=== PATIENT | male | born 1960 | race Caucasian/White ===

== ENCOUNTER 2023-12-23 11:23 | Emergency (ER) | payer BC, SELFPAY ==
[2023-12-23 11:26] VITALS: BP 172/98; PULSE 107; TEMP 37.1; O2SAT 96; BMI 21.7
[2023-12-23 11:32] VITALS: BP 184/91
--- NOTE | 2023-12-23 11:38 | RAD_ITS ---
INDICATION: Trauma EXAMINATION/TECHNIQUE: X-RAY - LEFT XR Knee Complete 4 Views or More 4 VIEWS COMPARISON: No relevant prior comparison study available FINDINGS: SOFT TISSUES: No soft tissue swelling or gas. No radiopaque foreign body. BONES/JOINTS: Hairline nondisplaced fracture of the proximal tibia extending to the tibial spine. Normal alignment. Mild narrowing of the medial joint compartment. Moderate effusion in the suprapatellar joint space. No sclerotic or destructive changes observed. RAD/Knee 4 or More Views IMPRESSION: 1. Nondisplaced intra-articular fracture of the proximal tibia. 2. Moderate effusion in the suprapatellar joint space. Electronically Signed: Chema Stanford MD at 12:52 EST ,
--- NOTE | 2023-12-23 11:38 | RAD_ITS ---
INDICATION: trauma EXAMINATION/TECHNIQUE: X-RAY - RIGHT XR Foot Min 3 Views 3 VIEWS COMPARISON: No relevant prior comparison study available FINDINGS: SOFT TISSUES: No soft tissue swelling or gas. No radiopaque foreign body. BONES/JOINTS: No acute fracture or subluxation.. Normal alignment. Preservation of the joint space.. No sclerotic or destructive changes observed. Small posterior and plantar calcaneal spurs. RAD/Foot min 3 Views IMPRESSION: No evidence of acute fracture. Electronically Signed: Chema Stanford MD at 12:50 EST ,
--- NOTE | 2023-12-23 11:41 | ED.VIS.LOWEX ---
HPI History of Present Illness Chief Complaint: Lower Extremity Injury Narrative Narrative: 63-year-old male who denies significant past medical history presents via EMS with injury to his left knee, and his right second toe. He states that yesterday, at around 2:00 in the afternoon, he was getting ready to go to his laundry when he was walking up 2 stairs. His right second toe caught on the stair and he fell forward onto his left knee. He complains of bruising of his second toe. He was able to hobble around but now has pain with weightbearing on his left knee to the point where he is unable to ambulate. He denies hitting his head or loss of consciousness, no neck pain or other injury. He has been taking ibuprofen without relief. Today when he woke up, he was unable to bear weight at all so he called EMS. PFSH PFSH Home Medications hydrocodone-acetaminophen 5-325mg 5mg-325mg 1 tab PO Q6H PRN PRN Pain 3 days #12 TABLETS 12/23/23 [Rx Last Taken Unknown] Allergy/AdvReac Type Severity Reaction Status Date / Time No Known Allergies Allergy Verified 12/23/23 11:33 Social History Smoking Status: Current every day smoker tobacco type: cigarettes ROS ROS ED ROS Narrative Constitutional: No fever, no chills. HEENT: No sore throat. No neck pain. No loss of vision. No rhinorrhea. Cardiovascular: No chest pain. No palpitations. No pedal edema. Respiratory: No cough, no shortness of breath. Abdominal: No abdominal pain. No nausea. No vomiting. Genitourinary: No dysuria. No hematuria. Musculoskeletal: Right second toe pain, bruising and swelling, left knee pain with mild swelling, below kneecap. Worse with weightbearing. Neurologic: No headaches. No dizziness. No lightheadedness. Skin: No rash. No change in color. Psychiatric: No depression. No anxiety. EXAM Physical Exam Narrative Exam Narrative: Afebrile. Vital signs noted. HEENT: Normocephalic. Atraumatic. PERRL, EOMI. Neck soft and supple. No point tenderness or step off. Cardiovascular: Regular rate and rhythm. No murmurs, rubs, or gallops appreciated. Respiratory: No tachypnea. Lungs clear to auscultation bilaterally. Gastrointestinal: Abdomen soft, nontender, with normoactive bowel sounds. No rebound or guarding. Neurological: Awake. Alert. Nonfocal, nonlateralizing. Skin: No rash. Normal color. No pallor. Musculoskeletal: No pedal edema. Extension and flexion of left knee intact. Able to raise leg off bed. Palpable dorsalis pedis pulses bilaterally. Positive ecchymosis and tenderness of right second toe. Pelvis stable. Const Vital Signs: 12/23/23 11:26 12/23/23 11:32 12/23/23 13:45 Temperature 98.8 F Temperature Source Oral Pulse Rate 107 H 86 Respiratory Rate 20 H Blood Pressure 172/98 H 184/91 H 157/99 H Blood Pressure Mean 122 122 118 Pulse Ox 96 95 Oxygen Delivery Method Room Air Room Air MDM MDM MDM Narrative Medical decision making narrative: In the differential diagnosis for the left knee is tibial plateau fracture versus knee sprain versus internal derangement including meniscal tear of cartilage. For his right second toe, differential includes contusion versus fracture. He was given 1 [place] tablet here for analgesia and x-rays were obtained of the left knee and 4 views and of the right foot and 3 views. On my interpretation of his right foot x-ray, I see no evidence of an acute fracture. I reviewed the radiology report which confirms my independent interpretation. X-rays of the left knee were obtained and there is a subtle fracture noted more distally and posteriorly that is nondisplaced on my interpretation. I reviewed the radiology report which comments on an intra-articular tibial fracture. I discussed patient with Dr. Doyle with orthopedics would like a CT performed of the left knee. I reviewed the radiology report of the CT which shows a nondisplaced hairline fracture of the posterior tibia extending cephalad to the tibial spine. I read discussed patient with orthopedics, and although radiology comments on needing radiographs of the tibia and fibula, the patient is not having pain in that area, and orthopedics stated that old tibia x-ray is not indicated. He would like him placed in a knee immobilizer and made nonweightbearing. He was also given a pair of crutches. I stressed the importance of nonweightbearing on his left lower extremity. He was given a prescription for 12 [place]wood tablets, told to continue ice and elevation of his left leg and to follow-up with orthopedics within the next week. He is to call the office tomorrow for an appointment. At this point in time, I feel he can be discharged to follow-up. Return instructions to the emergency department were reviewed. Disposition is discharged home in stable condition. Radiography Diagnostic Testing: Clinical Impression(s) from Imaging Studies Foot X-Ray 12/23/23 11:38 IMPRESSION: No evidence of acute fracture. Electronically Signed: Chema Stanford MD at 12:50 EST , Knee X-Ray 12/23/23 11:38 IMPRESSION: 1. Nondisplaced intra-articular fracture of the proximal tibia. 2. Moderate effusion in the suprapatellar joint space. Electronically Signed: Chema Stanford MD at 12:52 EST Reading Location ID and State: [facility] / [place] Tel , Service support , Lower Extremity CT 12/23/23 13:11 IMPRESSION: 1. Hairline nondisplaced fracture of the posterior proximal tibial shaft extending cephalad to the region of the tibial spine. 2. Moderate effusion in the suprapatellar joint space. 3. Radiographs of the left tibia and fibula are recommended for further evaluation of the tibial shaft. Electronically Signed: Chema Stanford MD at 14:06 EST , Management Discussion w/another healthcare provider: [employer] (Dr. Doyle, Orthopaedics) Discharge Plan Triage Chief Complaint: Lower Extremity Injury ED Provider: Mikey Beckwith Dx/Rx/DC Orders Clinical Impression: Closed tibia fracture, Sprain of toe, second, right Instructions: ED Leg Fracture, ED Toe Sprain Prescriptions: New hydrocodone-acetaminophen 5-325 mg tablet 1 tab PO Q6H PRN PRN (Reason: Pain) 3 Days Qty: 12 0RF Primary Care Provider: Care Physician,No Primary Referrals: Eric Doyle MD [Med Staff - Active Staff] - 3-5 Days Care Physician,No Primary [Primary Care Provider] - Activity Restrictions/Additional Instructions: Do not bear weight on your left leg. Follow-up with Dr. Doyle within the next week. Call tomorrow for an appointment. Continue ice and elevation of your left lower leg/knee. Wear your knee immobilizer. Disposition Disposition: Home, Self Care
[2023-12-23] MEDS: HYDROcodone Bitartrate/Apap 5/325 Tablet PO (12:07)
--- NOTE | 2023-12-23 13:11 | CT_ITS ---
EXAM: CT LEFT LOWER EXTREMITY WITHOUT INTRAVENOUS CONTRAST, KNEE CLINICAL INDICATION: Fracture TECHNIQUE: Helically acquired images were obtained of the left knee without intravenous contrast. This CT exam was performed using one or more of the following dose reduction techniques: automated exposure control, adjustment of the mA and/or kV according to patient size, and/or use of iterative reconstruction technique. RADIATION DOSE: CTDIvol = 15.35 mGy, DLP = 488.08 mGy-cm COMPARISON: Radiographs of the heel of the same day. FINDINGS: BONES/JOINTS: Hairline nondisplaced fracture of the posterior proximal tibial shaft extending cephalad to the region of the tibial spine. Questionable irregularity of the proximal tibial shaft slightly more inferiorly. The remainder of the osseous structures are intact. Mild narrowing of the medial joint compartment. Moderate effusion in the suprapatellar joint space. No sclerotic or destructive changes. SOFT TISSUES: Vascular calcifications. CT/Extremity Lower without Contra IMPRESSION: 1. Hairline nondisplaced fracture of the posterior proximal tibial shaft extending cephalad to the region of the tibial spine. 2. Moderate effusion in the suprapatellar joint space. 3. Radiographs of the left tibia and fibula are recommended for further evaluation of the tibial shaft. Electronically Signed: Chema Stanford MD at 14:06 EST ,
[2023-12-23 13:45] VITALS: BP 157/99; PULSE 86; RESP 20; O2SAT 95
[2023-12-23 14:59] VITALS: BP 162/81; PULSE 93; RESP 22; TEMP 36.8; O2SAT 95
== END 2023-12-23 15:00 | disposition home or self-care (01) ==
PROVIDERS: Emergency Provider Emergency Medicine; Visit Provider Emergency Medicine
DX: S82.115A Nondisplaced fracture of left tibial spine, initial encounter for closed fracture (principal); F17.210 Nicotine dependence, cigarettes, uncomplicated; W10.9XXA Fall (on) (from) unspecified stairs and steps, initial encounter; S93.504A Unspecified sprain of right lesser toe(s), initial encounter
CPT/HCPCS: 73564; 73630; 73700; 99284

== ENCOUNTER → 2024-12-09 | Outpatient (CLI) | payer BC, SELFPAY ==
--- NOTE | 2024-12-09 16:35 | RAD_ITS ---
PROCEDURE: CHEST PA AND LATERAL REASON FOR EXAM: Rule out pneumonia. TECHNIQUE: Frontal and lateral views of the chest. COMPARISON: None. RAD/Chest PA and Lateral IMPRESSION: A large right upper lobe infiltrate is seen, with smaller right lower lobe infi ltrate also noted this is highly concerning for the presence of PNEUMONITIS. No evidence of pulmonary edema. No pleural effusion or pneumothorax is noted. Cardiomediastinal silhouette is within the normal range. Reading Location: [id number]
== END | disposition home or self-care (01) ==
LOC: RAD 16:32
PROVIDERS: Referring Provider Nurse Practitioner Family; Visit Provider Nurse Practitioner Family
DX: J18.9 Pneumonia, unspecified organism (principal)
CPT/HCPCS: 71046

== ENCOUNTER 2024-12-13 17:37 | Inpatient (IN) | payer BC, SELFPAY ==
[2024-12-13] VITALS (9 sets, daily range): BP systolic 106–144; BP diastolic 52–101; PULSE 54–153; RESP 15–38; TEMP 36.1–36.8; O2SAT 93–98; BMI 21.1
--- NOTE | 2024-12-13 17:55 | RAD_ITS ---
PROCEDURE: CHEST PA AND LATERAL REASON FOR EXAM: Shortness of breath TECHNIQUE: Frontal and lateral views of the chest. COMPARISON: 12/09/2024 FINDINGS: Persistent large right lung airspace disease, greatest in the right upper and right middle lobes, without significant improvement since the previous exam. No pleural effusion or pneumothorax. The cardiomediastinal silhouette is unremarkable. Atherosclerotic calcifications are noted in the thoracic aorta. No acute osseous or soft tissue abnormality. RAD/Chest PA and Lateral IMPRESSION: Persistent large airspace opacity in the right lung, likely due to pneumonia. [facility]
--- NOTE | 2024-12-13 18:47 | EDS_ITS ---
HPI History of Present Illness Chief Complaint: Shortness of Breath Informant: patient Onset/Context/Timing Onset: Days Context: gradual Timing: Continuous Quality: Positive for Dyspnea on exertion Worsened by: Exertion Relieved by: Albuterol Associated Symptoms cough; Negative for ear pain, fever, sore throat, chills, clear sputum, white sputum, yellow sputum or green sputum Chest Pain: Positive for None Narrative Narrative: Patient presents with shortness of breath that has been getting worse over the past week. Patient states he went to an urgent care and was diagnosed with pneumonia. Patient states he has not had any improvement with his breathing since that time. Patient admits to a cough but denies any sputum production. Patient denies any fevers or chills. Patient denies any chest pain. Patient denies any upper respiratory symptoms. Patient denies any ear pain but states he has trouble hearing. PFSH PFSH Medical History no medical history no medical history Home Medications ?Medication ?Instructions ?Recorded ?Last Taken ?Type NK 02/06/24 Unknown History Allergy/AdvReac Type Severity Reaction Status Date / Time No Known Allergies Allergy Verified 01/09/24 14:51 Surgical History no surgical history no surgical history Social History Smoking Status: Current every day smoker tobacco type: cigarettes ROS ROS ED Constitutional Constitutional ED: Denies chills or fever(s) Eyes Eyes: Reports blurry vision; Denies diplopia ENT ENT ED: Denies rhinorrhea or sore throat Cardiovascular Cardiovascular: Denies chest pain or palpitations Respiratory/Chest Respiratory/Chest: Reports cough and dyspnea Gastrointestinal Gastrointestinal: Denies nausea or vomiting Genitourinary Genitourinary ED: Denies dysuria or hematuria Musculoskeletal Musculoskeletal: Denies back pain or neck pain Integumentary Denies abscess or rash Neurologic Neurologic: Denies headache(s) or weakness Allergic/Immunologic Allergic/Immunologic ED: Denies mouth swelling or urticaria EXAM Physical Exam Const Vital Signs: 12/13/24 17:39 12/13/24 17:41 12/13/24 19:17 Temperature 98.1 F 98.1 F 97.3 F L Temperature Source Temporal Temporal Temporal Pulse Rate 77 71 130 H Respiratory Rate 15 16 21 H Respiratory Effort Respiratory Depth Respiratory Pattern Blood Pressure 106/83 H 106/83 H 131/101 H Blood Pressure Mean 90 90 111 Pulse Ox 95 94 98 Oxygen Delivery Method Room Air Room Air Room Air 12/13/24 19:17 12/13/24 19:27 12/13/24 20:11 Temperature 97.2 F L Temperature Source Temporal Pulse Rate 110 H 153 H Respiratory Rate 17 38 H Respiratory Effort Labored Respiratory Depth Shallow Respiratory Pattern Tachypnea Normal Blood Pressure 114/52 L Blood Pressure Mean 72 Pulse Ox 94 Oxygen Delivery Method Room Air Room Air 12/13/24 21:03 Temperature 97.2 F L Temperature Source Temporal Pulse Rate 90 Respiratory Rate 31 H Respiratory Effort Respiratory Depth Respiratory Pattern Blood Pressure 125/77 H Blood Pressure Mean 93 Pulse Ox 94 Oxygen Delivery Method Room Air Positive well nourished and well developed General Appearance ED: well developed and NAD HEENT Reports moist mucous membranes Neck supple and no JVD Resp normal respiratory effort Auscultation: rhonchi throughout Cardio regular rate and regular rhythm GI non-tender and non-distended Palpation: soft Extremity General Extremety ED: Negative for edema General Extremity: Negative for edema Neuro oriented x3, CN's II-XII intact bilaterally and no sensory deficits noted [place] Coma Scale: document GCS findings Spontaneous Obeys Commands Oriented 15 Sensorium / Orientation: alert Motor Exam: strength 5/5 throughout Psych mental status grossly normal MDM MDM MDM Narrative Medical decision making narrative: Differential diagnosis includes pneumonia, bronchitis, viral illness, e lectrolyte abnormality, and sepsis. CBC will be obtained to assess for leukocytosis and anemia. Basic metabolic profile will be obtained to assess for electrolyte abnormality and renal function. Serum lactate will be obtained to assess for sepsis. Blood cultures will be obtained to assess for sepsis. Chest x-ray will be obtained to assess for pneumonia and bronchitis. COVID-19, influenza, and RSV PCR will be obtained to assess for viral illness. Lab Data Attestation: I reviewed the patient's lab results. Lab results narrative: CBC was reviewed. There is a leukocytosis of 16-44. The remainder was within normal limits. Basic metabolic profile was reviewed. Potassium is slightly low at 3.2. BUN was elevated at 60. Glucose was mildly elevated at 184. Serum lactate was reviewed and was normal at 1.9. Labs: Laboratory Results - last 24 hr 12/13/24 19:12 WBC 16.4 H RBC 4.27 L Hgb 13.5 Hct 39.9 L MCV 93.4 MCH 31.6 MCHC 33.8 RDW Std Deviation 49.1 H RDW Coeff of Sarah 14.5 Plt Count 333 MPV 11.4 Neut % (Auto) Not Reportable Absolute Neuts (auto) 14.4 H Absolute Lymphs (auto) 1.96 Total Counted 100 Neutrophils % (Manual) 84 H Band Neutrophils % 4 Lymphocytes % (Manual) 12 L Diff Path Review February foll Sodium 144 Potassium 3.2 L Chloride 113 H Carbon Dioxide 24.0 Anion Gap 7 BUN 60 H Creatinine 1.16 Est GFR (MDRD) Af Amer 81 Est GFR (MDRD) Non-Af 67 BUN/Creatinine Ratio 51.7 H Glucose 184 H Lactic Acid 1.9 Calcium 11.3 H Radiography Chest X-Ray - ED: 2 View, Read by ED Physician, Read by Radiologist and Right Infiltrate Diagnostic Testing: Clinical Impression(s) from Imaging Studies Chest X-Ray 12/13/24 17:55 IMPRESSION: Persistent large airspace opacity in the right lung, likely due to pneumonia. Reading Location: [facility] [place] and lateral chest x-ray was obtained. There are 2 views. On my independent interpretation, there is a right upper lobe consolidated infiltrate. There is no cardiomegaly. Bony thorax is normal. Radiologist also interpreted the x- rays and agrees. EKG Initial EKG: Attestation: I personally reviewed and interpreted this EKG as follows: Interpretation: Atrial Fibrillation (136) and Non-Specific ST Changes Comments: EKG was obtained. On my independent interpretation, shows atrial flutter with variable block. There is a rate of 136. QRS interval was 102 ms. QTc interval was 544 ms. Perryman was normal at 24. There are nonspecific ST-T wave changes. Prior EKG tracings: not available for review Prior: No Prior Additional Tests and Interventions Additional Tests or Interventions: EKG and troponin were added when patient was noted to be tachycardic and irregular. Treatment and Re-Evaluation :: Patient was given a DuoNeb aerosol here. Patient was given Rocephin and Zithromax here. States that patient was given IV fluids. Patient became tachycardic here in the emergency department. EKG was obtained. This showed atrial fibrillation with a rate of 136. Patient was given a dose of Cardizem. Patient's heart rate improved. Patient remained in atrial flutter. Troponin was also added on. Patient was advised of his findings. Case was discussed with the hospitalist. He will admit the patient to PCU. Patient and family understood and were agreeable with the plan. All questions were answered. Discharge Plan Triage Chief Complaint: Shortness of Breath ED Provider: Adam Rucker Dx/Rx/DC Orders Clinical Impression: Pneumonia, Atrial flutter, Hypokalemia Prescriptions: No Action NK Primary Care Provider: Care Physician,No Primary Referrals: Care Physician,No Primary [Primary Care Provider] - Print Language: Danish Disposition Disposition: Acute Care Hospital [facility]
[2024-12-13 19:22] LABS: Hematocrit 39.9 % (40-54); Hemoglobin 13.5 g/dL (13.0-16.5); Mean Corp Hgb Conc 33.8 g/dL (32-36); Mean Corpuscular Hgb 31.6 pg (27.0-32.0); Mean Corpuscular Volume 93.4 fL (80-94); Mean Platelet Vol. 11.4 fl (6.2-12.0); POSITIVE COUNT YES; POSITIVE MORPHOLOGY YES; Platelet Count 333 K/mm3 (150-450); RBC Distribution Width CV 14.5 % (11.6-14.6); RBC Distribution Width SD 49.1 fl (35.1-43.9); Red Blood Count 4.27 M/mm3 (4.6-6.2); White Blood Count 16.4 K/mm3 (4.4-11.0)
[2024-12-13] MEDS: Ceftriaxone 2 GM in 0.9% Normal Saline (50mL MB+) 50 ML IV (19:26)
[2024-12-13] MEDS: Ipratropium/Albuterol Sulfate 3 ML AMPUL.NEB INHALATION (19:27)
[2024-12-13 19:32] LABS: Differential Indicated MANUAL DIFF
[2024-12-13 19:35] LABS: Anion Gap 7 (5-15); BUN 60 mg/dL (7-18); BUN/Creat Ratio 51.7 RATIO (10-20); Calcium,Total 11.3 mg/dL (8.5-10.1); Chloride 113 mmol/L (98-107); Creatinine, Serum 1.16 mg/dL (0.70-1.30); EST Glomerular Filtration Rate 67 mL/min (>60); Est Glom Filt Rate - Afr Amer 81 mL/min (>60); Glucose 184 mg/dL (74-106); Potassium 3.2 mmol/L (3.5-5.1); Sodium Level 144 mmol/L (136-145)
[2024-12-13 19:53] LABS: Lymphocyte 12 % (19-41); Neutrophil-Band 4 % (0-5); Neutrophil-Segmented 84 % (47-70); Total Cells Counted 100 (MANUAL DIFF)
[2024-12-13 19:54] LABS: Absolute Neutrophil Count 14.4 X10^3/uL (2.0-7.7)
[2024-12-13 19:55] LABS: Absolute Lymphocyte Count 1.96 X10^3/uL (0.83-4.51)
[2024-12-13 19:58] LABS: Lactic Acid 1.9 mmol/L (0.4-1.9)
--- NOTE | 2024-12-13 20:04 | EKG12_ITS ---
Test Reason : SOB Blood Pressure : */* mmHG Vent. Rate : 136 BPM Atrial Rate : 312 BPM P-R Int : * ms QRS Dur : 102 ms QT Int : 362 ms P-R-T Axes : * 24 259 degrees QTcB Int : 544 ms Atrial flutter with variable A-V block Moderate voltage criteria for LVH, may be normal variant ( Sokolow-Redman , [place] product ) Marked ST abnormality, possible lateral subendocardial injury Abnormal ECG Confirmed by ENRICO NELSON, ABBE ([id number]), assignment editor NINA MOON ([id number]) on 12/15/2024 8:23:30 AM Referred By: Confirmed By: ABBE WESTON MD
[2024-12-13] MEDS: Azithromycin 500 MG in 0.9% Normal Saline (250mL Bag) 250 ML 255 MG IV (20:08)
--- NOTE | 2024-12-13 20:10 | ED.RN ---
no old ekg
[2024-12-13] MEDS: dilTIAZem 25 MG/5 ML Vial IV BOLUS (20:38)
[2024-12-13] MEDS: 0.9% Normal Saline (1000mL) 1,000 ML 1000 ML IV (20:38)
--- NOTE | 2024-12-13 21:06 | PCM.HP.STD ---
HPI - General General Date of Admission: 12/13/24 Date of Service: 12/13/24 Chief Complaint: SOB, Palpitations and Confusion. HPI Narrative CHRISTINA DEWITT, is a 64 M with past medical history of chronic tobacco abuse and closed tibial plateau fracture after fall; treated nonoperatively (11/2023) who presents to [facility] ER complaining of shortness of breath, palpitations and confusion. Mr. Dewitt reports the symptoms began approximately 1 week prior to admission with a gradual onset of dyspnea on exertion that progressed to shortness of breath at rest in addition to nonproductive cough. Patient states he went to urgent care and was diagnosed with pneumonia and treated with a penicillin-based antibiotic but has not improved since finishing treatment so he decided to come in for further evaluation and treatment. He admits to shortness of breath and cough and blurry vision with clinical evidence of significant confusion but he denies fever, chills, nausea, vomiting, diarrhea or headache. Shortly after arrival he was noted to be in Atrial Flutter; with Rapid Ventricular Response at ~130-150 bpm after he received a breathing treatment for which he was immediately started on IV diltiazem with good subsequent rate control. In the ER he underwent chest x-ray which revealed persistent large airspace opacity in the Right lung, likely due to Pneumonia with the corresponding Leukocytosis of 16.4 K present on admission complicated by Hypercalcemia of 11.3 mg/dL present on admission in the setting of Chronic Tobacco Abuse worrisome for possible underlying malignancy compounded by Hypokalemia of 3.2 mmol/L present on admission and Hyperglycemia of 184 mg/dL present on admission suggestive of underlying DM-2 in addition to possible PUD with serum creatinine of 1.16 mg/dL and BUN of 60 mg/dL all culminating to cause Acute Metabolic Encephalopathy. He was then admitted to the PCU for ongoing care for status is expected to extend beyond 2 midnights. [facility] Medical History no medical history Home Medications ?Medication ?Instructions ?Recorded ?Last Taken ?Type NK 02/06/24 Unknown History Allergy/AdvReac Type Severity Reaction Status Date / Time No Known Allergies Allergy Verified 01/09/24 14:51 Surgical History no surgical history Social History Smoking Status: Current every day smoker tobacco type: cigarettes ROS ROS Narrative Review of Systems: Constitutional: Patient is obviously moderately confused but he denies fever or chills. Eyes: Patient admits to blurry vision but he denies discharge from eyes. ENT: Patient denies runny nose, sore throat or ear pain. Resp: Patient admits to shortness of breath and nonproductive cough as per HPI. CV: Patient admits to palpitations and heart racing coinciding with his atrial flutter with rapid ventricular response in ER. He denies chest pain. GI: Patient denies abdominal pain, nausea, vomiting, diarrhea or constipation. : Patient denies dysuria, hematuria urinary frequency. MSK: Patient denies arthralgias or myalgias. Skin: Patient denies rash, abscess, wounds or jaundice. Psych: Patient denies symptoms of uncontrolled depression or anxiety. Neuro: Patient is obviously moderately confused but he denies headache, paresthesias or focal neurologic deficits. Allergy: Patient denies lip swelling, tongue swelling or urticaria. Hematology: Patient denies easy bleeding or easy bruisability. Endocrinology: Patient denies polyuria, polydipsia or polyphagia. 14 point review of systems otherwise negative except for positives noted above in HPI. Vital Signs Vital Signs Vital Signs: 12/13/24 17:39 12/13/24 17:41 12/13/24 19:17 Temperature 98.1 F 98.1 F 97.3 F L Temperature Source Temporal Temporal Temporal Pulse Rate 77 71 130 H Respiratory Rate 15 16 21 H Respiratory Effort Respiratory Depth Respiratory Pattern Blood Pressure 106/83 H 106/83 H 131/101 H Blood Pressure Mean 90 90 111 Pulse Ox 95 94 98 Oxygen Delivery Method Room Air Room Air Room Air 12/13/24 19:17 12/13/24 19:27 12/13/24 20:11 Temperature 97.2 F L Temperature Source Temporal Pulse Rate 110 H 153 H Respiratory Rate 17 38 H Respiratory Effort Labored Respiratory Depth Shallow Respiratory Pattern Tachypnea Normal Blood Pressure 114/52 L Blood Pressure Mean 72 Pulse Ox 94 Oxygen Delivery Method Room Air Room Air 12/13/24 21:03 Temperature 97.2 F L Temperature Source Temporal Pulse Rate 90 Respiratory Rate 31 H Respiratory Effort Respiratory Depth Respiratory Pattern Blood Pressure 125/77 H Blood Pressure Mean 93 Pulse Ox 94 Oxygen Delivery Method Room Air Weight Weight: 155 lb 10.342 oz Body Mass Index (BMI) 21.1 Physical Exam Const alert, no apparent distress and average body habitus Constitutional Narrative: Patient is alert and able to respond but he is obviously confused and constantly has to be redirected. General Appearance: cooperative HEENT normocephalic, head/scalp atraumatic, hearing grossly normal bilaterally and moist oral mucous membranes Eyes PERRL, EOMs intact bilaterally and conjunctivae normal Neck no lymphadenopathy, supple and no JVD Resp normal respiratory effort Resp Narrative: Patient has diminished breath sounds over the Right lung field with scattered rhonchi throughout. Auscultation: rhonchi Cardio Cardio Narrative: Occasionally irregular at ~100 bpm on IV diltiazem. GI normal to inspection, nondistended, normoactive bowel sounds, soft to palpation, non-tender and non-distended Extremity normal to inspection, full ROM and no clubbing, cyanosis or edema Skin Skin Narrative: Patient has evidence of rash, abscess, wounds or jaundice. Neuro oriented x3, CN's II-XII intact bilaterally, moves all extremities and no focal motor deficits Sensorium / Orientation: awake, alert, oriented to person and oriented to place Speech: speech normal Psych affect normal Results Medical Records Data Attestation: I reviewed the patient's medical records Lab / Micro Data Attestation: I reviewed the patient's lab results. 12/14/24 04:05 12/14/24 04:05 Labs: Laboratory Results - last 24 hr 12/13/24 19:12: WBC 16.4 H, RBC 4.27 L, Hgb 13.5, Hct 39.9 L, MCV 93.4, MCH 31.6, MCHC 33.8, RDW Std Deviation 49.1 H, RDW Coeff of Sarah 14.5, Plt Count 333, MPV 11.4, Neut % (Auto) Not Reportable, Absolute Neuts (auto) 14.4 H, Absolute Lymphs (auto) 1.96, Total Counted 100, Neutrophils % (Manual) 84 H, Band Neutrophils % 4, Lymphocytes % (Manual) 12 L, Diff Path Review February, Sodium 144, Potassium 3.2 L, Chloride 113 H, Carbon Dioxide 24.0, Anion Gap 7, BUN 60 H, Creatinine 1.16, Est GFR (MDRD) Af Amer 81, Est GFR (MDRD) Non-Af 67, BUN/Creatinine Ratio 51.7 H, Glucose 184 H, Lactic Acid 1.9, Calcium 11.3 H Micro: Microbiology 12/13/24 19:12 Mucosa - Nose SARS-CoV-2, Influenza & RSV (PCR) - Final Imaging Radiology Impression Chest X-Ray 12/13/24 17:55 IMPRESSION: Persistent large airspace opacity in the right lung, likely due to pneumonia. Reading Location: [facility] Imaging Services [address] [place] [address] [id number] Chest WITH Contrast MR#: [id number] Acct: [id number] Name: RENATECHRISTINA D Rep #: [id number] : 1960 M 64 From: Sabina Yap MD PCP: Care Physician,No Primary Status: ADM IN Study: Chest WITH Contrast Date of Exam: 12/13/24 Exam# [id number] Ordering Dr: Casper Brito DO PROCEDURE: CHEST WITH CONTRAST REASON FOR EXAM: Pneumonia with chest x-ray with hypercalcemia. Eval for mass. TECHNIQUE: Chest CT with intravenous contrast. COMPARISON: 12/13/2024 FINDINGS: Lungs/Pleura:There is a large consolidative opacity in the right upper lobe with air bronchograms present. There is also intra- and interlobular septal thickening with superimposed ground-glass opacity (crazy paving) which extends into the right lower lobe and apical region of the right upper lobe. Trace opacities are present in the right middle lobe. There is no discrete mass lesion, however, the area of consolidation may be obscuring a mass.No pleural effusion or pneumothorax. Cardiovascular:The heart is normal in size.No significant coronary artery calcifications are identified.The aorta and pulmonary arteries are unremarkable. Pericardium:No effusion. Mediastinum:Unremarkable. Lymph nodes:A right hilar lymph node is enlarged measuring 1.3 cm in short axis. Bones:No acute osseous abnormality. Soft tissues:Unremarkable. Upper abdomen:Unremarkable. CT/Chest WITH Contrast IMPRESSION: 1. Large consolidative pulmonary opacity in the right upper lobe with additional surrounding intra-and interlobular septal thickening on a background of ground-glass opacity (crazy paving pattern) multifocally throughout the right lung. No discrete pulmonary mass lesion is identified, however, invasive mucinous adenocarcinoma of the lung can have this type of large, irregular consolidative appearance, or an occult mass can be obscured by consolidation. Otherwise, pneumonia is the primary differential consideration. The differential for crazy paving is broad and includes pneumonia, pulmonary edema/ARDS and pulmonary alveolar proteinosis. 2. Mildly enlarged right hilar lymph node, possibly reactive. Reading Location: [facility] CC: Dr. Casper Brito, DO; No Primary Care Physician ~ Shuttle Fitting Supervisor: Signed [facility] Imaging Services [address] [place] [id number] Abdomen/Pelvis WITH Contrast MR#: [id number] Acct: [id number] Name: CHRISTINA DEWITT Stone Rep #: [id number] : 1960 M 64 From: Sabina Yap MD PCP: Care Physician,No Primary Status: ADM IN Study: Abdomen/Pelvis WITH Contrast Date of Exam: 12/13/24 Exam# [id number] Ordering Dr: Casper Brito DO PROCEDURE: ABDOMEN/PELVIS WITH CONTRAST REASON FOR EXAM: Wide BUN/creatinine ratio of 51.7 suggest of PUD TECHNIQUE: Abdomen and pelvis CT with intravenous contrast. Multiplanar reconstructions performed. COMPARISON: 12/13/2024 FINDINGS: Lower chest: Large airspace opacity present in the partially visualized right upper lobe and right lower lobe and slightly within the right middle lobe. Liver: The liver is enlarged measuring 22.9 cm in craniocaudal dimension. Biliary/gallbladder: Sludge present in the gallbladder lumen. Pancreas: Unremarkable. Spleen: Unremarkable. Adrenal glands: Unremarkable. Kidneys: No renal calculus or hydronephrosis. Gastrointestinal/peritoneum: No acute abnormality.The appendix is unremarkable.No free air or free fluid. Vascular: Moderate scattered atherosclerotic calcifications are present. Lymph nodes: No enlarged lymph nodes by CT size criteria. Pelvic organs: Unremarkable. Bladder: Unremarkable. Bones: Unremarkable. Soft tissues: Unremarkable. CT/Abdomen/Pelvis WITH Contrast IMPRESSION: 1. No acute abnormality of the abdomen and pelvis. 2. Large pulmonary airspace disease partially visualized in the right lung base, especially the right upper lobe. 3. Hepatomegaly. 4. Sludge in the gallbladder lumen. Reading Location: [facility] CC: Dr. Casper Brito DO; No Primary Care Physician ~ Shuttle Fitting Supervisor: Signed [facility] Imaging Services [address] [place] [place], [place] [id number] Brain/Head W/WO Contrast MR#: [id number] Acct: [id number] Name: CHRISTINA DEWITT Rep #: [id number] : 1960 M 64 From: Fred Hunt MD PCP: Care Physician,No Primary Status: ADM IN Study: Brain/Head W/WO Contrast Date of Exam: 12/14/24 Exam# [id number] Ordering Dr: Casper Brito DO EXAM: BRAIN/HEAD W/WO CONTRAST CLINICAL HISTORY: Confusion COMPARISON: None. TECHNIQUE: CT images of the head with multiplanar reconstructions with with intravenous contrast. Dose reduction techniques were used including intermediate exposure control (AEC),iterative reconstruction technique, and/or mA and/or KV dose adjustments based on patient's size. FINDINGS: CT HEAD FINDINGS: No acute intracranial hemorrhage, mass, mass effect, midline shift or pathologic extra-axial fluid collection. No hydrocephalus. Age- appropriate cerebral volume and white matter. No abnormal enhancement. Visualized paranasal sinuses and mastoid air cells are clear. The calvarium is grossly intact. CT/Brain/Head W/WO Contrast IMPRESSION: No CT evidence of acute intracranial pathology. Reading Location: [facility] CC: Dr. Casper Brito DO; No Primary Care Physician ~ Shuttle Fitting Supervisor: Signed Assessment & Plan Assessment/Plan (1) Pneumonia: QUALIFIERS: Laterality: right Lung location: unspecified part of lung Pneumonia type: due to unspecified organism Qualified Code(s): J18.9 - Pneumonia, unspecified organism (2) 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: (3) Atrial flutter: QUALIFIERS: Atrial flutter type: atypical Qualified Code(s): I48.4 - Atypical atrial flutter (4) Hypercalcemia: (5) Tobacco abuse: (6) Elevated BUN: (7) Hyperglycemia: (8) Hypokalemia: (9) Acute metabolic encephalopathy: PLAN: Plan 1. Right-sided Pneumonia; with failed outpatient antibiotic treatment in the setting of Chronic Tobacco Abuse - Admit to PCU. Continue empiric IV Rocephin and IV azithromycin begun in ER and await culture and sensitivity data. Check urinary antigens for Streptococcus pneumonia and Legionella. Check extended viral respiratory panel in the setting of current outbreak of influenza A. Start scheduled Mucinex 1,200 mg p.o. twice daily. Give acetaminophen as needed for prco-ye-sdohqhuk (level 1-5/10) pain or fever. Give morphine IV as needed for severe (level 6-10/10) pain. We checked CTA of chest to further evaluate pneumonia that has failed outpatient antibiotic treatment with results noting large consolidative pulmonary opacity in RUL with additional surrounding intra and interlobular septal thickening on a background of ground-glass opacity (crazy paving pattern) multifocally throughout the Right lung no discrete pulmonary mass lesion is identified, however, invasive mucinous adenocarcinoma of the lung can have this type of large, irregular consolidative appearance or an occult mass can be obscured by consolidation along with a mildly enlarged ~1.3 cm Right hilar lymph node, possibly reactive. Finally, due to abnormal CT findings consultation will be placed for windows application packager evaluation in a.m. for consideration regarding bronchoscopy this admission with help appreciated in advance. 2. Atrial Flutter; with RVR complicating #1 - Continue IV diltiazem again in the ER with a goal to keep heart rate less than 100 bpm. Check TSH to evaluate for possible underlying hypothyroidism. Check echocardiogram to evaluate LVEF. We will avoid blood thinners at this time due to #4. 3. Hypercalcemia of 11.3 mg/dL present on admission with a history of Chronic Tobacco Abuse compounding #1 & #2 - Give NS IVF and recheck level in AM to ensure improvement. Check CTA of chest with IV contrast to evaluate for possible underlying mass. Check PSA to evaluate for possible malignancy along with CT of abdomen pelvis to evaluate for possible mass. Check vitamin D levels to evaluate for possible hypervitaminosis d. Finally, when patient's sensorium clears tobacco cessation will be strongly encouraged with nicotine patch offered to control cravings. 4. Possible PUD with serum creatinine of 1.16 mg/dL and BUN of 60 mg/dL with BUN/creatine ratio of 51.7 present on admission adding to the medical complexity of #1 - #3 - Start pantoprazole 40 mg IV twice daily plus check Hemoccult. Keep n.p.o. for now. Check iron studies and ferritin. We will avoid blood thinners at this time in an effort to prevent potential episode of severe bleeding. Finally, if patient's Hemoccult returns positive or he shows any evidence of bleeding from his GI tract we will consult gastroenterology. 5. Hyperglycemia of 184 mg/dL present on admission suggestive of underlying DM-2 adding to the burden of disease outlined from #1 - #4 - Check HgbA1c to confirm suspicion. 6. Hypokalemia of 3.2 mmol/L present on admission - Give supplemental KCl and then recheck level in AM to confirm repletion. 7. Severe Hypoalbuminemia of 1.6 g/dL present on admission suggestive of severe acute protein calorie malnutrition - Add Ensure to meals once GI bleeding is ruled out. Finally, we will consult clinical dietitian sees patient on rounds in the a.m. for formal malnutrition workup with help appreciated in advance. 8. Acute Metabolic Encephalopathy attributable to #1 - #7 - Check CT scan of the head this admission. Check TSH, B12, folate, UDS and VALENTIN to evaluate for reversible causes of confusion. Otherwise, continue care plan as outlined above and monitor for improvement. 9. History of closed tibial plateau fracture after fall; treated nonoperatively (11/2023) - Noted. 10. DVT prophylaxis - SCD's only at this time until PUD/GI bleed ruled out. Total time: Approximately (but not less than) 75 minutes. Charges/Coding Visit Charges Inpatient E&M: 66427 Init Hosp L3
[2024-12-13 21:24] LABS: Troponin-I HS (w/2H Reflex) 8 pg/mL (3.0-78.0)
[2024-12-13] MEDS: Potassium Chloride Oral Tablet 20 MEQ 40 MEQ PO (21:30)
[2024-12-13 22:26] LABS: Magnesium 2.3 mg/dL (1.6-2.6)
--- NOTE | 2024-12-13 22:27 | CT_ITS ---
PROCEDURE: ABDOMEN/PELVIS WITH CONTRAST REASON FOR EXAM: Wide BUN/creatinine ratio of 51.7 suggest of PUD TECHNIQUE: Abdomen and pelvis CT with intravenous contrast. Multiplanar reconstructions performed. COMPARISON: 12/13/2024 FINDINGS: Lower chest: Large airspace opacity present in the partially visualized right upper lobe and right lower lobe and slightly within the right middle lobe. Liver: The liver is enlarged measuring 22.9 cm in craniocaudal dimension. Biliary/gallbladder: Sludge present in the gallbladder lumen. Pancreas: Unremarkable. Spleen: Unremarkable. Adrenal glands: Unremarkable. Kidneys: No renal calculus or hydronephrosis. Gastrointestinal/peritoneum: No acute abnormality.The appendix is unremarkable.No free air or free fluid. Vascular: Moderate scattered atherosclerotic calcifications are present. Lymph nodes: No enlarged lymph nodes by CT size criteria. Pelvic organs: Unremarkable. Bladder: Unremarkable. Bones: Unremarkable. Soft tissues: Unremarkable. CT/Abdomen/Pelvis WITH Contrast IMPRESSION: 1. No acute abnormality of the abdomen and pelvis. 2. Large pulmonary airspace disease partially visualized in the right lung base , especially the right upper lobe. 3. Hepatomegaly. 4. Sludge in the gallbladder lumen. Reading Location: [facility]
--- NOTE | 2024-12-13 22:30 | CT_ITS ---
PROCEDURE: CHEST WITH CONTRAST REASON FOR EXAM: Pneumonia with chest x-ray with hypercalcemia. Eval for mass. TECHNIQUE: Chest CT with intravenous contrast. COMPARISON: 12/13/2024 FINDINGS: Lungs/Pleura:There is a large consolidative opacity in the right upper lobe with air bronchograms present. There is also intra- and interlobular septal thickening with superimposed ground-glass opacity (crazy paving) which extends into the right lower lobe and apical region of the right upper lobe. Trace opacities are present in the right middle lobe. There is no discrete mass lesion, however, the area of consolidation may be obscuring a mass.No pleural effusion or pneumothorax. Cardiovascular:The heart is normal in size.No significant coronary artery calcifications are identified.The aorta and pulmonary arteries are unremarkable. Pericardium:No effusion. Mediastinum:Unremarkable. Lymph nodes:A right hilar lymph node is enlarged measuring 1.3 cm in short axis. Bones:No acute osseous abnormality. Soft tissues:Unremarkable. Upper abdomen:Unremarkable. CT/Chest WITH Contrast IMPRESSION: 1. Large consolidative pulmonary opacity in the right upper lobe with additiona l surrounding intra-and interlobular septal thickening on a background of ground-glass opacity (crazy paving pattern) multi focally throughout the right lung. No discrete pulmonary mass lesion is identified, however, invasive mucinous adenocarcinoma of the lung can have this type of large, irregular consolidative appearance, or an occult mass can be obscured by consolidation. Otherwise, pneumonia is the primary differential consideration. The differential for crazy paving is broad and includes pneumon ia, pulmonary edema/ARDS and pulmonary alveolar proteinosis. 2. Mildly enlarged right hilar lymph node, possibly reactive. Reading Location: [facility]
[2024-12-13 23:07] LABS: Reflex Troponin-HS? (from REC) Y
[2024-12-13 23:14] LABS: Cholesterol 122 mg/dL (200); High Density Lipoprotein 12 mg/dL; PSA,Total - Annual Screen 0.43 ng/mL (0.00-4.00); Triglycerides 181 mg/dL; Troponin-I HS 9 pg/mL (3.0-78.0); Very Low Density Lipoprotein 36 mg/dL (5-40)
[2024-12-14] MEDS: Pantoprazole Sodium 40 MG in 0.9% Normal Saline (100mL MB+) 100 ML 330 MG IV ×2 (00:01→08:38)
[2024-12-14] MEDS: KCL 20MEQ in 0.9% NS 20 MEQ/1,000 ML IV.SOLN. 100 MEQ IV (00:02)
--- NOTE | 2024-12-14 00:04 | CT_ITS ---
EXAM: BRAIN/HEAD W/WO CONTRAST CLINICAL HISTORY: Confusion COMPARISON: None. TECHNIQUE: CT images of the head with multiplanar reconstructions with with intravenous contrast. Dose reduction techniques were used including intermediate exposure control (AEC),iterative reconstruction technique, and/or mA and/or KV dose adjustments based on patient's size. FINDINGS: CT HEAD FINDINGS: No acute intracranial hemorrhage, mass, mass effect, midline shift or pathologic extra-axial fluid collection. No hydrocephalus. Age- appropriate cerebral volume and white matter. No abnormal enhancement. Visualized paranasal sinuses and mastoid air cells are clear. The calvarium is grossly intact. CT/Brain/Head W/WO Contrast IMPRESSION: No CT evidence of acute intracranial pathology. Reading Location: [facility]
[2024-12-14 00:08] LABS: Hemoglobin A1c 5.5 % (3.8-5.6)
[2024-12-14 01:02] LABS: Alcohol, Blood (Medical)-Serum < 3.0 mg/dL
[2024-12-14] MEDS: KCL 40mEq in 0.9% NS 40 MEQ/1,000 ML IV.SOLN 100 MEQ IV ×2 (01:06→12:45)
[2024-12-14 01:07] LABS: CPK Total, Creatine Kinase 35 U/L (39-308)
[2024-12-14 02:30] LABS: Amphetamine Urine NEGATIVE (<1000 ng/mL); Barbiturate Urine VISTA NEGATIVE (< 200 ng/mL); Benzodiazepine Urine VISTA NEGATIVE (< 200 ng/mL); Cocaine Urine VISTA NEGATIVE (< 300 ng/mL); Ecstacy Urine VISTA NEGATIVE (< 500 ng/mL); Methadone Urine VISTA NEGATIVE (< 300 ng/mL); PCP Urine VISTA NEGATIVE (< 25 ng/mL); THC Urine VISTA NEGATIVE (< 50 ng/mL); Vista UDS pH Range 5
[2024-12-14 05:06] LABS: Basophil# 0.05 X10^3/uL; Eosinophil# 0.04 X10^3/uL; Hematocrit 33.8 % (40-54); Hemoglobin 11.2 g/dL (13.0-16.5); Mean Corp Hgb Conc 33.1 g/dL (32-36); Mean Corpuscular Hgb 31.5 pg (27.0-32.0); Mean Corpuscular Volume 94.9 fL (80-94); Mean Platelet Vol. 11.5 fl (6.2-12.0); Monocyte# 0.21 X10^3/uL; NRBC Flagged by Analyzer 0 % (0-5); POSITIVE COUNT YES; POSITIVE MORPHOLOGY YES; Platelet Count 311 K/mm3 (150-450); RBC Distribution Width CV 14.6 % (11.6-14.6); RBC Distribution Width SD 50.4 fl (35.1-43.9); Red Blood Count 3.56 M/mm3 (4.6-6.2); White Blood Count 13.3 K/mm3 (4.4-11.0)
[2024-12-14 05:11] VITALS: BP 153/76; PULSE 96; RESP 18; TEMP 37.2; O2SAT 97
[2024-12-14 05:17] LABS: Differential Indicated SCAN CRITERIA MET
[2024-12-14 06:44] LABS: ALB/GLOB Ratio 0.4 RATIO (0.9-2.4); AST(SGOT) 180 U/L (15-37); Alanine Aminotransfer ALT/SGPT 145 U/L (16-61); Albumin, Serum 1.6 g/dL (3.2-5.0); Alkaline Phosphatase 159 U/L (45-117); Anion Gap 8 (5-15); BUN 45 mg/dL (7-18); BUN/Creat Ratio 50.7 RATIO (10-20); Calcium,Total 9.9 mg/dL (8.5-10.1); Chloride 117 mmol/L (98-107); Creatinine, Serum 0.89 mg/dL (0.70-1.30); EST Glomerular Filtration Rate 91 mL/min (>60); Est Glom Filt Rate - Afr Amer 111 mL/min (>60); Estimated Creatinine Clearance 80.52 ml/min; Globulin 4.5 g/dL (2.2-4.2); Glucose 111 mg/dL (74-106); Phosphorus 3.2 mg/dL (2.5-4.9); Potassium 3.4 mmol/L (3.5-5.1); Protein, Total 6.1 g/dL (6.4-8.2); Sodium Level 148 mmol/L (136-145)
[2024-12-14 06:51] VITALS: O2SAT 94
[2024-12-14 07:07] LABS: Lymphocyte 14 % (19-41); Metamyelocyte 2 % (0-1); Neutrophil-Segmented 84 % (47-70); Platelet Estimate ADEQUATE (ADEQ); Red Cell Morphology NORM C+C NORMAL (NORM C&C); Total Cells Counted 100 (MANUAL DIFF)
[2024-12-14 07:08] LABS: Scan Smear per Review Criteria MANUAL DIFF
[2024-12-14 07:09] LABS: Absolute Lymphocyte Count 1.86 X10^3/uL (0.83-4.51); Absolute Neutrophil Count 11.1 X10^3/uL (2.0-7.7); Lymphocyte # 1.86 X10^3/ul (0.83-4.51)
[2024-12-14 08:36] VITALS: BP 127/72; PULSE 107; RESP 18; TEMP 37.1; O2SAT 95
[2024-12-14] MEDS: Cholecalciferol (Vit D3) 125 MCG CAPSULE (5,000 UNITS) PO (08:39)
[2024-12-14] MEDS: Zinc Sulfate 50 mg zinc (220 mg) ORAL capsule PO (08:39)
[2024-12-14] MEDS: Ascorbic Acid 500 MG Tablet 1000 MG PO ×2 (08:39→16:29)
[2024-12-14] MEDS: guaiFENesin 1,200 MG Tablet 1200 MG PO ×2 (08:39→21:30)
[2024-12-14] MEDS: Lactobacillis Acidophilus 1 CAP PO ×3 (08:40→21:30)
--- NOTE | 2024-12-14 10:03 | PN.HOSP_ITS ---
Subjective Subjective No issues overnight, doing little bit better. Still confused as to the year but knows where he is and who he is Objective Data Objective Data Vital Signs: Vital Signs Temp Pulse Resp BP Pulse Ox O2 Del Method 98.8 F 107 H 18 127/72 H 95 Room Air 12/14/24 08:36 12/14/24 08:36 12/14/24 08:36 12/14/24 08:36 12/14/24 08:36 12/14/24 09:02 Oxygen Delivery Method Room Air Weight: 151 lb 10.848 oz Body Mass Index (BMI) 20.0 Intake & Output: Intake and Output for Last 24 Hours 12/13/24 12/14/24 12/15/24 03:59 03:59 03:59 Intake Total 1536.67 / 1536.67 230 / 230 Balance 1536.67 / 1536.67 230 / 230 Lab / Micro Data 12/14/24 04:05 12/14/24 04:05 Labs: Laboratory Results - last 24 hr 12/13/24 17:00: Magnesium 2.3 12/13/24 19:12: WBC 16.4 H, RBC 4.27 L, Hgb 13.5, Hct 39.9 L, MCV 93.4, MCH 31.6, MCHC 33.8, RDW Std Deviation 49.1 H, RDW Coeff of Sarah 14.5, Plt Count 333, MPV 11.4, Neut % (Auto) Not Reportable, Absolute Neuts (auto) 14.4 H, Absolute Lymphs (auto) 1.96, Total Counted 100, Neutrophils % (Manual) 84 H, Band Neutrophils % 4, Lymphocytes % (Manual) 12 L, Diff Path Review February, Sodium 144, Potassium 3.2 L, Chloride 113 H, Carbon Dioxide 24.0, Anion Gap 7, BUN 60 H , Creatinine 1.16, Est GFR (MDRD) Af Amer 81, Est GFR (MDRD) Non-Af 67, B UN/Creatinine Ratio 51.7 H, Glucose 184 H, Hemoglobin A1c 5.5, Lactic Acid 1.9, Calcium 11.3 H, Troponin I High Sens 8 12/13/24 21:35: Troponin I High Sens 9, Triglycerides 181, Cholesterol 122, LDL Cholesterol 74, VLDL Cholesterol 36, HDL Cholesterol 12 L, PSA Screen 0.43, TSH 1.870 02/16/25 00:38: Total Creatine Kinase 35 L, Ethyl Alcohol < 3.0, Blood Type A POSITIVE, Antibody Screen NEGATIVE 12/14/24 02:04: Urine Opiates Screen NEGATIVE, Urine Methadone Screen NEGATIVE, Ur Barbiturates Screen NEGATIVE, Ur Phencyclidine Scrn NEGATIVE, Ur Amphetamines Screen NEGATIVE, MDMA (Ecstasy) Screen NEGATIVE, U Benzodiazepines Scrn NEGATIVE, Urine Cocaine Screen NEGATIVE, U Cannabinoids Screen NEGATIVE, Ur Drug Screen Comment 12/14/24 04:05: WBC 13.3 H, RBC 3.56 L, Hgb 11.2 L, Hct 33.8 L, MCV 94.9 H, MCH 31.5, MCHC 33.1, RDW Std Deviation 50.4 H, RDW Coeff of Sarah 14.6, Plt Count 311, MPV 11.5, Immature Gran % (Auto) AIR SUPPORT OPERATIONS OPERATOR, Neut % (Auto) AIR SUPPORT OPERATIONS OPERATOR, Lymph % (Auto) AIR SUPPORT OPERATIONS OPERATOR, Love % (Auto) AIR SUPPORT OPERATIONS OPERATOR, Eos % (Auto) AIR SUPPORT OPERATIONS OPERATOR, Baso % (Auto) AIR SUPPORT OPERATIONS OPERATOR, Absolute Neuts (auto) 11.1 H, Absolute Lymphs (auto) 1.86, Total Counted 100, Neutrophils % (Manual) 84 H, L ymphocytes % (Manual) 14 L, Metamyelocytes % 2 H, Nucleated RBC % 0, Diff Path Review February, Platelet Estimate ADEQUATE, RBC Morphology NORM C+C, Sodium 148 H, Potassium 3.4 L, Chloride 117 H, Carbon Dioxide 23.0, Anion Gap 8, BUN 45 H, Creatinine 0.89, Estim Creat Clear Calc 80.52, Est GFR (MDRD) Af Amer 111, Est GFR (MDRD) Non-Af 91, BUN/Creatinine Ratio 50.7 H, Glucose 111 H, Calcium 9.9, Phosphorus 3.2, Total Bilirubin 0.50, AST 180 H, ALT 145 H, Alkaline Phosphatase 159 H, Total Protein 6.1 L, Albumin 1.6 L, Globulin 4.5 H, Albumin/Globulin Ratio 0.4 L, Folate 25.40 Micro: Microbiology 12/14/24 02:04 Urine, Clean Catch Legionella Antigen - Final 12/14/24 02:04 Urine, Clean Catch Streptococcus pneumoniae Antigen (M - Final Streptococcus pneumonia Ag 12/13/24 23:40 Mucosa - Nasopharyngeal Respiratory Panel (PCR) - Final 12/14/24 00:45 Stool Stool Occult Blood (NATALIO) - Final 12/13/24 19:12 Mucosa - Nose SARS-CoV-2, Influenza & RSV (PCR) - Final Radiography Diagnostic Testing: Radiology Impression Chest X-Ray 12/13/24 17:55 IMPRESSION: Persistent large airspace opacity in the right lung, likely due to pneumonia. Reading Location: [facility] Abdomen/Pelvis CT 12/13/24 22:27 IMPRESSION: 1. No acute abnormality of the abdomen and pelvis. 2. Large pulmonary airspace disease partially visualized in the right lung base, especially the right upper lobe. 3. Hepatomegaly. 4. Sludge in the gallbladder lumen. Reading Location: [facility] Chest CT 12/13/24 22:30 IMPRESSION: 1. Large consolidative pulmonary opacity in the right upper lobe with additional surrounding intra-and interlobular septal thickening on a background of ground-glass opacity (crazy paving pattern) multifocally throughout the right lung. No discrete pulmonary mass lesion is identified, however, invasive mucinous adenocarcinoma of the lung can have this type of large, irregular consolidative appearance, or an occult mass can be obscured by consolidation. Otherwise, pneumonia is the primary differential consideration. The differential for crazy paving is broad and includes pneumonia, pulmonary edema/ARDS and pulmonary alveolar proteinosis. 2. Mildly enlarged right hilar lymph node, possibly reactive. Reading Location: [facility] Brain CT 12/14/24 00:04 IMPRESSION: No CT evidence of acute intracranial pathology. Reading [facility] Physical Exam Narrative General: Alert, Oriented x2, Cooperative, No apparent distress HEENT: Atraumatic, PERRLA, EOMI, Normocephalic Oral: Moist Mucosa Neck: Supple, No JVD Lungs: Diminished, Normal air movement, No rhonchi, No wheeze, No rales Cardiovascular: Regular rate, irregular rhythm, Normal S1, Normal S2, No murmurs Abdomen: Soft, Non Tender, Non-Distended, No Hepato-splenomegaly Extremities: No edema, Capillary Refill Less than 3 Seconds Skin: No rashes, No breakdown Musculoskeletal: No Tenderness to Palpation of Joints or Extremities Neurological: No focal neurological deficits, Motor Exam 5/5 strength throughout, Sensory exam intact to light touch and pain Psych/Mental Status: Normal Affect, Appropriate Assessment & Plan Assessment/Plan (1) Pneumonia: QUALIFIERS: Pneumonia type: due to unspecified organism L aterality: right Lung location: unspecified part of lung Qualified Code(s): J 18.9 - Pneumonia, unspecified organism (2) Atrial flutter: QUALIFIERS: Atrial flutter type: atypical Qualified Code(s): I 48.4 - Atypical atrial flutter (3) Acute metabolic encephalopathy: PLAN: Plan 1. Acute metabolic encephalopathy secondary to right sided pneumonia ? Unclear if there is also possible cancer per the CT chest read therefore pulmonology has been consulted for possible bronc and biopsy, he does have hypercalcemia of 11.3 on admission which quickly resolved with IV fluids ? Vitamin D is pending for evaluation of the transient hypercalcemia ? Continue with antibiotics ? It does appear, according to the son, that his confusion is improving with antibiotics ? Sputum cultures pending, antigen testing demonstrates strep pneumonia 2. New onset a flutter with RVR ? RVR has resolved but he still remains in an irregular rhythm ? Will start him on oral metoprolol to control his heart rate ? Echocardiogram is pending DVT: SCDs Charges/Coding Visit Charges Inpatient E&M: 47525 Subs Hosp L2
[2024-12-14 13:53] VITALS: BP 129/72; PULSE 89; RESP 16; TEMP 37; O2SAT 92
[2024-12-14] MEDS: Ensure Plus High Protein 120 ML LIQUID PO (16:29)
--- NOTE | 2024-12-14 16:58 | PCMCONS.TICU ---
HPI Consult Data Date of Consult: 12/14/24 HPI Narrative HPI Narrative: CHRISTINA DEWITT, is a 64 M who presents [facility] Medical History no medical history Home Medications ?Medication ?Instructions ?Recorded ?Last Taken ?Type NK 02/06/24 Unknown History Allergy/AdvReac Type Severity Reaction Status Date / Time No Known Allergies Allergy Verified 01/09/24 14:51 Surgical History no surgical history Social History Smoking Status: Current every day smoker tobacco type: cigarettes Objective Data Objective Data Vital Signs: Vital Signs Last response Temperature 37.0 C 12/14/24 13:53 Temperature Source Oral 12/14/24 13:53 Pulse Rate 89 12/14/24 13:53 Respiratory Rate 16 12/14/24 13:53 Respiratory Effort Normal 12/14/24 05:14 Respiratory Depth Normal 12/14/24 13:12 Respiratory Pattern Normal 12/14/24 13:12 Blood Pressure 129/72 H 12/14/24 13:53 Blood Pressure Mean 91 12/14/24 13:53 Pulse Ox 92 12/14/24 13:53 Oxygen Delivery Method Room Air 12/14/24 13:53 I&O: I&O Last 24 Hours 12/13/24 12/14/24 12/14/24 23:59 11:59 23:59 Intake Total 1305 / 1425 1461.67 / 1461.67 Balance 1305 / 1425 1461.67 / 1461.67 I&O: Total Stay 12/13/24 17:37 thru 12/14/24 11:27 Intake Total 2766.67 Balance 2766.67 Current Meds Ordered / Administered: Current meds ordered / Administered Generic Name Dose Route Start Last Admin Trade Name Freq PRN Reason Stop Dose Admin Acetaminophen 650 mg 12/13/24 22:30 Acetaminophen 325 Mg Tablet PO Q6H PRN PRN Pain 1-10 Or Fever>100.7 Al Hydroxide/Mg Hydroxide 30 ml 12/13/24 22:30 Mag Hydrox/Al Hydrox/Simeth 30 Ml Udc PO Q6H PRN PRN Gastric Burning Albuterol Sulfate 2.5 mg 12/13/24 22:30 Albuterol 2.5 Mg/3 Ml Vial.Neb. INHALATION Q2H PRN PRN SOB &/OR WHEEZING Ascorbic Acid 1,000 mg 12/14/24 08:00 12/14/24 16:29 Ascorbic Acid 500 Mg Tablet PO 1,000 mg BIDCM VERONIKA Administration Cholecalciferol 125 mcg 12/14/24 10:00 12/14/24 08:39 Cholecalciferol (Vit D3) 125 Mcg Capsule (5,000 Units) PO 125 mcg DAILY VERONIKA Administration Guaifenesin 1,200 mg 12/14/24 10:00 12/14/24 08:39 Guaifenesin 1,200 Mg Tablet PO 1,200 mg BID VERONIKA Administration Ceftriaxone Sodium 1 gm in 50 mls @ 100 mls/hr 12/14/24 22:00 Rocephin IV 2200 VERONIKA Azithromycin 500 mg/ Sodium 255 mls @ 255 mls/hr 12/14/24 22:00 Chloride IV 2200 [facility] Sodium Chloride 100 mls @ 15 mls/hr 12/13/24 23:09 IV .Q6H40M PRN Saline Flush Sodium Chloride 100 mls @ 15 mls/hr 12/13/24 23:09 IV .Q6H40M PRN Additional IVPB Infusion Potassium Chloride/Sodium Chloride 40 meq in 1,000 mls @ 100 mls/hr 12/14/24 00:15 12/14/24 12:45 IV 12/14/24 20:14 100 mls/hr .Q10H VERONIKA Administration Protocol Magnesium Hydroxide 30 ml 12/13/24 22:30 Magnesium Hydroxide 30 Ml Udc PO DAILY PRN PRN Constipation Melatonin 3 mg 12/13/24 22:30 Melatonin 3 Mg Tablet PO QHS PRN PRN INSOMNIA Nicotine 14 mg 12/13/24 22:30 12/14/24 08:39 Nicotine 14 Mg Patch TD 14 mg DAILY VERONIKA Administration Nutritional Formula (Lactose Free) 120 ml 12/14/24 18:00 12/14/24 16:29 Ensure Plus High Protein 120 Ml Liquid PO 120 ml 4X/DAY VERONIKA Administration Pantoprazole Sodium 40 mg 12/15/24 10:00 Pantoprazole Sodium 40 Mg Tablet PO DAILY [facility] Promethazine HCl 25 mg 12/13/24 22:30 Promethazine 25 Mg/Ml Syringe IM Q6H PRN PRN Nausea/Vomiting Sodium Chloride 10 - 40 ml 12/13/24 23:09 0.9% Saline Lock 10 Ml Syringe IV UD PRN SALINE FLUSH Zinc Sulfate 50 mg 12/14/24 10:00 12/14/24 08:39 Zinc Sulfate 50 Mg Zinc (220 Mg) Oral Capsule PO 50 mg DAILY VERONIKA Administration Lab / Micro Data 12/14/24 04:05 12/14/24 04:05 Labs: Laboratory Results - last 24 hr 12/13/24 17:00: Magnesium 2.3 12/13/24 19:12: WBC 16.4 H, RBC 4.27 L, Hgb 13.5, Hct 39.9 L, MCV 93.4, MCH 31.6, MCHC 33.8, RDW Std Deviation 49.1 H, RDW Coeff of Sarah 14.5, Plt Count 333, MPV 11.4, Neut % (Auto) Not Reportable, Absolute Neuts (auto) 14.4 H, Absolute Lymphs (auto) 1.96, Total Counted 100, Neutrophils % (Manual) 84 H, Band Neutrophils % 4, Lymphocytes % (Manual) 12 L, Diff Path Review February, Sodium 144, Potassium 3.2 L, Chloride 113 H, Carbon Dioxide 24.0, Anion Gap 7, BUN 60 H, Creatinine 1.16, Est GFR (MDRD) Af Amer 81, Est GFR (MDRD) Non-Af 67, BUN/Creatinine Ratio 51.7 H, Glucose 184 H, Hemoglobin A1c 5.5, Lactic Acid 1.9, Calcium 11.3 H, Troponin I High Sens 8 12/13/24 21:35: Troponin I High Sens 9, Triglycerides 181, Cholesterol 122, LDL Cholesterol 74, VLDL Cholesterol 36, HDL Cholesterol 12 L, PSA Screen 0.43, TSH 1.870 12/14/24 00:38: Total Creatine Kinase 35 L, Ethyl Alcohol < 3.0, Blood Type A POSITIVE, Antibody Screen NEGATIVE 12/14/24 02:04: Urine Opiates Screen NEGATIVE, Urine Methadone Screen NEGATIVE, Ur Barbiturates Screen NEGATIVE, Ur Phencyclidine Scrn NEGATIVE, Ur Amphetamines Screen NEGATIVE, MDMA (Ecstasy) Screen NEGATIVE, U Benzodiazepines Scrn NEGATIVE, Urine Cocaine Screen NEGATIVE, U Cannabinoids Screen NEGATIVE, Ur Drug Screen Comment 12/14/24 04:05: WBC 13.3 H, RBC 3.56 L, Hgb 11.2 L, Hct 33.8 L, MCV 94.9 H, MCH 31.5, MCHC 33.1, RDW Std Deviation 50.4 H, RDW Coeff of Sarah 14.6, Plt Count 311, MPV 11.5, Immature Gran % (Auto) DELINQUENT TAX COLLECTION ASSISTANT, Neut % (Auto) DELINQUENT TAX COLLECTION ASSISTANT, Lymph % (Auto) DELINQUENT TAX COLLECTION ASSISTANT, [place] % (Auto) DELINQUENT TAX COLLECTION ASSISTANT, Eos % (Auto) DELINQUENT TAX COLLECTION ASSISTANT, Baso % (Auto) DELINQUENT TAX COLLECTION ASSISTANT, Absolute Neuts (auto) 11.1 H, Absolute Lymphs (auto) 1.86, Total Counted 100, Neutrophils % (Manual) 84 H, Lymphocytes % (Manual) 14 L, Metamyelocytes % 2 H, Nucleated RBC % 0, Diff Path Review February, Platelet Estimate ADEQUATE, RBC Morphology NORM C+C, Sodium 148 H, Potassium 3.4 L, Chloride 117 H, Carbon Dioxide 23.0, Anion Gap 8, BUN 45 H, Creatinine 0.89, Estim Creat Clear Calc 80.52, Est GFR (MDRD) Af Amer 111, Est GFR (MDRD) Non-Af 91, BUN/Creatinine Ratio 50.7 H, Glucose 111 H, Calcium 9.9, Phosphorus 3.2, Total Bilirubin 0.50, AST 180 H, ALT 145 H, Alkaline Phosphatase 159 H, Total Protein 6.1 L, Albumin 1.6 L, Globulin 4.5 H, Albumin/Globulin Ratio 0.4 L, Folate 25.40 Micro: Microbiology 12/14/24 02:04 Urine, Clean Catch Legionella Antigen - Final 12/14/24 02:04 Urine, Clean Catch Streptococcus pneumoniae Antigen (M - Final Streptococcus pneumonia Ag 12/13/24 23:40 Mucosa - Nasopharyngeal Respiratory Panel (PCR) - Final 12/14/24 00:45 Stool Stool Occult Blood (NATALIO) - Final 12/13/24 19:12 Mucosa - Nose SARS-CoV-2, Influenza & RSV (PCR) - Final Imaging Radiology Impression Chest X-Ray 12/13/24 17:55 IMPRESSION: Persistent large airspace opacity in the right lung, likely due to pneumonia. Reading Location: [facility] Abdomen/Pelvis CT 12/13/24 22:27 IMPRESSION: 1. No acute abnormality of the abdomen and pelvis. 2. Large pulmonary airspace disease partially visualized in the right lung base, especially the right upper lobe. 3. Hepatomegaly. 4. Sludge in the gallbladder lumen. Reading Location: [facility] Chest CT 12/13/24 22:30 IMPRESSION: 1. Large consolidative pulmonary opacity in the right upper lobe with additional surrounding intra-and interlobular septal thickening on a background of ground-glass opacity (crazy paving pattern) multifocally throughout the right lung. No discrete pulmonary mass lesion is identified, however, invasive mucinous adenocarcinoma of the lung can have this type of large, irregular consolidative appearance, or an occult mass can be obscured by consolidation. Otherwise, pneumonia is the primary differential consideration. The differential for crazy paving is broad and includes pneumonia, pulmonary edema/ARDS and pulmonary alveolar proteinosis. 2. Mildly enlarged right hilar lymph node, possibly reactive. Reading Location: [facility] Brain CT 12/14/24 00:04 IMPRESSION: No CT evidence of acute intracranial pathology. [facility] Assessment and Plan . Assessment and plan: HPI 64 yo male smoker admitted 12/13/24 w/ dyspnea. He has wes poorly for some time, but is not a very good historian. Noted atrial fib/flutter w/ tachycardia in ED. Breathing RA and afebrile. Lab significant for mild leukocytosis, elevated LFT, hypercalcemia, hypoalbuminemia. CT chest reveals significant GGO in the right lung w/ more extensive areas of consolidation in RUL, RML. He has received IVF and IV ABX. Now converted to NSR. CX NGTD, but urine pneumococcal AG is (+) He is awake and alert, but confused. He does not appear acutely ill. EXAM GEN NAD VS as above HEENT o/p clear NECK no JVD COR RRR CHEST bronchial w/ crackles on right ABD soft EXT thin, no edema SKIN w/d ALETHEA NF, awake and responsive IMP 1. Extensive airspace disease on the right - likely resolving pneumococcal PNA 2. Tobacco use 3. Atrial fibrillation / flutter 4. Hypercalcemia 5. Metabolic encephalopathy 6. Elevated LFT 7. Hypoalbuminemia PLAN -receiving IV ABX -IVF for hypercalcemia -will need close f/u w/ repeat CT chest several weeks from now to assess clearing -would avoid inhaled albuterol for now -check BNP - unclear if there is a background of pulmonary edema -would obtain TTE - r/o pericardial disease, etc. -defer anti-coagulation to IM -tobacco cessation The entirety of this encounter was done via Telemedicine
--- NOTE | 2024-12-14 17:59 | PCMCONS.TICU ---
HPI Consult Data Date of Consult: 12/14/24 HPI Narrative HPI Narrative: CHRISTINA DEWITT, is a 64 M who presents [facility] Medical History no medical history Home Medications ?Medication ?Instructions ?Recorded ?Last Taken ?Type NK 02/06/24 Unknown History Allergy/AdvReac Type Severity Reaction Status Date / Time No Known Allergies Allergy Verified 01/09/24 14:51 Surgical History no surgical history Social History Smoking Status: Current every day smoker tobacco type: cigarettes Objective Data Objective Data Vital Signs: Vital Signs Last response Temperature 37.0 C 12/14/24 13:53 Temperature Source Oral 12/14/24 13:53 Pulse Rate 89 12/14/24 13:53 Respiratory Rate 16 12/14/24 13:53 Respiratory Effort Normal 12/14/24 05:14 Respiratory Depth Normal 12/14/24 13:12 Respiratory Pattern Normal 12/14/24 13:12 Blood Pressure 129/72 H 12/14/24 13:53 Blood Pressure Mean 91 12/14/24 13:53 Pulse Ox 92 12/14/24 13:53 Oxygen Delivery Method Room Air 12/14/24 13:53 I&O: I&O Last 24 Hours 12/13/24 12/14/24 12/14/24 23:59 11:59 23:59 Intake Total 1305 / 1425 1461.67 / 1461.67 Balance 1305 / 1425 1461.67 / 1461.67 I&O: Total Stay 12/13/24 17:37 thru 12/14/24 11:27 Intake Total 2766.67 Balance 2766.67 Current Meds Ordered / Administered: Current meds ordered / Administered Generic Name Dose Route Start Last Admin Trade Name Freq PRN Reason Stop Dose Admin Acetaminophen 650 mg 12/13/24 22:30 Acetaminophen 325 Mg Tablet PO Q6H PRN PRN Pain 1-10 Or Fever>100.7 Al Hydroxide/Mg Hydroxide 30 ml 12/13/24 22:30 Mag Hydrox/Al Hydrox/Simeth 30 Ml Udc PO Q6H PRN PRN Gastric Burning Albuterol Sulfate 2.5 mg 12/13/24 22:30 Albuterol 2.5 Mg/3 Ml Vial.Neb. INHALATION Q2H PRN PRN SOB &/OR WHEEZING Ascorbic Acid 1,000 mg 12/14/24 08:00 12/14/24 16:29 Ascorbic Acid 500 Mg Tablet PO 1,000 mg BIDCM VERONIKA Administration Cholecalciferol 125 mcg 12/14/24 10:00 12/14/24 08:39 Cholecalciferol (Vit D3) 125 Mcg Capsule (5,000 Units) PO 125 mcg DAILY VERONIKA Administration Guaifenesin 1,200 mg 12/14/24 10:00 12/14/24 08:39 Guaifenesin 1,200 Mg Tablet PO 1,200 mg BID VERONIKA Administration Ceftriaxone Sodium 1 gm in 50 mls @ 100 mls/hr 12/14/24 22:00 Rocephin IV 2200 VERONIKA Azithromycin 500 mg/ Sodium 255 mls @ 255 mls/hr 12/14/24 22:00 Chloride IV 2200 [facility] Sodium Chloride 100 mls @ 15 mls/hr 12/13/24 23:09 IV .Q6H40M PRN Saline Flush Sodium Chloride 100 mls @ 15 mls/hr 12/13/24 23:09 IV .Q6H40M PRN Additional IVPB Infusion Potassium Chloride/Sodium Chloride 40 meq in 1,000 mls @ 100 mls/hr 12/14/24 00:15 12/14/24 12:45 IV 12/14/24 20:14 100 mls/hr .Q10H VERONIKA Administration Protocol Magnesium Hydroxide 30 ml 12/13/24 22:30 Magnesium Hydroxide 30 Ml Udc PO DAILY PRN PRN Constipation Melatonin 3 mg 12/13/24 22:30 Melatonin 3 Mg Tablet PO QHS PRN PRN INSOMNIA Nicotine 14 mg 12/13/24 22:30 12/14/24 08:39 Nicotine 14 Mg Patch TD 14 mg DAILY VERONIKA Administration Nutritional Formula (Lactose Free) 120 ml 12/14/24 18:00 12/14/24 16:29 Ensure Plus High Protein 120 Ml Liquid PO 120 ml 4X/DAY VERONIKA Administration Pantoprazole Sodium 40 mg 12/15/24 10:00 Pantoprazole Sodium 40 Mg Tablet PO DAILY [facility] Promethazine HCl 25 mg 12/13/24 22:30 Promethazine 25 Mg/Ml Syringe IM Q6H PRN PRN Nausea/Vomiting Sodium Chloride 10 - 40 ml 12/13/24 23:09 0.9% Saline Lock 10 Ml Syringe IV UD PRN SALINE FLUSH Zinc Sulfate 50 mg 12/14/24 10:00 12/14/24 08:39 Zinc Sulfate 50 Mg Zinc (220 Mg) Oral Capsule PO 50 mg DAILY VERONIKA Administration Lab / Micro Data 12/14/24 04:05 12/14/24 04:05 Labs: Laboratory Results - last 24 hr 12/13/24 17:00: Magnesium 2.3 12/13/24 19:12: WBC 16.4 H, RBC 4.27 L, Hgb 13.5, Hct 39.9 L, MCV 93.4, MCH 31.6, MCHC 33.8, RDW Std Deviation 49.1 H, RDW Coeff of Sarah 14.5, Plt Count 333, MPV 11.4, Neut % (Auto) Not Reportable, Absolute Neuts (auto) 14.4 H, Absolute Lymphs (auto) 1.96, Total Counted 100, Neutrophils % (Manual) 84 H, Band Neutrophils % 4, Lymphocytes % (Manual) 12 L, Diff Path Review February, Sodium 144, Potassium 3.2 L, Chloride 113 H, Carbon Dioxide 24.0, Anion Gap 7, BUN 60 H, Creatinine 1.16, Est GFR (MDRD) Af Amer 81, Est GFR (MDRD) Non-Af 67, BUN/Creatinine Ratio 51.7 H, Glucose 184 H, Hemoglobin A1c 5.5, Lactic Acid 1.9, Calcium 11.3 H, Troponin I High Sens 8 12/13/24 21:35: Troponin I High Sens 9, Triglycerides 181, Cholesterol 122, LDL Cholesterol 74, VLDL Cholesterol 36, HDL Cholesterol 12 L, PSA Screen 0.43, TSH 1.870 12/14/24 00:38: Total Creatine Kinase 35 L, Ethyl Alcohol < 3.0, Blood Type A POSITIVE, Antibody Screen NEGATIVE 12/14/24 02:04: Urine Opiates Screen NEGATIVE, Urine Methadone Screen NEGATIVE, Ur Barbiturates Screen NEGATIVE, Ur Phencyclidine Scrn NEGATIVE, Ur Amphetamines Screen NEGATIVE, MDMA (Ecstasy) Screen NEGATIVE, U Benzodiazepines Scrn NEGATIVE, Urine Cocaine Screen NEGATIVE, U Cannabinoids Screen NEGATIVE, Ur Drug Screen Comment 12/14/24 04:05: WBC 13.3 H, RBC 3.56 L, Hgb 11.2 L, Hct 33.8 L, MCV 94.9 H, MCH 31.5, MCHC 33.1, RDW Std Deviation 50.4 H, RDW Coeff of Sarah 14.6, Plt Count 311, MPV 11.5, Immature Gran % (Auto) SOFT [employer] ENGRA[employer] HAND, Neut % (Auto) SOFT [employer] ENGRA[employer] HAND, Lymph % (Auto) SOFT MET[employer]RA[employer] HAND, Moffat % (Auto) SOFT METALS ENGRAVER HAND, Eos % (Auto) SOFT METALS ENGRAVER HAND, Baso % (Auto) SOFT METALS ENGRAVER HAND, Absolute Neuts (auto) 11.1 H, Absolute Lymphs (auto) 1.86, Total Counted 100, Neutrophils % (Manual) 84 H, Lymphocytes % (Manual) 14 L, Metamyelocytes % 2 H, Nucleated RBC % 0, Diff Path Review February, Platelet Estimate ADEQUATE, RBC Morphology NORM C+C, Sodium 148 H, Potassium 3.4 L, Chloride 117 H, Carbon Dioxide 23.0, Anion Gap 8, BUN 45 H, Creatinine 0.89, Estim Creat Clear Calc 80.52, Est GFR (MDRD) Af Amer 111, Est GFR (MDRD) Non-Af 91, BUN/Creatinine Ratio 50.7 H, Glucose 111 H, Calcium 9.9, Phosphorus 3.2, Total Bilirubin 0.50, AST 180 H, ALT 145 H, Alkaline Phosphatase 159 H, Total Protein 6.1 L, Albumin 1.6 L, Globulin 4.5 H, Albumin/Globulin Ratio 0.4 L, Folate 25.40 Micro: Microbiology 12/14/24 02:04 Urine, Clean Catch Legionella Antigen - Final 12/14/24 02:04 Urine, Clean Catch Streptococcus pneumoniae Antigen (M - Final Streptococcus pneumonia Ag 12/13/24 23:40 Mucosa - Nasopharyngeal Respiratory Panel (PCR) - Final 12/14/24 00:45 Stool Stool Occult Blood (NATALIO) - Final 12/13/24 19:12 Mucosa - Nose SARS-CoV-2, Influenza & RSV (PCR) - Final Imaging Radiology Impression Chest X-Ray 12/13/24 17:55 IMPRESSION: Persistent large airspace opacity in the right lung, likely due to pneumonia. Reading Location: [facility] Abdomen/Pelvis CT 12/13/24 22:27 IMPRESSION: 1. No acute abnormality of the abdomen and pelvis. 2. Large pulmonary airspace disease partially visualized in the right lung base, especially the right upper lobe. 3. Hepatomegaly. 4. Sludge in the gallbladder lumen. Reading Location: [facility] Chest CT 12/13/24 22:30 IMPRESSION: 1. Large consolidative pulmonary opacity in the right upper lobe with additional surrounding intra-and interlobular septal thickening on a background of ground-glass opacity (crazy paving pattern) multifocally throughout the right lung. No discrete pulmonary mass lesion is identified, however, invasive mucinous adenocarcinoma of the lung can have this type of large, irregular consolidative appearance, or an occult mass can be obscured by consolidation. Otherwise, pneumonia is the primary differential consideration. The differential for crazy paving is broad and includes pneumonia, pulmonary edema/ARDS and pulmonary alveolar proteinosis. 2. Mildly enlarged right hilar lymph node, possibly reactive. Reading Location: [facility] Brain CT 12/14/24 00:04 IMPRESSION: No CT evidence of acute intracranial pathology. Reading Location: [facility] Assessment and Plan . Assessment and plan: Critical Care Time: The entirety of this encounter was done via Telemedicine
[2024-12-14] MEDS: Ceftriaxone 1 GM/50 ML BAG IV (21:31)
[2024-12-14 21:43] VITALS: BP 150/80; PULSE 86; RESP 16; TEMP 36.8; O2SAT 93
[2024-12-14] MEDS: Azithromycin 500 MG in 0.9% Normal Saline (250mL Bag) 250 ML 255 MG IV (22:24)
[2024-12-15] VITALS (8 sets, daily range): BP systolic 145–164; BP diastolic 61–97; PULSE 77–117; RESP 16–18; TEMP 36.8–37.5; O2SAT 86–96
--- NOTE | 2024-12-15 07:23 | ECHOD_ITS ---
Reason For Study Reason For Study: ATRIAL FIBRILLATION Procedure This was a 2D Doppler, Color Flow transthoracic echocardiogram. Exam performed portable in patient room. Left Ventricle Mildly dilated left ventricular cavity. Mild LV concentric hypertrophy. Moderate to severe LV systolic dysfunction. Estimated LVEF 35%. Stage I diastolic dysfunction. Right Ventricle Normal right ventricle. Atria The left atrium is severely enlarged. The right atrium is mildly enlarged. Mitral Valve Mild-Moderate (1-2+) mitral valve insufficiency. Tricuspid Valve Mild tricuspid valve insufficiency. Right ventricular systolic pressure estimated to be 45 mmHg. Aortic Valve Aortic sclerosis, no stenosis. Pulmonic Valve The pulmonic valve is not well visualized. Great Vessels Normal sized aortic root. Pericardium/Pleural No pericardial effusion. MMode/2D Measurements & Calculations LVIDd: 6.2 cm IVSd: 0.89 cm LVOT diam: 2.3 cm LVIDs: 4.8 cm LVPWd: 1.2 cm LVOT area: 4.0 cm2 RVDd: 4.1 cm FS: 22.5 % LAV(MOD-bp): 99.5 ml LVAd ap4: 41.1 cm2 LVAd ap2: 41.0 cm2 LAV(MOD-bp) Indexed: 52.1 ml/m2 LVLd ap4: 9.0 cm LVLd ap2: 9.2 cm LAV(MOD-sp2): 118.0 ml EDV(MOD-sp4): 155.6 ml EDV(MOD-sp2): 151.2 ml LAV(MOD-sp4): 74.2 ml EDV(sp4-el): 158.9 ml EDV(sp2-el): 154.5 ml LVAs ap4: 31.7 cm2 LVAs ap2: 28.9 cm2 LVLs ap4: 8.2 cm LVLs ap2: 8.3 cm ESV(MOD-sp4): 105.0 ml ESV(MOD-sp2): 86.6 ml ESV(sp4-el): 103.9 ml ESV(sp2-el): 85.7 ml EF(MOD-sp4): 32.5 % EF(MOD-sp2): 42.7 % EF(sp4-el): 34.6 % SV(MOD-sp4): 50.6 ml SV(MOD-sp2): 64.6 ml SV(sp4-el): 54.9 ml SI(MOD-sp4): 26.5 ml/m2 SI(MOD-sp2): 33.8 ml/m2 Ao sinus diam: 3.[address] Junction: 2.7 cm LA A4 area: 22.5 cm2 LA dimension(2D): 3.8 cm TAPSE: 2.2 cm RA A4 area: 17.7 cm2 Time Measurements MV dec time: 0.16 sec Doppler Measurements & Calculations MV E max quintin: 96.0 cm/sec Lat Peak E' Quintin: 19.4 cm/sec Med Peak E' Quintin: 10.2 cm/sec MV A max quintin: 87.5 cm/sec E/E' lat: 4.9 E/E' med: 9.4 MV E/A: 1.1 MV dec slope: 612.4 cm/sec2 Ao V2 max: 181.1 cm/sec LV V1 max: 138.1 cm/sec Ao max P.1 mmHg LV V1 max P.6 mmHg Ao V2 mean: 112.0 cm/sec LV V1 mean P.8 mmHg Ao mean P.0 mmHg LV V1 mean: 93.1 cm/sec Ao V2 VTI: 33.2 cm LV V1 VTI: 22.9 cm AV (velocity ratio): 0.69 RHIANNA(I,D): 2.8 cm2 RHIANNA(V,D): 3.1 cm2 SV(LVOT): 92.3 ml PA V2 max: 81.5 cm/sec TR max quintin: 271.9 cm/sec TR max P.6 mmHg ECHO/Echo Complete Interpretation Summary Mildly dilated left ventricular cavity. Mild LV concentric hypertrophy. Moderat e to severe LV systolic dysfunction. Estimated LVEF 35%. Stage I diastolic dysfunction. The left atrium is severely enlarged. The right atrium is mildly enlarged. Mild-Moderate (1-2+) mitral valve insufficiency. Mild tricuspid valve insufficiency. Right ventricular systolic pressure estimated to be 45 mmHg. Ordering Physician: Sp Andino Performed By: Maria Guadalupe Cochran RDCS
[2024-12-15 07:27] LABS: Hematocrit 33.5 % (40-54); Hemoglobin 10.7 g/dL (13.0-16.5); Mean Corp Hgb Conc 31.9 g/dL (32-36); Mean Corpuscular Hgb 31.6 pg (27.0-32.0); Mean Corpuscular Volume 98.8 fL (80-94); Mean Platelet Vol. 11.3 fl (6.2-12.0); POSITIVE COUNT YES; POSITIVE MORPHOLOGY YES; Platelet Count 338 K/mm3 (150-450); RBC Distribution Width CV 14.8 % (11.6-14.6); RBC Distribution Width SD 53.6 fl (35.1-43.9); Red Blood Count 3.39 M/mm3 (4.6-6.2); White Blood Count 12.8 K/mm3 (4.4-11.0)
[2024-12-15 07:29] LABS: Differential Indicated MANUAL DIFF
[2024-12-15 08:06] LABS: Eosinophil 1 % (0-5); Lymphocyte 12 % (19-41); Monocyte 3 % (0-10); Neutrophil-Band 4 % (0-5); Neutrophil-Segmented 80 % (47-70); Total Cells Counted 100 (MANUAL DIFF)
[2024-12-15 08:09] LABS: Atypical Lymphocyte 1+ %
[2024-12-15 08:11] LABS: Absolute Neutrophil Count 10.7 X10^3/uL (2.0-7.7)
[2024-12-15 08:14] LABS: BNP,B-Type NATRIURETIC PEPTIDE 527.7 pg/mL (0-100)
[2024-12-15 08:17] LABS: PTHIN 14.3 pg/mL (18.4-80.1)
[2024-12-15 08:21] LABS: Vitamin B12 > 2000 pg/mL (211-911)
[2024-12-15 08:33] LABS: Anion Gap 4 (5-15); BUN 27 mg/dL (7-18); BUN/Creat Ratio 38.4 RATIO (10-20); Calcium,Total 9.5 mg/dL (8.5-10.1); Chloride 123 mmol/L (98-107); EST Glomerular Filtration Rate 119 mL/min (>60); Est Glom Filt Rate - Afr Amer 145 mL/min (>60); Estimated Creatinine Clearance 89.71 ml/min; Glucose 95 mg/dL (74-106); Sodium Level 150 mmol/L (136-145)
[2024-12-15] MEDS: guaiFENesin 1,200 MG Tablet 1200 MG PO (09:19)
[2024-12-15] MEDS: Lactobacillis Acidophilus 1 CAP PO ×4 (09:19→20:29)
[2024-12-15] MEDS: Ascorbic Acid 500 MG Tablet 1000 MG PO (09:19)
[2024-12-15] MEDS: Cholecalciferol (Vit D3) 125 MCG CAPSULE (5,000 UNITS) PO (09:20)
[2024-12-15] MEDS: Zinc Sulfate 50 mg zinc (220 mg) ORAL capsule PO (09:20)
[2024-12-15] MEDS: Pantoprazole Sodium 40 MG Tablet PO (09:20)
[2024-12-15] MEDS: Dextrose 5%-Water (500mL Bag) 500 ML 60 ML IV (10:26)
--- NOTE | 2024-12-15 11:25 | PN.CC_ITS ---
Assessment & Plan Assessment/Plan (1) Pneumonia: QUALIFIERS: Pneumonia type: due to unspecified organism L aterality: right Lung location: unspecified part of lung Qualified Code(s): J 18.9 - Pneumonia, unspecified organism PLAN: Plan RECOMMENDATIONS: 1. Continue antimicrobials to complete 7 days of therapy. Okay to discharge home on Levaquin. 2. Recommend follow-up CT chest 6 weeks after completing antibiotic treatment course. 3. Perform walking oximetry study prior to consideration for discharge home. 4. The patient should follow-up in the pulmonary medicine clinic 2 weeks after discharge. 5. Outpatient PFTs can be obtained at follow-up. IMPRESSIONS: 1. Shortness of breath Most likely secondary to extensive airspace consolidation noted on CT imaging in the setting of pneumococcal pneumonia. The patient does have a history of tobacco dependency. At this time, the patient is clinically stable. Therefore, recommend that the patient complete a full 7-day treatment course of antimicrobials. I would advocate that we obtain a follow-up CT chest 6 weeks after completion of his antibiotic treatment course. Perform walking oximetry study prior to consideration for discharge home. Ultimately, I would recommend that the patient follow-up in the pulmonary medicine clinic within 2 weeks of discharge. 2. New onset atrial fibrillation with RVR/heart failure with reduced ejection fraction Continue current medical management. Consider referral to cardiology. This note was generated with [employer] dictation software. It may contain incorrect words, spelling, and punctuation that were not noted in checking the note before signing. Subjective Subjective The patient was seen and examined at the bedside this morning. Events from the last 24 hours have been reviewed. The patient is currently afebrile, hemodynamically stable and maintaining appropriate oxygen saturations on room air. White blood cell count is elevated at 13,000 with a hemoglobin of 10.7 g/dL and platelet count of 338,000. Chemistry profile was notable for a sodium of 150, chloride at 123 and normal creatinine. BNP is elevated at 527. Objective Data Objective Data The patient's most recent lab work, culture data and imaging studies have all been personally reviewed. Streptococcal urinary antigen was positive on December 14. Sputum culture is currently pending. Vital Signs: Vital Signs Temp Pulse Resp BP Pulse Ox O2 Del Method 98.3 F 89 16 154/86 H 92 Room Air 12/15/24 08:45 12/15/24 08:45 12/15/24 08:45 12/15/24 08:45 12/15/24 08:45 12/15/24 09:30 Oxygen Delivery Method Room Air Weight: 151 lb 14.376 oz Body Mass Index (BMI) 20.0 Intake & Output: Intake and Output for Last 24 Hours 12/13/24 12/14/24 12/15/24 23:59 23:59 23:59 Intake Total 1305 / 1425 2766.67 / 3006.67 360 / 360 Output Total 350 / 350 Balance 1305 / 1425 2766.67 / 3006.67 Lab / Micro Data Attestation: I reviewed the patient's lab results. 12/15/24 06:35 12/15/24 06:35 Labs: Laboratory Results - last 24 hr 12/14/24 04:05: Vitamin B12 > 2000 H, PTH Intact 14.3 L 12/15/24 06:35: WBC 12.8 H, RBC 3.39 L, Hgb 10.7 L, Hct 33.5 L, MCV 98.8 H, MCH 31.6, MCHC 31.9 L, RDW Std Deviation 53.6 H, RDW Coeff of Sarah 14.8 H, Plt Count 338, MPV 11.3, Neut % (Auto) Not Reportable, Absolute Neuts (auto) 10.7 H, Absolute Lymphs (auto) 1.50, Total Counted 100, Neutrophils % (Manual) 80 H, Band Neutrophils % 4, Lymphocytes % (Manual) 12 L, Monocytes % (Manual) 3, Eosinophils % (Manual) 1, Diff Path Review February, Atypical Lymphocytes 1+, S odium 150 H, Potassium 4.0, Chloride 123 H, Carbon Dioxide 23.0, Anion Gap 4 L, BUN 27 H, Creatinine 0.70, Estim Creat Clear Calc 89.71, Est GFR (MDRD) Af Amer 145, Est GFR (MDRD) Non-Af 119, BUN/Creatinine Ratio 38.4 H, Glucose 95, Calcium 9.5, Phosphorus 3.0, B-Natriuretic Peptide 527.7 H Micro: Microbiology 12/14/24 02:04 Urine, Clean Catch Legionella Antigen - Final 12/14/24 02:04 Urine, Clean Catch Streptococcus pneumoniae Antigen (M - Final Streptococcus pneumonia Ag 12/13/24 23:40 Mucosa - Nasopharyngeal Respiratory Panel (PCR) - Final 12/14/24 00:45 Stool Stool Occult Blood (NATALIO) - Final 12/13/24 19:12 Mucosa - Nose SARS-CoV-2, Influenza & RSV (PCR) - Final Physical Exam Const alert and no apparent distress Constitutional Narrative: Son is present at the bedside. General Appearance: cooperative HEENT normocephalic and head/scalp atraumatic Teeth and Gingiva: poor dentition Eyes PERRL, EOMs intact bilaterally and conjunctivae normal Neck supple General: trachea midline Chest inspection of chest normal Resp normal respiratory effort Auscultation: diminished lung sounds Cardio regular rate and regular rhythm GI normal to inspection, nondistended, normoactive bowel sounds Extremity no clubbing, cyanosis or edema Skin no rashes or lesions noted Neuro CN's II-XII intact bilaterally, moves all extremities and no focal motor deficits Psych cooperative and affect normal Charges/Coding Visit Charges Inpatient E&M: 37132 Subs Hosp L2
--- NOTE | 2024-12-15 11:30 | CASEMGMT ---
ALBERTO BAXTER Face to Face with patient for initial transition planning/care coordination assessment. ALBERTO BAXTER introduced self and role at [facility]. Patient lying in bed, alert and oriented, sister on speaker phone, patient gave permission for CM to complete assessment with sister on speaker phone. Patient willing to participate in assessment and is able to answer all questions appropriately. Care providers, pharmacy, and demographics verified. Strata: 1 PCP: none, list provided Specialists: none Preferred Pharmacy: [facility] Insurance: [place] Prescription Benefit: yes Living Will/HPOA: none LNOK: sons, sister Living Arrangements: Patient lives alone in a mobile home with 2 steps and railing to enter the home. Patient was independent at home Transportation: self, sons, sister DME/HHC: Patient has crutches at home. No previous HHC or SNF. Patient wishes to discharge home. ALBERTO BAXTER encouraged patient to get established with PCP, patient and sister voiced understanding. Discussed possible outpatient therapy at discharge, patient willing to consider, scirpt requested for at discharge. Patient states he has no further needs or concerns at this time. CM to follow for discharge planning needs that may arise. Disposition Plan: Patient to discharge home with family support and follow-up plan in place. Will obtain outpatient therapy script for at discharge. Jacquie CHI, RN, CM
[2024-12-15] MEDS: Carvedilol 6.25 MG Tablet PO ×2 (12:31→17:19)
[2024-12-15] MEDS: APIXABAN 5 MG TABLET PO ×2 (13:28→20:29)
[2024-12-15] MEDS: Ensure Plus High Protein 120 ML LIQUID PO (13:30)
--- NOTE | 2024-12-15 14:32 | PN.HOSP_ITS ---
Subjective Subjective Feels better today, just tired because he has not been sleeping well Objective Data Objective Data Vital Signs: Vital Signs Temp Pulse Resp BP Pulse Ox O2 Del Method 98.4 F 117 H 18 164/96 H 89 Room Air 12/15/24 13:32 12/15/24 13:40 12/15/24 13:40 12/15/24 13:40 12/15/24 13:40 12/15/24 13:40 Oxygen Delivery Method Room Air Weight: 151 lb 14.376 oz Body Mass Index (BMI) 20.0 Intake & Output: Intake and Output for Last 24 Hours 12/14/24 12/15/24 12/16/24 03:59 03:59 03:59 Intake Total 1536.67 / 1536.67 2775 / 2775 120 / 120 Output Total 350 / 350 Balance 1536.67 / 1536.67 2775 / 2775 -230 / -230 Lab / Micro Data 12/15/24 06:35 12/15/24 06:35 Labs: Laboratory Results - last 24 hr 12/14/24 04:05: Vitamin B12 > 2000 H, PTH Intact 14.3 L 12/15/24 06:35: WBC 12.8 H, RBC 3.39 L, Hgb 10.7 L, Hct 33.5 L, MCV 98.8 H, MCH 31.6, MCHC 31.9 L, RDW Std Deviation 53.6 H, RDW Coeff of Sarah 14.8 H, Plt Count 338, MPV 11.3, Neut % (Auto) Not Reportable, Absolute Neuts (auto) 10.7 H, Absolute Lymphs (auto) 1.50, Total Counted 100, Neutrophils % (Manual) 80 H, Band Neutrophils % 4, Lymphocytes % (Manual) 12 L, Monocytes % (Manual) 3, Eosinophils % (Manual) 1, Diff Path Review May foll, Atypical Lymphocytes 1+, S odium 150 H, Potassium 4.0, Chloride 123 H, Carbon Dioxide 23.0, Anion Gap 4 L, BUN 27 H, Creatinine 0.70, Estim Creat Clear Calc 89.71, Est GFR (MDRD) Af Amer 145, Est GFR (MDRD) Non-Af 119, BUN/Creatinine Ratio 38.4 H, Glucose 95, Calcium 9.5, Phosphorus 3.0, B-Natriuretic Peptide 527.7 H Micro: Microbiology 02/17/25 09:25 Sputum, Expectorated/Coughed Gram Stain - Final 12/14/24 02:04 Urine, Clean Catch Legionella Antigen - Final 12/14/24 02:04 Urine, Clean Catch Streptococcus pneumoniae Antigen (M - Final Streptococcus pneumonia Ag 12/13/24 23:40 Mucosa - Nasopharyngeal Respiratory Panel (PCR) - Final 12/14/24 00:45 Stool Stool Occult Blood (NATALIO) - Final 12/13/24 19:12 Mucosa - Nose SARS-CoV-2, Influenza & RSV (PCR) - Final Radiography Diagnostic Testing: Radiology Impression Echocardiogram 12/15/24 07:23 Interpretation Summary Mildly dilated left ventricular cavity. Mild LV concentric hypertrophy. Moderate to severe LV systolic dysfunction. Estimated LVEF 35%. Stage I diastolic dysfunction. The left atrium is severely enlarged. The right atrium is mildly enlarged. Mild-Moderate (1-2+) mitral valve insufficiency. Mild tricuspid valve insufficiency. Right ventricular systolic pressure estimated to be 45 mmHg. Ordering Physician: Sp Andino Performed By: Maria Guadalupe Cochran PEE Physical Exam Narrative General: Alert, Oriented x3, Cooperative, No apparent distress HEENT: Atraumatic, PERRLA, EOMI, Normocephalic Oral: Moist Mucosa Neck: Supple, No JVD Lungs: Diminished, Normal air movement, No rhonchi, No wheeze, No rales Cardiovascular: Regular rate, irregular rhythm, Normal S1, Normal S2, No murmurs Abdomen: Soft, Non Tender, Non-Distended, No Hepato-splenomegaly Extremities: No edema, Capillary Refill Less than 3 Seconds Skin: No rashes, No breakdown Musculoskeletal: No Tenderness to Palpation of Joints or Extremities Neurological: No focal neurological deficits, Motor Exam 5/5 strength throughout, Sensory exam intact to light touch and pain Psych/Mental Status: Normal Affect, Appropriate Assessment & Plan Assessment/Plan (1) Pneumonia: QUALIFIERS: Pneumonia type: due to unspecified organism L aterality: right Lung location: unspecified part of lung Qualified Code(s): J 18.9 - Pneumonia, unspecified organism (2) Atrial flutter: QUALIFIERS: Atrial flutter type: atypical Qualified Code(s): I 48.4 - Atypical atrial flutter (3) Acute metabolic encephalopathy: PLAN: Plan 1. Acute metabolic encephalopathy secondary to right sided pneumonia ?Will plan for an outpatient biopsy if there is no resolution on CT scan 6 weeks after treatment ? Vitamin D is pending for evaluation of the transient hypercalcemia ? Continue with antibiotics ?Metabolic encephalopathy has resolved ? Sputum cultures pending, antigen testing demonstrates strep pneumonia 2. New systolic CHF/new onset A-fib/pulmonary hypertension ?Echo with an EF of 35% stage I diastolic dysfunction with moderate pulmonary hypertension with RVSP of 45 mmHg and severely enlarged left atrium ? Will start him on Coreg 6.25 mg p.o. twice daily ? Continue with Lipitor, LDL 74 ? Will continue with Eliquis, given that his left atrium is enlarged she is likely paroxysmal A-fib and is the first time receiving ? Discussed with the family that he will need to quit smoking and follow-up with cardiology as an outpatient DVT: Eliqumendoza Charges/Coding Visit Charges Inpatient E&M: 96040 Subs Hosp L2
[2024-12-15 16:08] LABS: Pathologist Review Reviewed
[2024-12-15 16:09] LABS: Pathologist Review Reviewed
[2024-12-15] MEDS: Ceftriaxone 1 GM/50 ML BAG IV (20:00)
[2024-12-15] MEDS: Atorvastatin Calcium 40 MG Tablet PO (20:29)
[2024-12-15] MEDS: Azithromycin 500 MG in 0.9% Normal Saline (250mL Bag) 250 ML 255 MG IV (21:00)
[2024-12-16] VITALS (7 sets, daily range): BP systolic 138–148; BP diastolic 72–80; PULSE 71–80; RESP 16–22; TEMP 36.8–36.9; O2SAT 90–97; BMI 20.4
[2024-12-16 07:20] LABS: Absolute Lymphocyte Count 1.72 X10^3/uL (0.83-4.51); Absolute Neutrophil Count 11.8 X10^3/uL (2.0-7.7); Basophil# 0.06 X10^3/uL; Basophil% 0.4 % (0-1); Eosinophil# 0.08 X10^3/uL; Eosinophils% 0.5 % (0-5); Hemoglobin 10.7 g/dL (13.0-16.5); Lymphocyte # 1.72 X10^3/ul (0.83-4.51); Lymphocyte % 11.8 % (19-41); Mean Corp Hgb Conc 31.5 g/dL (32-36); Mean Corpuscular Hgb 30.9 pg (27.0-32.0); Mean Corpuscular Volume 98.3 fL (80-94); Mean Platelet Vol. 11.4 fl (6.2-12.0); Monocyte# 0.34 X10^3/uL; Monocyte% 2.3 % (0-10); NRBC Flagged by Analyzer 0.1 % (0-5); Neutrophil # 11.82 X10^3/uL (2.7-7.7); POSITIVE MORPHOLOGY YES; Platelet Count 440 K/mm3 (150-450); RBC Distribution Width CV 14.3 % (11.6-14.6); RBC Distribution Width SD 51.8 fl (35.1-43.9); Red Blood Count 3.46 M/mm3 (4.6-6.2); White Blood Count 14.6 K/mm3 (4.4-11.0)
[2024-12-16 07:24] LABS: Differential Indicated SCAN CRITERIA MET
[2024-12-16 07:53] LABS: Atypical Lymphocyte 1+ %; Differential Comment SCANNED
[2024-12-16] MEDS: Carvedilol 6.25 MG Tablet PO (08:10)
[2024-12-16] MEDS: Pantoprazole Sodium 40 MG Tablet PO (08:10)
[2024-12-16] MEDS: Lactobacillis Acidophilus 1 CAP PO ×2 (08:10→14:54)
[2024-12-16] MEDS: Ensure Plus High Protein 120 ML LIQUID PO (08:11)
[2024-12-16] MEDS: APIXABAN 5 MG TABLET PO (08:11)
[2024-12-16 08:14] LABS: Anion Gap 5 (5-15); BUN 23 mg/dL (7-18); BUN/Creat Ratio 33.1 RATIO (10-20); Calcium,Total 9.6 mg/dL (8.5-10.1); Chloride 115 mmol/L (98-107); Creatinine, Serum 0.69 mg/dL (0.70-1.30); EST Glomerular Filtration Rate 121 mL/min (>60); Est Glom Filt Rate - Afr Amer 147 mL/min (>60); Estimated Creatinine Clearance 91.28 ml/min; Glucose 101 mg/dL (74-106); Potassium 3.9 mmol/L (3.5-5.1); Sodium Level 144 mmol/L (136-145)
[2024-12-16] MEDS: Furosemide 20 MG Tablet PO (12:16)
--- NOTE | 2024-12-16 14:36 | PCM.DC ---
Discharge Instructions Diet Discharge Diet: Low fat / Low cholesterol and 6 Cup Fluid Restriction DC O2, CPAP, BIPAP needs RN Home O2 Qualification: Home O2 Qualification: Is the patient on home oxygen No 12/16/24 08:04 Home O2 Qualification: AT REST 1- Pulse Ox at rest 94 12/16/24 08:04 Home O2 Qualification: WITH AMBULATION 1- Pulse Ox with ambulation 90 12/16/24 08:04 1- Oxygen Flow Rate with 0 12/16/24 08:04 ambulation 2- Pulse Ox with ambulation 92 12/15/24 13:41 2- Oxygen Flow Rate with 2 12/15/24 13:41 ambulation Home O2 Discharge instructions: No Dressing / Incision Discharge Activity: Return to Normal Activity Dressing / Incision Call your doctor if you observe: Fever of 101 or Higher, Shortness of breath, Dizziness, Fainting spells, Swelling in the ankles, Chest pain and Increased palpitations (irregular heartbeat) Follow Up Care Test Results: Test results from this visit will be discussed in further detail at your follow-up appointment, if applicable. Discharge Plan Admission Admit Date/Time: 12/13/24 22:01 Attending Provider: Sp Andino Primary Care Provider: Care Physician,No Primary Consulting Providers: Livan Nathan; Chapito Randall; Som Hdez; Nicola Arthur; Casper Delgado; Apollo Yañez; John Prince; Keri Wise; Vikas Hernandez; Darrell García; Brendan Metzger; Claudia Lauren; Rigo Arteaga; Martha,Negrita; Jeffery,Arsenio; Suraj,Gabriel; Cesar,Ferny; Jeremias,Marcelino; Estephania Groves; Jamaica Flores; Vidal Musa; Anthony Verde; Helder Belle; Casper Brito Instructions Patient Instructions: AFib Dc, ED CHF Left Side Additional Instructions / Restrictions: Follow-up with pulmonology in a month for pulmonary function testing and repeat CT scan of your chest. You also need to follow-up with your primary care physician to monitor your kidney function given the new medications that you will be started on. I will also provide you with a referral to cardiology given your new systolic CHF Discharge Orders/Prescriptions Prescriptions: New atorvastatin 40 mg Tablet 40 mg PO QHS 30 Days Qty: 30 0RF carvedilol 6.25 mg Tablet 6.25 mg PO BIDCM 30 Days Qty: 60 0RF furosemide 20 mg Tablet 20 mg PO DAILY 30 Days Qty: 30 0RF Eliquis 5 mg Tablet 5 mg PO BID 30 Days Qty: 60 0RF cefdinir 300 mg capsule 300 mg PO BID 4 Days Qty: 8 0RF Referrals / Follow Up: [facility] [Provider Group] Taj Allen MD [Med Staff - Active Staff] - Within 1 Month Care Physician,Paty Primary [Primary Care Provider] - 12/31/24 3:15 pm (Appointment is with Becky Briceno N.P.) Disposition Disposition (needs filled in before D/C Order can be placed): Home, Self Care
--- NOTE | 2024-12-16 14:44 | DS.PCM_ITS ---
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 EMERGENT Consult: No MD Notified: Yes Date Notified: 12/14/24 Time Notified: 06:13 Method of Notification: consulted via intranet Reason For Visit: ATRIAL FLUTTER WITH RVR & PNA Diagnosis Discharge Diagnosis (1) Pneumonia: Status: Acute Code(s): J18.9 - Pneumonia, unspecified organism Qualifiers: Pneumonia type: due to unspecified organism Laterality: right Lung location: unspecified part of lung Qualified Code(s): J18.9 - Pneumonia, unspecified organism (2) Atrial flutter: Status: Acute Code(s): I48.92 - Unspecified atrial flutter Qualifiers: Atrial flutter type: atypical Qualified Code(s): I48.4 - Atypical atrial flutter (3) Acute metabolic encephalopathy: Status: Acute Code(s): G93.41 - Metabolic encephalopathy Medications at Discharge Home Medications apixaban 5 mg tablet (Eliquis) 5 mg PO BID 30 days #60 tabs 12/16/24 atorvastatin 40 mg tablet 40 mg PO QHS 30 days #30 tabs 12/16/24 carvedilol 6.25 mg tablet 6.25 mg PO BIDCM 30 days #60 tabs 12/16/24 cefdinir 300 mg capsule 300 mg PO BID 4 days #8 caps 12/16/24 furosemide 20 mg tablet 20 mg PO DAILY 30 days #30 tabs 12/16/24 Hospital Course Operations None Procedures 2-D Echocardiogram Summary of Care Provided Minutes Spent on Discharge: 35 Hospital Course: Per HPI: CHRISTINA DEWITT, is a 64 M with past medical history of chronic tobacco abuse and closed tibial plateau fracture after fall; treated nonoperatively (11/2023) who presents to [facility] ER complaining of shortness of breath, palpitations and confusion. Mr. Dewitt reports the symptoms began approximately 1 week prior to admission with a gradual onset of dyspnea on exertion that progressed to shortness of breath at rest in addition to nonproductive cough. Patient states he went to urgent care and was diagnosed with pneumonia and treated with a penicillin-based antibiotic but has not improved since finishing treatment so he decided to come in for further evaluation and treatment. He admits to shortness of breath and cough and blurry vision with clinical evidence of significant confusion but he denies fever, chills, nausea, vomiting, diarrhea or headache. Shortly after arrival he was noted to be in Atrial Flutter; with Rapid Ventricular Response at ~130-150 bpm after he received a breathing treatment for which he was immediately started on IV diltiazem with good subsequent rate control. In the ER he underwent chest x- ray which revealed persistent large airspace opacity in the Right lung, likely due to Pneumonia with the corresponding Leukocytosis of 16.4 K present on admission complicated by Hypercalcemia of 11.3 mg/dL present on admission in the setting of Chronic Tobacco Abuse worrisome for possible underlying malignancy compounded by Hypokalemia of 3.2 mmol/L present on admission and Hyperglycemia of 184 mg/dL present on admission suggestive of underlying DM-2 in addition to possible PUD with serum creatinine of 1.16 mg/dL and BUN of 60 mg/dL all culminating to cause Acute Metabolic Encephalopathy. He was then admitted to the PCU for ongoing care for status is expected to extend beyond 2 midnights. Hospital Course: 1. Acute metabolic encephalopathy secondary to right sided pneumonia ?Will plan for an outpatient biopsy if there is no resolution on CT scan 6 weeks after treatment ? Vitamin D is pending for evaluation of the transient hypercalcemia ? Continue with antibiotics ?Metabolic encephalopathy has resolved ? Sputum cultures pending, antigen testing demonstrates strep pneumonia 12/16/2024: I discussed with him the plan for discharge today he expressed understanding of the risks and benefits of going home and would like to go home today. He will need to follow-up with pulmonology as an outpatient for repeat CT scan of his chest which he is aware of. They would also like him to perform pulmonary function testing as an outpatient as well. He did complete azithromycin while here in the hospital and will plan for cefdinir for another 4 days to complete a total of 7 days of treatment 2. Acute systolic CHF/new onset A-fib/pulmonary hypertension ?Echo with an EF of 35% stage I diastolic dysfunction with moderate pulmonary hypertension with RVSP of 45 mmHg and severely enlarged left atrium ? Will start him on Coreg 6.25 mg p.o. twice daily ? Continue with Lipitor, LDL 74 ? Will continue with Eliquis, given that his left atrium is enlarged she is likely paroxysmal A-fib and is the first time it has been noticed ? Discussed with the family that he will need to quit smoking and follow-up with cardiology as an outpatient 12/16/2024: Will continue with Coreg 6.25 mg p.o. twice daily which she has tolerated as well as a low-dose of Lasix 20 mg daily. I did provide paperwork on heart failure and I recommend that he follow-up with cardiology as an outpatient for further monitoring and further interventions. He was placed on Eliquis 5 mg p.o. twice daily secondary to his new onset atrial fibrillation. He is back in normal sinus however given the enlargement of his left atrium it is likely that he has paroxysmal A-fib. Also plan for Lipitor 40 mg p.o. at night secondary to his reduced EF. Given the fact that he rarely sees physicians and has very poor outpatient medical care I felt that we would start on these medications first and once he has shown compliance and understands the severity of his illness can push other treatments as indicated. Physical Exam Narrative General: Alert, Oriented x3, Cooperative, No apparent distress HEENT: Atraumatic, PERRLA, EOMI, Normocephalic Oral: Moist Mucosa Neck: Supple, No JVD Lungs: Diminished, Normal air movement, No rhonchi, No wheeze, No rales Cardiovascular: Regular rate, irregular rhythm, Normal S1, Normal S2, No murmurs Abdomen: Soft, Non Tender, Non-Distended, No Hepato-splenomegaly Extremities: No edema, Capillary Refill Less than 3 Seconds Skin: No rashes, No breakdown Musculoskeletal: No Tenderness to Palpation of Joints or Extremities Neurological: No focal neurological deficits, Motor Exam 5/5 strength throughout, Sensory exam intact to light touch and pain Psych/Mental Status: Normal Affect, Appropriate Weight / BMI Weight Weight: 154 lb 8.705 oz Body Mass Index (BMI) 20.4 ABG / Lab / Microbiology Data 12/16/24 06:34 12/16/24 06:34 Laboratory: Laboratory Results - last 24 hr 12/13/24 19:12: Diff Path Review Reviewed 12/14/24 04:05: Diff Path Review Reviewed 12/16/24 06:34: WBC 14.6 H, RBC 3.46 L, Hgb 10.7 L, Hct 34.0 L, MCV 98.3 H, MCH 30.9, MCHC 31.5 L, RDW Std Deviation 51.8 H, RDW Coeff of Sarah 14.3, Plt Count 440, MPV 11.4, Immature Gran % (Auto) 4.000 H, Neut % (Auto) 81.0 H, Lymph % (Auto) 11.8 L, Stoddard % (Auto) 2.3, Eos % (Auto) 0.5, Baso % (Auto) 0.4, Absolute Neuts (auto) 11.8 H, Absolute Lymphs (auto) 1.72, Nucleated RBC % 0.1, Differential Comment SCANNED, Atypical Lymphocytes 1+, Sodium 144, Potassium 3.9, Chloride 115 H, Carbon Dioxide 24.0, Anion Gap 5, BUN 23 H, Creatinine 0.69 L, Estim Creat Clear Calc 91.28, Est GFR (MDRD) Af Amer 147, Est GFR (MDRD) Non- Af 121, BUN/Creatinine Ratio 33.1 H, Glucose 101, Calcium 9.6 Microbiology: Microbiology 12/15/24 09:25 Sputum, Expectorated/Coughed Gram Stain - Final 12/15/24 09:25 Sputum, Expectorated/Coughed Respiratory Culture - Preliminary Presumptive C albicans 12/14/24 02:04 Urine, Clean Catch Legionella Antigen - Final 12/14/24 02:04 Urine, Clean Catch Streptococcus pneumoniae Antigen (M - Final Streptococcus pneumonia Ag 12/13/24 23:40 Mucosa - Nasopharyngeal Respiratory Panel (PCR) - Final 12/14/24 00:45 Stool Stool Occult Blood (NATALIO) - Final 12/13/24 19:12 Mucosa - Nose SARS-CoV-2, Influenza & RSV (PCR) - Final D/C Instructions Discharge Diet: Low fat / Low cholesterol and 6 Cup Fluid Restriction Call your doctor if you observe: Fever of 101 or Higher, Shortness of breath, Dizziness, Fainting spells, Swelling in the ankles, Chest pain and Increased palpitations (irregular heartbeat) DC O2, CPAP, BIPAP Needs RN Home O2 Qualification: Home O2 Qualification: Is the patient on home oxygen No 12/16/24 08:04 Home O2 Qualification: AT REST 1- Pulse Ox at rest 94 12/16/24 08:04 Home O2 Qualification: WITH AMBULATION 1- Pulse Ox with ambulation 90 12/16/24 08:04 1- Oxygen Flow Rate with 0 12/16/24 08:04 ambulation 2- Pulse Ox with ambulation 92 12/15/24 13:41 2- Oxygen Flow Rate with 2 12/15/24 13:41 ambulation Home O2 Discharge instructions: No Meaningful Use Info Meaningful Use Meaningful Use Diagnoses (Choose all that apply): None applicable Ischemic Stroke Statin Dosing Therapy Reference: STATIN DOSE THERAPY REFERENCE: * Patients > 75 years receive moderate or high dose statin therapy. * Patients 75 years or YOUNGER should receive HIGH intensity statin dose unless contraindicated. You will be required to document reason for non-treatment if statin daily dose does not meet guidelines. HIGH DOSE STATIN THERAPY DAILY Atorvastatin > than or = to 40 mg Rosuvastatin > than or = to 20 mg Amlodipine + Atorvastatin > than or = to 2.5/40 mg Ezetimibe + Simvastatin 10/80 mg Simvastatin 80mg Discharge Plan Admission Admit Date/Time: 12/13/24 22:01 Attending Provider: Sp Andino Primary Care Provider: Care Physician,No Primary Consulting Providers: Livan Nathan; Chapito Randall; Som Hdez; Nicola Arthur; Casper Delgado; Apollo Yañez; John Prince; Keri Wise; Vikas Hernandez; Darrell García; Brendan Metzger; Claudia Lauren; Rigo Arteaga; Negrita Thomas; Arsenio Gil; Gabriel Ruelas; Ferny Guerrero; Marcelino Mcdowell; Estephania Groves; Jamaica Flores; Vidal Musa; Anthony Verde; Helder Belle; Casper Brito Instructions Patient Instructions: AFib Dc, ED CHF Left Side Additional Instructions / Restrictions: Follow-up with pulmonology in a month for pulmonary function testing and repeat CT scan of your chest. You also need to follow-up with your primary care physician to monitor your kidney function given the new medications that you will be started on. I will also provide you with a referral to cardiology given your new systolic CHF Discharge Orders/Prescriptions Prescriptions: New atorvastatin 40 mg Tablet 40 mg PO QHS 30 Days Qty: 30 0RF carvedilol 6.25 mg Tablet 6.25 mg PO BIDCM 30 Days Qty: 60 0RF furosemide 20 mg Tablet 20 mg PO DAILY 30 Days Qty: 30 0RF Eliquis 5 mg Tablet 5 mg PO BID 30 Days Qty: 60 0RF cefdinir 300 mg capsule 300 mg PO BID 4 Days Qty: 8 0RF Referrals / Follow Up: [facility] [Provider Group] Taj Allen MD [Med Staff - Active Staff] - Within 1 Month Care Physician,No Primary [Primary Care Provider] - 12/31/24 3:15 pm (Appointment is with Becky Briceno N.P.) Disposition Disposition (needs filled in before D/C Order can be placed): Home, Self Care Charges/Coding Visit Charges Inpatient E&M: 01389 Disch Hosp >30min
--- NOTE | 2024-12-16 15:21 | CASEMGMT ---
Patient has order for discharge. Patient is discharging on Eliquis, ALBERTO CM called [facility] and copay is $50. Script received for outpatient therapy. RN CM in to discuss needs at discharge. RN CM updated patient regarding Eliquis copay and provided with $10 copay card. RN CM provide patient with script for outpatient therapy and [facility] information. Patient voiced understanding and had no further questions or concerns.
[2024-12-17 09:06] LABS: Pathologist Review Reviewed
[2024-12-17 12:08] LABS: Vitamin D 1,25-Dihydroxy 94.3 pg/mL (24.8-81.5)
== END 2024-12-16 17:11 | disposition home or self-care (01) | DRG 193 ==
LOC: ED 21:41 → PCU 22:16
PROVIDERS: Internal Medicine; Admitting Provider Internal Medicine; Emergency Provider Emergency Medicine; Visit Provider Family Medicine
DX: J18.9 Pneumonia, unspecified organism (principal); G93.41 Metabolic encephalopathy; I50.21 Acute systolic (congestive) heart failure; E43 Unspecified severe protein-calorie malnutrition; I48.4 Atypical atrial flutter; K83.8 Other specified diseases of biliary tract; I27.20 Pulmonary hypertension, unspecified; I48.0 Paroxysmal atrial fibrillation; E11.65 Type 2 diabetes mellitus with hyperglycemia; I08.1 Rheumatic disorders of both mitral and tricuspid valves; I11.0 Hypertensive heart disease with heart failure; E88.09 Other disorders of plasma-protein metabolism, not elsewhere classified; I48.91 Unspecified atrial fibrillation; E87.6 Hypokalemia; E83.52 Hypercalcemia; F17.210 Nicotine dependence, cigarettes, uncomplicated; R59.0 Localized enlarged lymph nodes; Z68.20 Body mass index [BMI] 20.0-20.9, adult; Z79.01 Long term (current) use of anticoagulants; Z79.02 Long term (current) use of antithrombotics/antiplatelets; Z79.899 Other long term (current) drug therapy; Z87.81 Personal history of (healed) traumatic fracture
CPT/HCPCS: 36415; 70470; 71046; 71260; 74177; 80048; 80053; 80061; 80307; 82077; 82274; 82550; 82607; 82652; 82746; 83036; 83605; 83735; 83880; 83970; 84100; 84153; 84443; 84484; 85025; 86850; 86900; 86901; 87070; 87205; 87449; 87631; 87633; 92610; 93005; 93306; 94640; 97162; 97166; 97530; 97802; 99284; Q9967; A4216; G0103; J0696

== ENCOUNTER 2024-12-25 10:48 | Outpatient (RCR) | payer BC, SELFPAY ==
--- NOTE | 2024-12-25 11:58 | HP.OTEVAL ---
Patient's Visit Information Visit Information Visit Information: CHRISTINA DEWITT is a 64 year old M, referred to Occupational Therapy by Dr. Sp Andino MD, with a diagnosis of weakness and metabolic encephalopathy. Date of Evaluation: 12/25/24 Occupational Therapist: Briana Burnham Subjective Subjective: This 64 year old male arrives with dx of weakness as well as metabolic encephalopathy. pt reports he had bronchitis as well as pna. Pt went into hospital originally Dec 13 discharged on the . Pt states he has lost approx 30 pounds since being in hospital until now. Pt went to sons home due to need for assistance with medication management. Pt son not working at this time and is able to be home with pt. Per pt the plan is to stay at sons home for a little bit then go back to his own home. 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 Pt reports increased difficulty breathing due to congestion causing day to day tasks to be more difficult. pt does report he has spirometers at home from hospital and states he has been using them for approx 20 min total a day. pt states he is able to perform his basic self care tasks at this time son will assist with IADL tasks as needed. pt drives and does not use any AD. Objective Objective/Observation: able to walk back to OT section no AD at baseline pt HR 77 bpm and 02 99% ROM ROM Comments: all within normal limits Strength Shoulder: L shoulder flexion 27.5# R shoulder flexion 24.7# Elbow: L bicep 27.2# R bicep 31.4# L tricep 27.5# R tricep 24.6# Supervisor Putty And Caluking: L 65# R 50# Lateral Pinch: L 15# R 15# Tripod Pinch: L 12# R 8# Strength Comments: pt is R hand dominant L ER 24.9# R ER 27.4# Edema Other: none noted and pt denies Sensation Sensation Comments: reports numbness for years pt states Dr in past has told him he has carpal tunnel however no formal nerve conduction study has been complete. L hand all digits 3.61 diminished light touch R hand D1-2 3.84 diminished light touch and all other digits at 3.61 Nine Hole Peg Right: 30 sec Left: 26 sec Quick DASH-Disab of Arm,Shoulder& Hand Quick DASH Score: 9.0900 Goals Goal:: pt will improve B shoulder strength by 5# or more in order to improve overall strength for I in IADL tasks pt will improve B bicep strength by 5# or more in order to improve overall strength for I in IADL tasks pt will improve B outside plant technician strength by 5# or more in order to improve overall strength and I in IADL tasks pt will increase sustained aerobic capacity to task for 30 min duration in order to maximize performance in IADL tasks Goal:: pt will improve quick dash score by 1-2 points or more in order to maximize use of UEs during day to day functional tasks Goal:: pt will demonstrate 100% accuracy in established home program by discharge Rehabilitation General Assessment: This 64 year old male arrives with dx of weakness as well as metabolic encephalopathy. pt presents with decreased overall aerobic capacity as well as strength impacting performance in home management IADL tasks. Pt with recent weight loss and working to incorporate appropriate amount of calories back into day. pt would benefit from OT services 1x a week for 4 weeks in order to provide tailored training in an appropriate home exercise program to meet pt needs while assuring HR and 02 remain in normal limits due to recent loss in weight. Rehabilitation Potential: Good Anticipated Interventions Anticipated Interventions: Strengthening, Education re assistive Equipment, Education re Diagnosis and Home Program Visit Plan Frequency: 1x/Week Duration: 4 Weeks General Plan: strengthening aerobic capacity training home program implementation TEXT: Thank you for the opportunity to evaluate your patient. For Medicare and Medicare HMO plans, please review the plan of care and approve it. It will need to be FAXED BACK to us at [phone] for Medicare purposes. Please let me know if there are questions or concerns regarding this plan of care. Physician Signature: Date:
--- NOTE | 2024-12-25 13:00 | HP.PTEVAL ---
Patient's Visit Information Visit Information Visit Information: CHRISTINA DEWITT is a 64 year old M referred to Physical Therapy by Dr. Sp Andino MD with a diagnosis of WEAKNESS ,PNEUMONIA ,METABOLIC ENCEPHALOPATHY. Date of Evaluation: 12/25/24 Physical Therapist: Karl Ramirez, PT, Cert MDT, OCS Visit Plan Frequency: 2x /Week Duration: 4 Weeks Plan: PT INTERVENTIONS ENDURANCE PROGRAM ,BLE STRENGTHENING ,AND FUNCTIONAL STRENGTHENING ( MOINTOR Sp02 as needed) Subjective Subjective: This 64 y/o male presents to physical with weakness ,pneumonia and metabolic encephalopathy. Patient reports admitted to [facility] bronchitis and pneumonia on Dec 13 discharged on the .Patient also has left leg fracture last year. Patient states since being hospitalized lost ~ 30#. Patient lives along but lives SON. Patient has 1 story home with 3 steps. Pain denies pain and paresthesia/tingling-. Patient denies SOB but has cough . Initially was so weak unable to walk. Patient denies any falls. Patient is able to self care and some ADLS. Patient plans to find apartment. Patient has been work but plan to return for another year. Patient condition affects QOL and function. Patient goals to get stronger, SOCIAL: VOCATION: plan to retire Objective Objective: POSTURE: mild forward posture GAIT: reciprocal pattern FLEXABILITY: hamstrings mod tight STAIRS: ascending/descending one step at time with rail MMT: quads/hams/hip 4/5 ,ankle 4/5 SPO2: 93% Balance/Special Test Scores Functional Gait Assessment Score: 30 % Disability: 0 CATSIB Score (Max score 120 seconds): 116 Lower Extremity Functional Score: 40 30 Second Chair Rise Test Seconds: 10 Goals Goal 1:: Patient to be I with HEP for strengthening Goal Time Frame: 4-6 Weeks Goal 2:: Patient to improve 30sec sit-stand by 3- 5 reps to improve functional strength Goal Time Frame: 4-6 Weeks Goal 3:: Patient to improve LFES score by 5 points to improve QOL, and function Goal Time Frame: 4-6 Weeks Goal 4:: Patient to demonstrate 50% improvement with function and endurance Goal Time Frame: 4-6 Weeks Rehabilitation Potential Physical Therapy Diagnosis: This patient was hospitalized with pneumonia with weakness and decrease endurance thus benefit from skilled PT Rehabilitation Potential: Good Anticipated Interventions Patient/Client Instruction: Educate patient on: Condition and Plan of Care For the Purpose of:: To improve muscle performance and motor function, To improve ability to perform ADL's, To increase tolerance to activity/condition/position, To improve endurance, To improve balance and To improve tolerance to ADL's Therapeutic Exercise to Include: Strength training, Endurance training and Balance training Comment: BLE For the Purpose of:: To improve muscle performance and motor function, To improve ability to perform ADL's, To increase tolerance to activity/condition/position, To improve ability of physical actions for home/community/work/leisure, To improve health of tissue, To decrease soft tissue restriction, To increase flexibility/ROM, To improve endurance and To improve tolerance to ADL's Text: Thank you for the opportunity to evaluate your patient. For Medicare and Medicare HMO plans, please review the plan of care and approve it. It will need to be FAXED BACK to us at [phone] for Medicare purposes. For Medicare only, by signing this I certify the plan of care. Please let me know if there are questions or concerns regarding this plan of care. Physician Signature: Date:
--- NOTE | 2025-04-28 07:38 | HP.OT.NRP ---
Patient Information Patient Information: CHRISTINA DEWITT was seen in my office for initial evaluation on 12/25/24. The following Plan of Care was established for this patient: POC Established Initial Frequency: 1x/Week Initial Duration: 4 Weeks Anticipated Interventions Anticipated Interventions: Strengthening, Education re assistive Equipment, Education re Diagnosis and Home Program Last Seen Last Seen: This patient was last seen in our office 12/25/24. Pertinent comments regarding their Occupational therapy will appear below: pt was seen for eval only. Due to time lapse in services pt is d.c. At this point I will be discontinuing this patient from occupational therapy. I would be happy to see this patient again in the future if found appropriate by the physician. Thank you! Lina Eckert, OTR/L, CHT
== END 2024-12-25 19:00 | disposition home or self-care (01) ==
LOC: OT 10:48
PROVIDERS: Referring Provider Family Medicine; Visit Provider Family Medicine
DX: R53.1 Weakness (principal); G93.41 Metabolic encephalopathy; J18.9 Pneumonia, unspecified organism
CPT/HCPCS: 97162; 97166; 97530

== ENCOUNTER → 2025-01-21 | Outpatient (CLI) | payer BC, SELFPAY | END | disposition home or self-care (01) | LOC: PSN 12:57 | PROVIDERS: PCP Nurse Practitioner Family; Referring Provider Nurse Practitioner Family; Visit Provider Nurse Practitioner Family | DX: Z72.0 Tobacco use (principal) | CPT/HCPCS: 94060; 94726; 94729 ==

== ENCOUNTER → 2025-02-04 | Outpatient (CLI) | payer BC, SELFPAY ==
--- NOTE | 2025-02-04 15:16 | CT_ITS ---
PROCEDURE: CHEST WITHOUT CONTRAST 02/04/2025 REASON FOR EXAM: 89 PACK YEAR HISTORY TECHNIQUE: Chest CT without contrast. Coronal and Sagittal reconstruction series were provided. One or more dose reduction techniques were used (e.g., Automated exposure control, adjustment of the mA and/or kV according to patient size, use of iterative reconstruction technique RADIATION DOSE SUMMARY: CTDlvol: 10.4 mGy DLP: 412.1 mGycm COMPARISON: CT chest dated December 13, 2024 FINDINGS: Hardware: None Lymph nodes: No lymphadenopathy. Heart and Vasculature: The heart is normal in size. The great vessels are normal in size and caliber. No pericardial effusion identified. Coronary Artery Calcifications: Absent Lungs and Airways: Central airways are patent. Consolidative density within the right middle lobe, and streaky opacity within the right lung base, likely representing multifocal infection. Mild upper lobe predominant centrilobular emphysematous changes within bilateral lungs. Pleura: No pleural effusion or pneumothorax. Upper Abdomen: Partially visualized upper abdomen demonstrates no acute abnormality. Bones: No aggressive osseous lesions. No acute fractures. Mild kyphosis of the midthoracic spine. CT/Chest without Contrast IMPRESSION: *Consolidative density within the anterior right upper lobe, and patchy opaciti es within the right lung base, likely representing multifocal infection. Occult pulmonary mass within the right upper lobe opacit y not excluded. Consider follow-up chest CT in 3 months to further evaluate following resolution of underlying infectious proces s. *Mild upper lobe predominant centrilobular emphysematous changes within bilater al lungs. Reading Location: [id number]
== END | disposition home or self-care (01) ==
LOC: CT 14:58
PROVIDERS: PCP Nurse Practitioner Family; Referring Provider Nurse Practitioner Acute Care; Visit Provider Nurse Practitioner Acute Care
DX: J18.9 Pneumonia, unspecified organism (principal)
CPT/HCPCS: 71250

== ENCOUNTER → 2025-02-10 | Outpatient (CLI) | payer BC, SELFPAY ==
[2025-02-10 14:05] VITALS: PULSE 115; PULSE 117; PULSE 119; PULSE 121; PULSE 122; PULSE 81; PULSE 88; PULSE 95; O2SAT 95; O2SAT 96; O2SAT 97
--- NOTE | 2025-02-12 12:33 | PCM.PSN.6M ---
PSN 6 Minute Walk Test 6 Minute Walk Test 6 Minute Walk Test: 6 Minute Walk Test PSN:6-Minute Walk Test Start: 02/10/25 14:05 Freq: Status: Discharge Protocol: [id number].[id number] Document 02/10/25 14:05 JAMELTIFFANIE (Rec: 02/10/25 14:07 [email or web address] [id number]) 6 Minute Walk Test Date Performed 02/10/25 Time Performed 13:45 Height 6 ft 1 in Weight: 160 lb Weight in Pounds 160.[address]: Becky Hagen Assistive device None used: Pre-test Oxygen Delivery Room Air Method Pulse Ox (%) 97 Pulse Rate (60-100 81 beats/min) Dyspnea Manoj Scale ( 0 0-10) Exertion Manoj Scale 6 (6-20) 1st minute Oxygen Delivery Room Air Method Pulse Ox (%) 97 Pulse Rate (60-100 95 beats/min) 2nd minute Oxygen Delivery Room Air Method Pulse Ox (%) 97 Pulse Rate (60-100 115 H beats/min) 3rd minute Oxygen Delivery Room Air Method Pulse Ox (%) 95 Pulse Rate (60-100 117 H beats/min) 4th minute Oxygen Delivery Room Air Method Pulse Ox (%) 95 Pulse Rate (60-100 122 H beats/min) 5th minute Oxygen Delivery Room Air Method Pulse Ox (%) 96 Pulse Rate (60-100 121 H beats/min) 6th minute Oxygen Delivery Room Air Method Pulse Ox (%) 96 Pulse Rate (60-100 119 H beats/min) Dyspnea Manoj Scale ( 1 0-10) Exertion Manoj Scale 11 (6-20) Post-test Oxygen Delivery Room Air Method Pulse Ox (%) 97 Pulse Rate (60-100 88 beats/min) Full Laps Walked 18 Partial Lap, Number 2 of Tiles Walked Total Distance 1064 Walked (ft) Interpretation Interpretation: The patient ambulated 1064 feet over the course of 6 minutes beginning on room air without assistive devices. Pretesting oxygen saturation was noted to be 97% on room air. With ambulation, the latrell oxygen saturation was 95%. There was no significant exertional oxygen desaturation. Recommendations Recommendations: There is no indication for the use of supplemental oxygen at this time.
== END | disposition home or self-care (01) ==
LOC: PSN 13:46
PROVIDERS: PCP Nurse Practitioner Family; Referring Provider Nurse Practitioner Family; Visit Provider Nurse Practitioner Family
DX: Z72.0 Tobacco use (principal)
CPT/HCPCS: 94618

== ENCOUNTER → 2025-02-25 | Outpatient (CLI) | payer BC, SELFPAY ==
--- NOTE | 2025-02-25 14:54 | ECHOL_ITS ---
Reason For Study : CHF Procedure This was a limited 2D transthoracic echocardiogram. Exam performed in department. Left Ventricle Moderately dilated left ventricle. Mild concentric left ventricular hypertrophy. The left ventricular ejection fraction is 35 %. There is moderate global hypokinesis of the left ventricle. Right Ventricle Normal RV size. Normal systolic function. Atria The left atrium is mildly enlarged. Normal right atrium. Mitral Valve Normal mitral valve. Tricuspid Valve Normal tricuspid valve. Aortic Valve Trisinus/trileaflet aortic valve. Great Vessels Mildly dilated aortic root. Pericardium/Pleural No pericardial effusion. MMode/2D Measurements & Calculations LVIDd: 6.3 cm IVSd: 1.2 cm Ao root diam: 3.8 cm LVIDs: 5.2 cm LVPWd: 1.2 cm RVDd: 3.5 cm FS: 16.9 % LAV(MOD-bp): 82.3 ml LVAd ap4: 45.6 cm2 LVAd ap2: 41.7 cm2 LAV(MOD-bp) Indexed: 43.1 ml/m2 LVLd ap4: 9.8 cm LVLd ap2: 9.8 cm LAV(MOD-sp2): 76.1 ml EDV(MOD-sp4): 180.3 ml EDV(MOD-sp2): 156.9 ml LAV(MOD-sp4): 86.3 ml EDV(sp4-el): 180.1 ml EDV(sp2-el): 150.2 ml LVAs ap4: 33.4 cm2 LVAs ap2: 31.9 cm2 LVLs ap4: 8.7 cm LVLs ap2: 8.9 cm ESV(MOD-sp4): 112.0 ml ESV(MOD-sp2): 99.9 ml ESV(sp4-el): 109.1 ml ESV(sp2-el): 97.1 ml EF(MOD-sp4): 37.9 % EF(MOD-sp2): 36.3 % EF(sp4-el): 39.4 % SV(MOD-sp4): 68.3 ml SV(MOD-sp2): 57.0 ml SV(sp4-el): 71.0 ml SI(MOD-sp4): 35.7 ml/m2 SI(MOD-sp2): 29.8 ml/m2 LA A4 area: 24.2 cm2 LA dimension(2D): 4.3 cm RA A4 area: 16.9 cm2 ECHO/Echo, Limited Study Interpretation Summary The left ventricular ejection fraction is 35 %. Moderately dilated left ventricle. Mild concentric left ventricular hypertrophy. Compared to previous study, the left ventricular systolic function is the same. . Ordering Physician: Taj Allen Referring Physician: Randa Isaac Performed By: Grazyna Lucero RDCS, RVT
== END | disposition home or self-care (01) ==
LOC: CVS 14:54
PROVIDERS: PCP Nurse Practitioner Family; Referring Provider Internal Medicine Cardiovascular Disease; Visit Provider Internal Medicine Cardiovascular Disease
DX: I50.20 Unspecified systolic (congestive) heart failure (principal); I48.4 Atypical atrial flutter
CPT/HCPCS: 93308

== ENCOUNTER → 2025-03-18 | Outpatient (CLI) | payer BC, SELFPAY ==
[2025-03-18 15:47] LABS: Absolute Lymphocyte Count 1.89 X10^3/uL (0.83-4.51); Absolute Neutrophil Count 5.2 X10^3/uL (2.0-7.7); Basophil# 0.07 X10^3/uL; Basophil% 0.9 % (0-1); Eosinophil# 0.22 X10^3/uL; Eosinophils% 2.7 % (0-5); Hemoglobin 13.9 g/dL (13.0-16.5); Lymphocyte # 1.89 X10^3/ul (0.83-4.51); Lymphocyte % 23.2 % (19-41); Mean Corp Hgb Conc 32.3 g/dL (32-36); Mean Corpuscular Hgb 31.2 pg (27.0-32.0); Mean Corpuscular Volume 96.4 fL (80-94); Mean Platelet Vol. 10.4 fl (6.2-12.0); Monocyte# 0.74 X10^3/uL; Monocyte% 9.1 % (0-10); NRBC Flagged by Analyzer 0 % (0-5); Neutrophil # 5.21 X10^3/uL (2.7-7.7); Neutrophil % 63.9 % (47-70); Platelet Count 289 K/mm3 (150-450); RBC Distribution Width CV 14.5 % (11.6-14.6); RBC Distribution Width SD 51.4 fl (35.1-43.9); Red Blood Count 4.46 M/mm3 (4.6-6.2); White Blood Count 8.2 K/mm3 (4.4-11.0)
[2025-03-19 11:00] LABS: Anion Gap 10 (5-15); BUN 15 mg/dL (4-19); BUN/Creat Ratio 15.1 RATIO (10-20); Calcium,Total 9.8 mg/dL (7.6-11.0); Carbon Dioxide 25.4 mmol/L (21.0-32.0); Chloride 103 mmol/L (98-108); Creatinine, Serum 0.98 mg/dL (0.70-1.20); EST Glomerular Filtration Rate 86 (>60); Glucose 107 mg/dL (70-99); Potassium 4.3 mmol/L (3.3-5.1); Sodium Level 138 mmol/L (133-145)
== END | disposition home or self-care (01) ==
LOC: LAB 14:53
PROVIDERS: PCP Nurse Practitioner Family; Referring Provider Student in an Organized Health Care Education/Training Program; Visit Provider Student in an Organized Health Care Education/Training Program
DX: I50.20 Unspecified systolic (congestive) heart failure (principal); I48.4 Atypical atrial flutter
CPT/HCPCS: 36415; 80048; 85025

== ENCOUNTER → 2025-04-14 | Outpatient (CLI) | payer BC, SELFPAY ==
[2025-04-14 13:34] LABS: Anion Gap 11 (5-15); BUN 20 mg/dL (4-19); BUN/Creat Ratio 19.2 RATIO (10-20); Calcium,Total 9.8 mg/dL (7.6-11.0); Carbon Dioxide 23.5 mmol/L (21.0-32.0); Chloride 104 mmol/L (98-108); Creatinine, Serum 1.02 mg/dL (0.70-1.20); EST Glomerular Filtration Rate 81 (>60); Glucose 141 mg/dL (70-99); Potassium 4.5 mmol/L (3.3-5.1); Sodium Level 138 mmol/L (133-145)
== END | disposition home or self-care (01) ==
LOC: LAB 12:25
PROVIDERS: PCP Nurse Practitioner Family; Referring Provider Student in an Organized Health Care Education/Training Program; Visit Provider Student in an Organized Health Care Education/Training Program
DX: I50.20 Unspecified systolic (congestive) heart failure (principal)
CPT/HCPCS: 36415; 80048

== ENCOUNTER → 2025-05-11 | Outpatient (CLI) | payer MEDICARE, SELFPAY ==
[2025-05-11 13:18] LABS: Anion Gap 12 (5-15); BUN 19 mg/dL (4-19); BUN/Creat Ratio 18.6 RATIO (10-20); Calcium,Total 10.0 mg/dL (7.6-11.0); Carbon Dioxide 25.0 mmol/L (21.0-32.0); Chloride 100 mmol/L (98-108); Glucose 108 mg/dL (70-99); Potassium 4.6 mmol/L (3.3-5.1)
== END | disposition home or self-care (01) ==
PROVIDERS: PCP Nurse Practitioner Family; Referring Provider Student in an Organized Health Care Education/Training Program; Visit Provider Student in an Organized Health Care Education/Training Program
DX: I50.20 Unspecified systolic (congestive) heart failure (principal)
CPT/HCPCS: 36415; 80048

== ENCOUNTER → 2025-06-03 | Outpatient (CLI) | payer MEDICARE, SELFPAY ==
[2025-06-03 14:14] LABS: Anion Gap 13 (5-15); BUN 18 mg/dL (4-19); BUN/Creat Ratio 19.1 RATIO (10-20); Calcium,Total 9.9 mg/dL (7.6-11.0); Carbon Dioxide 22.0 mmol/L (21.0-32.0); Chloride 103 mmol/L (98-108); Glucose 120 mg/dL (70-99); Potassium 4.7 mmol/L (3.3-5.1)
--- OUTSIDE RECORDS SUMMARY | 2025-06-03 17:58 | XMS RPT_ITS | CCD ---
Author Organization [facility] Inform ion Partnership [facility] Care Team Providers Care Teacher Public Health Name Role Phone Care Physician, No Primary Primary Care Provider Unavailable Musat DIRECTOR DATA-C, Esha Attending Provider Musat DIRECTOR DATA-C, Esha Referring Provider Dr. Adam Rucker DO Emergency Provider [phone] Brito DO, Dr. Shirley Admit Provider Unavail able Brito DO, Dr. Shirley Other Provider Unavail able Jac NELSON, Dr. Licona Other Provider Tonia NELSON, Dr. Uriarte Other Provider Dr. Som Hdez MD Other Provider [phone] Nicola Arthur DO Other Provider Dr. Casper Delgado MD Other Provider Otilio NELSON, Dr. Bustillos Other Provider Dr. John Prince MD Other Provider Dr. Keri Wise MD Other Provider Dr. Vikas Hernandez MD Other Provider Dr. Darrell García MD Other Provider Dr. Brendan Metzger MD Other Provider Dr. Claudia Lauren MD Other Provider Dr. Rigo Arteaga MD Other Provider Unavailabl pablo Thomas MD, Dr. Rees Other Provider Dr. Arsenio Gil MD Other Provider Suraj NELSON, Dr. Rios Other Provider [phone] Cesar NELSON, Dr. Isaacs Other Provider Jeremias BRADY, Dr. Benson Other Provider Yaneli NELSON, Dr. Best Other Provider Mark NELSON, Dr. Berumen Other Provider [phone] Lencho BRADY, Dr. Drake Other Provider Ammon NELSON, Dr. Cruz Other Provider Yoshi NELSON, Dr. Pendleton Other Provider Sina NELSON, Dr. Sp Chavez Attending Provider Justin NELSON, Dr. Ospina Attending Provider Justin NELSON, Dr. Ospina Referring Provider Sina NELSON, Dr. Sp Chavez Other Provider Dr. Nicola Arthur DO Attending Provider Sina NELSON, Dr. Sp Chavez Referring Provider Care Physician, No Primary Referring Provider Un available Xiao MCNULTY-CBecky Attending Provider Xiao DIRECTOR DATA-CBecky Referring Provider Poncho DIRECTOR DATA-C, Randa Primary Care Provider Dr. Taj Allen MD Attending Provider Autumn MCNULTY-CCeci Attending Provider Autumn MCNULTY-CCeci Referring Provider Xiao MCNULTY-CBecky Other Provider [phone] Dr. Taj Allen MD Referring Provider Marlys NELSON, Dr. Irizarry Attending Provider Kyle MCNULTY-CLaurence Attending Provider Poncho DIRECTOR DATA-C, Randa Referring Provider [phone] Rickey Amaya Attending Provider Care Physician, No Primary Primary Care Provider Unavailable Sina NELSON, Dr. Sp Chavez Attending Provider Sina NELSON, Dr. Sp Chavez Referring Provider Jerson BRADY, Dr. Petersen Attending Provider Rickey Amaya Referring Provider Care Physician, No Primary Primary Care Provider Unavailable Becky House Attending Provider Care Physician, No Primary Referring Provider Un available Poncho, Randa Primary Care Unavailable Becky Hagen Referring Unavailable Nicola Arthur Attending Unavailable Poncho, Randa Primary Care Unavailable Poncho, Randa Referring Unavailable Rickey Rainey Attending Unavailable Poncho, Randa Primary Care Unavailable Becky Hagen Attending Unavailable Care Physician, No Primary Referring Unava ilable Poncho, Randa Primary Care Unavailable Becky Hagen Referring Unavailable Becky Hagen Attending Unavailable Poncho, Randa Primary Care Unavailable Taj Allen Attending Unavailable Taj Allen Referring Unavailable Poncho, Randa Referring Unavailable Poncho, Randa Primary Care Unavailable Rickey Rainey Attending Unavailable Poncho, Randa Primary Care Unavailable Becky Hagen Consulting Unavailable Becky Hagen Referring Unavailable Nicola Arthur Attending Unavailable Poncho, Randa Primary Care Unavailable Juan C Frankel Attending Unavailable Poncho, Randa Primary Care Unavailable Laurence Wright NP Attending Unavailable Poncho, Randa Referring Unavailable Rickey Rainey Attending Unavailable Poncho, Randa Primary Care Unavailable Sp Andino Attending Unavailable Casper Brito Admitting Unavailable Care Physician, No Primary Primary Care Unava ilable Livan Nathan Consulting Unavailable Chapito Randall Consulting Unavailable Som Hdez Consulting Unavailable Nicola Arthur Consulting Unavailable Casper Delgado Consulting Unavailable Apollo Yañez Consulting Unavailable John Prince Consulting Unavailable Keri Wise Consulting Unavailab Vikas Smith Consulting Unavailable Darrell García Consulting Unavailable Brendan Metzger Consulting Unavailable Claudia Lauren Consulting Unavailable Rigo Arteaga Consulting Unavailable Negrita Thomas Consulting Unavailable Jeffery, Arsenio Consulting Unavailable Irukulla, Gabriel Consulting Unavailable Cesar, Ferny Consulting Unavailable Dhesi, Marcelino Consulting Unavailable Estephania Groves Consulting Unavailable Jamaica Flores Consulting Unavailable Vidal Musa Consulting Unavailable Ammon, Anthony Consulting Unavailable Helder Belle Consulting Unavailable Casper Brito Consulting Unavailable Musat, Esha Referring Unavailable Care Physician, No Primary Primary Care Unava ilable Ayaka, Esha [facility]ending [facility] Autumn DIRECTOR DATA, Ceci Referring Unavailable Auutmn DIRECTOR DATA, Ceci Attending Unavailable Sp Andino Referring Unavailable Sp Andino Attending Unavailable Care Physician, No Primary Primary Care Unava ilable Sp Andino Attending Unavailable Casper Brito Admitting Unavailable Livan Nathan Consulting Unavailable Care Physician, No Primary Primary Care Unava ilable Chapito Randall Consulting Unavailable Som Hdez Consulting Unavailable Nicola Arthur Consulting Unavailable Casper Delgado Consulting Unavailable Apollo Yañez Consulting Unavailable John Prince Consulting Unavailable Keri Wise Consulting UnavailVikas Irwin Consulting Unavailable Darrell García Consulting Unavailable Brendan Metzger Consulting Unavailable Claudia Lauren Consulting Unavailable Rigo Arteaga Consulting Unavailable Negrita Thomas Consulting Unavailable Jeffery, Arsenio Consulting Unavailable Irukulla, Gabriel Consulting Unavailable Cesar, Ferny Consulting Unavailable Dhesi, Marcleino Consulting Unavailable Estephania Groves Consulting Unavailable Jamaica Flores Consulting Unavailable Vidal Musa Consulting Unavailable Anthony Verde Consulting Unavailable Helder Belle Consulting Unavailable Casper Brito Consulting Unavailable Sp Andino Consulting Unavailable Sp Andino Referring Unavailable Nicola Arthur Attending Unavailable Casper Brito Attending Unavailable [place], [place] Primary Care Unavailable Taj Allen Attending Unavailable Care Physician, No Primary Referring Unava ilable Poncho, [place] Primary Care Unavailable Rickey Rainey Attending Unavailable DemiterYolandaRickey Referring Unavailable Poncho, [place] Primary Care Unavailable Demiter Rickey Referring Unavailable DemiterSocorror Attending Unavailable Poncho, [place] Primary Care Unavailable Socorro Raineyr Attending Unavailable Demiter, Rickey Referring Unavailable Justin, Bhavesh Referring Unavailable JustinBhavesh patel Attending Unavailable Care Physician, No Primary Primary Care Unava ilable Bhavesh Anderson Attending Unavailable Care Physician, No Primary Primary Care Unava ilable Becky Hagen Attending Unavailable Care Physician, No Primary Referring Unava ilable Care Physician, No Primary Primary Care Unava ilable Randa Isaac Primary Care Unavailable Becky Hagen Attending Unavailable Becky Hagen Referring Unavailable Medications Current Medications Medication Drug Class(es) Dates Sig (Normalized) Sig (Original) apixaban 5 mg oral tablet (13 sources) Factor Xa Inhibitor Start: 12-16-2024 End: 03-11-2025 take 1 tablet by mouth twice daily Apixaban (Eliquis) 5 mg tablet Active 5 mg PO TWICE A DAY 60 30 March 11, 2025 10:15am atorvastatin 40 mg oral tablet (13 sources) HMG-CoA Reductase Inhibitor Start: 12-16-2024 End: 03-11-2025 take 1 tablet by mouth at bedtime Atorvastatin 40 mg tablet Active 40 mg PO AT BEDTIME 30 30 March 11, 2025 10:15am carvedilol 12.5 mg oral tablet (13 sources) alpha-Adrenergic Gaudencio, beta-Adrenergic Gaudencio Start: 02-26-2025 take 1 tablet by mouth twice daily at mealtime Carvedilol 12.5 mg tablet Active 12.5 mg PO TWICE DAILY WITH MEALS 60 30 February 26, 2025 8:01am Start: 12-16-2024 End: 02-26-2025 take 1 tablet by mouth twice daily at mealtime Carvedilol 6.25 mg Tablet Discontinued 6.25 mg PO TWICE DAILY WITH MEALS 60 30 0 December 16, 2024 1:00am February 26, 2025 8:03am dapagliflozin 10 mg oral tablet (4 sources) Sodium-Glucose Cotransporter 2 Inhibitor Start: 03-20-2025 take 1 tablet by mouth once daily in the morning Dapagliflozin Propanediol (Farxiga) 10 mg tablet Active 10 mg PO EVERY MORNING 90 March 20, 2025 12:00am losartan potassium 100 mg oral tablet (8 sources) Angiotensin 2 Receptor Gaudencio Start: 04-24-2025 take 1 tablet by mouth once daily in the morning Losartan 100 mg tablet Active 100 mg PO EVERY MORNING 90 April 24, 2025 11:33am Start: 02-26-2025 End: 04-24-2025 take 1 tablet by mouth once daily in the morning Losartan 50 mg tablet Discontinued 50 mg PO EVERY MORNING 30 February 26, 2025 12:00am April 24, 2025 11:35am spironolactone 50 mg oral tablet (5 sources) Aldosterone Antagonist Start: 05-12-2025 take 1 tablet by mouth once daily in the morning Spironolactone 50 mg tablet Active 50 mg PO EVERY MORNING 90 3 May 12, 2025 4:00pm Start: 03-20-2025 End: 05-12-2025 take 1 tablet by mouth once daily in the morning Spironolactone 25 mg tablet Discontinued 25 mg PO EVERY MORNING 90 3 March 20, 2025 12:00am May 12, 2025 4:01pm Completed/Discontinued Medications Medication Drug Class(es) Dates Sig (Normalized) Sig (Original) acetaminophen 325 mg / HYDROcodone bitartrate 5 mg oral tablet (9 sources) Opioid Agonist Start: 12-23-2023 End: 01-09-2024 Hydrocodone-Acetami nophen 5-325 mg tablet Discontinued 1 {tbl} PO EVERY 6 HOURS NEEDED as needed for Pain 12 3 0 December 23, 2023 January 09, 2024 2:51pm Fracture of tibia Start: 12-23-2023 take 1 tablet by rosemary th every six hours as needed Hydrocodone-Acetaminophen Active 1 TABLE T PO EVERY 6 HOURS NEEDED 12 3 December 23, 2023 cefdinir 300 mg oral capsule (8 sources) Cephalosporin Antibacterial Start: 12-16-2024 End: 12-31-2024 take 1 capsule by mouth twice daily Cefdinir 300 mg capsule Discontinued 300 mg PO TWICE A DAY 8 4 0 December 16, 2024 1:00am December 31, 2024 4:22pm fluticasone propionate 0.05 mg/actuat metered dose nasal spray (5 sources) Corticosteroid Start: 02-13-2025 End: 04-24-2025 Fluticasone Propionate 50 mcg/actuation spray,suspension Discontinued 2 NMA INTRANASAL daily 16 February 13, 2025 12:00am April 24, 2025 10:47am Seasonal allergies Other seasonal allergic rhinitis administer into each nostril furosemide 20 mg oral tablet (20 sources) Loop Diuretic Start: 12-16-2024 End: 03-18-2025 take 1 tablet by mouth once daily Furosemide 20 mg tablet Discontinued 20 mg PO DAILY 30 30 3 January 27, 2025 2:19pm March 18, 2025 2:11pm 12 hr guaiFENesin 1200 mg extended release oral tablet (8 sources) Start: 12-31-2024 End: 04-24-2025 take 1 tablet by mouth twice daily, then take 1 tablet by mouth every twelve hours Guaifenesin (Mucinex) 1,200 mg tablet extended release 12hr Discontinued 1200 mg PO TWICE A DAY 60 December 31, 2024 1:00am April 24, 2025 10:47am loratadine 10 mg oral tablet (8 sources) Start: 12-31-2024 End: 02-13-2025 take 1 tablet by mouth once daily Loratadine (Claritin) 10 mg tablet Discontinued 10 mg PO daily 30 2 December 31, 2024 1:00am February 13, 2025 2:50pm Problems Active Problems Problem Classification Problem Date Documented Da te Episodic/Chronic Cardiac dysrhythmias (20 sources) Atrial flutter; Translations: [Unspecified atrial flutter] Onset: 12-26-2024 01-06-2025 Chronic Congestive heart failure; nonhypertensive (20 sources) Heart failure with reduced ejection fraction; Translations: [Unspecified systolic (congestive) heart failure] Onset: 05-15-2025 01-27-2025 Chronic Essential hypertension (4 sources) Hypertensive disorder; Translations: [Essential (primary) hypertension] 04-24-2025 Chronic Fracture of lower limb (17 sources) Closed fracture of tibia; Translations: [Unspecified fracture of shaft of unspecified tibia, initial encounter for closed fracture] 12-23-2023 Episodic Malaise and fatigue (1 source) Weakness; Translations: [Weakness] Onset: 04-30-2025 Episodic Other lower respiratory disease (8 sources) Dyspnea; Translations: [Shortness of breath] 01-06-2025 Episodic Other lower respiratory disease (20 sources) Cough; Translations: [Cough] 12-31-2024 Episodic Other nervous system disorders (12 sources) Metabolic encephalopathy; Translations: [Metabolic encephalopathy] 12-24-2024 Chronic Other nervous system disorders (2 sources) Metabolic encephalopathy; Translations: [Metabolic encephalopathy] Onset: 12-26-2024 Chronic Other nutritional; endocrine; and metabolic disorders (12 sources) Hypercalcemia; Translations: [Hypercalcemia] 12-13-2024 Chronic Other nutritional; endocrine; and metabolic disorders (1 source) Hypercalcemia; Translations: [Hypercalcemia] Onset: 12-26-2024 Chronic Other upper respiratory disease (1 source) Other seasonal allergic rhinitis; Translations: [Other seasonal allergic rhinitis] Onset: 02-13-2025 Chronic Residual codes; unclassified (19 sources) Tobacco user; Translations: [Tobacco use] 01-06-2025 Episodic Residual codes; unclassified (2 sources) Tobacco use; Translations: [Tobacco use] Onset: 02-16-2025 Episodic Sprains and strains (9 sources) Unspecified sprain of right lesser toe(s), initial encounter; Translations: [Sprain of second toe of right foot] 12-23-2023 Episodic Substance-related disorders (20 sources) Cigarette smoker ; Translations: [Nicotine dependence, cigarettes, uncomplicated] 01-06-2025 Chronic Superficial injury; contusion (8 sources) Contusion of right lesser toe; Translations: [Contusion of right lesser toe(s) without damage to nail, initial encounter] 12-26-2023 Episodic Unclassified (4 sources) Appointment is with DIRECTOR DATA Becky Hagen Past or Other Problems Problem Classification Problem Date Documented Date Episodic/Chronic Bacterial infection; unspecified site (13 sources) 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; Translations: [Resistance to unspecified antibiotic] Onset: 12-26-2024 12-13-2024 Episodic Diabetes mellitus without complication (13 sources) Hyperglycemia; Translations: [Hyperglycemia, unspecified] Onset: 12-26-2024 12-13-2024 Episodic Fluid and electrolyte disorders (13 sources) Hypokalemia; Translations: [Hypokalemia] Onset: 12-26-2024 12-13-2024 Episodic Other lower respiratory disease (20 sources) Other nonspecific abnormal finding of lung field; Translations: [Ground glass opacity present on imaging of lung] Onset: 12-31-2024 12-31-2024 Episodic Comment on above: Ground glass opacity with 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 12/13/24 Other lower respiratory disease (1 source) Shortness of breath; Translations: [Shortness of breath] Onset: 12-30-2024 Episodic Other screening for suspected conditions (not mental disorders or infectious disease) (13 sources) Blood urea abnormal; Translations: [Abnormal finding of blood chemistry, unspecified] Onset: 12-26-2024 12-13-2024 Episodic Pneumonia (except that caused by tuberculosis or sexually transmitted disease) (20 sources) Pneumonia; Translations: [Pneumonia, unspecified organism] Onset: 12-26-2024 01-06-2025 Episodic Results Test Name Value Interpretation Reference Range Facility Anion gap in Serum or Plasma Ordered By: Rickey Rainey on 05-11-2025 Anion gap [Moles/Vol] 12 mmol/L 03-12 [facility] BUN/creatinine ratioOrdered By: Rickey Rainey on 05-11-2025 Urea nitrogen/Creatinine [Mass ratio] 18.6 mg/mg 08-17 [facility] Basic Metabolic Profile (BMP )on 05-11-2025 BUN/CRE 18.6 RATIO Normal 08-17 [facility] Comment on above: Performed By: #### L 100.0100 #### [facility] [address] [place], [address] Calcium [Mass/Vol] 10.0 mg/dL Normal 7.6-11.0 [facility] Comment on above: Performed By: #### L 100.0100 #### [facility] [address] [place], [address] Chloride [Moles/Vol] 100 mmol/L Normal 98-108 [facility] Comment on above: Performed By: #### L 100.0100 #### [facility] [address] [place], [address] CO2 [Moles/Vol] 25.0 mmol/L Normal 21.0-32.0 [facility] Comment on above: Performed By: #### L 100.0100 #### [facility] [address] [place], [address] Creatinine [Mass/Vol] 1.01 mg/dL Normal 0.70-1.20 [facility] Comment on above: Performed By: #### L 100.0100 #### [facility] [address] [place], [address] GAP 12 Normal 5-15 [facility] Comment on above: Performed By: #### L 100.0100 #### [facility] [address] [place], [address] GFR/1.73 sq M.predicted among non-blacks MDRD (S/P/Bld) [Vol rate/Area] 82 mL/min/{1.73_m2} Normal >60 [facility] Comment on above: Result Comment: mL/m in/1.73m2 CKD-EPI Creatinine Equation (2020) Performed By: #### L 100.0100 #### [facility] [address] [place], [address] Glucose [Mass/Vol] 108 mg/dL High 70-99 [facility] Comment on above: Performed By: #### L 100.0100 #### [facility] [address] [place], [address] Potassium [Moles/Vol] 4.6 mmol/L Normal 3.3-5.1 [facility] Comment on above: Performed By: #### L 100.0100 #### [facility] [address] [place], [address] Sodium [Moles/Vol] 137 mmol/L Normal 133-145 [facility] Comment on above: Performed By: #### L 100.0100 #### [facility] [address] [place], [address] Urea nitrogen [Mass/Vol] 19 mg/dL Normal 4-19 [facility] Comment on above: Performed By: #### L 100.0100 #### [facility] [address] [place], [address] Carbon dioxide, total [Moles /volume] in Central venous bloodOrdered By: Rickey Rainey on 05-11-2025 CO2 [Moles/Vol] 25.0 mmol/L 21.0-32.0 [facility] Chloride assayOrdered By: Yolanda Rainey on 05-11-2025 Chloride [Moles/Vol] 100 mmol/L 98-108 [facility] Glomerular filtration rate ( GFR) estimation/1.73 sq m using serum, plasma, or whole bOrdered By: Rickey Rainey on 05-11-2025 GFR/1.73 sq M.predicted among non-blacks MDRD (S/P/Bld) [Vol rate/Area] 82 mL/min/{1.73_m2} >60 [facility] Comment on above: mL/min/1.73m2 CKD-EP I Creatinine Equation (2020) Potassium measurement (mass/ volume)Ordered By: Rickey Rainey on 05-11-2025 Potassium (Unsp spec) [Mass/Vol] 4.6 mmol/L 3.3-5.1 [facility] Serum creatinine measurement (mass/volume)Ordered By: Rickey Rainey on 05-11-2025 Creatinine [Mass/Vol] 1.01 mg/dL 0.70-1.20 [facility] Serum glucose measurement (m ass/volume)Ordered By: Rickey Rainey on 05-11-2025 Glucose [Mass/Vol] 108 mg/dL High 70-99 [facility] Serum or plasma calcium greta urement (mass/volume)Ordered By: Rickey Rainey on 05-11-2025 Calcium [Mass/Vol] 10.0 mg/dL 7.6-11.0 [facility] Serum or plasma urea nitroge n measurement (mass/volume)Ordered By: Rickey Rainey on 05-11-2025 Urea nitrogen [Mass/Vol] 19 mg/dL 4-19 [facility] Sodium levelOrdered By: Dudley Rainey on 05-11-2025 Sodium [Moles/Vol] 137 mmol/L 133-145 [facility] OT D/C of Non Returning Pton 04-28-2025 OT D/C of Non Returning Pt [facility] Occupational Therapy [facility] [address] [place] [address] / REHABILITATION SERVICES DISCHARGE SUMMARY MR#: [id number] Acct: [id number] Name: KRISTIAN DEWITT Rep #: [id number] : 1960 65 From: Lina LONG/Ted, CHT Referring Dr.: Dr. Sp Andino MD Status: REG RCR Eval Date: Discharge Date: Patient Information Patient Information: KRISTIAN DEWITT was seen in my office for initial evaluation on 12/25/24. The following Plan of Care was established for this patient: POC Established Initial Frequency: 1x/Week Initial Duration: 4 Weeks Anticipated Interventions Anticipated Interventions: Strengthening, Education re assistive Equipment, Education re Diagnosis and Home Program Last Seen Last Seen: This patient was last seen in our office 12/25/24. Pertinent comments regarding their Occupational therapy will appear below: pt was seen for eval only. Due to time lapse in services pt is d.c. At this point I will be discontinuing this patient from occupational therapy. I would be happy to see this patient again in the future if found appropriate by the physician. Thank you! MERCEDES Carlos/Ted, CHT 04/28/25 0738 CC: Dr. Sp Andino MD; No Primary Care Physician MK Signed Normal [facility] Cardiology Visit Reporton Cardiology Visit Report [facility] [address] [place] [address] OFFICE VISIT Date of Service: 04/24/25 MR#: [id number] Acct: [id number] Name: KRISTIAN DEWITT Rep #: [id number] : 1960 Provider: ALYSA Hussein Age/Sex: 65/M Location: [facility] Status: Signed Agree with assessment and plan. We will work with the patient to advance his GDMT via phone calls until he can figure out his insurance coverage. He is apparently going into a medicare advantage plan sold to him by an agent who was aware of his medications. HPI HPI History of Present Illness Details: Kristian Dewitt is a 64-year-old male office today for follow-up. Patient established with our office as a new patient approximately 6 weeks ago. He was recently hospitalized at [facility] with paroxysmal atrial fibrillation in the face of the pneumonia and metabolic encephalopathy in mid November 2024. He was noted to be in atrial fibrillation and spontaneously reverted to sinus rhythm. He was noted to have decreased LV function with an ejection fraction of 35% and mild LV concentric hypertrophy and a mildly dilated left ventricular cavity, left atrium severely enlarged and right atrium mildly enlarged, mild to moderate mitral regurgitation, mild tricuspid regurgitation, right ventricular systolic pressure estimated at 45. Patient underwent repeat echocardiogram to assess ejection fraction 02/25/25 and this demonstrated left ventricular ejection fraction of 35%, mild concentric left ventricular hypertrophy, moderate global hypokinesis of the left ventricle. Patient was contacted following this and carvedilol was increased to 12.5 mg twice daily and patient was initiated on losartan 50 mg daily. Upon presentation to office today, patient reports feeling well. He has not found himself having to utilize furosemide since last seen. He occasionally has palpitations at nighttime that he describes as feeling his heartbeat is heavier. No other concerns at this time. Further ROS below. Intake Vital Signs 03/18/25 14:14 04/24/25 10:45 04/24/25 11:59 Height 6 ft 1 in 6 ft 1 in Weight: 176 lb BMI 23.2 BP 151/83 H 160/80 H Blood Pressure Location Lt brachial Lt brachial Position Sitting Sitting Respiration 18 Pulse 65 Pulse Source Monitor Pulse Oximetry (%) 96 Oxygen Delivery Method room air Intake Visit Reasons: SEE NOTES [employer] Specialist Required: No Accompanied by: Self Is patient in pain?: No Allergies No Known Allergies Allergy (Verified 04/24/25 10:45) Medications ???Medication ???Instructions ???Recorded ???Confirmed ???Type carvedilol 12.5 mg tablet 12.5 mg PO BIDCM 30 days #60 tabs 02/26/25 04/24/25 Rx apixaban 5 mg tablet (Eliquis) 5 mg PO BID 30 days #60 tabs 03/1104/24/25 Rx atorvastatin 40 mg tablet 40 mg PO QHS 30 days #30 tabs 02/2604/24/25 Rx dapagliflozin propanediol 10 mg 10 mg PO QAM #90 tabs 03/20/25 Rx tablet (Farxiga) spironolactone 25 mg tablet 25 mg PO QAM #90 tabs 03/20/25 Rx losartan 100 mg tablet 100 mg PO QAM #90 tabs 04/24/25 Rx Have you fallen in the past year?: No PFSH Medical History Smoking greater than 40 pack years Shortness of breath Closed fracture of proximal tibia Pneumonia Atrial flutter Tobacco abuse Family History Brother Heart disease valve replacement Social History Smoking Status: Former smoker quit date: 12/13/24 second hand exposure: Yes alcohol intake: former substance use type: does not use caffeine: Yes ROS Const Const: Negative for fatigue or weakness Eyes Eyes: Negative for blurry vision or change in vision ENT ENT: Negative for dizziness or balance problems Cardio Chest Pain: No Palpitations: Yes (intermittently) Edema: None Muscle aches with walking: None Resp Respiratory: Negative for SOB with activity, SOB at rest or SOB orthopnea SOB lying down GI GI: Negative nausea, vomiting or heartburn : Negative for hematuria Musc Musc: Negative for muscle weakness or balance problems Neuro Neuro: Negative for dizziness, lightheadedness, near syncope, syncope, weakness or blurry vision Endo Endo: Negative for fatigue Cardiology Exam Const Appearance: cooperative, comfortable, no acute distress and well developed; Negative diaphoretic or ill appearing Nutritional Appearance: thin Orientation: alert and oriented x3 Ambulating without assistive device Head Head: normal to inspection, normocephalic and atraumatic Ears: hearing grossly normal bilaterally Nose: external nose normal and Negative epistaxis Face a (more content not included)... Normal [facility] Anion gap in Serum or Plasma Ordered By: Rickey Rainey on 04-14-2025 Anion gap [Moles/Vol] 11 mmol/L 03-12 [facility] BUN/creatinine ratioOrdered By: Rickey Rainey on 04-14-2025 Urea nitrogen/Creatinine [Mass ratio] 19.2 mg/mg 10- [facility] Basic Metabolic Profile (BMP )on 04-14-2025 BUN/CRE 19.2 RATIO Normal -20 [facility] Comment on above: Performed By: #### L 100.0100 #### [facility] [address] [place], [address] Calcium [Mass/Vol] 9.8 mg/dL Normal 7.6-11.0 [facility] Comment on above: Performed By: #### L 100.0100 #### [facility] [address] [place], [address] Chloride [Moles/Vol] 104 mmol/L Normal 98-108 [facility] Comment on above: Performed By: #### L 100.0100 #### [facility] [address] [place], [address] CO2 [Moles/Vol] 23.5 mmol/L Normal 21.0-32.0 [facility] Comment on above: Performed By: #### L 100.0100 #### [facility] [address] [place], [address] Creatinine [Mass/Vol] 1.02 mg/dL Normal 0.70-1.20 [facility] Comment on above: Performed By: #### L 100.0100 #### [facility] [address] [place], [address] GAP 11 Normal 5-15 [facility] Comment on above: Performed By: #### L 100.0100 #### [facility] [address] [place], [address] GFR/1.73 sq M.predicted among non-blacks MDRD (S/P/Bld) [Vol rate/Area] 81 mL/min/{1.73_m2} Normal >60 [facility] Comment on above: Result Comment: mL/m in/1.73m2 CKD-EPI Creatinine Equation (2020) Performed By: #### L 100.0100 #### [facility] [address] [place], [address] Glucose [Mass/Vol] 141 mg/dL High 70-99 [facility] Comment on above: Performed By: #### L 100.0100 #### [facility] [address] [place], [address] Potassium [Moles/Vol] 4.5 mmol/L Normal 3.3-5.1 [facility] Comment on above: Performed By: #### L 100.0100 #### [facility] [address] [place], [address] Sodium [Moles/Vol] 138 mmol/L Normal 133-145 [facility] Comment on above: Performed By: #### L 100.0100 #### [facility] [address] [place], [address] Urea nitrogen [Mass/Vol] 20 mg/dL High 4-19 [facility] Comment on above: Performed By: #### L 100.0100 #### [facility] [address] [place], [address] Carbon dioxide, total [Moles /volume] in Central venous bloodOrdered By: Rickey Rainey on 04-14-2025 CO2 [Moles/Vol] 23.5 mmol/L 21.0-32.0 [facility] Chloride assayOrdered By: Yolanda Rainey on 04-14-2025 Chloride [Moles/Vol] 104 mmol/L 98-108 [facility] Glomerular filtration rate ( GFR) estimation/1.73 sq m using serum, plasma, or whole bOrdered By: Rickey Rainey on 04-14-2025 GFR/1.73 sq M.predicted among non-blacks MDRD (S/P/Bld) [Vol rate/Area] 81 mL/min/{1.73_m2} >60 [facility] Comment on above: mL/min/1.73m2 CKD-EP I Creatinine Equation (2020) Potassium measurement (mass/ volume)Ordered By: Rickey Rainey on 04-14-2025 Potassium (Unsp spec) [Mass/Vol] 4.5 mmol/L 3.3-5.1 [facility] Serum creatinine measurement (mass/volume)Ordered By: Rickey Rainey on 04-14-2025 Creatinine [Mass/Vol] 1.02 mg/dL 0.70-1.20 [facility] Serum glucose measurement (m ass/volume)Ordered By: Rickey Rainey on 04-14-2025 Glucose [Mass/Vol] 141 mg/dL High 70-99 [facility] Serum or plasma calcium greta urement (mass/volume)Ordered By: Rickey Rainey on 04-14-2025 Calcium [Mass/Vol] 9.8 mg/dL 7.6-11.0 [facility] Serum or plasma urea nitroge n measurement (mass/volume)Ordered By: Rickey Rainey on 04-14-2025 Urea nitrogen [Mass/Vol] 20 mg/dL High 4-19 [facility] Sodium levelOrdered By: Dudley Rainey on 04-14-2025 Sodium [Moles/Vol] 138 mmol/L 133-145 [facility] Basic Metabolic Profile (BMP )on 03-19-2025 BUN/CRE 15.1 RATIO Normal 10-20 [facility] Comment on above: Performed By: #### L 500.2500, L100.0100 ####[facility] [address] [place], [address] Calcium [Mass/Vol] 9.8 mg/dL Normal 7.6-11.0 [facility] Comment on above: Performed By: #### L 500.2500, L100.0100 ####[facility] [address] [place], [address] Chloride [Moles/Vol] 103 mmol/L Normal 98-108 [facility] Comment on above: Performed By: #### L 500.2500, L100.0100 ####[facility] [address] [place], [address] CO2 [Moles/Vol] 25.4 mmol/L Normal 21.0-32.0 [facility] Comment on above: Performed By: #### L 500.2500, L100.0100 ####[facility] [address] [place], [address] Creatinine [Mass/Vol] 0.98 mg/dL Normal 0.70-1.20 [facility] Comment on above: Performed By: #### L 500.2500, L100.0100 ####[facility] [address] [place], [address] GAP 10 Normal 5-15 [facility] Comment on above: Performed By: #### L 500.2500, L100.0100 ####[facility] [address] [place], [address] GFR/1.73 sq M.predicted among non-blacks MDRD (S/P/Bld) [Vol rate/Area] 86 mL/min/{1.73_m2} Normal >60 [facility] Comment on above: Result Comment: mL/m in/1.73m2 CKD-EPI Creatinine Equation (2020) Performed By: #### L 500.2500, L100.0100 ####[facility] [address] [place], [address] Glucose [Mass/Vol] 107 mg/dL High 70-99 [facility] Comment on above: Performed By: #### L 500.2500, L100.0100 ####[facility] [address] [place], [address] Potassium [Moles/Vol] 4.3 mmol/L Normal 3.3-5.1 [facility] Comment on above: Performed By: #### L 500.2500, L100.0100 ####[facility] [address] [place], [address] Sodium [Moles/Vol] 138 mmol/L Normal 133-145 [facility] Comment on above: Performed By: #### L 500.2500, L100.0100 ####[facility] [address] [place], [address] Urea nitrogen [Mass/Vol] 15 mg/dL Normal 4-19 [facility] Comment on above: Performed By: #### L 500.2500, L100.0100 ####[facility] [address] [place], [address] Absolute lymphocyte countOrd ered By: Rickey Rainey on 03-18-2025 Lymphocytes Auto (Unsp spec) [#/Vol] 1.89 10*3/uL 0.83-4.51 [facility] Absolute neutrophil countOrd ered By: Rickey Rainey on 03-18-2025 Neutrophils (Bld) [#/Vol] 5.2 10*3/uL 2.0-7.7 [facility] Anion gap in Serum or Plasma Ordered By: Rickey Rainey on 03-18-2025 Anion gap [Moles/Vol] 10 mmol/L 5- [facility] Automated lymphocyte count a s percentage of total leukocytesOrdered By: Rickey Rainey on 03-18-2025 Lymphocytes/100 WBC Auto (Unsp spec) 23.2 % - [facility] BUN/creatinine ratioOrdered By: Rickey Rainey on 03-18-2025 Urea nitrogen/Creatinine [Mass ratio] 15.1 mg/mg 10-20 [facility] Basophil percentageOrdered B y: Rickey Rainey on 03-18-2025 Basophils/100 WBC (Bld) 0.9 % 0-1 [facility] CBC W/Diff, Automatedon 02-27 Absolute Lymph 1.89 X10 3/uL Normal 0.83-4.51 [facility] Comment on above: Performed By: #### L 500.2500, L100.0100 ####[facility] [address] [place], [address] Absolute Neut 5.2 X10 3/uL Normal 2.0-7.7 [facility] Comment on above: Performed By: #### L 500.2500, L100.0100 ####[facility] [address] [place], [address] Basophils/100 WBC (Bld) 0.9 % Normal 0-1 [facility] Comment on above: Performed By: #### L 500.2500, L100.0100 ####[facility] [address] [place], [address] Eosinophils/100 WBC (Bld) 2.7 % Normal 0-5 [facility] Comment on above: Performed By: #### L 500.2500, L100.0100 ####[facility] [address] [place], [address] Erythrocyte distribution width (RBC) [Ratio] 14.5 % Normal 11.6-14.6 [facility] Comment on above: Performed By: #### L 500.2500, L100.0100 ####[facility] [address] [place], [address] Hematocrit (Bld) [Volume fraction] 43.0 % Normal 40-54 [facility] Comment on above: Performed By: #### L 500.2500, L100.0100 ####[facility] [address] [place], [address] Hemoglobin (Bld) [Mass/Vol] 13.9 g/dL Normal 13.0-16. 5 [facility] Comment on above: Performed By: #### L 500.2500, L100.0100 ####[facility] [address] [place], [address] IG% 0.200 Normal 0.0-0.9 [facility] Comment on above: Result Comment: IG% - Immature Granulocytes (promyelocytes, myelocytes and metamyelocytes) > 1% indicates that a LEFT SHIFT is Present. Performed By: #### L 500.2500, L100.0100 ####[facility] [address] [place], [address] Lymphocytes/100 WBC (Bld) 23.2 % Normal 19-41 [facility] Comment on above: Performed By: #### L 500.2500, L100.0100 ####[facility] [address] [place], [address] MCH (RBC) [Entitic mass] 31.2 pg Normal 27.0-32.0 [facility] Comment on above: Performed By: #### L 500.2500, L100.0100 ####[facility] [address] [place], [address] MCHC (RBC) [Mass/Vol] 32.3 g/dL Normal 32-36 [facility] Comment on above: Performed By: #### L 500.2500, L100.0100 ####[facility] [address] [place], [address] MCV (RBC) [Entitic vol] 96.4 fL High 80-94 [facility] Comment on above: Performed By: #### L 500.2500, L100.0100 ####[facility] [address] [place], [address] Monocytes/100 WBC (Bld) 9.1 % Normal 0-10 [facility] Comment on above: Performed By: #### L 500.2500, L100.0100 ####[facility] [address] [place], [address] Neutrophils/100 WBC (Bld) 63.9 % Normal 47-70 [facility] Comment on above: Performed By: #### L 500.2500, L100.0100 ####[facility] [address] [place], [address] Nucleated RBC (Bld) [#/Vol] 0 10*3/uL Normal 0-5 [facility] Comment on above: Performed By: #### L 500.2500, L100.0100 ####[facility] [address] [place], [address] Platelet mean volume (Bld) [Entitic vol] 10.4 fL Normal 6.2-12.0 [facility] Comment on above: Performed By: #### L 500.2500, L100.0100 ####[facility] [address] [place], [address] Platelets (Bld) [#/Vol] 289 10*3/uL Normal 150-450 [facility] Comment on above: Performed By: #### L 500.2500, L100.0100 ####[facility] [address] [place], [address] RBC (Bld) [#/Vol] 4.46 10*6/uL Low 4.6-6.2 [facility] Comment on above: Performed By: #### L 500.2500, L100.0100 ####[facility] [address] [place], [address] RDW SD 51.4 fl High 35.1-43.9 [facility] Comment on above: Performed By: #### L 500.2500, L100.0100 ####[facility] [address] [place], [address] WBC (Bld) [#/Vol] 8.2 10*3/uL Normal 4.4-11.0 [facility] Comment on above: Performed By: #### L 500.2500, L100.0100 ####[facility] [address] [place], [address] Carbon dioxide, total [Moles /volume] in Central venous bloodOrdered By: Rickey Rainey on 03-18-2025 CO2 [Moles/Vol] 25.4 mmol/L 21.0-32.0 [facility] Cardiology Visit Reporton Cardiology Visit Report [facility] [address] [place] [address] OFFICE VISIT Date of Service: 03/18/25 MR#: [id number] Acct: [id number] Name: KRISTIAN DEWITT Rep #: [id number] : 1960 Provider: ALYSA Hussein Age/Sex: 64/M Location: [facility] [place] [facility] Status: Signed Agree with the assessment and plan as outlined. We need to focus on addressing his guideline directed medical therapy to maximize his treatment and then repeat his echocardiogram as outlined 3 months after guideline directed medical therapy has been maximized. HPI HPI History of Present Illness Details: Kristian Dewitt is a 64-year-old male office today for follow-up. Patient established with our office as a new patient approximately 6 weeks ago. He was recently hospitalized at [facility] with paroxysmal atrial fibrillation in the face of the pneumonia and metabolic encephalopathy in mid November 2024. He was noted to be in atrial fibrillation and spontaneously reverted to sinus rhythm. He was noted to have decreased LV function with an ejection fraction of 35% and mild LV concentric hypertrophy and a mildly dilated left ventricular cavity, left atrium severely enlarged and right atrium mildly enlarged, mild to moderate mitral regurgitation, mild tricuspid regurgitation, right ventricular systolic pressure estimated at 45. Patient underwent repeat echocardiogram to assess ejection fraction/30/25 and this demonstrated left ventricular ejection fraction of 35%, mild concentric left ventricular hypertrophy, moderate global hypokinesis of the left ventricle. Patient was contacted following this and carvedilol was increased to 12.5 mg twice daily and patient was initiated on losartan 50 mg daily. Upon presentation to office today, patient reports feeling well. Patient's only reported symptom is occasional fatigue when he overexerts himself. Patient reports shortness of breath and swelling has significantly improved, and he has not needed to utilize Lasix. Further ROS below. Intake Vital Signs 02/13/25 08:45 03/18/25 14:13 03/18/25 14:14 Height 6 ft 1 in 6 ft 1 in 6 ft 1 in Weight: 172 lb BMI 22.6 BP 155/94 H Blood Pressure Location Lt brachial Position Sitting Respiration 18 Pulse 85 Pulse Source Monitor Pulse Oximetry (%) 95 Intake Visit Reasons: 2 WK FU [employer] Specialist Required: No Is patient in pain?: No Allergies No Known Allergies Allergy (Verified 03/18/25 14:12) Medications ???Medication ???Instructions ???Recorded ???Confirmed ???Type guaifenesin 1,200 mg tablet, 1,200 mg PO BID #60 tabs 12/31/24 02/13/25 Rx extended release 12 hr (Mucinex) fluticasone propionate 50 2 spray intranasal QDAY #16 grams 02/13/25 02/13/25 Rx mcg/actuation nasal spray,suspension carvedilol 12.5 mg tablet 12.5 mg PO BIDCM 30 days #60 tabs 02/26/25 03/18/25 Rx losartan 50 mg tablet 50 mg PO QAM #30 tabs 02/26/25 Rx apixaban 5 mg tablet (Eliquis) 5 mg PO BID 30 days #60 tabs 03/1103/18/25 Rx atorvastatin 40 mg tablet 40 mg PO QHS 30 days #30 tabs 02/2603/18/25 Rx Ejection fraction %: 35 Have you fallen in the past year?: Yes Nurse's Note: Patient unsure of what medications he is taking, does not know if he is taking losartan or not, states he is on some type of potassium pill. Believe this is losartan potassium; however, patient will check this when he gets home and if it is different, will contact us. [facility] Medical History Smoking greater than 40 pack years Shortness of breath Closed fracture of proximal tibia Pneumonia Atrial flutter Tobacco abuse Family History Brother Heart disease valve replacement Social History Smoking Status: Former smoker quit date: 12/13/24 second hand exposure: Yes alcohol intake: former substance use type: does not use caffeine: Yes ROS Const Const: Negative for fatigue, weakness, headache(s) or frequent falls Eyes Eyes: Negative for blurry vision ENT ENT: Negative for headache(s), dizziness or Nosebleed/epistaxis Cardio Chest Pain: No Palpitations: No Edema: None Muscle aches with walking: None Resp Respiratory: Negative for SOB with activity, SOB at rest or SOB orthopnea SOB lying down GI GI: Negative nausea, vomiting, heartburn, bright, red blood in stools or black,tarry stools : Negative for hematuria Neuro Neuro: Negative for dizziness, lightheadedness, near syncope, syncope, frequent falls, headache(s), weakness or blurry vision Endo Endo: Negative for fatigue Cardiology Exam Const Appearance: cooperative, comfortable, no acute distress and well developed; (more content not included)... Normal [facility] Chloride assayOrdered By: Yolanda Rainey on 03-18-2025 Chloride [Moles/Vol] 103 mmol/L 98-108 [facility] Eosinophil percentageOrdered By: Rickey Rainey on 03-18-2025 Eosinophils/100 WBC (Bld) 2.7 % 0-5 [facility] Erythrocyte distribution wid th ratioOrdered By: Rickey Rainey on 03-18-2025 Erythrocyte distribution width (RBC) [Ratio] 14.5 % 11.6-14.6 [facility] Erythrocyte distribution wid th standard deviationOrdered By: Rickey Rainey on 03-18-2025 Erythrocyte distribution width (RBC) [Ratio] 51.4 fl High 35.1-43.9 [facility] Glomerular filtration rate ( GFR) estimation/1.73 sq m using serum, plasma, or whole bOrdered By: Rickey Rainey on 03-18-2025 GFR/1.73 sq M.predicted among non-blacks MDRD (S/P/Bld) [Vol rate/Area] 86 mL/min/{1.73_m2} >60 [facility] Comment on above: mL/min/1.73m2 CKD-EP I Creatinine Equation (2020) Hematocrit Auto (Bld) [Volum e fraction]Ordered By: Rickey Rainey on 03-18-2025 Hematocrit (Bld) [Volume fraction] 43.0 % 40-54 [facility] Hemoglobin measurementOrdere d By: Rickey Rainey on 03-18-2025 Hemoglobin (Bld) [Mass/Vol] 13.9 g/dL 13.0-16. 5 [facility] Immature granulocytes/100 WB C Auto (Bld)Ordered By: Rickey Rainey on 03-18-2025 Immature granulocytes/100 WBC (Bld) 0.200 % 0.0-0.9 [facility] Comment on above: IG% - Immature Granu locytes (promyelocytes, myelocytes and metamyelocytes) > 1% indicates that a LEFT SHIFT is Present. MCV (mean corpuscular volume ) determinationOrdered By: Rickey Rainey on 03-18-2025 MCV (RBC) [Entitic vol] 96.4 fL High 80-94 [facility] Mean corpuscular hemoglobin (MCH) determinationOrdered By: Rickey Rainey on 03-18-2025 MCH (RBC) [Entitic mass] 31.2 pg 27.0-32.0 [facility] Mean corpuscular hemoglobin concentration (MCHC) determinationOrdered By: Rickey Rainey on 03-18-2025 MCHC (RBC) [Mass/Vol] 32.3 g/dL 32-36 [facility] Mean platelet volume determi nationOrdered By: Rickey Rainey on 03-18-2025 Platelet mean volume (Bld) [Entitic vol] 10.4 fL 6.2-12.0 [facility] Monocyte percentageOrdered B y: Rickey Rainey on 03-18-2025 Monocytes/100 WBC (Bld) 9.1 % 0-10 [facility] Neutrophil percentageOrdered By: Rickey Rainey on 03-18-2025 Neutrophils/100 WBC (Bld) 63.9 % 47-70 [facility] Nucleated red blood cell per centageOrdered By: Rickey Rainey on 03-18-2025 Nucleated RBC/100 WBC (Bld) [Ratio] 0 % 0-5 [facility] Platelet countOrdered By: Yolanda Rainey on 03-18-2025 Platelets (Bld) [#/Vol] 289 10*3/uL 150-450 [facility] Potassium measurement (mass/ volume)Ordered By: Rickey Rainey on 03-18-2025 Potassium (Unsp spec) [Mass/Vol] 4.3 mmol/L 3.3-5.1 [facility] RBC Auto (Bld) [#/Vol]Ordere d By: Rickey Rainey on 03-18-2025 RBC (Bld) [#/Vol] 4.46 10*6/uL Low 4.6-6.2 [facility] Serum creatinine measurement (mass/volume)Ordered By: Rickey Rainey on 03-18-2025 Creatinine [Mass/Vol] 0.98 mg/dL 0.70-1.20 [facility] Serum glucose measurement (m ass/volume)Ordered By: Rickeymarii Rainye on 03-18-2025 Glucose [Mass/Vol] 107 mg/dL High 70-99 [facility] Serum or plasma calcium greta urement (mass/volume)Ordered By: [facility] Brigid on 03-18-2025 Calcium [Mass/Vol] 9.8 mg/dL 7.6-11.0 [facility] Serum or plasma urea nitroge n measurement (mass/volume)Ordered By: [facility] Brigid on 03-18-2025 Urea nitrogen [Mass/Vol] 15 mg/dL 4-19 [facility] Sodium levelOrdered By: [facility] Brigid on 03-18-2025 Sodium [Moles/Vol] 138 mmol/L 133-145 [facility] White blood cell (WBC) count Ordered By: Rickey Rainey on 03-18-2025 WBC (Bld) [#/Vol] 8.2 10*3/uL 4.4-11.0 [facility] Echo, Limited Studyon 2024 Echo, Limited Study [facility] [address] [place] [address] Echo, Limited Study 02/25/25 1459 MR#: [id number] Acct: [id number] Name: KRISTIAN DEWITT Rep #: [id number] : 1960 64 From: Juan C Frankel MD Attending Dr: Dr. Taj Allen MD Status: RE G CLI Ordering Dr: Taj Allen MD Date: 02/25/25 Location: [facility] Sex: M C Admitted: Reason For Study : CHF Procedure This was a limited 2D transthoracic echocardiogram. Exam performed in department. Left Ventricle Moderately dilated left ventricle. Mild concentric left ventricular hypertrophy. The left ventricular ejection fraction is 35 %. There is moderate global hypokinesis of the left ventricle. Right Ventricle Normal RV size. Normal systolic function. Atria The left atrium is mildly enlarged. Normal right atrium. Mitral Valve Normal mitral valve. Tricuspid Valve Normal tricuspid valve. Aortic Valve Trisinus/trileaflet aortic valve. Great Vessels Mildly dilated aortic root. Pericardium/Pleural No pericardial effusion. MMode/2D Measurements Calculations LVIDd: 6.3 cm IVSd: 1.2 cm Ao root diam: 3.8 cm LVIDs: 5.2 cm LVPWd: 1.2 cm RVDd: 3.5 cm FS: 16.9 % LAV(MOD-bp): 82.3 ml LVAd ap4: 45.6 cm2 LVAd ap2: 41.7 cm2 LAV(MOD-bp) Indexed: 43.1 ml/m2 LVLd ap4: 9.8 cm LVLd ap2: 9.8 cm LAV(MOD-sp2): 76.1 ml EDV(MOD-sp4): 180.3 ml EDV(MOD-sp2): 156.9 ml LAV(MOD-sp4): 86.3 ml EDV(sp4-el): 180.1 ml EDV(sp2-el): 150.2 ml LVAs ap4: 33.4 cm2 LVAs ap2: 31.9 cm2 LVLs ap4: 8.7 cm LVLs ap2: 8.9 cm ESV(MOD-sp4): 112.0 ml ESV(MOD-sp2): 99.9 ml ESV(sp4-el): 109.1 ml ESV(sp2-el): 97.1 ml EF(MOD-sp4): 37.9 % EF(MOD-sp2): 36.3 % EF(sp4-el): 39.4 % SV(MOD-sp4): 68.3 ml SV(MOD-sp2): 57.0 ml SV(sp4-el): 71.0 ml SI(MOD-sp4): 35.7 ml/m2 SI(MOD-sp2): 29.8 ml/m2 LA A4 area: 24.2 cm2 LA dimension(2D): 4.3 cm RA A4 area: 16.9 cm2 ECHO/Echo, Limited Study Interpretation Summary The left ventricular ejection fraction is 35 %. Moderately dilated left ventricle. Mild concentric left ventricular hypertrophy. Compared to previous study, the left ventricular systolic function is the same.. Ordering Physician: Taj Allen Referring Physician: Randa Isaac Performed By: Grazyna Lucero RDCS, RVT 02/25/25 6498 Date Juan C Frankel MD CC: EDDIE Isaac; Dr. 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 (2) Smoking greater than 40 pack years: Status: Acute Plan: Continue with complete smoking cessation. There is no need for the patient to be off of work at this time, as he currently has no pulmonary limitation. (3) Cough: Status: Acute Qualifiers: Cough type: unspecified Qualified Code(s): R05.9 - Cough, unspecified Plan: Cough post pneumonia. In the context of no obstructive or restriction seen on the PFT, the differential does include asthma. I have given him a trial of bronchodilator agent, Airsupra. Patient has declined referral to allergy for active allergic rhinitis with workup. He declines RAST testing today. I do believe that there is a degree of allergic rhinitis which is contributing to his current cough. He is agreeable to trial fluticasone nasal spray. I have recommended that he continue with use of incentive spirometer and PEP therapy. Orders: Orders Chest without Contrast 3 Months R91.8 - Other nonspecific abnormal finding of lung field Medications: New fluticasone propionate 50 mcg/actuation administer into each nostril 2 sprays intranasal QDAY 16 grams 11RF J30.2 - Other seasonal allergic rhinitis Plan Follow-up with PCP for anemia that was seen in November. Plan Details Follow Up: 3 to 4 months (LMR) HPI HPI Comments Details: Patient is a 64-year-old male who presents today for hospital follow-up. He is ambulatory and currently on room air. He is accompanied today by his sister. The patient has not been established with a PCP. There is a plan to establish with Randa Isaac at [facility] January 09 at 2:30. He reports that he initially began to feel ill the before he was hospitalized. He got home from work and fell asleep at his kitchen table. He reports that the illness just hit me . The patient indicates that this was the first time that he had been hospitalized for his breathing. He did have a previous pneumonia at age 13 and had bronchitis when he was older . He initially went to the urgent care and was given an inhaler which he took for 3 days along with Mucinex. The patient was hospitalized December 13-2024. He had been admitted to the hospital for pneumococcal pneumonia, atrial flutter and acute metabolic encephalopathy. A CT was performed on admission which showed large consolidative pulmonary opacity in the right upper lobe with additional surrounding intra-and interlobular septal thickening on a background of ground-glass opacity (crazy paving pattern) multifocally throughout the right lung. No discrete pulmonary mass lesion is identified, however, invasive mucinous adenocarcinoma of the lung can have this type of large, irregular consolidative appearance, or an occult mass can be obscured by consolidation. Otherwise, pneumonia is the primary differential consideration. The differential for crazy paving is broad and includes pneumonia, pulmonary edema/ARDS and pulmonary alveolar proteinosis. Mildly enlarged right hilar lymph node, possibly reactive. He was discharged home with Levaquin, 7 days. The recommendation was to complete a CT of the chest in 6 weeks after completion of his antibiotic treatment. Also recommended was outpatient PFTs. The patient has a smoking history of cigarettes but did quit when he went to the hospital and has not returned to smoking. He did smoke 2ppd from age 17 to 64. His brother had liver cancer and father had a cancer from being in the . The patient indicates that he has no known malignancy. Today he denies wheeze, chest pain, chest tightness. He does report shortness of breath will occur with exertion when walking for long distances. He reports that he has shortness of breath with inclines. He reports that he continues with coughing that is productive with clear sputum. He denies hemoptysis. He reports that he feels chest congestion and pressure in his head . He denies fever, chills, body aches. He did utilize Mucinex but did not feel like it was benefit. He does not want to utilize Claritin. He is asking for [facility] paperwork to be completed. Doc (more content not included)... Normal [facility] 6 Minute Walk Teston 025 6 Minute Walk Test y [facility] Services/Neurology [address] [place] [address] MR#: [id number] Acct: [id number] Name: RENATEKRISTIAN D Rep #: [id number] : 1960 64 From: Nicola Arthur DO Referring Dr: Becky Hagen DIRECTOR DATA-C Status: REG CLI Location: PSN Date: Sex: M C PSN 6 Minute Walk Test 6 Minute Walk Test 6 Minute Walk Test: 6 Minute Walk Test PSN:6-Minute Walk Test Start: 02/10/25 14:05 Freq: Status: Discharge Protocol: [id number] Document 02/10/25 14:05 ROSARIO (Rec: 02/10/25 14:07 SFENTON [id number]) 6 Minute Walk Test Date Performed 02/10/25 Time Performed 13:45 Height 6 ft 1 in Weight: 160 lb Weight in Pounds 160.[address]: Becky Hagen Assistive device None used: Pre-test Oxygen Delivery Room Air Method Pulse Ox (%) 97 Pulse Rate (60-100 81 beats/min) Dyspnea Manoj Scale ( 0 0-10) Exertion Manoj Scale 6 (6-20) 1st minute Oxygen Delivery Room Air Method Pulse Ox (%) 97 Pulse Rate (60-100 95 beats/min) 2nd minute Oxygen Delivery Room Air Method Pulse Ox (%) 97 Pulse Rate (60-100 115 H beats/min) 3rd minute Oxygen Delivery Room Air Method Pulse Ox (%) 95 Pulse Rate (60-100 117 H beats/min) 4th minute Oxygen Delivery Room Air Method Pulse Ox (%) 95 Pulse Rate (60-100 122 H beats/min) 5th minute Oxygen Delivery Room Air Method Pulse Ox (%) 96 Pulse Rate (60-100 121 H beats/min) 6th minute Oxygen Delivery Room Air Method Pulse Ox (%) 96 Pulse Rate (60-100 119 H beats/min) Dyspnea Manoj Scale ( 1 0-10) Exertion Manoj Scale 11 (6-20) Post-test Oxygen Delivery Room Air Method Pulse Ox (%) 97 Pulse Rate (60-100 88 beats/min) Full Laps Walked 18 Partial Lap, Number 2 of Tiles Walked Total Distance 1064 Walked (ft) Interpretation Interpretation: The patient ambulated 1064 feet over the course of 6 minutes beginning on room air without assistive devices. Pretesting oxygen saturation was noted to be 97% on room air. With ambulation, the latrell oxygen saturation was 95%. There was no significant exertional oxygen desaturation. Recommendations Recommendations: There is no indication for the use of supplemental oxygen at this time. 02/12/25 1233 Date Nicola Arthur DO CC: Date Dictated: 02/12/25 1233 Date Transcribed: 02/12/25 1233 Injection Molding Machine Offbearer: Dr. Nicola Arthur, Signed Normal [facility] Chest without Contraston Chest without Contrast [facility] Imaging Services [address] [place], [place] [address] Chest without Contrast MR#: [id number] Acct: [id number] Name: RENATEKRISTIAN D Rep #: [id number] : 1960 M 64 From: Thi Vasquez MD PCP: Randa Isaac NP-Usha Status: REG CLI Study: Chest without Contrast Date of Exam: 02/04/25 Exam# [id number] Ordering Dr: Ceci Leyva NP DIRECTOR DATA-C PROCEDURE: CHEST WITHOUT CONTRAST 02/04/2025 REASON FOR EXAM: 94 PACK YEAR HISTORY TECHNIQUE: Chest CT without contrast. Coronal and Sagittal reconstruction series were provided. One or more dose reduction techniques were used (e.g., Automated exposure control, adjustment of the mA and/or kV according to patient size, use of iterative reconstruction technique RADIATION DOSE SUMMARY: CTDlvol: 10.4 mGy DLP: 412.1 mGycm COMPARISON: CT chest dated December 13, 2024 FINDINGS: Hardware: None Lymph nodes: No lymphadenopathy. Heart and Vasculature: The heart is normal in size. The great vessels are normal in size and caliber. No pericardial effusion identified. Coronary Artery Calcifications: Absent Lungs and Airways: Central airways are patent. Consolidative density within the right middle lobe, and streaky opacity within the right lung base, likely representing multifocal infection. Mild upper lobe predominant centrilobular emphysematous changes within bilateral lungs. Pleura: No pleural effusion or pneumothorax. Upper Abdomen: Partially visualized upper abdomen demonstrates no acute abnormality. Bones: No aggressive osseous lesions. No acute fractures. Mild kyphosis of the midthoracic spine. CT/Chest without Contrast IMPRESSION: *Consolidative density within the anterior right upper lobe, and patchy opacities within the right lung base, likely representing multifocal infection. Occult pulmonary mass within the right upper lobe opacity not excluded. Consider follow-up chest CT in 3 months to further evaluate following resolution of underlying infectious process. *Mild upper lobe predominant centrilobular emphysematous changes within bilateral lungs. Reading Location: [facility] CC: EDDIE Leyva; EDDIE Isaac Injection Molding Machine Offbearer: Signed Normal [facility] 12 Lead EKG performed by [facility] on 01-27-2025 12 Lead EKG performed by [facility] [address] [place] [address] 12 Lead EKG performed by [facility] 01/27/25 1530 MR#: [id number] Acct: [id number] Name: KRISTIAN DEWITT Rep #: [id number] : 1960 64 From: Taj Allen MD Attending Dr: Dr. Taj Allen MD Status: DE P AMB Ordering Dr: Taj Allen MD Date: 01/27/25 Location: [facility] Sex: M C Admitted: BMS/12 Lead EKG performed by [facility] ECG Report Interpretation ----Sinus Rhythm NSST depression ABNORMAL Electronically signed on 01/27/2025 at 14:[address] Taj Allen [employer] Software Version 8610 01/27/25 1436 Date Taj Allen MD CC: EDDIE Isaac Date Dictated: 01/27/251529 Date Transcribed: 01/27/251529 Injection Molding Machine Offbearer: Signed Normal [facility] Cardiology Visit Reporton Cardiology Visit Report [facility] [address] [place] [address] OFFICE VISIT Date of Service: 01/27/25 MR#: [id number] Acct: [id number] Name: KRISTIAN DEWITT Rep #: [id number] : 1960 Provider: Dr. Taj fernandes MD Age/Sex: 64/M Location: [facility] Status: Signed HPI HPI History of Present Illness Details: Patient is a 64-year-old white male that comes in as a new patient visit. Patient was recently hospitalized and [facility] with paroxysmal atrial fibrillation in the face of the pneumonia and metabolic encephalopathy in mid November 2024. The patient still does not remember much about that hospitalization. He was noted to be in atrial fibrillation and spontaneously reverted into sinus rhythm. His ECG from December 14 showed normal sinus rhythm. ECG done in the office today shows normal sinus rhythm at [address]-T wave changes which are minimally different than the EKG from December 14. The patient presented with LV dysfunction is well an ejection fraction of 35% with mild LV concentric hypertrophy and a mildly dilated left ventricular cavity. The right ventricle is normal the left atrium was severely enlarged right atrium was mildly enlarged. He had mild to moderate 1- 2+ mitral regurgitation he had mild tricuspid regurgitation right ventricular systolic pressure estimated 45. He had aortic sclerosis with no stenosis The patient quit smoking since that hospitalization he was congratulated on this great achievement. He also has noticed that his volume status is markedly improved he is only using the Lasix as needed. And he reports that his activity levels are pretty much back to normal. He is wanting to go back to work. The patient denies any PND orthopnea denies any lower extremity edema denies any syncope or near syncope. Intake Vital Signs 12/14/24 10:40 12/31/24 12:52 01/27/25 14:00 Height 6 ft 1 in 6 ft 1 in 6 ft 1 in Weight: 140 lb 156 lb BMI 18.4 20.5 BP 121/63 H 165/91 H Blood Pressure Location Lt brachial Rt brachial Position Sitting Sitting Respiration 20 H 18 Pulse 62 77 Pulse Source Monitor Monitor Temp 97.2 F L Temperature Source Temporal Artery Pulse Oximetry (%) 96 96 Oxygen Delivery Method room air room air Intake Visit Reasons: AFIB AVR ([facility]) Liquified [employer] Specialist Required: No Is patient in pain?: No Allergies No Known Allergies Allergy (Verified 01/27/25 14:00) Medications ???Medication ???Instructions ???Recorded ???Confirmed ???Type apixaban 5 mg tablet (Eliquis) 5 mg PO BID 30 days #60 tabs 12/1601/27/25 Rx atorvastatin 40 mg tablet 40 mg PO QHS 30 days #30 tabs 11/2901/27/25 Rx carvedilol 6.25 mg tablet 6.25 mg PO BIDCM 30 days #60 tabs 12/16/24 01/27/25 Rx guaifenesin 1,200 mg tablet, 1,200 mg PO BID #60 tabs 12/31/24 01/27/25 Rx extended release 12 hr (Mucinex) loratadine 10 mg tablet (Claritin) 10 mg PO QDAY #30 tabs 12/31/24 01/27/25 Rx furosemide 20 mg tablet 20 mg PO DAILY 30 days #30 tabs Rx Ejection fraction %: 35 Have you fallen in the past year?: No [facility] Medical History Smoking greater than 40 pack years Shortness of breath Closed fracture of proximal tibia Pneumonia Atrial flutter Tobacco abuse Family History Brother Heart disease valve replacement Social History Smoking Status: Former smoker quit date: 12/13/24 second hand exposure: Yes alcohol intake: former substance use type: does not use caffeine: Yes ROS Const Const: Negative for fatigue or weakness ENT ENT: Negative for dizziness or balance problems Cardio Chest Pain: No Palpitations: No Edema: None Muscle aches with walking: None Resp Respiratory: Negative for SOB with activity, SOB at rest or SOB orthopnea SOB lying down GI GI: Negative nausea, vomiting or heartburn Musc Musc: Negative for muscle weakness or balance problems Neuro Neuro: Negative for dizziness, lightheadedness, near syncope, syncope or weakness Endo Endo: Negative for fatigue Cardiology Exam Const Appearance: cooperative, comfortable and no acute distress Nutritional Appearance: thin Head Head: normal to inspection Eyes General: appearance normal, both eyes and all related structures Neck Neck: normal visual inspection and no JVD Chest Chest inspection: normal inspection of the chest Cardio Rate: regular rate Rhythm: regular rhythm GI GI: normal to inspection Neuro General: patient alert and patient oriented x3 Extremities Lower Extremity Edema: None: Bilateral Psych Psychological: normal affect Supplemental Inf (more content not included)... Normal [facility] Pulmonary Visit Reporton Pulmonary Visit Report [facility] Pulmonary Medicine of [address] [place] [address] OFFICE VISIT Date of Service: 12/31/24 MR#: [id number] Acct: [id number] Name: KRISTIAN DEWITT Rep #: [id number] : 1960 Provider: Becky Hagen NP Age/Sex: 64/M Location: [facility] Status: Signed Assessment and Plan Assessment and Plan (1) Smoking greater than 40 pack years: Status: Acute Plan: Continue to live a smoke-free lifestyle. I have recommended a PFT and a 6-minute walk test to determine if COPD is present. Differential diagnosis does include asthma. The patient may benefit from the use of inhalers in the future but I have planned to wait until further testing is obtained. (2) Pneumonia: Status: Acute Qualifiers: Pneumonia type: due to unspecified organism Laterality: right Lung location: unspecified part of lung Qualified Code(s): J18.9 - Pneumonia, unspecified organism Plan: Pneumococcal pneumonia was treated with Levaquin. The patient has had improvement in symptoms. The patient should discuss pneumococcal vaccine with his PCP on follow-up. Await further CT imaging. The patient should notify this practice if worsening respiratory symptoms occur. 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 (4) Cough: Status: Acute Qualifiers: Cough type: unspecified Qualified Code(s): R05.9 - Cough, unspecified Plan: Cough post pneumonia. The patient was educated on the length of cough post pneumonia. The differential does include COPD, asthma, active allergic rhinitis for which the patient does have signs present on exam. I plan to utilize an antihistamine. Due to the chest congestion that is present I have recommended the use of guaifenesin for a pulmonary toilet regimen. I have recommended that he continue with use of incentive spirometer and PEP therapy. Orders: Orders PFT Complete - DLCO, Spirometry b/a bronchodilators, lung volumes Today Z72.0 - Tobacco use Simple Pulmonary Exercise Test Today Z72.0 - Tobacco use Chest without Contrast 4 Weeks R06.02 - Shortness of breath, R91.8 - Other nonspecific abnormal finding of lung field Medications: New guaifenesin ER (Mucinex) 1,200 mg PO BID 60 tabs 3RF loratadine (Claritin) 10 mg PO QDAY 30 tabs 2RF Plan Details Follow Up: 5 Weeks (LMR) HPI HPI Comments Details: Patient is a 64-year-old male who presents today for hospital follow-up. He is ambulatory and currently on room air. He is accompanied today by his sister and his son. The patient has not been established with a PCP. There is a plan to establish with Randa Isaac at [facility] January 09 at 2:30. He reports that he initially began to feel ill the before he was hospitalized. He got home from work and fell asleep at his kitchen table. He reports that the illness just hit me . The patient indicates that this was the first time that he had been hospitalized for his breathing. He did have a previous pneumonia at age 13 and had bronchitis when he was older . He initially went to the urgent care and was given an inhaler which he took for 3 days along with Mucinex. The patient was hospitalized December 13-2024. He had been admitted to the hospital for pneumococcal pneumonia, atrial flutter and acute metabolic encephalopathy. A CT was performed on admission which showed large consolidative pulmonary opacity in the right upper lobe with additional surrounding intra-and interlobular septal thickening on a background of ground-glass opacity (crazy paving pattern) multifocally throughout the right lung. No discrete pulmonary mass lesion is identified, however, invasive mucinous adenocarcinoma of the lung can have this type of large, irregular consolidative appearance, or an occult mass can be obscured by consolidation. Otherwise, pneumonia is the primary differential consideration. The differential for crazy paving is broad and includes pneumonia, pulmonary edema/ARDS and pulmonary alveolar proteinosis. Mildly enlarged right hilar lymph node, possibly reactive. He was discharged home with Levaquin, 7 days. The recommendation was to complete a CT of the chest in 6 weeks after completion of his antibiotic treatment. Also recommended was outpatient PFTs. The patient has a smoking history of cigarettes but did quit when he went to the hospital and has not returned to smoking. He did smoke 2ppd from age 17 to 64. His brother had liver cancer and father had a cancer from being in the . The patient indicates that he has no known malignancy. Today he denies wheeze, chest pain, chest tightness. He does report shortness of breath will occur with exertion when walking for long distances (more content not included)... Normal [facility] Inital Evaluation (1) - PTon 12-25-2024 Inital Evaluation (1) - PT [facility] [address] [place] [address]. [address] [place] [address] / REHABILITATION SERVICES INITIAL EVALUATION MR#: [id number] Acct: [id number] Name: KRISTIAN DEWITT Rep #: [id number] : 1960 64 From: Karl Ramirez PT, Cert. T, OCS Referring Dr.: Dr. Sp Andino MD Status: REG RCR Insurance: [facility] PACKAGE PLAN Patient's Visit Information Visit Information Visit Information: KRISTIAN DEWITT is a 64 year old M referred to Physical Therapy by Dr. Sp Andino MD with a diagnosis of WEAKNESS ,PNEUMONIA ,METABOLIC ENCEPHALOPATHY. Date of Evaluation: 12/25/24 Physical Therapist: Karl Ramirez, PT, Cert MDT, OCS Visit Plan Frequency: 2x /Week Duration: 4 Weeks Plan: PT INTERVENTIONS ENDURANCE PROGRAM ,BLE STRENGTHENING ,AND FUNCTIONAL STRENGTHENING ( MOINTOR Sp02 as needed) Subjective Subjective: This 64 y/o male presents to physical with weakness ,pneumonia and metabolic encephalopathy. Patient reports admitted to [facility] bronchitis and pneumonia on Dec 13 discharged on the .Patient also has left leg fracture last year. Patient states since being hospitalized lost 30#. Patient lives along but lives SON. Patient has 1 story home with 3 steps. Pain denies pain and paresthesia/tingling-. Patient denies SOB but has cough . Initially was so weak unable to walk. Patient denies any falls. Patient is able to self care and some ADLS. Patient plans to find apartment. Patient has been work but plan to return for another year. Patient condition affects QOL and function. Patient goals to get stronger, SOCIAL: VOCATION: plan to retire Objective Objective: POSTURE: mild forward posture GAIT: reciprocal pattern FLEXABILITY: hamstrings mod tight STAIRS: ascending/descending one step at time with rail MMT: quads/hams/hip 4/5 ,ankle 4/5 SPO2: 93% Balance/Special Test Scores Functional Gait Assessment Score: 30 % Disability: 0 CATSIB Score (Max score 120 seconds): 116 Lower Extremity Functional Score: 40 30 Second Chair Rise Test Seconds: 10 Goals Goal 1:: Patient to be I with HEP for strengthening Goal Time Frame: 4-6 Weeks Goal 2:: Patient to improve 30sec sit-stand by 3- 5 reps to improve functional strength Goal Time Frame: 4-6 Weeks Goal 3:: Patient to improve LFES score by 5 points to improve QOL, and function Goal Time Frame: 4-6 Weeks Goal 4:: Patient to demonstrate 50% improvement with function and endurance Goal Time Frame: 4-6 Weeks Rehabilitation Potential Physical Therapy Diagnosis: This patient was hospitalized with pneumonia with weakness and decrease endurance thus benefit from skilled PT Rehabilitation Potential: Good Anticipated Interventions Patient/Client Instruction: Educate patient on: Condition and Plan of Care For the Purpose of:: To improve muscle performance and motor function, To improve ability to perform ADL's, To increase tolerance to activity/condition/pos ition, To improve endurance, To improve balance and To improve tolerance to ADL's Therapeutic Exercise to Include: Strength training, Endurance training and Balance training Comment: BLE For the Purpose of:: To improve muscle performance and motor function, To improve ability to perform ADL's, To increase tolerance to activity/condition/pos ition, To improve ability of physical actions for home/community/work/le isure, To improve health of tissue, To decrease soft tissue restriction, To increase flexibility/ROM, To improve endurance and To improve tolerance to ADL's Text: Thank you for the opportunity to evaluate your patient. For Medicare and Medicare HMO plans, please review the plan of care and approve it. It will need to be FAXED BACK to us at [phone] for Medicare purposes. For Medicare only, by signing this I certify the plan of care. Please let me know if there are questions or concerns regarding this plan of care. Physician Signature: Date:__ 12/25/24 1300 CC: Dr. Sp Andino MD; No Primary Care Physician SAIRA Signed Normal [facility] OT General Evaluationon 11-30 OT General Evaluation [facility] Occupational Therapy Health[address] [place] [address] / REHABILITATION SERVICES INITIAL EVALUATION MR#: [id number] Acct: [id number] Name: KRISTIAN DEWITT Rep #: [id number] : 1960 64 From: Briana Burnham Referring Dr.: Dr. Sp Andino MD Status: REG RCR Insurance: [employer] Date: [facility] PACKAGE PLAN Patient's Visit Information Visit Information Visit Information: KRISTIAN DEWITT is a 64 year old M, referred to Occupational Therapy by Dr. Sp Andino MD, with a diagnosis of weakness and metabolic encephalopathy. Date of Evaluation: 12/25/24 Occupational Therapist: Briana Burnham Subjective Subjective: This 64 year old male arrives with dx of weakness as well as metabolic encephalopathy. pt reports he had bronchitis as well as pna. Pt went into hospital originally Dec 13 discharged on the . Pt states he has lost approx 30 pounds since being in hospital until now. Pt went to sons home due to need for assistance with medication management. Pt son not working at this time and is able to be home with pt. Per pt the plan is to stay at sons home for a little bit then go back to his own home. 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 Pt reports increased difficulty breathing due to congestion causing day to day tasks to be more difficult. pt does report he has spirometers at home from hospital and states he has been using them for approx 20 min total a day. pt states he is able to perform his basic self care tasks at this time son will assist with IADL tasks as needed. pt drives and does not use any AD. Objective Objective/Observation: able to walk back to OT section no AD at baseline pt HR 77 bpm and 02 99% ROM ROM Comments: all within normal limits Strength Shoulder: L shoulder flexion 27.5# R shoulder flexion 24.7# Elbow: L bicep 27.2# R bicep 31.4# L tricep 27.5# R tricep 24.6# Supervisor Gear Repair: L 65# R 50# Lateral Pinch: L 15# R 15# Tripod Pinch: L 12# R 8# Strength Comments: pt is R hand dominant L ER 24.9# R ER 27.4# Edema Other: none noted and pt denies Sensation Sensation Comments: reports numbness for years pt states Dr in past has told him he has carpal tunnel however no formal nerve conduction study has been complete. L hand all digits 3.61 diminished light touch R hand D1-2 3.84 diminished light touch and all other digits at 3.61 Nine [place] Peg Right: 30 sec Left: 26 sec Quick DASH-Disab of Arm,Shoulder Hand Quick DASH Score: 9.0900 Goals Goal:: pt will improve B shoulder strength by 5# or more in order to improve overall strength for I in IADL tasks pt will improve B bicep strength by 5# or more in order to improve overall strength for I in IADL tasks pt will improve B fur glazer strength by 5# or more in order to improve overall strength and I in IADL tasks pt will increase sustained aerobic capacity to task for 30 min duration in order to maximize performance in IADL tasks Goal:: pt will improve quick dash score by 1-2 points or more in order to maximize use of UEs during day to day functional tasks Goal:: pt will demonstrate 100% accuracy in established home program by discharge Rehabilitation General Assessment: This 64 year old male arrives with dx of weakness as well as metabolic encephalopathy. pt presents with decreased overall aerobic capacity as well as strength impacting performance in home management IADL tasks. Pt with recent weight loss and working to incorporate appropriate amount of calories back into day. pt would benefit from OT services 1x a week for 4 weeks in order to provide tailored training in an appropriate home exercise program to meet pt needs while assuring HR and 02 remain in normal limits due to recent loss in weight. Rehabilitation Potential: Good Anticipated Interventions Anticipated Interventions: Strengthening, Education re assistive Equipment, Education re Diagnosis and Home Program Visit Plan Frequency: 1x/Week Duration: 4 Weeks General Plan: strengthening aerobic capacity training home program implementation TEXT: Thank you for the opportunity to evaluate your patient. For Medicare and Medicare HMO plans, please review the plan of care and approve it. It will need to be FAXED BACK to us at [phone] for Medicare purposes. Please let me know if there are questions or concerns regarding this plan of care. Physician Signature: Date:__ 12/25/24 1158 CC: Dr. Sp Andino MD; No Primary Care Physician CK Signed For Medicare only, by signing this I certify the plan of care. Physicians Signature Date Normal [facility] CBC W/Diff, Automatedon 11-29 PATH REV Reviewed Normal [facility] Comment on above: Result Comment: Neut rophilic leukocytosis with left shift. Clinical correlation necessary. Agusto Saldana M.D. 12/17/24 AMENDED REPORT 12/17/24905 PATH REV previously reported as: February Performed By: #### L 100.0100 #### [facility] [address] [place], [id number] Respiratory Cultureon 2024 RESPC No Haemophilus, Streptococcus pneumoniae, beta-hemolytic Streptococcus or Staphylococcus aureus isolated. Presumptive C albicans Amount Growth 3+ Normal [facility] Comment on above: Performed By: #### L 500.2500, L501.2300 #### [facility] [address] [place], [place], [id number] Vitamin D 1,25-Dihydroxyon 0 12-17-2024 VIT D 1,25 DIHY 94.3 pg/mL Abnormal 24.8-81.5 [facility] Comment on above: Result Comment: Perf ormed at: [facility] [address] [id number] Site Supervising Technical Operator: Marion Olivera MD, Phone: [phone] Performed By: #### L 6044.0960, BTS ####[facility] [address] [place], [place], [id number] Absolute lymphocyte countOrd ered By: pS Andino on 12-16-2024 Lymphocytes Auto (Unsp spec) [#/Vol] 1.72 10*3/uL 0.83-4.51 [facility] Absolute neutrophil countOrd ered By: Sp Andino on 12-16-2024 Neutrophils (Bld) [#/Vol] 11.8 10*3/uL High 2.0-7.7 [facility] Atypical lymphocyte percenta geOrdered By: Sp Andino on 12-16-2024 Atypical Lymphocytes 1+ % [facility] Automated lymphocyte count a s percentage of total leukocytesOrdered By: Sp Andino on 12-16-2024 Lymphocytes/100 WBC Auto (Unsp spec) 11.8 % Low 19-41 [facility] Basic Metabolic Profile (BMP )on 12-16-2024 BUN/CRE 33.1 RATIO High 10-20 [facility] Comment on above: Performed By: #### L 100.0100, L500.2500 ####[facility] [address] [place], [address] CA,Total 9.6 mg/dL Normal 8.5-10.1 [facility] Comment on above: Performed By: #### L 100.0100, L500.2500 ####[facility] [address] [place], [address] Chloride [Moles/Vol] 115 mmol/L High 98-107 [facility] Comment on above: Performed By: #### L 100.0100, L500.2500 ####[facility] [address] [place], [address] CO2 [Moles/Vol] 24.0 mmol/L Normal 21.0-32.0 [facility] Comment on above: Performed By: #### L 100.0100, L500.2500 ####[facility] [address] [place], [address] Creatinine [Mass/Vol] 0.69 mg/dL Low 0.70-1.30 [facility] Comment on above: Result Comment: The validity of the calculated GFR GFRAA in patients over 70 years has not been determined. Clinical correlation is essential. Performed By: #### L 100.0100, L500.2500 ####[facility] [address] [place], [address] ECRCL 91.28 ml/min Normal [facility] Comment on above: Performed By: #### L 100.0100, L500.2500 ####[facility] [address] [place], [address] EST GFR - AA 147 mL/min Normal >60 [facility] Comment on above: Result Comment: Afri can [place] GFR Calc Performed By: #### L 100.0100, L500.2500 ####[facility] [address] [place], [address] GAP 5 Normal 5-15 [facility] Comment on above: Performed By: #### L 100.0100, L500.2500 ####[facility] [address] [place], [address] GFR/1.73 sq M.predicted among non-blacks MDRD (S/P/Bld) [Vol rate/Area] 121 mL/min/{1.73_m2} Normal >60 [facility] Comment on above: Result Comment: Non- GFR Calc Performed By: #### L 100.0100, L500.2500 ####[facility] [address] [place], [address] Glucose [Mass/Vol] 101 mg/dL Normal 74-106 [facility] Comment on above: Result Comment: Fast ing Glucose result from 100 to 125 mg/dL suggests IMPAIRED HOMEOSTASIS per A.D.A. criteria. Performed By: #### L 100.0100, L500.2500 ####[facility] [address] [place], [address] Potassium [Moles/Vol] 3.9 mmol/L Normal 3.5-5.1 [facility] Comment on above: Performed By: #### L 100.0100, L500.2500 ####[facility] [address] [place], [address] Sodium [Moles/Vol] 144 mmol/L Normal 136-145 [facility] Comment on above: Performed By: #### L 100.0100, L500.2500 ####[facility] [address] [place], [address] Urea nitrogen [Mass/Vol] 23 mg/dL High 7-18 [facility] Comment on above: Performed By: #### L 100.0100, L500.2500 ####[facility] [address] [place], [address] Basophil percentageOrdered B y: Sp Andino on 12-16-2024 Basophils/100 WBC (Bld) 0.4 % 0-1 [facility] Blood manual differential co mment interpretation (narrative result)Ordered By: Sp Andino on 12-16-2024 Manual differential comment Luis Felipe (Bld) [Interp] SCANNED [facility] Blood urea nitrogen (BUN)/cr eatinine ratioOrdered By: Sp Andino on 12-16-2024 Urea nitrogen/Creatinine [Mass ratio] 33.1 mg/mg High 10-20 [facility] CBC W/Diff, Automatedon 11-29 ATYPICAL LYMPH 1+ Normal [facility] Comment on above: Performed By: #### L 100.0100, L500.2500 ####[facility] [address] [place], [address] SMEAR COMMENT SCANNED Normal [facility] Comment on above: Performed By: #### L 100.0100, L500.2500 ####[facility] [address] [place], [address] Carbon dioxide measurementOr dered By: Sp Andino on 12-16-2024 CO2 [Moles/Vol] 24.0 mmol/L 21.0-32.0 [facility] Chloride measurementOrdered By: Sp Andino on 12-16-2024 Chloride [Moles/Vol] 115 mmol/L High 98-[address] [facility] Discharge Instructionon 11-29 Discharge Instruction [facility] Medical Records Department [address] [place] [address] Instructions for Home/Discharge Instructions 12/16/24 1436 MR#: [id number] Acct: [id number] Name: KRISTIAN DEWITT Rep #: [id number] : 1960 64 From: Sp Andino MD PCP: Care Physician,No Primary Status:ADM IN Discharge Instructions Diet Discharge Diet: Low fat / Low cholesterol and 6 Cup Fluid Restriction DC O2, CPAP, BIPAP needs RN Home O2 Qualification: Home O2 Qualification: Is the patient on home oxygen No 12/16/24 08:04 Home O2 Qualification: AT REST 1- Pulse Ox at rest 94 12/16/24 08:04 Home O2 Qualification: WITH AMBULATION 1- Pulse Ox with ambulation 90 12/16/24 08:04 1- Oxygen Flow Rate with 0 12/16/24 08:04 ambulation 2- Pulse Ox with ambulation 92 12/15/24 13:41 2- Oxygen Flow Rate with 2 12/15/24 13:41 ambulation Home O2 Discharge instructions: No Dressing / Incision Discharge Activity: Return to Normal Activity Dressing / Incision Call your doctor if you observe: Fever of 101 or Higher, Shortness of breath, Dizziness, Fainting spells, Swelling in the ankles, Chest pain and Increased palpitations (irregular heartbeat) Follow Up Care Test Results: Test results from this visit will be discussed in further detail at your follow-up appointment, if applicable. Discharge Plan Admission Admit Date/Time: 12/13/24 22:01 Attending Provider: Sp Andino Primary Care Provider: Sheri Physician,No Primary Consulting Providers: Livan Nathan; Chapito Randall; Som Hdez; Nicola Arthur; Casper Delgado; Apollo Yañez; John Prince; Keri Wise; Vikas Hernandez; Darrell García; Brendan Metzger; Claudia Garsia; Rigo Arteaga; Martha,Negrita; Jeffery,Arsenio; Gabriel Ruelas; Ferny Guerrero; Marcelino Mcdowell; Estephania Groves; Jamaica Flores; Vidal Musa; Anthony Verde; Helder Belle; Casper Brito Instructions Patient Instructions: AFib Dc, ED CHF Left Side Additional Instructions / Restrictions: Follow-up with pulmonology in a month for pulmonary function testing and repeat CT scan of your chest. You also need to follow-up with your primary care physician to monitor your kidney function given the new medications that you will be started on. I will also provide you with a referral to cardiology given your new systolic CHF Discharge Orders/Prescriptions Prescriptions: New atorvastatin 40 mg Tablet 40 mg PO QHS 30 Days Qty: 30 0RF carvedilol 6.25 mg Tablet 6.25 mg PO BIDCM 30 Days Qty: 60 0RF furosemide 20 mg Tablet 20 mg PO DAILY 30 Days Qty: 30 0RF Eliquis 5 mg Tablet 5 mg PO BID 30 Days Qty: 60 0RF cefdinir 300 mg capsule 300 mg PO BID 4 Days Qty: 8 0RF Referrals / Follow Up: [facility] [place] [Provider Group] Taj Allen MD [Med Staff - Active Staff] - Within 1 Month Care Physician,Paty Primary [Primary Care Provider] - 12/31/24 3:15 pm (Appointment is with Becky Briceno N.P.) Disposition Disposition (needs filled in before D/C Order can be placed): Home, Self Care 12/16/24 1440 Sp Andino MD CC: Dr. Chapito Randall MD; Dr. Livan Nathan MD; Dr. Som Hdez MD; Dr. Casper Delgado MD; Dr. Casper Brito DO; Dr. Nicola Arthur DO; Dr. Apollo Yañez MD; Dr. John Prince MD; Dr. Vikas Hernandez MD; Dr. Darrell García MD; Dr. Brendan Metzger MD; Dr. Claudia Lauren MD; Dr. Rigo Arteaga MD; Dr. Negrita Thomas MD; Dr. Gabriel Ruelas MD; Dr. Arsenio Gil MD; Dr. Ferny Guerrero MD; Dr. Jamaica Flores MD; Dr. Estephania Groves MD; Dr. Marcelino Mcdowell DO; Dr. Vidal Musa DO; Dr. Anthony Verde MD; Dr. Helder Belle MD; Dr. Keri Wise MD; No Primary Care Physician Signed Normal [facility] Eosinophil percentageOrdered By: Sp Andino on 12-16-2024 Eosinophils/100 WBC (Bld) 0.5 % 0-5 [facility] Erythrocyte distribution wid th ratioOrdered By: Sp Andino on 12-16-2024 Erythrocyte distribution width (RBC) [Ratio] 14.3 % 11.6-14.6 [facility] Erythrocyte distribution wid th standard deviationOrdered By: Sp Andino on 12-16-2024 Erythrocyte distribution width (RBC) [Entitic vol] 51.8 fL High 35.1-43.9 [facility] Erythrocyte distribution width (RBC) [Ratio] 51.8 fl High 35.1-43.9 [facility] Estimated glomerular filtrat ion rate (GFR) AmericanOrdered By: Sp Andino on 12-16-2024 Estimated GFR (MDRD) Amer 147 mL/min >60 [facility] Comment on above: GFR Calc Estimation of creatinine missy aranceOrdered By: Sp Andino on 12-16-2024 Estimated Creatinine Clearance Calc 91.28 ml/min [facility] Glomerular filtration rate ( GFR) estimationOrdered By: Sp Andino on 12-16-2024 Estimated GFR (MDRD) Non-Af Amer 121 mL/min >60 [facility] Comment on above: Non- GFR Calc GFR/1.73 sq M.predicted among non-blacks MDRD (S/P/Bld) [Vol rate/Area] 121 mL/min/{1.73_m2} >60 [facility] Comment on above: Non- GFR Calc Glucose measurementOrdered B y: Sp Andino on 12-16-2024 Glucose [Mass/Vol] 101 mg/dL 74-106 [facility] Comment on above: Fasting Glucose resu lt from 100 to 125 mg/dL suggests IMPAIRED HOMEOSTASIS per A.D.A. criteria. Hematocrit Auto (Bld) [Volum e fraction]Ordered By: Sp Andino on 12-16-2024 Hematocrit (Bld) [Volume fraction] 34.0 % Low 40-54 [facility] Hemoglobin measurementOrdere d By: Sp Andino on 12-16-2024 Hemoglobin (Bld) [Mass/Vol] 10.7 g/dL Low 13.0-16. 5 [facility] Immature granulocytes/100 WB C Auto (Bld)Ordered By: Sp Andino on 12-16-2024 Immature granulocytes/100 WBC (Bld) 4.000 % High 0.0-0.9 [facility] Comment on above: IG% - Immature Granu locytes (promyelocytes, myelocytes and metamyelocytes) > 1% indicates that a LEFT SHIFT is Present. Lymphocytes Auto (Unsp spec) [#/Vol]Ordered By: Sp Andino on 12-16-2024 Lymphocytes (Bld) [#/Vol] 1.72 10*3/uL 0.83-4.5 1 [facility] Lymphocytes/100 WBC Auto (Un sp spec)Ordered By: Sp Andino on 12-16-2024 Lymphocytes/100 WBC (Bld) 11.8 % Low 19-41 [facility] MCV (mean corpuscular volume ) determinationOrdered By: Sp Andino on 12-16-2024 MCV (RBC) [Entitic vol] 98.3 fL High 80-94 [facility] Manual differential comment Luis Felipe (Bld) [Interp]Ordered By: Sp Andino on 12-16-2024 Differential Comment SCANNED [facility] Mean corpuscular hemoglobin (MCH) determinationOrdered By: Sp Andino on 12-16-2024 MCH (RBC) [Entitic mass] 30.9 pg 27.0-32.0 [facility] Mean corpuscular hemoglobin concentration (MCHC) determinationOrdered By: Sp Andino on 12-16-2024 MCHC (RBC) [Mass/Vol] 31.5 g/dL Low 32-36 [facility] Mean platelet volume determi nationOrdered By: Sp Andino on 12-16-2024 Platelet mean volume (Bld) [Entitic vol] 11.4 fL 6.2-12.0 [facility] Monocyte percentageOrdered B y: Sp Andino on 12-16-2024 Monocytes/100 WBC (Bld) 2.3 % 0-10 [facility] Neutrophil percentageOrdered By: Sp Andino on 12-16-2024 Neutrophils/100 WBC (Bld) 81.0 % High 47-70 [facility] Nucleated red blood cell per centageOrdered By: Sp Andino on 12-16-2024 Nucleated RBC/100 WBC (Bld) [Ratio] 0.1 % 0-5 [facility] Platelet countOrdered By: Miguelina Andino on 12-16-2024 Platelets (Bld) [#/Vol] 440 10*3/uL 150-450 [facility] Potassium measurementOrdered By: Sp Andino on 12-16-2024 Potassium [Moles/Vol] 3.9 mmol/L 3.5-5.1 [facility] RBC Auto (Bld) [#/Vol]Ordere d By: Sp Andino on 12-16-2024 RBC (Bld) [#/Vol] 3.46 10*6/uL Low 4.6-6.2 [facility] Serum anion gap measurementO rdered By: Sp Andino on 12-16-2024 Anion gap [Moles/Vol] 5 mmol/L 5-15 [facility] Serum or plasma calcium greta urement (mass/volume)Ordered By: Sp Andino on 12-16-2024 Calcium [Mass/Vol] 9.6 mg/dL 8.5-10.1 [facility] Serum or plasma creatinine m easurement (mass/volume)Ordered By: Sp Andino on 12-16-2024 Creatinine [Mass/Vol] 0.69 mg/dL Low 0.70-1.30 [facility] Comment on above: The validity of the calculated GFR & GFRAA in patients over 70 years has not been determined. Clinical correlation is essential. Serum or plasma urea nitroge n measurement (mass/volume)Ordered By: Sp Andino on 12-16-2024 Urea nitrogen [Mass/Vol] 23 mg/dL High 7-18 [facility] Sodium levelOrdered By: Reagan Andino on 12-16-2024 Sodium [Moles/Vol] 144 mmol/L 136-145 [facility] White blood cell (WBC) count Ordered By: Sp Andino on 12-16-2024 WBC (Bld) [#/Vol] 14.6 10*3/uL High 4.4-11.0 [facility] BNP (brain natriuretic pepti de measurement)Ordered By: Helder Belle on 12-15-2024 Natriuretic peptide B (Bld) [Mass/Vol] 527.7 pg/mL High 0-100 [facility] BNP,B-Type NATRIURETIC PEPTI Martín 12-15-2024 Natriuretic peptide B (Bld) [Mass/Vol] 527.7 pg/mL High 0-100 [facility] Comment on above: Performed By: #### L 500.2500, L501.2300 #### [facility] [address] [place], [address] Basic Metabolic Profile (BMP )on 12-15-2024 BUN/CRE 38.4 RATIO High 10-20 [facility] Comment on above: Performed By: #### L 500.2500, L501.2300 #### [facility] [address] [place], [address] CA,Total 9.5 mg/dL Normal 8.5-10.1 [facility] Comment on above: Performed By: #### L 500.2500, L501.2300 #### [facility] [address] [place], [address] Chloride [Moles/Vol] 123 mmol/L High 98-107 [facility] Comment on above: Performed By: #### L 500.2500, L501.2300 #### [facility] [address] [place], [address] CO2 [Moles/Vol] 23.0 mmol/L Normal 21.0-32.0 [facility] Comment on above: Performed By: #### L 500.2500, L501.2300 #### [facility] [address] [place], [address] Creatinine [Mass/Vol] 0.70 mg/dL Normal 0.70-1.30 [facility] Comment on above: Result Comment: The validity of the calculated GFR GFRAA in patients over 70 years has not been determined. Clinical correlation is essential. Performed By: #### L 500.2500, L501.2300 #### [facility] [address] [place], [address] ECRCL 89.71 ml/min Normal [facility] Comment on above: Performed By: #### L 500.2500, L501.2300 #### [facility] [address] [place], [address] EST GFR - AA 145 mL/min Normal >60 [facility] Comment on above: Result Comment: Afri can [place] GFR Calc Performed By: #### L 500.2500, L501.2300 #### [facility] [address] [place], [address] GAP 4 Low 5-15 [facility] Comment on above: Performed By: #### L 500.2500, L501.2300 #### [facility] [address] [place], [address] GFR/1.73 sq M.predicted among non-blacks MDRD (S/P/Bld) [Vol rate/Area] 119 mL/min/{1.73_m2} Normal >60 [facility] Comment on above: Result Comment: Non- GFR Calc Performed By: #### L 500.2500, L501.2300 #### [facility] [address] [place], [address] Glucose [Mass/Vol] 95 mg/dL Normal 74-106 [facility] Comment on above: Performed By: #### L 500.2500, L501.2300 #### [facility] [address] [place], [address] Potassium [Moles/Vol] 4.0 mmol/L Normal 3.5-5.1 [facility] Comment on above: Performed By: #### L 500.2500, L501.2300 #### [facility] [address] [place], [address] Sodium [Moles/Vol] 150 mmol/L High 136-145 [facility] Comment on above: Performed By: #### L 500.2500, L501.2300 #### [facility] [address] [place], [address] Urea nitrogen [Mass/Vol] 27 mg/dL High 7-18 [facility] Comment on above: Performed By: #### L 500.2500, L501.2300 #### [facility] [address] [place], [address] Blood band neutrophil count as percentage of total leukocytesOrdered By: Sp Andino on 12-15-2024 Band form neutrophils/100 WBC (Bld) 4 % 0-5 [facility] Blood eosinophils/100 leukoc ytesOrdered By: Sp Andino on 12-15-2024 Eosinophils/100 WBC (Bld) 1 % 0-5 [facility] Blood lymphocytes/100 leukoc ytesOrdered By: Sp Andino on 12-15-2024 Lymphocytes/100 WBC (Bld) 12 % Low 19-41 [facility] Blood monocytes/100 leukocyt esOrdered By: Sp Andino on 12-15-2024 Monocytes/100 WBC (Bld) 3 % 0-10 [facility] Blood segmented neutrophils/ 100 leukocytesOrdered By: Sp Andino on 12-15-2024 Segmented neutrophils/100 WBC (Bld) 80 % High 47-70 [facility] CBC W/Diff, Automatedon 02- PATH REV Reviewed Normal [facility] Comment on above: Order Comment: AMENDED REPORT 12/14/24707 NEUT% previously reported as: 76.6 H % AMENDED REPORT 12/14/24707 LY% previously reported as: 14.9 L % AMENDED REPORT 12/14/24707 MONO% previously reported as: 1.6 % AMENDED REPORT 12/14/24707 EO% previously reported as: 0.3 % AMENDED REPORT 12/14/24707 BASO% previously reported as: 0.4 % IG% - Immature Granulocytes (promyelocytes, myelocytes and metamyelocytes) > 1% indicates that a LEFT SHIFT is Present. AMENDED REPORT 12/14/24707 IM GRAN % previously reported as: 6.200 H % Result Comment: Neut rophilic leukocytosis with left shift. Macrocytic anemia. Clinical correlation necessary. Agusto Saldana M.D. 12/15/24 AMENDED REPORT 12/15/24 1609 PATH REV previously reported as: February foll Performed By: #### L 506.0250, L501.2300, L100.0100, L500.4050 #### [facility] [address] [place], [place], [address] PATH REV Reviewed Normal [facility] Comment on above: Result Comment: Neut rophilic leukocytosis with left shift. Clinical correlation necessary. Agusto Saldana M.D. 12/15/24 AMENDED REPORT 12/15/24 1607 PATH REV previously reported as: February foll Performed By: #### L 500.2500, L503.6005, L100.0100 ####[facility] [address] [place], [place], [address] Cells counted Molgen (Bld/Ti ss) [#]Ordered By: Sp Andino on 12-15-2024 Differential Total Cells Counted 100 MANUAL DIFF [facility] Echo Completeon 12-15-2024 Echo Complete [facility] [place] [place] [address] Echo Complete 12/15/24 0837 MR#: [id number] Acct: [id number] Name: KRISTIAN DEWITT Rep #: [id number] : 1960 64 From: Bhavesh Anderson MD Attending Dr: Dr. Sp Andino MD Status : ADM IN Ordering Dr: Sp Andino MD Date: 12/15/24 Location: [facility] Sex: M C Admitted: 12/13/24 Reason For Study Reason For Study: ATRIAL FIBRILLATION Procedure This was a 2D Doppler, Color Flow transthoracic echocardiogram. Exam performed portable in patient room. Left Ventricle Mildly dilated left ventricular cavity. Mild LV concentric hypertrophy. Moderate to severe LV systolic dysfunction. Estimated LVEF 35%. Stage I diastolic dysfunction. Right Ventricle Normal right ventricle. Atria The left atrium is severely enlarged. The right atrium is mildly enlarged. Mitral Valve Mild-Moderate (1-2+) mitral valve insufficiency. Tricuspid Valve Mild tricuspid valve insufficiency. Right ventricular systolic pressure estimated to be 45 mmHg. Aortic Valve Aortic sclerosis, no stenosis. Pulmonic Valve The pulmonic valve is not well visualized. Great Vessels Normal sized aortic root. Pericardium/Pleural No pericardial effusion. MMode/2D Measurements Calculations LVIDd: 6.2 cm IVSd: 0.89 cm LVOT diam: 2.3 cm LVIDs: 4.8 cm LVPWd: 1.2 cm LVOT area: 4.0 cm2 RVDd: 4.1 cm FS: 22.5 % LAV(MOD-bp): 99.5 ml LVAd ap4: 41.1 cm2 LVAd ap2: 41.0 cm2 LAV(MOD-bp) Indexed: 52.1 ml/m2 LVLd ap4: 9.0 cm LVLd ap2: 9.2 cm LAV(MOD-sp2): 118.0 ml EDV(MOD-sp4): 155.6 ml EDV(MOD-sp2): 151.2 ml LAV(MOD-sp4): 74.2 ml EDV(sp4-el): 158.9 ml EDV(sp2-el): 154.5 ml LVAs ap4: 31.7 cm2 LVAs ap2: 28.9 cm2 LVLs ap4: 8.2 cm LVLs ap2: 8.3 cm ESV(MOD-sp4): 105.0 ml ESV(MOD-sp2): 86.6 ml ESV(sp4-el): 103.9 ml ESV(sp2-el): 85.7 ml EF(MOD-sp4): 32.5 % EF(MOD-sp2): 42.7 % EF(sp4-el): 34.6 % SV(MOD-sp4): 50.6 ml SV(MOD-sp2): 64.6 ml SV(sp4-el): 54.9 ml SI(MOD-sp4): 26.5 ml/m2 SI(MOD-sp2): 33.8 ml/m2 Ao sinus diam: 3.[address] Junction: 2.7 cm LA A4 area: 22.5 cm2 LA dimension(2D): 3.8 cm TAPSE: 2.2 cm RA A4 area: 17.7 cm2 Time Measurements MV dec time: 0.16 sec Doppler Measurements Calculations MV E max shanell: 96.0 cm/sec Lat Peak E' Shanell: 19.4 cm/sec Med Peak E' Shanell: 10.2 cm/sec MV A max shanell: 87.5 cm/sec E/E' lat: 4.9 E/E' med: 9.4 MV E/A: 1.1 MV dec slope: 612.4 cm/sec2 Ao V2 max: 181.1 cm/sec LV V1 max: 138.1 cm/sec Ao max P.1 mmHg LV V1 max P.6 mmHg Ao V2 mean: 112.0 cm/sec LV V1 mean P.8 mmHg Ao mean P.0 mmHg LV V1 mean: 93.1 cm/sec Ao V2 VTI: 33.2 cm LV V1 VTI: 22.9 cm AV (velocity ratio): 0.69 RHIANNA(I,D): 2.8 cm2 RHIANNA(V,D): 3.1 cm2 SV(LVOT): 92.3 ml PA V2 max: 81.5 cm/sec TR max shanell: 271.9 cm/sec TR max P.6 mmHg ECHO/Echo Complete Interpretation Summary Mildly dilated left ventricular cavity. Mild LV concentric hypertrophy. Moderate to severe LV systolic dysfunction. Estimated LVEF 35%. Stage I diastolic dysfunction. The left atrium is severely enlarged. The right atrium is mildly enlarged. Mild-Moderate (1-2+) mitral valve insufficiency. Mild tricuspid valve insufficiency. Right ventricular systolic pressure estimated to be 45 mmHg. Ordering Physician: Sp Andino Performed By: Maria Guadalupe Cochran RDCS 12/15/241128 Date Bhavesh Anderson MD CC: Dr. Sp Andino MD; No Primary Care Physician Date Dictated: 12/15/2437 Date Transcribed: 12/15/241128 Injection Molding Machine Offbearer: Signed Normal [facility] Gram Stainon 12-15-2024 GS Acceptable Specimen? Yes (<25 Epithelial cells per/lpf) Gram Stain 3+ Yeast Like Organisms 2+ White Blood Cells 1+ Epithelial cells No organisms seen Normal [facility] Comment on above: Performed By: #### L 500.2500, L501.2300 #### [facility] [address] [place], [address] Gram stainOrdered By: Casper Partida on 12-15-2024 Microscopic observation Gram stain Nom (Unsp spec) [facility] Microbial respiratory cultur eOrdered By: Casper Partida on 12-15-2024 Microorganism identified Cx Nom (Unsp spec) Presumptive C albicans Abnormal [facility] Microorganism identified Cx Nom (Unsp spec)Ordered By: Casper Partida on 12-15-2024 Respiratory Culture Presumptive C albicans Abnormal [facility] PTHINon 12-15-2024 PTH 14.3 pg/mL Low 18.4-80.1 [facility] Comment on above: Performed By: #### L 500.2500, L501.2300 #### [facility] [address] [place], [place], [address] Pathologist review Luis Felipe (Unsp spec) [Interp]Ordered By: Sp Andino on 12-15-2024 Differential Pathologist's Review Reviewed [facility] Comment on above: Previous reported re sult: February foll Edited by: VERONICA on 12/17/24:0906Neutrophilic leukocytosis with left shift.Clinical correlation necessary.Agusto Saldana M.D. 12/17/24 AMENDED REPORT 12/17/24 09 PATH REV previously reported as: February galen Phosphoruson 12-15-2024 Phosphate [Mass/Vol] 3.0 mg/dL Normal 2.5-4.9 [facility] Comment on above: Performed By: #### L 500.2500, L501.2300 #### [facility] [address] [place], [place], [address] Phosphorus measurementOrdere d By: Casper Partida on 12-15-2024 Phosphorus Level 3.0 mg/dL 2.5-4.9 [facility] Review by pathologistOrdered By: Sp Andino on 12-15-2024 Pathologist review Luis Felipe (Unsp spec) [Interp] Reviewed [facility] Comment on above: Previous reported re sult: May foll Edited by: VERONICA on 12/17/24:0906Neutrophilic leukocytosis with left shift.Clinical correlation necessary.Agusto Saldana M.D. 12/17/24 AMENDED REPORT 12/17/24 0906 PATH REV previously reported as: February Segmented neutrophils/100 WB C (Bld)Ordered By: Sp Andino on 12-15-2024 Neutrophils/100 WBC (Bld) 80 % High 47-70 [facility] Total cell countOrdered By: Sp Andino on 12-15-2024 Cells counted Molgen (Bld/Tiss) [#] 100 MANUAL DIFF [facility] Vitamin B12on 12-15-2024 Cobalamin (Vitamin B12) [Mass/Vol] pg/mL High 211-911 [facility] Comment on above: Performed By: #### L 503.0105 ####[facility] [address] [place], [address] 1,25-dihydroxyvitamin D3 [Ma ss/Vol]Ordered By: Casper Partida on 12-14-2024 Vitamin D 1,25-Dihydroxy 94.3 pg/mL High 24.8-81.5 [facility] Comment on above: Performed at: - [address] [id number] Director: Marion Olivera MD, Phone: [phone] Albumin to globulin ratioOrd ered By: Casper Partida on 12-14-2024 Albumin/Globulin [Mass ratio] 0.4 {ratio} Low 0.9-2.4 [facility] Alcohol, Blood (Medical)-Ser umon 12-14-2024 SERUM ETOH < 3.0 Normal [facility] Comment on above: Result Comment: The serum:whole blood ethanol ratio is approximately 1.14 and varies slightly with hematocrit. Medical Alcohol reference interval and critical value in non-tolerant individuals; 50 - 100 Impairment 100 Intoxication 100 - 250 Severe Poisoning 250 - 400 Deep/possible fatal coma Performed By: #### L 100.0100 #### [facility] [address] [place], [address] Bilirubin, totalOrdered By: Casper Partida on 12-14-2024 Bilirubin [Mass/Vol] 0.50 mg/dL 0.20-1.00 [facility] Comment on above: For patients on eltr ombopag therapy, use of Dimension Howard TBIL is not recommended. Blood metamyelocytes/100 paul kocytesOrdered By: Casper Partida on 12-14-2024 Metamyelocytes/100 WBC (Bld) 2 % High 0-1 [facility] Brain/Head W/WO Contraston 0 - Brain/Head W/WO Contrast [facility] Imaging Services [address] [place] [address] Brain/Head W/WO Contrast MR#: [id number] Acct: [id number] Name: KRISTIAN DEWITT Rep #: [id number] : 1960 M 64 From: Fred Hunt MD PCP: Care Physician,No Primary Status: ADM IN Study: Brain/Head W/WO Contrast Date of Exam: 5 Exam# [id number] Ordering Dr: Casper Brito DO EXAM: BRAIN/HEAD W/WO CONTRAST CLINICAL HISTORY: Confusion COMPARISON: None. TECHNIQUE: CT images of the head with multiplanar reconstructions with with intravenous contrast. Dose reduction techniques were used including intermediate exposure control (AEC),iterative reconstruction technique, and/or mA and/or KV dose adjustments based on patient's size. FINDINGS: CT HEAD FINDINGS: No acute intracranial hemorrhage, mass, mass effect, midline shift or pathologic extra-axial fluid collection. No hydrocephalus. Age- appropriate cerebral volume and white matter. No abnormal enhancement. Visualized paranasal sinuses and mastoid air cells are clear. The calvarium is grossly intact. CT/Brain/Head W/WO Contrast IMPRESSION: No CT evidence of acute intracranial pathology. Reading Location: [facility] CC: Dr. Casper Brito DO; No Primary Care Physician Injection Molding Machine Offbearer: Signed Normal [facility] CPK Total, Creatine Kinaseon 12-14-2024 CPK TOTAL 35 U/L Low 39-308 [facility] Comment on above: Performed By: #### L 100.0100 #### [facility] [address] [facility] [place], [address] Comprehensive Metabolic Prof kevin 12-14-2024 Albumin [Mass/Vol] 1.6 g/dL Low 3.2-5.0 [facility] Comment on above: Performed By: #### L 506.0250, L501.2300, L100.0100, L500.4050 #### [facility] [address] [place], [address] Albumin/Globulin [Mass ratio] 0.4 {ratio} Low 0.9-2.4 [facility] Comment on above: Performed By: #### L 506.0250, L501.2300, L100.0100, L500.4050 #### [facility] [address] [place], [address] ALK P 159 U/L High 45-117 [facility] Comment on above: Performed By: #### L 506.0250, L501.2300, L100.0100, L500.4050 #### [facility] [address] [place], [address] ALT [Catalytic activity/Vol] 145 U/L High 16-61 [facility] Comment on above: Performed By: #### L 506.0250, L501.2300, L100.0100, L500.4050 #### [facility] [address] [place], [address] AST [Catalytic activity/Vol] 180 U/L High 15-37 [facility] Comment on above: Performed By: #### L 506.0250, L501.2300, L100.0100, L500.4050 #### [facility] [address] [place], [address] Bilirubin [Mass/Vol] 0.50 mg/dL Normal 0.20-1.00 [facility] Comment on above: Result Comment: For patients on eltrombopag therapy, use of Dimension Howard TBIL is not recommended. Performed By: #### L 506.0250, L501.2300, L100.0100, L500.4050 #### [facility] [address] [place], [address] BUN/CRE 50.7 RATIO High 10-20 [facility] Comment on above: Performed By: #### L 506.0250, L501.2300, L100.0100, L500.4050 #### [facility] [address] [place], [address] CA,Total 9.9 mg/dL Normal 8.5-10.1 [facility] Comment on above: Performed By: #### L 506.0250, L501.2300, L100.0100, L500.4050 #### [facility] [address] [place], [address] Chloride [Moles/Vol] 117 mmol/L High 98-107 [facility] Comment on above: Performed By: #### L 506.0250, L501.2300, L100.0100, L500.4050 #### [facility] [address] [place], [address] CO2 [Moles/Vol] 23.0 mmol/L Normal 21.0-32.0 [facility] Comment on above: Performed By: #### L 506.0250, L501.2300, L100.0100, L500.4050 #### [facility] [address] [place], [address] Creatinine [Mass/Vol] 0.89 mg/dL Normal 0.70-1.30 [facility] Comment on above: Result Comment: The validity of the calculated GFR GFRAA in patients over 70 years has not been determined. Clinical correlation is essential. Performed By: #### L 506.0250, L501.2300, L100.0100, L500.4050 #### [facility] [address] [place], [address] ECRCL 80.52 ml/min Normal [facility] Comment on above: Performed By: #### L 506.0250, L501.2300, L100.0100, L500.4050 #### [facility] [address] [place], [address] EST GFR - AA 111 mL/min Normal >60 [facility] Comment on above: Result Comment: Afri can [place] GFR Calc Performed By: #### L 506.0250, L501.2300, L100.0100, L500.4050 #### [facility] [address] [place], [address] GAP 8 Normal 5-15 [facility] Comment on above: Performed By: #### L 506.0250, L501.2300, L100.0100, L500.4050 #### [facility] [address] [place], [address] GFR/1.73 sq M.predicted among non-blacks MDRD (S/P/Bld) [Vol rate/Area] 91 mL/min/{1.73_m2} Normal >60 [facility] Comment on above: Result Comment: Non- GFR Calc Performed By: #### L 506.0250, L501.2300, L100.0100, L500.4050 #### [facility] [address] [place], [address] Globulin (S) [Mass/Vol] 4.5 g/dL High 2.2-4.2 [facility] Comment on above: Performed By: #### L 506.0250, L501.2300, L100.0100, L500.4050 #### [facility] [address] [place], [address] Glucose [Mass/Vol] 111 mg/dL High 74-106 [facility] Comment on above: Result Comment: Fast ing Glucose result from 100 to 125 mg/dL suggests IMPAIRED HOMEOSTASIS per A.D.A. criteria. Performed By: #### L 506.0250, L501.2300, L100.0100, L500.4050 #### [facility] [address] [place], [address] Potassium [Moles/Vol] 3.4 mmol/L Low 3.5-5.1 [facility] Comment on above: Performed By: #### L 506.0250, L501.2300, L100.0100, L500.4050 #### [facility] [address] [place], [address] Sodium [Moles/Vol] 148 mmol/L High 136-145 [facility] Comment on above: Performed By: #### L 506.0250, L501.2300, L100.0100, L500.4050 #### [facility] [address], [address] T PROT 6.1 g/dL Low 6.4-8.2 [facility] Comment on above: Performed By: #### L 506.0250, L501.2300, L100.0100, L500.4050 #### [facility] [address] [place], [address] Urea nitrogen [Mass/Vol] 45 mg/dL High 7-18 [facility] Comment on above: Performed By: #### L 506.0250, L501.2300, L100.0100, L500.4050 #### [facility] [address] [place], [address] Consultation - Intensiviston 12-14-2024 Consultation - 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 [facility] Medical Records Department [address] [place] [address] Consultation - 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 12/14/24 1658 MR#: [id number] Acct: [id number] Name: KRISTIAN DEWITT Rep #: [id number] : 1960 64 From: Helder Belle MD PCP: Care Physician,No Primary Status:ADM IN Location: [place] [address] HPI Consult Data Date of Consult: 12/14/24 HPI Narrative HPI Narrative: KRISTIAN DEWITT, is a 64 M who presents [facility] Medical History no medical history Home Medications ???Medication ???Instructions ???Recorded ???Last Taken ???Type NK 02/06/24 Unknown History Allergy/AdvReac Type Severity Reaction Status Date / Time No Known Allergies Allergy Verified 01/09/24 14:51 Surgical History no surgical history Social History Smoking Status: Current every day smoker tobacco type: cigarettes Objective Data Objective Data Vital Signs: Vital Signs Last response 3 Temperature 37.0 C 12/14/24 13:53 Temperature Source Oral 12/14/24 13:53 Pulse Rate 89 12/14/24 13:53 Respiratory Rate 16 12/14/24 13:53 Respiratory Effort Normal 12/14/24 05:14 Respiratory Depth Normal 12/14/24 13:12 Respiratory Pattern Normal 12/14/24 13:12 Blood Pressure 129/72 H 12/14/24 13:53 Blood Pressure Mean 91 12/14/24 13:53 Pulse Ox 92 12/14/24 13:53 Oxygen Delivery Method Room Air 12/14/24 13:53 I O: I O Last 24 Hours 3 12/13/24 12/14/24 12/14/24 23:59 11:59 23:59 Intake Total 1305 / 1425 1461.67 / 1461.67 Balance 1305 / 1425 1461.67 / 1461.67 I O: Total Stay 3 12/13/24 17:37 thru 12/14/24 11:27 Intake Total 2766.67 Balance 2766.67 Current Meds Ordered / Administered: Current meds ordered / Administered 3 Generic Name Dose Route Start Last Admin Trade Name Freq PRN Reason Stop Dose Admin Acetaminophen 650 mg 12/13/24 22:30 Acetaminophen 325 Mg Tablet PO Q6H PRN PRN Pain 1-10 Or Fever>100.7 Al Hydroxide/Mg Hydroxide 30 ml 12/13/24 22:30 Mag Hydrox/Al Hydrox/Simeth 30 Ml Udc PO Q6H PRN PRN Gastric Burning Albuterol Sulfate 2.5 mg 12/13/24 22:30 Albuterol 2.5 Mg/3 Ml Vial.Neb. INHALATION Q2H PRN PRN SOB /OR WHEEZING Ascorbic Acid 1,000 mg 12/14/24 08:00 12/14/24 16:29 Ascorbic Acid 500 Mg Tablet PO 1,000 mg BIDCM VERONIKA Administration Cholecalciferol 125 mcg 12/14/24 10:00 12/14/24 08:39 Cholecalciferol (Vit D3) 125 Mcg Capsule (5,000 Units) PO 125 mcg DAILY VERONIKA Administration Guaifenesin 1,200 mg 12/14/24 10:00 12/14/24 08:39 Guaifenesin 1,200 Mg Tablet PO 1,200 mg BID VERONIKA Administration Ceftriaxone Sodium 1 gm in 50 mls @ 100 mls/hr 12/14/24 22:00 Rocephin IV 2200 VERONIKA Azithromycin 500 mg/ Sodium 255 mls @ 255 mls/hr 12/14/24 22:00 Chloride IV 2200 VERONIKA Sodium Chloride 100 mls @ 15 mls/hr 12/13/24 23:09 IV .Q6H40M PRN Saline Flush Sodium Chloride 100 mls @ 15 mls/hr 12/13/24 23:09 IV .Q6H40M PRN Additional IVPB Infusion Potassium Chloride/Sodium Chloride 40 meq in 1,000 mls @ 100 mls/hr 12/14/24 00:15 12/14/24 12:45 IV 12/14/24 20:14 100 mls/hr .Q10H VERONIKA Administration Protocol Magnesium Hydroxide 30 ml 12/13/24 22:30 Magnesium Hydroxide 30 Ml Udc PO DAILY PRN PRN Constipation Melatonin 3 mg 12/13/24 22:30 Melatonin 3 Mg Tablet PO QHS PRN PRN INSOMNIA Nicotine 14 mg 12/13/24 22:30 12/14/24 08:39 Nicotine 14 Mg Patch TD 14 mg DAILY VERONIKA Administration Nutritional Formula (Lactose Free) 120 ml 12/14/24 18:00 12/14/24 16:29 Ensure Plus High Protein 120 Ml Liquid PO 120 ml 4X/DAY VERONIKA Administration Pantoprazole Sodium 40 mg 12/15/24 10:00 Pantoprazole Sodium 40 Mg Tablet PO DAILY VERONIKA Promethazine HCl 25 mg 02/15/25 22:30 Promethazine 25 Mg/Ml Syringe IM Q6H PRN PRN Nausea/Vomiting Sodium Chloride 10 - 40 ml 12/13/24 23:09 0.9% Saline Lock 10 Ml Syringe IV UD PRN SALINE FLUSH Zinc Sulfate 50 mg 12/14/24 10:00 12/14/24 08:39 Zinc Sulfate 50 Mg Zinc (220 Mg) Oral Capsule PO 50 mg DAILY VERONIKA Administration Lab / Micro Data 12/14/24 04:05 12/14/24 04:05 Labs: Laboratory Results - last 24 hr 12/13/24 17:00: Magnesium 2.3 12/13/24 19:12: WBC 16.4 H, RBC 4.27 L, Hgb 13.5, Hct 39.9 L, MCV 93.4, MCH 31.6, MCHC 33.8, RDW Std Deviation 49.1 H, RDW Coeff of Sarah 14.5, Plt Count 333, MPV 11.4, Neut % (Auto) Not Reportable, A bsolute Neuts (auto) 14.4 H, Absolute Lymphs (auto) 1.96, Total Counted 100, Neutrophils % (Manual) 84 H, Band Neutrophils % 4, Lymphocytes % (Manual) 12 L, Diff Path Review February, Sodium 144, P otassium 3.2 L, Chloride 113 H, Carbon Dioxide 24.0, Anion Gap 7, BUN 60 H, Creatinine 1.16, Est GFR (MDRD) Af Amer 81, Est GFR ( (more content not included)... Normal [facility] Erythrocyte morphology asses smentOrdered By: Casper Partida on 12-14-2024 RBC morphology finding Nom (Bld) NORM C+C NORMAL NORM C&C [facility] Folates, (Folic Acid)on 11-29 FOLATES 25.40 ng/mL Normal 3.1-55.4 [facility] Comment on above: Order Comment: N Performed By: #### L 506.0250, L501.2300, L100.0100, L500.4050 #### [facility] [address] [place], [place], [id number] Folic acid measurementOrdere d By: Casper Partida on 12-14-2024 Folate 25.40 ng/mL 3.1-55.4 [facility] Hemoglobin A1con 12-14-2024 HbA1c (Bld) [Mass fraction] 5.5 % Normal 3.8-5.6 [facility] Comment on above: Result Comment: Norm al < 5.7 % Prediabetic 5.7 - 6.4 % Diabetic >or= 6.5 % Please note range changes. Performed By: #### L 500.2500, L501.2300 #### [facility] [address] [place], [place], [id number] Intact parathyroid hormone ( iPTH) measurementOrdered By: Casper Partida on 12-14-2024 Parathyroid Hormone (Intact) 14.3 pg/mL Low 18.4-80 .1 [facility] L. pneumophila Ag Ql (U)Orde red By: Casper Partida on 12-14-2024 Legionella Antigen [facility] - Chemistry and C hemistry - challengeOrdered By: Casper Partida on 12-14-2024 AST [Catalytic activity/Vol] 180 U/L High 15-37 [facility] Legionella Antigen Urineon 0 12-14-2024 LEGU URINE, CLEAN CATCH Legionella Antigen result interpretation: L pneumo Ag Ur Ql Negative Presumptive negative for Legionella pneumophila serogroup 1 antigen in urine, suggesting no recent or current infection. Legionella Ag, Urine Negative (See interpretation below) Normal [facility] Comment on above: Performed By: #### L 500.2500, L501.2300 #### [facility] [address] [place], [place], [id number] Methadone, urineOrdered By: Casper Partida on 12-14-2024 Urine Methadone Screen Negative < 300 ng/mL [facility] No Panel InformationOrdered By: Casper Partida on 12-14-2024 Urine Drug Screen Comment [facility] Comment on above: CONFIRMATORY TESTING FOR ALL POSITIVE URINE DRUG SCREENRESULTS WILL ONLY BE SENT OUT UPON PHYSICIAN ORDER. [facility] Urine Drug Screen methods provide only preliminaryanalytical test results. A more specific alternate chemicalmethod must be used in order to obtain a confirmedanalytical result. Gas chromatography/mass spectrometery(GC/MS) is the preferred confirmatory method. Clinicalconsideration and professional judgement should be appliedto any drug of abuse test result, particularly whenpreliminary positive results are used. URINE TCA TESTING MUST BE ORDERED SEPARATELY. USE TESTMNEMONIC: [facility] Phosphoruson 12-14-2024 Phosphate [Mass/Vol] 3.2 mg/dL Normal 2.5-4.9 [facility] Comment on above: Performed By: #### L 506.0250, L501.2300, L100.0100, L500.4050 #### [facility] [address] [place], [address] Platelet estimateOrdered By: Casper Partida on 12-14-2024 Platelets LM Ql (Bld) ADEQUATE ADEQ [facility] Platelets LM Ql (Bld)Ordered By: aCsper Partida on 12-14-2024 Platelet Estimate ADEQUATE ADEQ [facility] Quantitative urine opiates m easurementOrdered By: Casper Partida on 12-14-2024 Opiates Ql (U) Negative < 300 ng/mL [facility] RBC morphology finding Nom ( Bld)Ordered By: Casper Partida on 12-14-2024 Red Blood Cell Morphology NORM C+C NORMAL NORM C&C [facility] RESPIRATORY PANEL MOLECULARo n 12-14-2024 RP PANEL ADENOVIRUS Not Detected INFLUENZA A Not Detected INFLUENZA A (SUBTYPE H1) Not Detected INFLUENZA A (SUBTYPE H3) Not Detected INFLUENZA B Not Detected HUMAN METAPHNEUMO Not Detected PARAINFLUENZA 1 Not Detected PARAINFLUENZA 2 Not Detected PARAINFLUENZA 3 Not Detected PARAINFLUENZA 4 Not Detected RHINOVIRUS Not Detected RSV A Not Detected RSV B Not Detected Normal [facility] Comment on above: Performed By: #### L 500.2500, L501.2300 #### [facility] [address] [place], [address] Serum ethanol measurementOrd ered By: Casper Partida on 12-14-2024 Ethyl Alcohol Level < 3.0 mg/dL [facility] Comment on above: The serum:whole bloo d ethanol ratio is approximately 1.14and varies slightly with hematocrit. Medical Alcohol reference interval and critical value innon-tolerant individuals; 50 - 100 Impairment 100 Intoxication 100 - 250 Severe Poisoning 250 - 400 Deep/possible fatal coma Serum globulin measurementOr dered By: Casper Partida on 12-14-2024 Globulin (S) [Mass/Vol] 4.5 g/dL High 2.2-4.2 [facility] Serum or plasma alanine mederos otransferase (ALT) measurementOrdered By: Casper Partida on 12-14-2024 ALT [Catalytic activity/Vol] 145 U/L High 16-61 [facility] Serum or plasma albumin greta urement (mass/volume)Ordered By: Casper Partida on 12-14-2024 Albumin [Mass/Vol] 1.6 g/dL Low 3.2-5.0 [facility] Serum or plasma alkaline nikolas sphatase measurementOrdered By: Casper Partida on 12-14-2024 ALP [Catalytic activity/Vol] 159 U/L High 45-117 [facility] Serum or plasma calcitriol m easurement (mass/volume)Ordered By: Casper Partida on 12-14-2024 1,25-dihydroxyvitamin D3 [Mass/Vol] 94.3 pg/mL High 24.8-81.5 [facility] Comment on above: Performed at: [address] [id number] Director: Marion Olivera MD, Phone: [phone] Stool Occult Blood iFOBon STOB Negative Normal [facility] Comment on above: Performed By: #### M 100.7900 ####[facility] [address] [place], [place], [id number] Strep pneumoniae Antig(UR,CS F)on 12-14-2024 STPAG URINE INTERPRETATION Positive Urine Positive for pneumococcal pneumonia. Strep pneumo Test Urine POSITIVE for pneumococcal pneumonia.A Streptococcus pneumonia Ag Normal [facility] Comment on above: Performed By: #### L 500.2500, L501.2300 #### [facility] [address] [place], [address] Streptococcus pneumoniae ant igen assayOrdered By: Casper Partida on 12-14-2024 Streptococcus pneumoniae Antigen (M Streptococcus pneumonia Ag Abnormal [facility] Streptococcus pneumoniae antigen assay Streptococcus pneumonia Ag Abnormal [facility] Total creatine kinase measur ementOrdered By: Casper Partida on 12-14-2024 CK [Catalytic activity/Vol] 35 U/L Low 39-308 [facility] Total proteinOrdered By: Osei Partida on 12-14-2024 Protein [Mass/Vol] 6.1 g/dL Low 6.4-8.2 [facility] Type AND Screenon 12-14-2024 ABO and Rh group Nom (Bld) Blood group A Rh(D) positive Normal [facility] Comment on above: Order Comment: HGI Performed By: #### L 3300.0960, BTS ####[facility] [address] [facility] [address] Urine Drug Screen (VISTA)on 12-14-2024 AMPHETAMINES Negative Normal <1000 ng/mL [facility] Comment on above: Order Comment: unkno wn Performed By: #### L 500.2500, L501.2300 #### [facility] [address] [facility] [address] BARBITIURATES Negative Normal < 200 ng/mL [facility] Comment on above: Order Comment: unkno wn Performed By: #### L 500.2500, L501.2300 #### [facility] [address] [place], [address] BENZODIAZIPINE Negative Normal < 200 ng/mL [facility] Comment on above: Order Comment: unkno wn Performed By: #### L 500.2500, L501.2300 #### [facility] [address] [facility] [address] COCAINE Negative Normal < 300 ng/mL [facility] Comment on above: Order Comment: unkno wn Performed By: #### L 500.2500, L501.2300 #### [facility] [address] [place], [address] ECSTACY Negative Normal < 500 ng/mL [facility] Comment on above: Order Comment: unkno wn Performed By: #### L 500.2500, L501.2300 #### [facility] [address] [place], [address] METHADONE Negative Normal < 300 ng/mL [facility] Comment on above: Order Comment: unkno wn Performed By: #### L 500.2500, L501.2300 #### [facility] [address] [place], [address] OPIATES Negative Normal < 300 ng/mL [facility] Comment on above: Order Comment: unkno wn Performed By: #### L 500.2500, L501.2300 #### [facility] [address] [place], [address] PCP Negative Normal < 25 ng/mL [facility] Comment on above: Order Comment: unkno wn Performed By: #### L 500.2500, L501.2300 #### [facility] [address] [place], [address] THC Negative Normal < 50 ng/mL [facility] Comment on above: Order Comment: unkno wn Performed By: #### L 500.2500, L501.2300 #### [facility] [address] [place], [address] VISTA UDS PH 5 Normal [facility] Comment on above: Order Comment: unkno wn Performed By: #### L 500.2500, L501.2300 #### [facility] [address] [place], [address] Urine Legionella pneumophila antigen detectionOrdered By: Casper Partida on 12-14-2024 L. pneumophila Ag Ql (U) [facility] Urine amphetamine measuremen tOrdered By: Casper Partida on 12-14-2024 Amphetamines Ql (U) Negative <1000 ng/mL [facility] Urine barbiturates measureme ntOrdered By: Casper Partida on 12-14-2024 Urine Barbiturates Screen Negative < 200 ng/mL [facility] Urine benzodiazepine levelOr dered By: Casper Partida on 12-14-2024 Benzodiazepines Ql (U) Negative < 200 ng/mL [facility] Urine cocaine levelOrdered B y: Casper Partida on 12-14-2024 Cocaine Ql (U) Negative < 300 ng/mL [facility] Urine tswwv-9-gleejyegyzbqsu abinol (THC) measurementOrdered By: Casper Partida on 12-14-2024 Cannabinoids Screen Ql (U) Negative < 50 ng/m L [facility] Urine methylenedioxymethamph etamine (MDMA) measurementOrdered By: Casper Partida on 12-14-2024 MDMA (Ecstasy) Screen Negative < 500 ng/mL [facility] Urine phencyclidine (PCP) de tectionOrdered By: Casper Partida on 12-14-2024 Phencyclidine Ql (U) Negative < 25 ng/mL [facility] Vitamin B12 measurementOrder ed By: Casper Partida on 12-14-2024 Vitamin B12 Level > 2000 pg/mL High 211-911 [facility] 12 Lead EKGon 12-13-2024 12 Lead EKG [facility] Cardiovascular Services [address] [place] [address] 12 Lead EKG 12/13/24 1930 MR#: [id number] Acct: [id number] Name: SHRUTHI DEWITTOlinda Ritter Rep #: [id number] : 1960 64 From: Pamella Sharma MD Attending Dr: Dr. Sp Andino MD Status : ADM IN Ordering Dr: Adam Rucker DO Date: 12/13/24 Location: U Sex: M C Admitted: 12/13/24 Test Reason : SOB Blood Pressure : */* mmHG Vent. Rate : 136 BPM Atrial Rate : 312 BPM P-R Int : * ms QRS Dur : 102 ms QT Int : 362 ms P-R-T Axes : * 24 259 degrees QTcB Int : 544 ms Atrial flutter with variable A-V block Moderate voltage criteria for LVH, may be normal variant ( Sokolow-Redman , [facility] product ) Marked ST abnormality, possible lateral subendocardial injury Abnormal ECG Confirmed by ENRICO NELSON, ABBE ([id number]), book or script editor NINA MOON ([id number]) on 12/15/2024 8:23:30 AM Referred By: Confirmed By: ABBE SHARMA MD 12/15/24 0823 Date Pamella Sharma MD CC: Dr. Adam Rucker DO; Dr. Sp Andino MD; No Primary Care Physician Signed Normal [facility] Abdomen/Pelvis WITH Contrast on 12-13-2024 Abdomen/Pelvis WITH Contrast [facility] Imaging Services [address] [place], [place] [address] Abdomen/Pelvis WITH Contrast MR#: [id number] Acct: [id number] Name: KRISTIAN DEWITT Rep #: [id number] : 1960 M 64 From: Sabina Yap MD PCP: Care Physician,No Primary Status: ADM IN Study: Abdomen/Pelvis WITH Contrast Date of Exam: Exam# [id number] Ordering Dr: Casper Brito DO PROCEDURE: ABDOMEN/PELVIS WITH CONTRAST REASON FOR EXAM: Wide BUN/creatinine ratio of 51.7 suggest of PUD TECHNIQUE: Abdomen and pelvis CT with intravenous contrast. Multiplanar reconstructions performed. COMPARISON: 12/13/2024 FINDINGS: Lower chest: Large airspace opacity present in the partially visualized right upper lobe and right lower lobe and slightly within the right middle lobe. Liver: The liver is enlarged measuring 22.9 cm in craniocaudal dimension. Biliary/gallbladder: Sludge present in the gallbladder lumen. Pancreas: Unremarkable. Spleen: Unremarkable. Adrenal glands: Unremarkable. Kidneys: No renal calculus or hydronephrosis. Gastrointestinal/perit oneum: No acute abnormality.The appendix is unremarkable.No free air or free fluid. Vascular: Moderate scattered atherosclerotic calcifications are present. Lymph nodes: No enlarged lymph nodes by CT size criteria. Pelvic organs: Unremarkable. Bladder: Unremarkable. Bones: Unremarkable. Soft tissues: Unremarkable. CT/Abdomen/Pelvis WITH Contrast IMPRESSION: 1. No acute abnormality of the abdomen and pelvis. 2. Large pulmonary airspace disease partially visualized in the right lung base, especially the right upper lobe. 3. Hepatomegaly. 4. Sludge in the gallbladder lumen. Reading Location: [facility] CC: Dr. Casper Brito DO; No Primary Care Physician Injection Molding Machine Offbearer: Signed Normal [facility] Basic Metabolic Profile (BMP )on 12-13-2024 BUN/CRE 51.7 RATIO High 10-20 [facility] Comment on above: Performed By: #### L 500.2500, L503.6005, L100.0100 ####[facility] [address] [place], [address] CA,Total 11.3 mg/dL High 8.5-10.1 [facility] Comment on above: Performed By: #### L 500.2500, L503.6005, L100.0100 ####[facility] [address] [place], [address] Chloride [Moles/Vol] 113 mmol/L High 98-107 [facility] Comment on above: Performed By: #### L 500.2500, L503.6005, L100.0100 ####[facility] [address] [place], [address] CO2 [Moles/Vol] 24.0 mmol/L Normal 21.0-32.0 [facility] Comment on above: Performed By: #### L 500.2500, L503.6005, L100.0100 ####[facility] [address] [place], [address] Creatinine [Mass/Vol] 1.16 mg/dL Normal 0.70-1.30 [facility] Comment on above: Result Comment: The validity of the calculated GFR GFRAA in patients over 70 years has not been determined. Clinical correlation is essential. Performed By: #### L 500.2500, L503.6005, L100.0100 ####[facility] [address] [place], [address] EST GFR - AA 81 mL/min Normal >60 [facility] Comment on above: Result Comment: Afri can [place] GFR Calc Performed By: #### L 500.2500, L503.6005, L100.0100 ####[facility] [address] [place], [address] GAP 7 Normal 5-15 [facility] Comment on above: Performed By: #### L 500.2500, L503.6005, L100.0100 ####[facility] [address] [place], [address] GFR/1.73 sq M.predicted among non-blacks MDRD (S/P/Bld) [Vol rate/Area] 67 mL/min/{1.73_m2} Normal >60 [facility] Comment on above: Result Comment: Non- GFR Calc Performed By: #### L 500.2500, L503.6005, L100.0100 ####[facility] [address] [place], [address] Glucose [Mass/Vol] 184 mg/dL High 74-106 [facility] Comment on above: Result Comment: Fast ing Glucose result greater than or equal to 126 mg/dL suggests DIABETES MELLITUS per A.D.A. criteria. Performed By: #### L 500.2500, L503.6005, L100.0100 ####[facility] [address] [place], [address] Potassium [Moles/Vol] 3.2 mmol/L Low 3.5-5.1 [facility] Comment on above: Performed By: #### L 500.2500, L503.6005, L100.0100 ####[facility] [address] [place], [address] Sodium [Moles/Vol] 144 mmol/L Normal 136-145 [facility] Comment on above: Performed By: #### L 500.2500, L503.6005, L100.0100 ####[facility] [address] [place], [address] Urea nitrogen [Mass/Vol] 60 mg/dL High 7-18 [facility] Comment on above: Performed By: #### L 500.2500, L503.6005, L100.0100 ####[facility] [address] [place] [place], [address] Chest PA and Lateralon 12-13 Chest PA and Lateral [facility] Imaging Services [address] [place] [address] Chest PA and Lateral MR#: [id number] Acct: [id number] Name: DEWITTKRISTIAN BLANKENSHIP Stone Rep #: [id number] : 1960 M 64 From: Sabina Yap MD PCP: Care Physician,No Primary Status: PRE ER Study: Chest PA and Lateral Date of Exam: 12/13/24 Exam# [id number] Ordering Dr: Provider,Ed P. PROCEDURE: CHEST PA AND LATERAL REASON FOR EXAM: Shortness of breath TECHNIQUE: Frontal and lateral views of the chest. COMPARISON: 12/09/2024 FINDINGS: Persistent large right lung airspace disease, greatest in the right upper and right middle lobes, without significant improvement since the previous exam. No pleural effusion or pneumothorax. The cardiomediastinal silhouette is unremarkable. Atherosclerotic calcifications are noted in the thoracic aorta. No acute osseous or soft tissue abnormality. RAD/Chest PA and Lateral IMPRESSION: Persistent large airspace opacity in the right lung, likely due to pneumonia. Reading Location: [facility] CC: ED PHYSICIAN PROVIDER; No Primary Care Physician Injection Molding Machine Offbearer: Signed Normal [facility] Chest WITH Contraston 2024 Chest WITH Contrast [facility] Imaging Services [address] [place], [place] [address] Chest WITH Contrast MR#: [id number] Acct: [id number] Name: KRISTIAN DEWITT Rep #: [id number] : 1960 M 64 From: Sabina Yap MD PCP: Care Physician,No Primary Status: ADM IN Study: Chest WITH Contrast Date of Exam: 12/13/24 Exam# [id number] Ordering Dr: Casper Brito DO PROCEDURE: CHEST WITH CONTRAST REASON FOR EXAM: Pneumonia with chest x-ray with hypercalcemia. Eval for mass. TECHNIQUE: Chest CT with intravenous contrast. COMPARISON: 12/13/2024 FINDINGS: Lungs/Pleura:There is a large consolidative opacity in the right upper lobe with air bronchograms present. There is also intra- and interlobular septal thickening with superimposed ground-glass opacity (crazy paving) which extends into the right lower lobe and apical region of the right upper lobe. Trace opacities are present in the right middle lobe. There is no discrete mass lesion, however, the area of consolidation may be obscuring a mass.No pleural effusion or pneumothorax. Cardiovascular:The heart is normal in size.No significant coronary artery calcifications are identified.The aorta and pulmonary arteries are unremarkable. Pericardium:No effusion. Mediastinum:Unremarkab le. Lymph nodes:A right hilar lymph node is enlarged measuring 1.3 cm in short axis. Bones:No acute osseous abnormality. Soft tissues:Unremarkable. Upper abdomen:Unremarkable. CT/Chest WITH Contrast IMPRESSION: 1. Large consolidative pulmonary opacity in the right upper lobe with additional surrounding intra- and interlobular septal thickening on a background of ground-glass opacity (crazy paving pattern) multifocally throughout the right lung. No discrete pulmonary mass lesion is identified, however, invasive mucinous adenocarcinoma of the lung can have this type of large, irregular consolidative appearance, or an occult mass can be obscured by consolidation. Otherwise, pneumonia is the primary differential consideration. The differential for crazy paving is broad and includes pneumonia, pulmonary edema/ARDS and pulmonary alveolar proteinosis. 2. Mildly enlarged right hilar lymph node, possibly reactive. Reading Location[facility] CC: Dr. Casper Brito, ; No Primary Care Physician Injection Molding Machine Offbearer: Signed Normal [facility] Emergency Department Summary on 12-13-2024 Emergency Department Summary [facility] Medical Records Department [address] [place] [address] Emergency Department Summary 12/13/24 MR#: [id number] Acct: [id number] Name: KRISTIAN DEWITT Rep #: [id number] : 1960 64 From: Adam Rucker DO PCP: Care Physician,No Primary Status:ADM IN Location: [place] [address] HPI History of Present Illness Chief Complaint: Shortness of Breath Informant: patient Onset/Context/Timing Onset: Days Context: gradual Timing: Continuous Quality: Positive for Dyspnea on exertion Worsened by: Exertion Relieved by: Albuterol Associated Symptoms cough; Negative for ear pain, fever, sore throat, chills, clear sputum, white sputum, yellow sputum or green sputum Chest Pain: Positive for None Narrative Narrative: Patient presents with shortness of breath that has been getting worse over the past week. Patient states he went to an urgent care and was diagnosed with pneumonia. Patient states he has not had any improvement with his breathing since that time. Patient admits to a cough but denies any sputum production. Patient denies any fevers or chills. Patient denies any chest pain. Patient denies any upper respiratory symptoms. Patient denies any ear pain but states he has trouble hearing. PFSH PFSH Medical History no medical history no medical history Home Medications ???Medication ???Instructions ???Recorded ???Last Taken ???Type NK 02/06/24 Unknown History Allergy/AdvReac Type Severity Reaction Status Date / Time No Known Allergies Allergy Verified 01/09/24 14:51 Surgical History no surgical history no surgical history Social History Smoking Status: Current every day smoker tobacco type: cigarettes ROS ROS ED Constitutional Constitutional ED: Denies chills or fever(s) Eyes Eyes: Reports blurry vision; Denies diplopia ENT ENT ED: Denies rhinorrhea or sore throat Cardiovascular Cardiovascular: Denies chest pain or palpitations Respiratory/Chest Respiratory/Chest: Reports cough and dyspnea Gastrointestinal Gastrointestinal: Denies nausea or vomiting Genitourinary Genitourinary ED: Denies dysuria or hematuria Musculoskeletal Musculoskeletal: Denies back pain or neck pain Integumentary Denies abscess or rash Neurologic Neurologic: Denies headache(s) or weakness Allergic/Immunologic Allergic/Immunologic ED: Denies mouth swelling or urticaria EXAM Physical Exam Const Vital Signs: 12/13/24 17:39 12/13/24 17:41 12/13/24 19:17 Temperature 98.1 F 98.1 F 97.3 F L Temperature Source Temporal Temporal Temporal Pulse Rate 77 71 130 H Respiratory Rate 15 16 21 H Respiratory Effort Respiratory Depth Respiratory Pattern Blood Pressure 106/83 H 106/83 H 131/101 H Blood Pressure Mean 90 90 111 Pulse Ox 95 94 98 Oxygen Delivery Method Room Air Room Air Room Air 12/13/24 19:17 12/13/24 19:27 12/13/24 20:11 Temperature 97.2 F L Temperature Source Temporal Pulse Rate 110 H 153 H Respiratory Rate 17 38 H Respiratory Effort Labored Respiratory Depth Shallow Respiratory Pattern Tachypnea Normal Blood Pressure 114/52 L Blood Pressure Mean 72 Pulse Ox 94 Oxygen Delivery Method Room Air Room Air 12/13/24 21:03 Temperature 97.2 F L Temperature Source Temporal Pulse Rate 90 Respiratory Rate 31 H Respiratory Effort Respiratory Depth Respiratory Pattern Blood Pressure 125/77 H Blood Pressure Mean 93 Pulse Ox 94 Oxygen Delivery Method Room Air Positive well nourished and well developed General Appearance ED: well developed and NAD HEENT Reports moist mucous membranes Neck supple and no JVD Resp normal respiratory effort Auscultation: rhonchi throughout Cardio regular rate and regular rhythm GI non-tender and non-distended Palpation: soft Extremity General Extremety ED: Negative for edema General Extremity: Negative for edema Neuro oriented x3, CN's II-XII intact bilaterally and no sensory deficits noted Hanna Coma Scale: document GCS findings Spontaneous Obeys Commands Oriented 15 Sensorium / Orientation: alert Motor Exam: strength 5/5 throughout Psych mental status grossly normal MDM MDM MDM Narrative Medical decision making narrative: Differential diagnosis includes pneumonia, bronchitis, viral illness, electrolyte abnormality, and sepsis. CBC will be obtained to assess for leukocytosis and anemia. Basic metabolic profile will be obtained to assess for electrolyte abnormality and renal function. Serum lactate will be obtained to assess for sepsis. Blood cultures will be obtained to assess for sepsis. Chest x-ray will be obtained to assess for pneumonia and bronchitis. COVID-19, influenza, and (more content not included)... Normal [facility] H AND P Exam - [facility] 12-13-2024 H&P Exam - Hospitalist [facility] Medical Records Department [address] [place] [address] H P Exam - Hospitalist 12/13/242105 MR#: [id number] Acct: [id number] Name: KRISTIAN DEWITT Rep #: [id number] : 1960 64 From: Casper Brito DO PCP: Care Physician,No Primary Status:ADM IN Location: [place] [id number] HPI - General General Date of Admission: 12/13/24 Date of Service: 12/13/24 Chief Complaint: SOB, Palpitations and Confusion. HPI Narrative KRISTIAN DEWITT, is a 64 M with past medical history of chronic tobacco abuse and closed tibial plateau fracture after fall; treated nonoperatively (11/2023) who presents to [facility] ER complaining of shortness of breath, palpitations and confusion. Mr. Dewitt reports the symptoms began approximately 1 week prior to admission with a gradual onset of dyspnea on exertion that progressed to shortness of breath at rest in addition to nonproductive cough. Patient states he went to urgent care and was diagnosed with pneumonia and treated with a penicillin-based antibiotic but has not improved since finishing treatment so he decided to come in for further evaluation and treatment. He admits to shortness of breath and cough and blurry vision with clinical evidence of significant confusion but he denies fever, chills, nausea, vomiting, diarrhea or headache. Shortly after arrival he was noted to be in Atrial Flutter; with Rapid Ventricular Response at 130-150 bpm after he received a breathing treatment for which he was immediately started on IV diltiazem with good subsequent rate control. In the ER he underwent chest x-ray which revealed persistent large airspace opacity in the Right lung, likely due to Pneumonia with the corresponding Leukocytosis of 16.4 K present on admission complicated by Hypercalcemia of 11.3 mg/dL present on admission in the setting of Chronic Tobacco Abuse worrisome for possible underlying malignancy compounded by Hypokalemia of 3.2 mmol/L present on admission and Hyperglycemia of 184 mg/dL present on admission suggestive of underlying DM-2 in addition to possible PUD with serum creatinine of 1.16 mg/dL and BUN of 60 mg/dL all culminating to cause Acute Metabolic Encephalopathy. He was then admitted to the PCU for ongoing care for status is expected to extend beyond 2 midnights. PFSH Medical History no medical history Home Medications ???Medication ???Instructions ???Recorded ???Last Taken ???Type NK 02/06/24 Unknown History Allergy/AdvReac Type Severity Reaction Status Date / Time No Known Allergies Allergy Verified 01/09/24 14:51 Surgical History no surgical history Social History Smoking Status: Current every day smoker tobacco type: cigarettes ROS ROS Narrative Review of Systems: Constitutional: Patient is obviously moderately confused but he denies fever or chills. Eyes: Patient admits to blurry vision but he denies discharge from eyes. ENT: Patient denies runny nose, sore throat or ear pain. Resp: Patient admits to shortness of breath and nonproductive cough as per HPI. CV: Patient admits to palpitations and heart racing coinciding with his atrial flutter with rapid ventricular response in ER. He denies chest pain. GI: Patient denies abdominal pain, nausea, vomiting, diarrhea or constipation. : Patient denies dysuria, hematuria urinary frequency. MSK: Patient denies arthralgias or myalgias. Skin: Patient denies rash, abscess, wounds or jaundice. Psych: Patient denies symptoms of uncontrolled depression or anxiety. Neuro: Patient is obviously moderately confused but he denies headache, paresthesias or focal neurologic deficits. Allergy: Patient denies lip swelling, tongue swelling or urticaria. Hematology: Patient denies easy bleeding or easy bruisability. Endocrinology: Patient denies polyuria, polydipsia or polyphagia. 14 point review of systems otherwise negative except for positives noted above in HPI. Vital Signs Vital Signs Vital Signs: 12/13/24 17:39 12/13/24 17:41 12/13/24 19:17 Temperature 98.1 F 98.1 F 97.3 F L Temperature Source Temporal Temporal Temporal Pulse Rate 77 71 130 H Respiratory Rate 15 16 21 H Respiratory Effort Respiratory Depth Respiratory Pattern Blood Pressure 106/83 H 106/83 H 131/101 H Blood Pressure Mean 90 90 111 Pulse Ox 95 94 98 Oxygen Delivery Method Room Air Room Air Room Air 12/13/24 19:17 12/13/24 19:27 12/13/24 20:11 Temperature 97.2 F L Temperature Source Temporal Pulse Rate 110 H 153 H Respiratory Rate 17 38 H Respiratory Effort Labored Respiratory Depth Shallow Respiratory Pattern Tachypnea Normal Blood Pressure 114/52 L Blood Pressure Mean 72 Pulse Ox 94 Oxygen Delivery Method Room Air Room (more content not included)... Normal [facility] Hemoglobin A1c percentageOrd ered By: Casper Partida on 12-13-2024 HbA1c (Bld) [Mass fraction] 5.5 % 3.8-5.6 [facility] Comment on above: Normal < 5.7 % Predi abetic 5.7 - 6.4 % Diabetic >or= 6.5 % Please note range changes. High density lipoprotein (HD L) measurementOrdered By: Casper Partida on 12-13-2024 Cholesterol in HDL [Mass/Vol] 12 mg/dL Low >40 [facility] Comment on above: The drugs N-Acetylcy steine and Metamizole may falsely depress this assay. Reference Range HDL <40 mg/dL Low HDL Cholesterol HDL >or= 60 mg/dL High HDL Cholesterol Influenza virus A and B and SARS-CoV-2 (COVID-19) and Respiratory syncytial virus RNAOrdered By: Adam Rucker on 12-13-2024 SARS-CoV-2 (COVID-19) RNA DAGOBERTO+probe Ql (Unsp spec) [facility] L501.4020on 12-13-2024 TROPONIN-I HS 9 pg/mL Normal 3.0-78.0 [facility] Comment on above: Order Comment: 'TROP ' Serial specimen #1, #2 or #3: 2 Result Comment: Plea se Note: New Test Units and Gender Specific Reference Ranges. For more information see Policy Stat Procedure Howard High Sensitivity Troponin (TNIH) and attachments. Performed By: #### L 500.2500, L501.2300 #### [facility] [address] [place], [place], [id number] [phone] L501.5425on 12-13-2024 TROPONIN-I HS 8 pg/mL Normal 3.0-78.0 [facility] Comment on above: Order Comment: 1Y Result Comment: Josefa trinidad Note: New Test Units and Gender Specific Reference Ranges. For more information see Policy Stat Procedure Howard High Sensitivity Troponin (TNIH) and attachments. Performed By: #### L 100.0100 #### [facility] [address] [place], [address] Lactic Acidon 12-13-2024 Lactate [Moles/Vol] 1.9 mmol/L Normal 0.4-1.9 [facility] Comment on above: Order Comment: Y Performed By: #### L 500.2500, L503.6005, L100.0100 ####[facility] [address] [place], [address] Lactic acid measurementOrder ed By: Adam Rucker on 12-13-2024 Lactate [Moles/Vol] 1.9 mmol/L 0.4-2.0 [facility] Lipid Profileon 12-13-2024 Cholesterol [Mass/Vol] 122 mg/dL Normal 200 [facility] Comment on above: Order Comment: 'TROP ' Serial specimen #1, #2 or #3: 2 Result Comment: <200 mg/dL Desirable 200-240 mg/dL Borderline >240 mg/dL High Risk Performed By: #### L 500.2500, L501.2300 #### [facility] [address] [place], [address] Cholesterol in HDL [Mass/Vol] 12 mg/dL Low [facility] Comment on above: Order Comment: 'TROP ' Serial specimen #1, #2 or #3: 2 Result Comment: The drugs N-Acetylcysteine and Metamizole may falsely depress this assay. Reference Range HDL <40 mg/dL Low HDL Cholesterol HDL >or= 60 mg/dL High HDL Cholesterol Performed By: #### L 500.2500, L501.2300 #### [facility] [address] [place], [address] Cholesterol in LDL [Mass/Vol] 74 mg/dL Normal 0-130 [facility] Comment on above: Order Comment: 'TROP ' Serial specimen #1, #2 or #3: 2 Performed By: #### L 500.2500, L501.2300 #### [facility] [address] [place], [address] Cholesterol in VLDL [Mass/Vol] 36 mg/dL Normal 5-40 [facility] Comment on above: Order Comment: 'TROP ' Serial specimen #1, #2 or #3: 2 Performed By: #### L 500.2500, L501.2300 #### [facility] [address] [place], [address] Triglyceride [Mass/Vol] 181 mg/dL Normal [facility] Comment on above: Order Comment: 'TROP ' Serial specimen #1, #2 or #3: 2 Result Comment: The drugs N-Acetylcysteine and Metamizole may falsely depress this assay. Serum Triglycerides Reference Interval Normal <150 mg/dL Borderline high 150 - 199 mg/dL High 200 - 499 mg/dL Very High > or = 500 mg/dL Performed By: #### L 500.2500, L501.2300 #### [facility] [address] [place], [address] Low density lipoprotein (LDL ) cholesterol measurementOrdered By: Casper Partida on 12-13-2024 Cholesterol in LDL [Mass/Vol] 74 mg/dL 0-130 [facility] Lower GI hemoglobin IA Ql (S tl)Ordered By: Casper Partida on 12-13-2024 Stool Occult Blood (NATALIO) [facility] M100.678on 12-13-2024 M100.678 Pending SARS-CoV-2 (COVID 19) Negative INFLUENZA A Negative INFLUENZA B Negative RSV PCR Negative Normal [facility] Comment on above: Performed By: #### L 500.2500, L501.2300 #### [facility] [address] [place], [address] Magnesium measurementOrdered By: Casper Partida on 12-13-2024 Magnesium [Mass/Vol] 2.3 mg/dL Normal 1.6-2.6 [facility] Comment on above: Performed By: #### L 500.2500, L501.2300 #### [facility] [address] [place], [address] PSA,Total - Annual Screenon 12-13-2024 PSA,TOT SCREEN 0.43 ng/mL Normal 0.00-4.00 [facility] Comment on above: Order Comment: 'TROP ' Serial specimen #1, #2 or #3: 2 Result Comment: This test was performed using the TPSA assay method for the [employer] (deja mi) chemistry system. Values obtained with different assay methods cannot be used interchangably. When changing PSA assays in the course of monitoring a patient, additional sequential testing should be carried out to confirm baseline values. Performed By: #### L 500.2500, L501.2300 #### [facility] [address] [facility] [place], [address] Respiratory pathogens DNA an d RNA panel DAGOBERTO+probe (Resp)Ordered By: Casper Partida on 12-13-2024 Respiratory Panel (PCR) [facility] Respiratory pathogens detect ion panel by molecular detection methodOrdered By: Casper Partida on 12-13-2024 Respiratory pathogens DNA and RNA panel DAGOBERTO+probe (Resp) [facility] Screening prostate specific antigen (PSA) measurementOrdered By: Casper Partida on 12-13-2024 Prostate Specific Antigen Screen 0.43 ng/mL 0.00-4.00 [facility] Comment on above: This test was perfor med using the TPSA assay method for the[employer] (deja mi) chemistry system. Values obtained with differentassay methods cannot be used interchangably.When changing PSA assays in the course of monitoring apatient, additional sequential testing should be carriedout to confirm baseline values. Serum or plasma cholesterol measurement (mass/volume)Ordered By: Casper Partida on 12-13-2024 Cholesterol [Mass/Vol] 122 mg/dL <200 [facility] Comment on above: <200 mg/dL Desirable 200-240 mg/dL Borderline >240 mg/dL High Risk Serum or plasma thyroid stim ulating hormone (TSH) measurement (units/volume)Ordered By: Capser Partida on 12-13-2024 TSH Qn 1.870 uIU/mL 0.358-3.74 0 [facility] Stool gastrointestinal hemog lobin detection by immunologic methodOrdered By: Casper Partida on 12-13-2024 Lower GI hemoglobin IA Ql (Stl) [facility] TSH QnOrdered By: Casper hooker on 12-13-2024 Thyroid Stimulating Hormone (TSH) 1.870 uIU/mL 0.358-3.74 0 [facility] Thyroid Stim Hormone (TSH)on 12-13-2024 TSH 1.870 uIU/mL Normal 0.358-3.74 0 [facility] Comment on above: Order Comment: 'TROP ' Serial specimen #1, #2 or #3: 2 Performed By: #### L 500.2500, L501.2300 #### [facility] [place], [address] Triglycerides measurementOrd ered By: Casper Partida on 12-13-2024 Triglyceride [Mass/Vol] 181 mg/dL <199 [facility] Comment on above: The drugs N-Acetylcy steine and Metamizole may falsely depress this assay.Serum Triglycerides Reference Interval Normal <150 mg/dL Borderline high 150 - 199 mg/dL High 200 - 499 mg/dL Very High > or = 500 mg/dL Troponin IOrdered By: Casper Partida on 12-13-2024 Troponin I 9 pg/mL 3.0-78.0 [facility] Comment on above: Please Note: New Kelsie t Units and Gender Specific Reference Ranges. For more information see Policy Stat Procedure [facility] High Sensitivity Troponin (TNIH) and attachments. Troponin I High Sensitivity 9 pg/mL 3.0-78.0 [facility] Comment on above: Please Note: New Kelsie t Units and Gender Specific Reference Ranges. For more information see Policy Stat Procedure [facility] High Sensitivity Troponin (TNIH) and attachments. Very low density lipoprotein (VLDL) cholesterol measurementOrdered By: Casper Partida on 12-13-2024 Very low density lipoprotein (VLDL) cholesterol measurement 36 mg/dL 5-40 [facility] VLDL Cholesterol 36 mg/dL 5-40 [facility] Chest PA and Lateralon 12-09 Chest PA and Lateral [facility] Imaging Services [address] [place] [address] Chest PA and Lateral MR#: [id number] Acct: [id number] Name: DEWITTKRISTIAN BLANKENSHIP Stone Rep #: [id number] : 1960 M 64 From: Casper Ritter PCP: Care Physician,No Primary Status: REG CLI Study: Chest PA and Lateral Date of Exam: 12/09/24 Exam# [id number] Ordering Dr: Esha Marley PROCEDURE: CHEST PA AND LATERAL REASON FOR EXAM: Rule out pneumonia. TECHNIQUE: Frontal and lateral views of the chest. COMPARISON: None. RAD/Chest PA and Lateral IMPRESSION: A large right upper lobe infiltrate is seen, with smaller right lower lobe infiltrate also noted this is highly concerning for the presence of PNEUMONITIS. No evidence of pulmonary edema. No pleural effusion or pneumothorax is noted. Cardiomediastinal silhouette is within the normal range. Reading Location: [address] CC: EDDIE Marley; No Primary Care Physician Injection Molding Machine Offbearer: Signed Normal [facility] Vital Signs Date Time Vital Sign Value Performing Clinician Faci lity 04-24-2025 11:59-0400 Diastolic blood pressure 80 mm[Hg] No Primary Care Physician [facility] 04-24-2025 11:59-0400 Systolic blood pressure 160 mm[Hg] No Primary Care Physician [facility] 04-24-2025 10:45-0400 Body height 185.42 cm No Primary Care Physician [facility] 04-24-2025 10:45-0400 Body mass index (BMI) [Ratio] 23.2 kg/m2 No Primary Care Physician [facility] 04-24-2025 10:45-0400 Body weight 79.83 kg No Primary Care Physician [facility] 04-24-2025 10:45-0400 Diastolic blood pressure 83 mm[Hg] No Primary Care Physician [facility] 04-24-2025 10:45-0400 Heart rate 65 /min No Primary Care Physician [facility] 04-24-2025 10:45-0400 Respiratory rate 18 /min No Primary Care Physician [facility] 04-24-2025 10:45-0400 SaO2% (BldA) [Mass fraction] 96 % No Primary Care Physician [facility] 04-24-2025 10:45-0400 Systolic blood pressure 151 mm[Hg] No Primary Care Physician [facility] 03-18-2025 14:14-0400 Body height 185.42 cm No Primary Care Physician [facility] 03-18-2025 14:13-0400 Body mass index (BMI) [Ratio] 22.6 kg/m2 No Primary Care Physician [facility] 03-18-2025 14:13-0400 Body weight 78.01 kg No Primary Care Physician [facility] 03-18-2025 14:13-0400 Diastolic blood pressure 94 mm[Hg] No Primary Care Physician [facility] 03-18-2025 14:13-0400 Heart rate 85 /min No Primary Care Physician [facility] 03-18-2025 14:13-0400 Respiratory rate 18 /min No Primary Care Physician [facility] 03-18-2025 14:13-0400 SaO2% (BldA) [Mass fraction] 95 % No Primary Care Physician [facility] 03-18-2025 14:13-0400 Systolic blood pressure 155 mm[Hg] No Primary Care Physician [facility] 02-13-2025 08:45-0400 Body mass index (BMI) [Ratio] 21.4 kg/m2 No Primary Care Physician [facility] 02-13-2025 08:45-0400 Body temperature 97.3 [degF] No Primary Care Physician [facility] 02-13-2025 08:45-0400 Body weight 73.93 kg No Primary Care Physician [facility] 02-13-2025 08:45-0400 Diastolic blood pressure 88 mm[Hg] No Primary Care Physician [facility] 02-13-2025 08:45-0400 Heart rate 101 /min No Primary Care Physician [facility] 02-13-2025 08:45-0400 Respiratory rate 20 /min No Primary Care Physician [facility] 02-13-2025 08:45-0400 SaO2% (BldA) [Mass fraction] 96 % No Primary Care Physician [facility] 02-13-2025 08:45-0400 Systolic blood pressure 145 mm[Hg] No Primary Care Physician [facility] 02-10-2025 14:05-0400 Body height 185.42 cm No Primary Care Physician [facility] 02-10-2025 14:05-0400 Body weight 72.57 kg No Primary Care Physician [facility] 02-10-2025 14:05-0400 Heart rate 81 /min No Primary Care Physician [facility] 02-10-2025 14:05-0400 SaO2% (BldA) [Mass fraction] 97 % No Primary Care Physician [facility] 01-27-2025 14:00-0400 Body height 185.42 cm No Primary Care Physician [facility] 01-27-2025 14:00-0400 Body mass index (BMI) [Ratio] 20.5 kg/m2 No Primary Care Physician [facility] 01-27-2025 14:00-0400 Body weight 70.76 kg No Primary Care Physician [facility] 01-27-2025 14:00-0400 Diastolic blood pressure 91 mm[Hg] No Primary Care Physician [facility] 01-27-2025 14:00-0400 Heart rate 77 /min No Primary Care Physician [facility] 01-27-2025 14:00-0400 Respiratory rate 18 /min No Primary Care Physician [facility] 01-27-2025 14:00-0400 SaO2% (BldA) [Mass fraction] 96 % No Primary Care Physician [facility] 01-27-2025 14:00-0400 Systolic blood pressure 165 mm[Hg] No Primary Care Physician [facility] 12-31-2024 12:52-0500 Body mass index (BMI) [Ratio] 18.4 kg/m2 No Primary Care Physician [facility] 12-31-2024 12:52-0500 Body temperature 97.2 [degF] No Primary Care Physician [facility] 12-31-2024 12:52-0500 Body weight 63.5 kg No Primary Care Physician [facility] 12-31-2024 12:52-0500 Diastolic blood pressure 63 mm[Hg] No Primary Care Physician [facility] 12-31-2024 12:52-0500 Heart rate 62 /min No Primary Care Physician [facility] 12-31-2024 12:52-0500 Respiratory rate 20 /min No Primary Care Physician [facility] 12-31-2024 12:52-0500 SaO2% (BldA) [Mass fraction] 96 % No Primary Care Physician [facility] 12-31-2024 12:52-0500 Systolic blood pressure 121 mm[Hg] No Primary Care Physician [facility] 12-16-2024 15:37-0500 Inhaled oxygen flow rate 2 L/min No Primary Care Physician [facility] 12-16-2024 14:57-0500 Body temperature 98.2 [degF] No Primary Care Physician [facility] 12-16-2024 14:57-0500 Diastolic blood pressure 75 mm[Hg] No Primary Care Physician [facility] 12-16-2024 14:57-0500 Heart rate 72 /min No Primary Care Physician [facility] 12-16-2024 14:57-0500 Respiratory rate 17 /min No Primary Care Physician [facility] 12-16-2024 14:57-0500 SaO2% (BldA) [Mass fraction] 97 % No Primary Care Physician [facility] 12-16-2024 14:57-0500 Systolic blood pressure 138 mm[Hg] No Primary Care Physician [facility] 12-16-2024 03:16-0500 Body mass index (BMI) [Ratio] 20.4 kg/m2 No Primary Care Physician [facility] 12-16-2024 03:16-0500 Body weight 70.1 kg No Primary Care Physician [facility] 12-14-2024 10:40-0500 Body height 185.42 cm No Primary Care Physician [facility] 12-23-2023 14:59-0500 Body temperature 98.3 [degF] [facility] 12-23-2023 14:59-0500 Diastolic blood pressure 81 mm[Hg] [facility] 12-23-2023 14:59-0500 Heart rate 93 /min [facility] 12-23-2023 14:59-0500 Respiratory rate 22 /min [facility] 12-23-2023 14:59-0500 SaO2% (BldA) [Mass fraction] 95 % [facility] 12-23-2023 14:59-0500 Systolic blood pressure 162 mm[Hg] [facility] 12-23-2023 11:26-0500 Body height 182.88 cm [facility] 12-23-2023 11:26-0500 Body mass index (BMI) [Ratio] 21.7 kg/m2 [facility] 12-23-2023 11:050 Body weight 72.8 kg [facility] Encounters Encounter Date Encounter Type Care Provider Facility Start: 06-01-2025 ambulatory [facility] Facility:[facility] Start: 05-11-2025 End: 05-11-2025 ambulatory Becky Hagen DIRECTOR DATA-C Work Phone: -Laboratory Start: 05-11-2025 End: 05-11-2025 Patient encounter procedure Rickey Rainye PA -Laboratory Work Phone: Start: 05-11-2025 End: 05-11-2025 ambulatory [facility] Facility:[facility] Start: 04-24-2025 End: 04-24-2025 Patient encounter procedure Rickey Rainey PA -[facility] Work Phone: Start: 04-24-2025 End: 04-24-2025 ambulatory No Primary Care Physician -[facility] Start: 04-14-2025 End: 04-14-2025 ambulatory No Primary Care Physician [facility] Work Phone: Start: 04-14-2025 End: 04-14-2025 Patient encounter procedure Rickey Brigid PA -Laboratory Work Phone: Start: 04-14-2025 End: 04-14-2025 [facility] Facility:[facility] Start: 03-18-2025 End: 03-18-2025 Patient encounter procedure Rickey Brigid PA -[facility] Work Phone: Start: 03-18-2025 End: 03-18-2025 ambulatory No Primary Care Physician [facility] Work Phone: Start: 03-18-2025 End: 03-18-2025 ambulatory [facility] Facility:[facility] Start: 02-27-2025 Non-patient / Non-visit Laurence ramírez NP-C -[facility] Work Phone: Start: 02-27-2025 ambulatory [facility] Start: 02-25-2025 ambulatory [facility] Start: 02-25-2025 Non-patient / Non-visit Dr. Mary NELSON -[facility] Start: 02-25-2025 End: 02-25-[address] Taj Allen MD -Cardiovascular Services Work Phone: Start: 02-25-2025 End: 02-25-2025 [facility] Facility:[facility] Start: 02-13-2025 End: 02-13-2025 Patient encounter procedure HAMLET Hagen -[facility] Work Phone: Start: 02-13-2025 End: 02-13-2025 ambulatory [facility] Facility:[facility] Start: 02-12-2025 ambulatory [facility] Start: 02-12-2025 Non-patient / Non-visit Dr. Nicola thompson DO -[facility] Start: 02-10-2025 End: 02-10-2025 ambulatory No Primary Care Physician [facility] Work Phone: Start: 02-10-2025 End: 02-10-2025 Patient encounter procedure HAMLET Hagen -Pulmonary Services/Neurology Work Phone: Start: 02-10-2025 End: 02-10-2025 ambulatory [facility] Facility:[facility] Start: 02-04-2025 End: 02-04-2025 ambulatory No Primary Care Physician [facility] Work Phone: Start: 02-04-2025 End: 02-04-2025 Patient encounter procedure Ceci Leyva NP-C -Cat Scan, [facility] Work Phone: Start: 02-04-2025 End: 02-04-2025 ambulatory [facility] Facility:[facility] Start: 01-27-2025 End: 01-27-[address] Taj Allen MD -[facility] Work Phone: Start: 01-27-2025 End: 01-27-2025 ambulatory [facility] Facility:[facility] Start: 01-21-2025 Non-patient / Non-visit Dr. Nicola Lazaro own DO -[facility] Start: 01-21-2025 End: 01-21-2025 ambulatory No Primary Care Physician [facility] [facility] Work Phone: Start: 01-21-2025 End: 01-21-2025 Patient encounter procedure HAMLET Hagen -Pulmonary Services/Neurology Work Phone: Start: 01-21-2025 End: 01-21-2025 ambulatory [facility] Facility:[facility] Start: 12-31-2024 End: 12-31-2024 Patient encounter procedure HAMLET Hagen -[facility] Work Phone: Start: 12-31-2024 End: 12-31-2024 ambulatory Becky Hagen Facility:[facility] [place] Start: 12-25-[address] Addi Andino MD -Occupational Therapy Work Phone: Start: 12-25-2024 End: 12-25-2024 ambulatory Sp Andino Facility:[facility] Start: 12-16-2024 Non-patient / Non-visit Dr. Miguelina Andino MD -[facility] Work Phone: Start: 12-15-2024 Non-patient / Non-visit Dr. Miguelina Andino MD -[facility] Work Phone: Start: 12-15-2024 Non-patient / Non-visit Dr. Nicola Lazaro own DO -[facility] Start: 12-15-2024 ambulatory Bhavesh Justin Facility:[facility] Start: 12-15-2024 Non-patient / Non-visit Dr. Bhavesh irvin MD -[facility] Start: 12-14-2024 End: 12-14-2024 ambulatory Bhavesh Anderson Facility:[facility] Start: 12-14-2024 End: 12-14-2024 Non-patient / Non-visit Dr. Sp Andino MD -[facility] Work Phone: Start: 12-13-2024 ambulatory Sp Andino Fac ility:[facility] Start: 12-13-2024 End: 12-16-2024 Evaluation and management of inpatient Dr. Sp Andino MD -Progressive Care Unit Work Phone: Start: 12-09-2024 End: 12-09-2024 Patient encounter procedure Esha Marley DIRECTOR DATA-C -Radiology, [facility] Work Phone: Start: 12-09-2024 End: 12-09-2024 ambulatory Esha Musat Facility:[facility] Start: 12-23-2023 End: 12-23-2023 Emergency department patient visit [facility]-Emergency Department Work Phone: Procedures Date Procedure Procedure Detail Performing Clinician Start: 02-04-2025 CT of chest without contrast No Primary Care Physician Start: 01-27-2025 Evaluation of diagno stic study results No Primary Care Physician Start: 12-16-2024 Estimated creatinine clearance No Primary Care Physician Start: 12-16-2024 Lymphocyte percent differential count No Primary Care Physician Start: 12-16-2024 Measurement of renal function No Primary Care Physician Comment on above: GFR Calc Start: 12-15-2024 Gram stain microscopy N o Primary Care Physician Start: 12-15-2024 Respiratory microbia l culture No Primary Care Physician Start: 12-15-2024 Assay of phosphorus inorganic No Primary Care Physician Start: 12-14-2024 Legionella pneumophi la antigen assay No Primary Care Physician Start: 12-14-2024 Measurement of occul t blood in stool specimen using immunoassay No Primary Care Physician Start: 12-14-2024 Streptococcus pneumo niae antigen assay No Primary Care Physician Start: 12-14-2024 Folic acid measurement No Primary Care Physician Start: 12-14-2024 Parathyroid hormone measurement No Primary Care Physician Start: 12-14-2024 Vitamin B12 measurement No Primary Care Physician Start: 12-14-2024 Measurement of 3,4-methylenedioxymethamphe tamine in urine No Primary Care Physician Start: 12-14-2024 Methadone measuremen t, urine No Primary Care Physician Start: 12-14-2024 Urine barbiturate measurement No Primary Care Physician Start: 12-14-2024 Serum ethanol measurement No Primary Care Physician Comment on above: The serum:whole bloo d ethanol ratio is approximately 1.14and varies slightly with hematocrit. Medical Alcohol reference interval and critical value innon-tolerant individuals; 50 - 100 Impairment 100 Intoxication 100 - 250 Severe Poisoning 250 - 400 Deep/possible fatal coma Start: 12-14-2024 CT of head without contrast No Primary Care Physician Start: 12-13-2024 CT of thorax with contrast No Primary Care Physician Start: 12-13-2024 Computed tomography of abdomen and pelvis with contrast No Primary Care Physician Start: 12-13-2024 Prostate specific an tigen measurement No Primary Care Physician Comment on above: This test was perfor med using the TPSA assay method for [employer] chemistry system. Values obtained with differentassay methods cannot be used interchangably.When changing PSA assays in the course of monitoring apatient, additional sequential testing should be carriedout to confirm baseline values. Start: 12-13-2024 X-ray of chest, PA a nd lateral views No Primary Care Physician Start: 12-13-2024 Nucleic acid assay No [facility] Care Physician Start: 12-13-2024 SARS-CoV-2, Influenz a & RSV (PCR) No Primary Care Physician Start: 12-09-2024 X-ray of chest, PA a nd lateral views No Primary Care Physician Start: 12-23-2023 MRI of lower extremity Start: 12-23-2023 Radiologic examinati on of knee Start: 12-23-2023 X-ray of both feet Plan of Treatment Date Care Activity Detail Author Start: 04-24-2025 Evaluation of diagno stic study results [facility] Start: 02-10-2025 Walking distance 6 minutes [facility] Start: 12-16-2024 Patient discharge [facility] Start: 12-14-2024 Speech therapy assessment [facility] Start: 12-14-2024 Referral to occupati onal therapist [facility] Start: 12-14-2024 Referral to service [facility] Start: 12-14-2024 Patient referral to dietitian [facility] Start: 12-14-2024 Application of inter mittent pneumatic compression device [facility] Start: 12-14-2024 Consultation [facility] Start: 12-14-2024 Inhalation therapy procedure [facility] Start: 12-13-2024 End: 12-14-2024 [facility] Start: 12-13-2024 Following clinical p athway protocol [facility] Start: 12-13-2024 Assessment of risk o f venous thromboembolism [facility] Start: 12-13-2024 Insertion of cathete r into peripheral vein [facility] Start: 12-13-2024 Measuring intake and output [facility] Start: 12-13-2024 Oxygen therapy [facility] Start: 12-13-2024 Providing care accor ding to standard [facility] Start: 12-13-2024 Provision of activity privileges [facility] Start: 12-13-2024 Referral to service [facility] Start: 12-13-2024 Tobacco use cessation education [facility] Start: 12-13-2024 Admission procedure [facility] Start: 12-13-2024 Patient referral to dietitian [facility] Start: 12-23-2023 [facility] Basic metabolic 2008 panel with ionized calcium - Serum or Plasma [facility] Basic metabolic 2008 panel with ionized calcium - Serum or Plasma [facility] CBC W Auto Different ial panel - Blood [facility] CT Chest WO contrast [facility] CT Chest WO contrast [facility] Patient Education [facility] Work Phone: Patient referral [facility] Work Phone: Heart limited [facility] Payers Date Payer Category Payer Unknown [id number] 2024 Unknown [id number] 2024 Self-pay 2024 Unknown [id number] Unknown [id number] 2.16.8 40.1.361969.3.579.2.462 Unknown [id number] 2.16.8 40.1.500088.3.579.2.462 Unknown [id number] 2.16.8 40.1.529238.3.579.2.462 Unknown [id number] 2.16.8 40.1.142303.3.579.2.462 Unknown [id number] 2.16.8 40.1.231492.3.579.2.462 Unknown [id number] 2.16.8 40.1.103070.3.579.2.462 Unknown [id number] 2.16.8 40.1.348665.3.579.2.462 Unknown [id number] 2.16.8 40.1.220575.3.579.2.462 Unknown [id number] 2.16.8 40.1.644147.3.579.2.462 Unknown [id number] 2.16.8 40.1.407648.3.579.2.462 Unknown [id number] 2.16.8 40.1.992072.3.579.2.462 Unknown [id number] 2.16.8 40.1.404596.3.579.2.462 Unknown [id number] 2.16.8 40.1.831283.3.579.2.462 Unknown [id number] 2.16.8 40.1.648014.3.579.2.462 Unknown [id number] 2.16.8 40.1.795466.3.579.2.462 Unknown [id number] 2.16.8 40.1.469565.3.579.2.462 Unknown [id number] 2.16.8 40.1.475702.3.579.2.462 Unknown [id number] 2.16.8 40.1.841601.3.579.2.462 Unknown [id number] 2.16.8 40.1.956018.3.579.2.462 Unknown [id number] 2.16.8 40.1.019966.3.579.2.462 Unknown [id number] 2.16.8 40.1.517121.3.579.2.462 Unknown [id number] 2.16.8 40.1.779117.3.579.2.462 Unknown [id number] 2.16.8 40.1.755723.3.579.2.462 Unknown [id number] 2.16.8 40.1.323149.3.579.2.462 Unknown [id number] 2.16.8 40.1.180723.3.579.2.462 Unknown [id number] 2.16.8 40.1.047423.3.579.2.462 Unknown [id number] 2.16.8 40.1.985872.3.579.2.462 Social History Date Type Detail Facility Start: 12-23-2023 Tobacco smoking stat us [facility] Unknown if ever smoked [facility] Start: 1960 Sex Assigned At Male [facility] Start: 12-31-2024 End: 01-27-2025 Tobacco smoking status NHIS Ex-smoker (finding) [facility] Start: 01-26-2025 End: 02-12-2025 Sex Male (finding) [facility] Goals Date Patient Goal Desired Activity /State Functional Status Date Assessment Result Facility 12-16-2024 Functional status Ambulates [facility] Work Phone: Mental Status Date Assessment Result Facility 12-16-2024 Cognitive function [facility] Work Phone: 12-15-2024 Cognitive function Arousable To Voice/Nam e [facility] Work Phone: Clinical Notes 12-23-2023 to 02-05-2025 Note Date & Type Note Facility 02-05-2025 Radiology Diagnostic study note [facility] Imaging Services [address] [place], [place] [id number] Chest without Contrast MR#: [id number] Acct: [id number] Name: KRISTIAN DEWITT Rep #: [id number] : 1960 M 64 From: Manuel Vinson MD PCP: EDDIE Mckeon Status: REG CLI Study:Chest without Contrast Date of Exam: 02/04/25 Exam# [id number] Ordering Dr: Usha Leyva NP DIRECTOR DATA-C PROCEDURE: CHEST WITHOUT CONTRAST 02/04/2025 REASON FOR EXAM: 94 PACK YEAR HISTORY TECHNIQUE: Chest CT without contrast. Coronal and Sagittal reconstruction series were provided. One or more dose reduction techniques were used (e.g., Automated exposure control, adjustment of the mA and/or kV according to patient size, use of iterative reconstruction technique RADIATION DOSE SUMMARY: CTDlvol: 10.4 mGy DLP: 412.1 mGycm COMPARISON: CT chest dated December 13, 2024 FINDINGS: Hardware: None Lymph nodes: No lymphadenopathy. Heart and Vasculature: The heart is normal in size. The great vessels are normal in size and caliber. No pericardial effusion identified. Coronary Artery Calcifications: Absent Lungs and Airways: Central airways are patent. Consolidative density within theright middle lobe, and streaky opacity within the right lung base, likely representing multifocal infection. Mild upper lobe predominant centrilobular emphysematous changes within bilateral lungs. Pleura: No pleural effusion or pneumothorax. Upper Abdomen: Partially visualized upper abdomen demonstrates no acute abnormality. Bones: No aggressive osseous lesions. No acute fractures. Mild kyphosis of themidthoracic spine. CT/Chest without Contrast IMPRESSION: *Consolidative density within the anterior right upper lobe, and patchy opacities within the right lung base, likely representing multifocal infection. Occult pulmonary mass within the right upper lobe opacitynot excluded. Consider follow-up chest CT in 3 months to further evaluate following resolution of underlying infectious process. *Mild upper lobe predominant centrilobular emphysematous changes within bilateral lungs. 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 [facility] 01-27-2025 Evaluation note Diagnosis Onset Date Resolution Atrial flutter acute January 27, 2025 1:56pm Heart failure with reduced ejection fraction acute January 27, 2025 1:56pm Tobacco abuse acute January 27, 2025 1:56pm Cough acute February 13 2:41pm Ground glass opacity present on imaging of lung acute February 13, 2025 2:41pm Smoking greater than 40 pack years acute February 13, 2025 2:41pm Atrial flutter acute March 18, 2025 2:09pm Heart failure with reduced ejection fraction acute March 18, 2025 2 :09pm Atrial flutter acute April 24, 2025 10:34am Heart failure with reduced ejection fraction acute April 24, 2025 10:34am Hypertension chronic April 24, 025 10:34am [facility] Work Phone: 1(709) 876-708103-05-2025 Evaluation note* Diagnosis Onset Date Resolution Status Admit Date Cough acute December 31 3:09pm Ground glass opacity present on imaging of lung acute December 31, 2024 3:09pm Pneumonia acute December 31 3:09pm Smoking greater than 40 pack years acute December 31, 2024 3:09pm Atrial flutter acute January 27, 2025 1:56pm Heart failure with reduced ejection fraction acute January 27 1:56pm Tobacco abuse acute January 27, 2025 1:56pm Cough acute February 13 2:41pm Ground glass opacity present on imaging of lung acute February 13, 2025 2:41pm Smoking greater than 40 pack years acute February 13, 2025 2:41pm Atrial flutter acute March 18, 2025 2:09pm Heart failure with reduced ejection fraction acute March 18, 2025 2:09pm [facility] Work Phone: 1(798) 157-784703-05-2025 Evaluation note* Diagnosis Onset Date Resolution Status Admit Date Cough acute December 31 3:09pm Ground glass opacity present on imaging of lung acute December 31, 2024 3:09pm Pneumonia acute December 31 3:09pm Smoking greater than 40 pack years acute December 31, 2024 3:09pm Atrial flutter acute January 27, 2025 1:56pm Heart failure with reduced ejection fraction acute January 27 1:56pm Tobacco abuse acute January 27, 2025 1:56pm Cough acute February 13 2:41pm Ground glass opacity present on imaging of lung acute February 13, 2025 2:41pm Smoking greater than 40 pack years acute February 13, 2025 2:41pm Atrial flutter acute March 18, 2025 2:09pm Heart failure with reduced ejection fraction acute March 18, 2025 2:09pm Atrial flutter acute April 24, 2025 10:34am Heart failure with reduced ejection fraction acute April 24 10:34am Hypertension chronic April 24 10:34am [facility] Work Phone: 1(958) 115-604102-18-2025 [facility] Medical Records Department [address] [place] [address] Discharge Summary 12/16/24 1444 MR#: [id number] Acct: [id number] Name: KRISTIAN DEWITT Rep #: [id number] : 1960 64 From: Sp Andino MD PCP: Care Physician,No Primary Status:ADM IN Location: [facility] [id number] Providers Date of Admission: 12/13/24 Primary Care Physician: No Primary Care Phys Consultations 12/14/24 00:53 Consult: 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 / Pulmonary Medicine Routine Consulting Provider: Intensivists/Pulmonary Med Reason for Consult: CT suspicious for invasive mucinous adenocarcinoma of the lung EMERGENT Consult: No MD Notified: Yes Date Notified: 12/14/24 Time Notified: 06:13 Method of Notification: consulted via intranet Reason For Visit: ATRIAL FLUTTER WITH RVR PNA Diagnosis Discharge Diagnosis (1) Pneumonia: Status: Acute Code(s): J18.9 - Pneumonia, unspecified organism Qualifiers: Pneumonia type: due to unspecified organism Laterality: right Lung location: unspecified part of lung Qualified Code(s): J18.9 - Pneumonia, unspecified organism (2) Atrial flutter: Status: Acute Code(s): I48.92 - Unspecified atrial flutter Qualifiers: Atrial flutter type: atypical Qualified Code(s): I48.4 - Atypical atrial flutter (3) Acute metabolic encephalopathy: Status: Acute Code(s): G93.41 - Metabolic encephalopathy Medications at Discharge Home Medications apixaban 5 mg tablet (Eliquis) 5 mg PO BID 30 days #60 tabs 12/16/24 atorvastatin 40 mg tablet 40 mg PO QHS 30 days #30 tabs 12/16/24 carvedilol 6.25 mg tablet 6.25 mg PO BIDCM 30 days #60 tabs 12/16/24 cefdinir 300 mg capsule 300 mg PO BID 4 days #8 caps 12/16/24 furosemide 20 mg tablet 20 mg PO DAILY 30 days #30 tabs 12/16/24 Hospital Course Operations None Procedures 2-D Echocardiogram Summary of Care Provided Minutes Spent on Discharge: 35 Hospital Course: Per HPI: KRISTIAN DEWITT, is a 64 M with past medical history of chronic tobacco abuse and closed tibial plateau fracture after fall; treated nonoperatively (11/2023) who presents to [facility] ER complaining of shortness of breath, palpitations and confusion. Mr. Dewitt reports the symptoms began approximately 1 week prior to admission with a gradual onset of dyspnea on exertion that progressed to shortness of breath at rest in addition to nonproductive cough. Patient states he went to urgent care and was diagnosed with pneumonia and treated with a penicillin-based antibiotic but has not improved since finishing treatment so he decided to come in for further evaluation and treatment. He admits to shortness of breath and cough and blurry vision with clinical evidence of significant confusion but he denies fever, chills, nausea, vomiting, diarrhea or headache. Shortly after arrival he was noted to be in Atrial Flutter; with Rapid Ventricular Response at 130-150 bpm after he received a breathing treatment for which he was immediately started on IV diltiazem with good subsequent rate control. In the ER he underwent chest x-ray which revealed persistent large airspace opacity in the Right lung, likely due to Pneumonia w ith the corresponding Leukocytosis of 16.4 K present on admission complicated by Hypercalcemia of 11.3 mg/dL present on admission in the setting of Chronic Tobacco Abuse worrisome for possible underlying malignancy compounded by Hypokalemia of 3.2 mmol/L present on admission and Hyperglycemia of 184 mg/dL present on admission suggestive of underlying DM-2 in addition to possible PUD with serum creatinine of 1.16 mg/dL and BUN of 60 mg/dL all culminating to cause Acute Metabolic Encephalopathy. He was then admitted to the PCU for ongoing care for status is expected to extend beyond 2 midnights. Hospital Course: 1. Acute metabolic encephalopathy secondary to right sided pneumonia ???Will plan for an outpatient biopsy if there is no resolution on CT scan 6 weeks after treatment ??? Vitamin D is pending for evaluation of the transient hypercalcemia ??? Continue with antibiotics ???Metabolic encephalopathy has resolved ??? Sputum cultures pending, antigen testing demonstrates strep pneumonia 12/16/2024: I discussed with him the plan for discharge today he expressed understanding of the risks and benefits of going home and would like to go home today. He will need to follow-up with pulmonology as an outpatient for repeat CT scan of his chest which he is aware of. They would also like him to perform pulmonary function testing as an outpatient as well. He did complete azithromycin while here in the hospital and will plan for cefdinir for another 4 days to complete a total of 7 days of treatment 2. Acute systolic CHF/new onset A-fib/pulmonary hypertension ???Echo with an EF of 35% stage I diastolic dysfunction with moderate pulmonary hypertension with (more content not included)...[facility] 12-14-2024 Evaluation note* Diagnosis Onset Date Resolution Status Admit Date Atrial flutter acute November 292024 10:01pm Elevated BUN acute November 10:01pm Hypercalcemia acute December 132024 10:01pm Hyperglycemia acute December 132024 10:01pm Hypokalemia acute November 10:01pm Pneumonia acute December 13, 2024 10:01pm 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 acute November 292024 10:01pm Tobacco abuse acute December 132024 10:01pm Acute metabolic encephalopathy resol blake December 13, 2024 10:01pm Cough acute December 31 3:09pm Ground glass opacity present on imaging of lung acute December 31 3:09pm Pneumonia acute December 31 3:09pm Smoking greater than 40 pack years acute December 31, 2024 3:09pm [facility] Work Phone: 1(176) 557-435002-16-2025 Evaluation note* Diagnosis Onset Date Resolution Status Admit Date Atrial flutter acute November 292024 10:01pm Elevated BUN acute November 10:01pm Hypercalcemia acute December 132024 10:01pm Hyperglycemia acute December 132024 10:01pm Hypokalemia acute November 10:01pm Pneumonia acute December 13, 2024 10:01pm 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 acute November 292024 10:01pm Tobacco abuse acute December 132024 10:01pm Acute metabolic encephalopathy resol blake December 13, 2024 10:01pm Cough acute December 31 3:09pm Ground glass opacity present on imaging of lung acute December 31 3:09pm Pneumonia acute December 31 3:09pm Smoking greater than 40 pack years acute December 31, 2024 3:09pm Atrial flutter acute January 27, 2025 1:56pm Heart failure with reduced ejection fraction acute January 27 1:56pm Tobacco abuse acute January 27, 2025 1:56pm [facility] Work Phone: 1(524) 676-589202-16-2025 Evaluation note* Diagnosis Onset Date Resolution Status Admit Date Atrial flutter acute November 292024 10:01pm Elevated BUN acute November 10:01pm Hypercalcemia acute December 132024 10:01pm Hyperglycemia acute December 132024 10:01pm Hypokalemia acute November 10:01pm Pneumonia acute December 13, 2024 10:01pm 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 acute November 292024 10:01pm Tobacco abuse acute December 132024 10:01pm Acute metabolic encephalopathy resol blake December 13, 2024 10:01pm Cough acute December 31 3:09pm Ground glass opacity present on imaging of lung acute December 31 3:09pm Pneumonia acute December 31 3:09pm Smoking greater than 40 pack years acute December 31, 2024 3:09pm Atrial flutter acute January 27, 2025 1:56pm Heart failure with reduced ejection fraction acute January 27 1:56pm Tobacco abuse acute January 27, 2025 1:56pm Cough acute February 13 2:41pm Ground glass opacity present on imaging of lung acute February 13 2:41pm Smoking greater than 40 pack years acute February 13, 2025 2:41pm [facility] Work Phone: 1(463) 584-472902-25-2024 Discharge summary Author Mikey Beckwith [facility] December 23, 2023 2:27pm Note Date/Time December 23, 2023 11:44am [facility] Medical Records Department [address] [place] [address] Emergency Department Summary 12/23/23 MR#: [id number] Acct: [id number] Name: KRISTIAN DEWITT Rep #:[id number] : 1960 63 From: Mikey Beckwith MD PCP: Care Physician,No Primary Status :REG ER Location: ED HPI History of Present Illness Chief Complaint: Lower Extremity Injury Narrative Narrative: 63-year-old male who denies significant past medical history presents via EMS with injury to his left knee, and his right second toe. He states that yesterday, at around 2:00 in the afternoon, he was getting ready to go to his laundry when he was walking up 2 stairs. His right second toe caught on the stair and he fell forward onto his left knee. He complains of bruising of his second toe. He was able to hobble around but now has pain with weightbearing onhis left knee to the point where he is unable to ambulate. He denies hitting his head or loss of consciousness, no neck pain or other injury. He has been taking ibuprofen without relief. Today when he woke up, he was unable to bear weight at all so he called EMS. PFSH PFSH Home Medications hydrocodone-acetaminophen 5-325mg 5mg-325mg 1 tab PO Q6H PRN PRN Pain 3 days #12TABLETS 12/23/23 [Rx Last Taken Unknown] Allergy/AdvReac Type Severity Reaction Status Date / Time No Known Allergies Allergy Verified 12/23/23 11:33 Social History Smoking Status: Current every day smoker tobacco type: cigarettes ROS ROS ED ROS Narrative Constitutional: No fever, no chills. HEENT: No sore throat. No neck pain. No loss of vision. No rhinorrhea. Cardiovascular: No chest pain. No palpitations. No pedal edema. Respiratory: No cough, no shortness of breath. Abdominal: No abdominal pain. No nausea. No vomiting. Genitourinary: No dysuria. No hematuria. Musculoskeletal: Right second toe pain, bruising and swelling, left knee pain with mild swelling, below kneecap. Worse with weightbearing. Neurologic: No headaches. No dizziness. No lightheadedness. Skin: No rash. No change in color. Psychiatric: No depression. No anxiety. EXAM Physical Exam Narrative Exam Narrative: Afebrile. Vital signs noted. HEENT: Normocephalic. Atraumatic. PERRL, EOMI. Neck soft and supple. No pointtenderness or step off. Cardiovascular: Regular rate and rhythm. No murmurs, rubs, or gallops appreciated. Respiratory: No tachypnea. Lungs clear to auscultation bilaterally. Gastrointestinal: Abdomen soft, nontender, with normoactive bowel sounds. No rebound or guarding. Neurological: Awake. Alert. Nonfocal, nonlateralizing. Skin: No rash. Normal color. No pallor. Musculoskeletal: No pedal edema. Extension and flexion of left knee intact. Able to raise leg off bed. Palpable dorsalis pedis pulses bilaterally. Positive ecchymosis and tenderness of right second toe. Pelvis stable. Const Vital Signs: 12/23/23 11:26 12/23/23 11:32 12/23/23 13:45 Temperature 98.8 F Temperature Source Oral Pulse Rate 107 H 86 Respiratory Rate 20 H Blood Pressure 172/98 H 184/91 H 157/99 H Blood Pressure Mean 122 122 118 Pulse Ox 96 95 Oxygen Delivery Method Room Air Room Air MDM MDM MDM Narrative Medical decision making narrative: In the differential diagnosis for the left knee is tibial plateau fracture versus knee sprain versus internal derangement including meniscal tear of cartilage. For his right second toe, differential includes contusion versus fracture. He was given 1 [place] tablet here for analgesia and x-rays were obtained of the left knee and 4 views and of the right foot and 3 views. On my interpretation of his right foot x-ray, I see no evidence of an acute fracture. I reviewed the radiology report which confirms my independent interpretation. X-rays of the left knee were obtained and there is a subtle fracture noted more distally and posteriorly that is nondisplaced on my interpretation. I reviewed the radiology report which comments on an intra-articular tibial fracture. I discussed patient with Dr. Doyle with orthopedics would like a CT performed of the left knee. I reviewed the radiology report of the CT which shows a nondisplaced hairline fracture of the posterior tibia extending cephalad to the tibial spine. I read discussed patient with orthopedics, and although radiologycomments on needing radiographs of the tibia and fibula, the patient is not having pain in that area, and orthopedics stated that old tibia x-ray is not indicated. He would like him placed in a knee immobilizer and made nonweightbearing. He was also given a pair of crutches. I stressed the importance of nonweightbearing on his left lower extremity. He was given a prescription for 12 [place] tablets, told to continue ice and elevation of his left leg and to follow-up with orthopedics within the next week. He is to call the office tomorrow for an appointment. At this point in time, I feel he can bedischarged to follow-up. Return instructions to the emergency department were reviewed. Disposition is discharged home in stable condition. Radiography Diagnostic Testing: Clinical Impression(s) from Imaging Studies Foot X-Ray 12/23/23 11:38 IMPRESSION: No evidence of acute fracture. Electronically Signed: Chema Stanford MD at 12:50 EST Reading Location ID and State: [facility] / [place] Tel , Service support , Knee X-Ray 12/23/23 11:38 IMPRESSION: 1. Nondisplaced intra-articular fracture of the proximal tibia. 2. Moderate effusion in the suprapatellar joint space. Electronically Signed: Chema Stanford MD at 12:52 EST , Lower Extremity CT 12/23/23 13:11 IMPRESSION: 1. Hairline nondisplaced fracture of the posterior proximal tibial shaft extending cephalad to the region of the tibial spine. 2. Moderate effusion in the suprapatellar joint space. 3. Radiographs of the left tibia and fibula are recommended for further evaluation of the tibial shaft. Electronically Signed: Chema Stanford MD at 14:06 EST , Management Discussion w/another healthcare provider: Supply Aide (Dr. Doyle, Orthopaedics) Discharge Plan Triage Chief Complaint: Lower Extremity Injury ED Provider: Mikey Beckwith Dx/Rx/DC Orders Clinical Impression: Closed tibia fracture, Sprain of toe, second, right Instructions: ED Leg Fracture, ED Toe Sprain Prescriptions: New hydrocodone-acetaminophen 5-325 mg tablet 1 tab PO Q6H PRN PRN (Reason: Pain) 3 Days Qty: 12 0RF Primary Care Provider: Care Physician,No Primary Referrals: Eric Doyle MD [Med Staff - Active Staff] - 3-5 Days Care Physician,No Primary [Primary Care Provider] - Activity Restrictions/Additional Instructions: Do not bear weight on your left leg. Follow-up with Dr. Doyle within the next week. Call tomorrow for an appointment. Continue ice and elevation of your left lower leg/knee. Wear your knee immobilizer. Disposition Disposition: Home, Self Care What to do if you have Problems For any increased pain, shortness of breath, bleeding, nausea or vomiting, chestpain, or any unexpected problems, contact your Primary Care Provider. Call [facility] ([phone]) or report to the closest Emergency Room. Call 911 if necessary. 12/23/23 1427 <Electronically signed by Mikey Beckwith MD> Cosigner Signature (if applicable): CC: No Primary Care Physician ~ Signed [facility] Work Phone: Evaluation noteNo assessment information available [facility] Work Phone: Hospital Discharge instructions Additional Instructions Do not bear weight on your left leg. Follow-up with Dr. Doyle within the next week. Call tomorrow for an appointment. Continue ice and elevation of your left lower leg/knee. Wear your knee immobilizer.[facility] Work Phone: Reason for referral (narrative)No reason for referral information availableWMarymount [facility] Work Phone: Chief Complaint and Reason for Visit Chief Complaint tripped up step yest ,pain lt knee Chief Complaint Admit Date R/O PNEUMONIA December 09, 2024 4:30pm ATRIAL FLUTTER WITH RVR & PNA November 292024 10:01pm CHANGE December 14, 2024 9:45am ATRIAL FLUTTER WITH RVR & PNA November 292024 10:03am ATRIAL FLUTTER WITH RVR & PNA November 292024 11:25am ATRIAL FLUTTER WITH RVR & PNA November 292024 2:32pm ATRIAL FLUTTER WITH RVR & PNA November 292024 2:44pm WEAKNESS,Metabolic encephalopathy/RX HER E December 25, 2024 10:48am Hospital FU December 31, 2024 3:09 pm Z72.0 - Tobacco use January 21, 2025 12: 55pm Reason for Visit Admit Date Atrial flutter December 13, 2024 10:01pm Elevated BUN December 13, 2024 10:01pm Hypercalcemia December 13, 2024 10:01pm Hyperglycemia December 13, 2024 10:01pm Hypokalemia December 13, 2024 10:01pm Pneumonia December 13, 2024 10:01pm Therapy failure due to antibiotic resist ance December 13, 2024 10:01pm Tobacco abuse December 13, 2024 10:01pm Acute metabolic encephalopathy December 13, 2024 10:01pm Cough December 31, 2024 3:09 pm Ground glass opacity present on imaging of lung December 31, 2024 3:09pm Pneumonia December 31, 2024 3:09 pm Smoking greater than 40 pack years December 31, 2024 3:09pm Chief Complaint Admit Date R/O PNEUMONIA December 09, 2024 4:30pm ATRIAL FLUTTER WITH RVR & PNA November 292024 10:01pm CHANGE December 14, 2024 9:45am ATRIAL FLUTTER WITH RVR & PNA November 292024 10:03am ATRIAL FLUTTER WITH RVR & PNA November 292024 11:25am ATRIAL FLUTTER WITH RVR & PNA November 292024 2:32pm ATRIAL FLUTTER WITH RVR & PNA November 292024 2:44pm WEAKNESS,Metabolic encephalopathy/RX HER E December 25, 2024 10:48am Hospital FU December 31, 2024 3:09 pm Z72.0 - Tobacco use January 21, 2025 12: 55pm AFIB AVR ([facility]) January 27, 2025 1:56 pm 94 PACK YR HISTORY February 04, 2025 2:55 pm Reason for Visit Admit Date Atrial flutter December 13, 2024 10:01pm Elevated BUN December 13, 2024 10:01pm Hypercalcemia December 13, 2024 10:01pm Hyperglycemia December 13, 2024 10:01pm Hypokalemia December 13, 2024 10:01pm Pneumonia December 13, 2024 10:01pm Therapy failure due to antibiotic resist ance December 13, 2024 10:01pm Tobacco abuse December 13, 2024 10:01pm Acute metabolic encephalopathy December 13, 2024 10:01pm Cough December 31, 2024 3:09 pm Ground glass opacity present on imaging of lung December 31, 2024 3:09pm Pneumonia December 31, 2024 3:09 pm Smoking greater than 40 pack years December 31, 2024 3:09pm Atrial flutter January 27, 2025 1:56 pm Heart failure with reduced ejection frac tion January 27, 2025 1:56pm Tobacco abuse January 27, 2025 1:56 pm Chief Complaint Admit Date R/O PNEUMONIA December 09, 2024 4:30pm ATRIAL FLUTTER WITH RVR & PNA November 292024 10:01pm CHANGE December 14, 2024 9:45am ATRIAL FLUTTER WITH RVR & PNA November 292024 10:03am ATRIAL FLUTTER WITH RVR & PNA November 292024 11:25am ATRIAL FLUTTER WITH RVR & PNA November 292024 2:32pm ATRIAL FLUTTER WITH RVR & PNA November 292024 2:44pm WEAKNESS,Metabolic encephalopathy/RX HER E December 25, 2024 10:48am Hospital FU December 31, 2024 3:09 pm Z72.0 - Tobacco use January 21, 2025 12: 55pm AFIB AVR ([facility]) January 27, 2025 1:56 pm 94 PACK YR HISTORY February 04, 2025 2:55 pm Z72.0 - Tobacco use February 10, 2025 1:4 6pm Chief Complaint Admit Date R/O PNEUMONIA December 09, 2024 4:30pm ATRIAL FLUTTER WITH RVR & PNA November 292024 10:01pm CHANGE December 14, 2024 9:45am ATRIAL FLUTTER WITH RVR & PNA November 292024 10:03am ATRIAL FLUTTER WITH RVR & PNA November 292024 11:25am ATRIAL FLUTTER WITH RVR & PNA November 292024 2:32pm ATRIAL FLUTTER WITH RVR & PNA November 292024 2:44pm WEAKNESS,Metabolic encephalopathy/RX HER E December 25, 2024 10:48am Hospital FU December 31, 2024 3:09 pm Z72.0 - Tobacco use January 21, 2025 12: 55pm AFIB AVR ([facility]) January 27, 2025 1:56 pm 94 PACK YR HISTORY February 04, 2025 2:55 pm Z72.0 - Tobacco use February 10, 2025 1:4 6pm Z72.0 - Tobacco use February 12, 2025 12: 33pm 6 wk FU February 13, 2025 2:4 1pm CHF February 25, 2025 2:5 2pm Amb Documentation February 27, 2025 4:20pm 2 WK FU March 18, 2025 2:09p m Reason for Visit Admit Date Atrial flutter December 13, 2024 10:01pm Elevated BUN December 13, 2024 10:01pm Hypercalcemia December 13, 2024 10:01pm Hyperglycemia December 13, 2024 10:01pm Hypokalemia December 13, 2024 10:01pm Pneumonia December 13, 2024 10:01pm Therapy failure due to antibiotic resist ance December 13, 2024 10:01pm Tobacco abuse December 13, 2024 10:01pm Acute metabolic encephalopathy December 13, 2024 10:01pm Cough December 31, 2024 3:09 pm Ground glass opacity present on imaging of lung December 31, 2024 3:09pm Pneumonia December 31, 2024 3:09 pm Smoking greater than 40 pack years December 31, 2024 3:09pm Atrial flutter January 27, 2025 1:56 pm Heart failure with reduced ejection frac tion January 27, 2025 1:56pm Tobacco abuse January 27, 2025 1:56 pm Cough February 13, 2025 2:4 1pm Ground glass opacity present on imaging of lung February 13, 2025 2:41pm Smoking greater than 40 pack years February 13, 2025 2:41pm Chief Complaint Admit Date WEAKNESS,Metabolic encephalopathy/RX HER E December 25, 2024 10:48am Hospital FU December 31, 2024 3:09 pm Z72.0 - Tobacco use January 21, 2025 12: 55pm Z72.0 - Tobacco use January 21, 2025 12: 59pm AFIB AVR ([facility]) January 27, 2025 1:56 pm 94 PACK YR HISTORY February 04, 2025 2:55 pm Z72.0 - Tobacco use February 10, 2025 1:4 6pm Z72.0 - Tobacco use February 12, 2025 12: 33pm 6 wk FU February 13, 2025 2:4 1pm CHF February 25, 2025 2:5 2pm Amb Documentation February 27, 2025 4:20pm 2 WK FU March 18, 2025 2:09p m INT LAB ORDERS March 18, 2025 2:52p m INT LAB ORDER April 14, 2025 12:2 4pm Reason for Visit Admit Date Cough December 31, 2024 3:09 pm Ground glass opacity present on imaging of lung December 31, 2024 3:09pm Pneumonia December 31, 2024 3:09 pm Smoking greater than 40 pack years December 31, 2024 3:09pm Atrial flutter January 27, 2025 1:56 pm Heart failure with reduced ejection frac tion January 27, 2025 1:56pm Tobacco abuse January 27, 2025 1:56 pm Cough February 13, 2025 2:4 1pm Ground glass opacity present on imaging of lung February 13, 2025 2:41pm Smoking greater than 40 pack years February 13, 2025 2:41pm Atrial flutter March 18, 2025 2:09p m Heart failure with reduced ejection frac tion March 18, 2025 2:09pm Chief Complaint Admit Date WEAKNESS,Metabolic encephalopathy/RX HER E December 25, 2024 10:48am Hospital FU December 31, 2024 3:09 pm Z72.0 - Tobacco use January 21, 2025 12: 55pm Z72.0 - Tobacco use January 21, 2025 12: 59pm AFIB AVR ([facility]) January 27, 2025 1:56 pm 94 PACK YR HISTORY February 04, 2025 2:55 pm Z72.0 - Tobacco use February 10, 2025 1:4 6pm Z72.0 - Tobacco use February 12, 2025 12: 33pm 6 wk FU February 13, 2025 2:4 1pm CHF February 25, 2025 2:5 2pm Amb Documentation February 27, 2025 4:20pm 2 WK FU March 18, 2025 2:09p m INT LAB ORDERS March 18, 2025 2:52p m INT LAB ORDER April 14, 2025 12:2 4pm SEE NOTES April 24, 2025 10:3 4am Chief Complaint Admit Date Hospital FU December 31, 2024 3:09 pm Z72.0 - Tobacco use January 21, 2025 12: 55pm Z72.0 - Tobacco use January 21, 2025 12: 59pm AFIB AVR ([facility]) January 27, 2025 1:56 pm 94 PACK YR HISTORY February 04, 2025 2:55 pm Z72.0 - Tobacco use February 10, 2025 1:4 6pm Z72.0 - Tobacco use February 12, 2025 12: 33pm 6 wk FU February 13, 2025 2:4 1pm CHF February 25, 2025 2:5 2pm Amb Documentation February 27, 2025 4:20pm 2 WK FU March 18, 2025 2:09p m INT LAB ORDERS March 18, 2025 2:52p m INT LAB ORDER April 14, 2025 12:2 4pm SEE NOTES April 24, 2025 10:3 4am Reason for Visit Admit Date Cough December 31, 2024 3:09 pm Ground glass opacity present on imaging of lung December 31, 2024 3:09pm Pneumonia December 31, 2024 3:09 pm Smoking greater than 40 pack years December 31, 2024 3:09pm Atrial flutter January 27, 2025 1:56 pm Heart failure with reduced ejection frac tion January 27, 2025 1:56pm Tobacco abuse January 27, 2025 1:56 pm Cough February 13, 2025 2:4 1pm Ground glass opacity present on imaging of lung February 13, 2025 2:41pm Smoking greater than 40 pack years February 13, 2025 2:41pm Atrial flutter March 18, 2025 2:09p m Heart failure with reduced ejection frac tion March 18, 2025 2:09pm Atrial flutter April 24, 2025 10:3 4am Heart failure with reduced ejection frac tion April 24, 2025 10:34am Hypertension April 24, 2025 10:3 4am Chief Complaint Admit Date Z72.0 - Tobacco use January 21, 2025 12: 55pm Z72.0 - Tobacco use January 21, 2025 12: 59pm AFIB AVR ([facility]) January 27, 2025 1:56 pm 94 PACK YR HISTORY February 04, 2025 2:55 pm Z72.0 - Tobacco use February 10, 2025 1:4 6pm Z72.0 - Tobacco use February 12, 2025 12: 33pm 6 wk FU February 13, 2025 2:4 1pm CHF February 25, 2025 2:5 2pm Amb Documentation February 27, 2025 4:20pm 2 WK FU March 18, 2025 2:09p m INT LAB ORDERS March 18, 2025 2:52p m INT LAB ORDER April 14, 2025 12:2 4pm SEE NOTES April 24, 2025 10:3 4am Reason for Visit Admit Date Atrial flutter January 27, 2025 1:56 pm Heart failure with reduced ejection frac tion January 27, 2025 1:56pm Tobacco abuse January 27, 2025 1:56 pm Cough February 13, 2025 2:4 1pm Ground glass opacity present on imaging of lung February 13, 2025 2:41pm Smoking greater than 40 pack years February 13, 2025 2:41pm Atrial flutter March 18, 2025 2:09p m Heart failure with reduced ejection frac tion March 18, 2025 2:09pm Atrial flutter April 24, 2025 10:3 4am Heart failure with reduced ejection frac tion April 24, 2025 10:34am Hypertension April 24, 2025 10:3 4am Advance Directives No Advanced Directives Records Found Advance Directive Response Recorded Date/ Time Living Will No December 23, 024 11:30am Power of Pressed Or Blown Glass Worker No December 23, 2023 11:30am Advance Directive Response Recorded Date/ Time Living Will No December 13 11:31pm Do you have a Healthcare Power of Pressed Or Blown Glass Worker? No December 13, 2024 11:31pm Summary Purpose Family History No Family History Records Found Additional Source Comments Care Teams (unrecognized sec tion and content) Team Status: Active Member Role Status Dates Randa Isaac NP-C Primary Care Provider Active Team Status: Active Member Role Status Dates No Primary Care Physician Primary Care Provider Active Start: December 25, 2024 Dr. Sp Andino MD Attending Provider Active Start: December 25, 2024 Dr. Sp Andino MD Referring Provider Active Start: December 25, 2024 Team Status: Inactive Member Role Status Dates No Primary Care Physician Primary Care Provider Active Start: December 31, 2024 End: December 31, 2024 No Primary Care Physician Referring Provider Active Start: December 31, 2024 End: December 31, 2024 Becky Hagen NP-C Attending Provider Active Start: December 31, 2024 End: December 31, 2024 Team Status: Inactive Member Role Status Dates Becky Hagen NP-Usha Attending Provider Active Start: January 21, 2025 End: January 21, 2025 Becky Hagen NP-Usha Referring Provider Active Start: January 21, 2025 End: January 21, 2025 EDDIE Mckeon Primary Care Provider Active Start: January 21, 2025 End: January 21, 2025 Team Status: Active Member Role Status Dates Randa Isaac NP-C Primary Care Provider Active Start: January 21, 2025 Dr. Nicola Arthur DO Attending Provider Active S tart: January 21, 2025 Becky Hagen NP-C Referring Provider Active Start: January 21, 2025 Team Status: Inactive Member Role Status Dates No Primary Care Physician Referring Provider Active Start: January 27, 2025 End: January 27, 2025 Dr. Taj Allen MD Attending Provider Active Start: January 27, 2025 End: January 27, 2025 Randa Isaac DIRECTOR DATA-C Primary Care Provider Active Start: January 27, 2025 End: January 27, 2025 Team Status: Inactive Member Role Status Dates Randa Isaac DIRECTOR DATA-C Primary Care Provider Active Start: February 04, 2025 End: February 04, 2025 Ceci Leyva DIRECTOR DATA, DIRECTOR DATA-C Attending Provider Active Start: February 04, 2025 End: February 04, 2025 Ceci Leyva DIRECTOR DATA, DIRECTOR DATA-C Referring Provider Active Start: February 04, 2025 End: February 04, 2025 Team Status: Inactive Member Role Status Dates Becky Hagen DIRECTOR DATA-C Attending Provider Active Start: February 10, 2025 End: February 10, 2025 Becky Hagen DIRECTOR DATA-C Referring Provider Active Start: February 10, 2025 End: February 10, 2025 Randa Isaac , DIRECTOR DATA-C Primary Care Provider Active Start: February 10, 2025 End: February 10, 2025 Team Status: Active Member Role Status Dates Becky Hagen DIRECTOR DATA-C Referring Provider Active Start: February 12, 2025 Becky Hagen NP-C Other Provider Active St art: February 12, 2025 Randa Isaac , DIRECTOR DATA-C Primary Care Provider Active Start: February 12, 2025 Dr. Nicola Arthur DO Attending Provider Active S tart: February 12, 2025 Team Status: Inactive Member Role Status Dates No Primary Care Physician Referring Provider Active Start: February 13, 2025 End: February 13, 2025 Becky Hagen DIRECTOR DATA-C Attending Provider Active Start: February 13, 2025 End: February 13, 2025 Randa Isaac DIRECTOR DATA-C Primary Care Provider Active Start: February 13, 2025 End: February 13, 2025 Team Status: Inactive Member Role Status Dates Randa Isaac DIRECTOR DATA-C Primary Care Provider Active Start: February 25, 2025 End: February 25, 2025 Dr. Taj Allen MD Attending Provider Active Start: February 25, 2025 End: February 25, 2025 Dr. Taj Allen MD Referring Provider Active Start: February 25, 2025 End: February 25, 2025 Team Status: Active Member Role Status Dates Randa Isaac DIRECTOR DATA-C Primary Care Provider Active Start: February 25, 2025 Dr. Juan C Frankel MD Attending Provider Active S tart: February 25, 2025 Team Status: Active Member Role Status Dates Randa Isaac DIRECTOR DATA-C Primary Care Provider Active Start: February 27, 2025 Laurence Wright NP, DIRECTOR DATA-C Attending Provider Active Start: February 27, 2025 Team Status: Inactive Member Role Status Dates Randa Isaac DIRECTOR DATA-C Primary Care Provider Active Start: March 18, 2025 End: March 18, 2025 Randa Isaac DIRECTOR DATA-C Referring Provider Active St art: March 18, 2025 End: March 18, 2025 ALYSA Hussein Attending Provider Active St art: March 18, 2025 End: March 18, 2025 Team Status: Inactive Member Role Status Dates Randa Isaac DIRECTOR DATA-C Primary Care Provider Active Start: March 18, 2025 End: March 18, 2025 ALYSA Hussein Attending Provider Active St art: March 18, 2025 End: March 18, 2025 ALYSA Hussein Referring Provider Active St art: March 18, 2025 End: March 18, 2025 Team Status: Inactive Member Role Status Dates Randa Isaac DIRECTOR DATA-C Primary Care Provider Active Start: April 14, 2025 End: April 14, 2025 ALYSA Hussein Attending Provider Active St art: April 14, 2025 End: April 14, 2025 ALYSA Hussein Referring Provider Active St art: April 14, 2025 End: April 14, 2025 Team Status: Active Member Role Status Dates Sudheer Liu Family Provider Active No Primary Care Physician Primary Care Provider Active Team Status: Inactive Member Role Status Dates Mikey Beckwith MD Emergency Provider Active No Primary Care Physician Primary Care Provider Active Team Status: Inactive Member Role Status Dates No Primary Care Physician Primary Care Provider Active Start: December 09, 2024 End: December 09, 2024 Esha Marley DIRECTOR DATA-C Attending Provider Active Star t: December 09, 2024 End: December 09, 2024 Esha Marley DIRECTOR DATA-C Referring Provider Active Star t: December 09, 2024 End: December 09, 2024 Team Status: Inactive Member Role Status Dates No Primary Care Physician Primary Care Provider Active Start: December 13, 2024 End: December 16, 2024 Dr. Adam Rucker DO Emergency Provider Active Start: December 13, 2024 End: December 16, 2024 Dr. Casper Brito DO Admit Provider Active Start: December 13, 2024 End: December 16, 2024 Dr. Casper Brito DO Other Provider Active Start: December 13, 2024 End: December 16, 2024 Dr. Livan Nathan MD Other Provider Active Start: December 13, 2024 End: December 16, 2024 Dr. Chapito Randall MD Other Provider Active Start: December 13, 2024 End: December 16, 2024 Dr. Som Hdez MD Other Provider Active Star t: December 13, 2024 End: December 16, 2024 Dr. Nicola Arthur DO Other Provider Active Start : December 13, 2024 End: December 16, 2024 Dr. Casper Delgado MD Other Provider Active Sta rt: December 13, 2024 End: December 16, 2024 Dr. Apollo Yañez MD Other Provider Active St art: December 13, 2024 End: December 16, 2024 Dr. John Prince MD Other Provider Active S tart: December 13, 2024 End: December 16, 2024 Dr. Keri Wise MD Other Provider Active Start: December 13, 2024 End: December 16, 2024 Dr. Vikas Hernandez MD Other Provider Active Start : December 13, 2024 End: December 16, 2024 Dr. Darrell García MD Other Provider Active Start: December 13, 2024 End: December 16, 2024 Dr. Brendan Metzger MD Other Provider Active Start : December 13, 2024 End: December 16, 2024 Dr. Claudia Lauren MD Other Provider Active Star t: December 13, 2024 End: December 16, 2024 Dr. Rigo Artaega MD Other Provider Active Sta rt: December 13, 2024 End: December 16, 2024 Dr. Negrita Thomas MD Other Provider Active Sta rt: December 13, 2024 End: December 16, 2024 Dr. Arsenio Gil MD Other Provider Active Star t: December 13, 2024 End: December 16, 2024 Dr. Gabriel Ruelas MD Other Provider Active St art: December 13, 2024 End: December 16, 2024 Dr. Ferny Guerrero MD Other Provider Active Star t: December 13, 2024 End: December 16, 2024 Dr. Marcelino Mcdowell , Other Provider Active St art: December 13, 2024 End: December 16, 2024 Dr. Estephania Groves MD Other Provider Active Start: December 13, 2024 End: December 16, 2024 Dr. Jamaica Flores MD Other Provider Active St art: December 13, 2024 End: December 16, 2024 Dr. Vidal Musa , Other Provider Active Start: December 13, 2024 End: December 16, 2024 Dr. Anthony Verde MD Other Provider Active Star t: December 13, 2024 End: December 16, 2024 Dr. Helder Belle MD Other Provider Active Sta rt: December 13, 2024 End: December 16, 2024 Dr. Sp Andino MD Attending Provider Active Start: December 13, 2024 End: December 16, 2024 Dr. Sp Andino MD Other Provider Active Start: December 13, 2024 Team Status: Active Member Role Status Dates No Primary Care Physician Primary Care Provider Active Start: December 14, 2024 End: December 14, 2024 Dr. Bhavesh Anderson MD Attending Provider Active Start: December 14, 2024 End: December 14, 2024 Dr. Bhavesh Anderson MD Referring Provider Active Start: December 14, 2024 End: December 14, 2024 Team Status: Active Member Role Status Dates No Primary Care Physician Primary Care Provider Active Start: December 14, 2024 Dr. Adam Rucker , Emergency Provider Active Start: December 14, 2024 Dr. Casper Brito DO Admit Provider Active Start: December 14, 2024 Dr. Casper Brito DO Other Provider Active Start: December 14, 2024 Dr. Livan Nathan MD Other Provider Active Start: December 14, 2024 Dr. Chapito Randall MD Other Provider Active Start: December 14, 2024 Dr. Som Hdez MD Other Provider Active Star t: December 14, 2024 Dr. Nicola Arthur , Other Provider Active Start : December 14, 2024 Dr. Casper Delgado MD Other Provider Active Sta rt: December 14, 2024 Dr. Apollo Yañez MD Other Provider Active St art: December 14, 2024 Dr. John Prince MD Other Provider Active S tart: December 14, 2024 Dr. Keri Wise MD Other Provider Active Start: December 14, 2024 Dr. Vikas Hernandez MD Other Provider Active Start : December 14, 2024 Dr. Darrell García MD Other Provider Active Start: December 14, 2024 Dr. Brendan Metzger MD Other Provider Active Start : December 14, 2024 Dr. Claudia Lauren MD Other Provider Active Star t: December 14, 2024 Dr. Rigo Arteaga MD Other Provider Active Sta rt: December 14, 2024 Dr. Negrita Thomas MD Other Provider Active Sta rt: December 14, 2024 Dr. Arsenio Gil MD Other Provider Active Star t: December 14, 2024 Dr. Gabriel Ruelas MD Other Provider Active St art: December 14, 2024 Dr. Ferny Guerrero MD Other Provider Active Star t: December 14, 2024 Dr. Marcelino Mcdowell DO Other Provider Active St art: December 14, 2024 Dr. Estephania Groves MD Other Provider Active Start: December 14, 2024 Dr. Jamaica Flores MD Other Provider Active St art: December 14, 2024 Dr. Vidal Musa DO Other Provider Active Start: December 14, 2024 Dr. Anthony Verde MD Other Provider Active Star t: December 14, 2024 Dr. Helder Belle MD Other Provider Active Sta rt: December 14, 2024 Dr. Sp Andino MD Attending Provider Active Start: December 14, 2024 Dr. Sp Andino MD Other Provider Active Start: December 14, 2024 Team Status: Active Member Role Status Dates No Primary Care Physician Primary Care Provider Active Start: December 15, 2024 Dr. Bhavesh Anderson MD Attending Provider Active Start: December 15, 2024 Team Status: Active Member Role Status Dates No Primary Care Physician Primary Care Provider Active Start: December 15, 2024 Dr. Adam Rucker DO Emergency Provider Active Start: December 15, 2024 Dr. Casper Brito DO Admit Provider Active Start: December 15, 2024 Dr. Casper Brito DO Other Provider Active Start: December 15, 2024 Dr. Livan Nathan MD Other Provider Active Start: December 15, 2024 Dr. Chapito Randall MD Other Provider Active Start: December 15, 2024 Dr. Som Hdez MD Other Provider Active Star t: December 15, 2024 Dr. Nicola Arthur DO Attending Provider Active S tart: December 15, 2024 Dr. Nicola Arthur DO Other Provider Active Start : December 15, 2024 Dr. Casper Delgado MD Other Provider Active Sta rt: December 15, 2024 Dr. Apollo Yañez MD Other Provider Active St art: December 15, 2024 Dr. John Prince MD Other Provider Active S tart: December 15, 2024 Dr. Keri Wise MD Other Provider Active Start: December 15, 2024 Dr. Vikas Hernandez MD Other Provider Active Start : December 15, 2024 Dr. Darrell García MD Other Provider Active Start: December 15, 2024 Dr. Brendan Metzger MD Other Provider Active Start : December 15, 2024 Dr. Claudia Lauren MD Other Provider Active Star t: December 15, 2024 Dr. Rigo Arteaga MD Other Provider Active Sta rt: December 15, 2024 Dr. Negrita Thomas MD Other Provider Active Sta rt: December 15, 2024 Dr. Arsenio Gil MD Other Provider Active Star t: December 15, 2024 Dr. aGbriel Ruelas MD Other Provider Active St art: December 15, 2024 Dr. Ferny Guerrero MD Other Provider Active Star t: December 15, 2024 Dr. Marcelino Mcdowell DO Other Provider Active St art: December 15, 2024 Dr. Estephania Groves MD Other Provider Active Start: December 15, 2024 Dr. Jamaica Flores MD Other Provider Active St art: December 15, 2024 Dr. Vidal Musa DO Other Provider Active Start: December 15, 2024 Dr. Anthony Verde MD Other Provider Active Star t: December 15, 2024 Dr. Helder Belle MD Other Provider Active Sta rt: December 15, 2024 Dr. Sp Andino MD Referring Provider Active Start: December 15, 2024 Dr. pS Andino MD Other Provider Active Start: December 15, 2024 Team Status: Active Member Role Status Dates No Primary Care Physician Primary Care Provider Active Start: December 15, 2024 Dr. Adam Rucker DO Emergency Provider Active Start: December 15, 2024 Dr. Casper Brito DO Admit Provider Active Start: December 15, 2024 Dr. Casper Brito DO Other Provider Active Start: December 15, 2024 Dr. Livan Nathan MD Other Provider Active Start: December 15, 2024 Dr. Chapito Randall MD Other Provider Active Start: December 15, 2024 Dr. Som Hdez MD Other Provider Active Star t: December 15, 2024 Dr. Nicola Arthur DO Other Provider Active Start : December 15, 2024 Dr. Casper Delgado MD Other Provider Active Sta rt: December 15, 2024 Dr. Apollo Yañez MD Other Provider Active St art: December 15, 2024 Dr. John Prince MD Other Provider Active S tart: December 15, 2024 Dr. Keri Wise MD Other Provider Active Start: December 15, 2024 Dr. Vikas Hernandez MD Other Provider Active Start : December 15, 2024 Dr. Darrell García MD Other Provider Active Start: December 15, 2024 Dr. Brendan Metzger MD Other Provider Active Start : December 15, 2024 Dr. Claudia Lauren MD Other Provider Active Star t: December 15, 2024 Dr. Rigo Arteaga MD Other Provider Active Sta rt: December 15, 2024 Dr. Negrita Thomas MD Other Provider Active Sta rt: December 15, 2024 Dr. Arsenio Gil MD Other Provider Active Star t: December 15, 2024 Dr. Gabriel Ruelas MD Other Provider Active St art: December 15, 2024 Dr. Ferny Guerrero MD Other Provider Active Star t: December 15, 2024 Dr. Marcelino Mcdowell DO Other Provider Active St art: December 15, 2024 Dr. Estephania Groves MD Other Provider Active Start: December 15, 2024 Dr. Jamaica Flores MD Other Provider Active St art: December 15, 2024 Dr. Vidal Musa DO Other Provider Active Start: December 15, 2024 Dr. Anthony Verde MD Other Provider Active Star t: December 15, 2024 Dr. Helder Belle MD Other Provider Active Sta rt: December 15, 2024 Dr. Sp Andino MD Attending Provider Active Start: December 15, 2024 Dr. Sp Andino MD Other Provider Active Start: December 15, 2024 Team Status: Active Member Role Status Dates No Primary Care Physician Primary Care Provider Active Start: December 16, 2024 Dr. Adam Rucker DO Emergency Provider Active Start: December 16, 2024 Dr. Casper Brito DO Admit Provider Active Start: December 16, 2024 Dr. Casper Brito DO Other Provider Active Start: December 16, 2024 Dr. Livan Nathan MD Other Provider Active Start: December 16, 2024 Dr. Chapito Randall MD Other Provider Active Start: December 16, 2024 Dr. Som Hdez MD Other Provider Active Star t: December 16, 2024 Dr. Nicola Arthur DO Other Provider Active Start : December 16, 2024 Dr. Casper Delgado MD Other Provider Active Sta rt: December 16, 2024 Dr. Apollo Yañez MD Other Provider Active St art: December 16, 2024 Dr. John Prince MD Other Provider Active S tart: December 16, 2024 Dr. Keri Wise MD Other Provider Active Start: December 16, 2024 Dr. Vikas Hernandez MD Other Provider Active Start : December 16, 2024 Dr. Darrell García MD Other Provider Active Start: December 16, 2024 Dr. Brendan Metzger MD Other Provider Active Start : December 16, 2024 Dr. Claudia Lauren MD Other Provider Active Star t: December 16, 2024 Dr. Rigo Arteaga MD Other Provider Active Sta rt: December 16, 2024 Dr. Negrita Thomas MD Other Provider Active Sta rt: December 16, 2024 Dr. Arsenio Gil MD Other Provider Active Star t: December 16, 2024 Dr. Gabriel Ruelas MD Other Provider Active St art: December 16, 2024 Dr. Ferny Guerrero MD Other Provider Active Star t: December 16, 2024 Dr. Marcelino Mcdowell DO Other Provider Active St art: December 16, 2024 Dr. Estephania Groves MD Other Provider Active Start: December 16, 2024 Dr. Jamaica Flores MD Other Provider Active St art: December 16, 2024 Dr. Vidal Musa DO Other Provider Active Start: December 16, 2024 Dr. Anthony Verde MD Other Provider Active Star t: December 16, 2024 Dr. Helder Belle MD Other Provider Active Sta rt: December 16, 2024 Dr. Sp Andino MD Attending Provider Active Start: December 16, 2024 Dr. Sp Andino MD Other Provider Active Start: December 16, 2024 Team Status: Active Member Role/Relationship Status Dates JHONATAN MckeonC Primary Care Provider Active Team Status: Active Member Role/Relationship Status Dates No Primary Care Physician Primary Care Provider Active Start: December 25, 2024 Dr. Sp Andino MD Attending Provider Active Start: December 25, 2024 Dr. Sp Andino MD Referring Provider Active Start: December 25, 2024 Team Status: Inactive Member Role/Relationship Status Dates No Primary Care Physician Primary Care Provider Active Start: December 31, 2024 End: December 31, 2024 No Primary Care Physician Referring Provider Active Start: December 31, 2024 End: December 31, 2024 EDDIE Jimenez Attending Provider Active Start: December 31, 2024 End: December 31, 2024 Team Status: Inactive Member Role/Relationship Status Dates Becky Hagen DIRECTOR DATA-C Attending Provider Active Start: January 21, 2025 End: January 21, 2025 Becky Hagen DIRECTOR DATA-C Referring Provider Active Start: January 21, 2025 End: January 21, 2025 Randa Isaac , DIRECTOR DATA-C Primary Care Provider Active Start: January 21, 2025 End: January 21, 2025 Team Status: Active Member Role/Relationship Status Dates Randa Isaac DIRECTOR DATA-C Primary Care Provider Active Start: January 21, 2025 Dr. Nicola Arthur DO Attending Provider Active S tart: January 21, 2025 Becky Hagen DIRECTOR DATA-C Referring Provider Active Start: January 21, 2025 Team Status: Inactive Member Role/Relationship Status Dates No Primary Care Physician Referring Provider Active Start: January 27, 2025 End: January 27, 2025 Dr. Taj Allen MD Attending Provider Active Start: January 27, 2025 End: January 27, 2025 Randa sIaac DIRECTOR DATA-C Primary Care Provider Active Start: January 27, 2025 End: January 27, 2025 Team Status: Inactive Member Role/Relationship Status Dates Randa Isaac , DIRECTOR DATA-C Primary Care Provider Active Start: February 04, 2025 End: February 04, 2025 Ceci Leyva DIRECTOR DATA, DIRECTOR DATA-C Attending Provider Active Start: February 04, 2025 End: February 04, 2025 Ceci Leyva DIRECTOR DATA, DIRECTOR DATA-C Referring Provider Active Start: February 04, 2025 End: February 04, 2025 Team Status: Inactive Member Role/Relationship Status Dates Becky Hagen DIRECTOR DATA-C Attending Provider Active Start: February 10, 2025 End: February 10, 2025 Becky Hagen DIRECTOR DATA-C Referring Provider Active Start: February 10, 2025 End: February 10, 2025 Randa Isaac DIRECTOR DATA-C Primary Care Provider Active Start: February 10, 2025 End: February 10, 2025 Team Status: Active Member Role/Relationship Status Dates Becky Hagen DIRECTOR DATA-C Referring Provider Active Start: February 12, 2025 Becky Hagen DIRECTOR DATA-C Other Provider Active St art: February 12, 2025 Randa Isaac DIRECTOR DATA-C Primary Care Provider Active Start: February 12, 2025 Dr. Nicola Arthur DO Attending Provider Active S tart: February 12, 2025 Team Status: Inactive Member Role/Relationship Status Dates No Primary Care Physician Referring Provider Active Start: February 13, 2025 End: February 13, 2025 Becky Hagen DIRECTOR DATA-C Attending Provider Active Start: February 13, 2025 End: February 13, 2025 Randa Poncho , DIRECTOR DATA-C Primary Care Provider Active Start: February 13, 2025 End: February 13, 2025 Team Status: Inactive Member Role/Relationship Status Dates Randa Poncho , DIRECTOR DATA-C Primary Care Provider Active Start: February 25, 2025 End: February 25, 2025 Dr. Taj Allen MD Attending Provider Active Start: February 25, 2025 End: February 25, 2025 Dr. Taj Allen MD Referring Provider Active Start: February 25, 2025 End: February 25, 2025 Team Status: Active Member Role/Relationship Status Dates Randa Poncho , DIRECTOR DATA-C Primary Care Provider Active Start: February 25, 2025 Dr. Juan C Frankel MD Attending Provider Active S tart: February 25, 2025 Team Status: Active Member Role/Relationship Status Dates Randa Poncho , DIRECTOR DATA-C Primary Care Provider Active Start: February 27, 2025 Laurence Wright NP, DIRECTOR DATA-C Attending Provider Active Start: February 27, 2025 Team Status: Inactive Member Role/Relationship Status Dates Randa Poncho , DIRECTOR DATA-C Primary Care Provider Active Start: March 18, 2025 End: March 18, 2025 Randa Isaac , DIRECTOR DATA-C Referring Provider Active St art: March 18, 2025 End: March 18, 2025 ALYSA Hussein Attending Provider Active St art: March 18, 2025 End: March 18, 2025 Team Status: Inactive Member Role/Relationship Status Dates Randa Poncho , DIRECTOR DATA-C Primary Care Provider Active Start: March 18, 2025 End: March 18, 2025 ALYSA Hussein Attending Provider Active St art: March 18, 2025 End: March 18, 2025 ALYSA Hussein Referring Provider Active St art: March 18, 2025 End: March 18, 2025 Team Status: Inactive Member Role/Relationship Status Dates Randa Poncho , DIRECTOR DATA-C Primary Care Provider Active Start: April 14, 2025 End: April 14, 2025 ALYSA Hussein Attending Provider Active St art: April 14, 2025 End: April 14, 2025 ALYSA Hussein Referring Provider Active St art: April 14, 2025 End: April 14, 2025 Team Status: Inactive Member Role/Relationship Status Dates Randa Isaac NP-C Primary Care Provider Active Start: April 24, 2025 End: April 24, 2025 Randa Isaac NP-C Referring Provider Active St art: April 24, 2025 End: April 24, 2025 ALYSA Hussein Attending Provider Active St art: April 24, 2025 End: April 24, 2025 Team Status: Inactive Member Role/Relationship Status Dates No Primary Care Physician Primary Care Provider Active Start: December 31, 2024 End: December 31, 2024 No Primary Care Physician Referring Provider Active Start: December 31, 2024 End: December 31, 2024 JHONATAN JimenezC Attending Provider Active Start: December 31, 2024 End: December 31, 2024 Team Status: Inactive Member Role/Relationship Status Dates Becky Hagen NP-C Attending Provider Active Start: January 21, 2025 End: January 21, 2025 Becky Hagen NP-C Referring Provider Active Start: January 21, 2025 End: January 21, 2025 Randa Isaac NP-C Primary Care Provider Active Start: January 21, 2025 End: January 21, 2025 Team Status: Active Member Role/Relationship Status Dates Randa Isaac NP-C Primary Care Provider Active Start: January 21, 2025 Dr. Nicola Arthur DO Attending Provider Active S tart: January 21, 2025 Becky Hagen NP-C Referring Provider Active Start: January 21, 2025 Team Status: Inactive Member Role/Relationship Status Dates No Primary Care Physician Referring Provider Active Start: January 27, 2025 End: January 27, 2025 Dr. Taj Allen MD Attending Provider Active Start: January 27, 2025 End: January 27, 2025 Randa Isaac NP-C Primary Care Provider Active Start: January 27, 2025 End: January 27, 2025 Team Status: Inactive Member Role/Relationship Status Dates Randa Poncho , DIRECTOR DATA-C Primary Care Provider Active Start: February 04, 2025 End: February 04, 2025 Ceci Leyva DIRECTOR DATA, DIRECTOR DATA-C Attending Provider Active Start: February 04, 2025 End: February 04, 2025 Ceci Levya DIRECTOR DATA, DIRECTOR DATA-C Referring Provider Active Start: February 04, 2025 End: February 04, 2025 Team Status: Inactive Member Role/Relationship Status Dates Becky Hagen DIRECTOR DATA-C Attending Provider Active Start: February 10, 2025 End: February 10, 2025 Becky Hagen DIRECTOR DATA-C Referring Provider Active Start: February 10, 2025 End: February 10, 2025 Randa Isaac DIRECTOR DATA-C Primary Care Provider Active Start: February 10, 2025 End: February 10, 2025 Team Status: Active Member Role/Relationship Status Dates Becky Hagen DIRECTOR DATA-C Referring Provider Active Start: February 12, 2025 Becky Hagen DIRECTOR DATA-C Other Provider Active St art: February 12, 2025 Randa Isaac DIRECTOR DATA-C Primary Care Provider Active Start: February 12, 2025 Dr. Nicola Arthur DO Attending Provider Active S tart: February 12, 2025 Team Status: Inactive Member Role/Relationship Status Dates No Primary Care Physician Referring Provider Active Start: February 13, 2025 End: February 13, 2025 Becky Hagen DIRECTOR DATA-C Attending Provider Active Start: February 13, 2025 End: February 13, 2025 aRnda Isaac DIRECTOR DATA-C Primary Care Provider Active Start: February 13, 2025 End: February 13, 2025 Team Status: Inactive Member Role/Relationship Status Dates Randa Isaac DIRECTOR DATA-C Primary Care Provider Active Start: February 25, 2025 End: February 25, 2025 Dr. Taj Allen MD Attending Provider Active Start: February 25, 2025 End: February 25, 2025 Dr. Taj Allen MD Referring Provider Active Start: February 25, 2025 End: February 25, 2025 Team Status: Active Member Role/Relationship Status Dates Randa Isaac DIRECTOR DATA-C Primary Care Provider Active Start: February 25, 2025 Dr. Juan C Frankel MD Attending Provider Active S tart: February 25, 2025 Team Status: Active Member Role/Relationship Status Dates Randa Isaac DIRECTOR DATA-C Primary Care Provider Active Start: February 27, 2025 Laurence Wright NP, DIRECTOR DATA-C Attending Provider Active Start: February 27, 2025 Team Status: Inactive Member Role/Relationship Status Dates Randa Isaac DIRECTOR DATA-C Primary Care Provider Active Start: March 18, 2025 End: March 18, 2025 Randa Isaac DIRECTOR DATA-C Referring Provider Active St art: March 18, 2025 End: March 18, 2025 ALYSA Hussein Attending Provider Active St art: March 18, 2025 End: March 18, 2025 Team Status: Inactive Member Role/Relationship Status Dates Randa Isaac DIRECTOR DATA-C Primary Care Provider Active Start: March 18, 2025 End: March 18, 2025 ALYSA Hussein Attending Provider Active St art: March 18, 2025 End: March 18, 2025 ALYSA Hussein Referring Provider Active St art: March 18, 2025 End: March 18, 2025 Team Status: Inactive Member Role/Relationship Status Dates Randa Isaac DIRECTOR DATA-C Primary Care Provider Active Start: April 14, 2025 End: April 14, 2025 ALYSA Hussein Attending Provider Active St art: April 14, 2025 End: April 14, 2025 ALYSA Hussein Referring Provider Active St art: April 14, 2025 End: April 14, 2025 Team Status: Inactive Member Role/Relationship Status Dates Randa Isaac DIRECTOR DATA-C Primary Care Provider Active Start: April 24, 2025 End: April 24, 2025 Randa Isaac NP-C Referring Provider Active St art: April 24, 2025 End: April 24, 2025 ALYSA Hussein Attending Provider Active St art: April 24, 2025 End: April 24, 2025 Team Status: Inactive Member Role/Relationship Status Dates Becky Hagen NP-C Attending Provider Active Start: January 21, 2025 End: January 21, 2025 Becky Hagen NP-C Referring Provider Active Start: January 21, 2025 End: January 21, 2025 Randa Isaac DIRECTOR DATA-C Primary Care Provider Active Start: January 21, 2025 End: January 21, 2025 Team Status: Active Member Role/Relationship Status Dates Randa Isaac , DIRECTOR DATA-C Primary Care Provider Active Start: January 21, 2025 Dr. Nicola Arthur , Attending Provider Active S tart: January 21, 2025 Becky Hagen DIRECTOR DATA-C Referring Provider Active Start: January 21, 2025 Team Status: Inactive Member Role/Relationship Status Dates No Primary Care Physician Referring Provider Active Start: January 27, 2025 End: January 27, 2025 Dr. Taj Allen MD Attending Provider Active Start: January 27, 2025 End: January 27, 2025 Randa Isaac , DIRECTOR DATA-C Primary Care Provider Active Start: January 27, 2025 End: January 27, 2025 Team Status: Inactive Member Role/Relationship Status Dates Randa Isaac , DIRECTOR DATA-C Primary Care Provider Active Start: February 04, 2025 End: February 04, 2025 Ceci Leyva DIRECTOR DATA, DIRECTOR DATA-C Attending Provider Active Start: February 04, 2025 End: February 04, 2025 Ceci Leyva NP, DIRECTOR DATA-C Referring Provider Active Start: February 04, 2025 End: February 04, 2025 Team Status: Inactive Member Role/Relationship Status Dates Becky Hagen DIRECTOR DATA-C Attending Provider Active Start: February 10, 2025 End: February 10, 2025 Becky Hagen DIRECTOR DATA-C Referring Provider Active Start: February 10, 2025 End: February 10, 2025 Randa Isaac , DIRECTOR DATA-C Primary Care Provider Active Start: February 10, 2025 End: February 10, 2025 Team Status: Active Member Role/Relationship Status Dates Becky Hagen DIRECTOR DATA-C Referring Provider Active Start: February 12, 2025 Becky Hagen DIRECTOR DATA-C Other Provider Active St art: February 12, 2025 Randa Isaac , DIRECTOR DATA-C Primary Care Provider Active Start: February 12, 2025 Dr. Nicola Arthur , Attending Provider Active S tart: February 12, 2025 Team Status: Inactive Member Role/Relationship Status Dates No Primary Care Physician Referring Provider Active Start: February 13, 2025 End: February 13, 2025 Becky Hagen DIRECTOR DATA-C Attending Provider Active Start: February 13, 2025 End: February 13, 2025 Randa Isaac , DIRECTOR DATA-C Primary Care Provider Active Start: February 13, 2025 End: February 13, 2025 Team Status: Inactive Member Role/Relationship Status Dates Randa Isaac , DIRECTOR DATA-C Primary Care Provider Active Start: February 25, 2025 End: February 25, 2025 Dr. Taj Allen MD Attending Provider Active Start: February 25, 2025 End: February 25, 2025 Dr. Taj Allen MD Referring Provider Active Start: February 25, 2025 End: February 25, 2025 Team Status: Active Member Role/Relationship Status Dates Randa Isaac , DIRECTOR DATA-C Primary Care Provider Active Start: February 25, 2025 Dr. Juan C Frankel MD Attending Provider Active S tart: February 25, 2025 Team Status: Active Member Role/Relationship Status Dates Randa Isaac , DIRECTOR DATA-C Primary Care Provider Active Start: February 27, 2025 Laurence Wright NP, DIRECTOR DATA-C Attending Provider Active Start: February 27, 2025 Team Status: Inactive Member Role/Relationship Status Dates Randa Isaac , DIRECTOR DATA-C Primary Care Provider Active Start: March 18, 2025 End: March 18, 2025 Randa Isaac , DIRECTOR DATA-C Referring Provider Active St art: March 18, 2025 End: March 18, 2025 ALYSA Hussein Attending Provider Active St art: March 18, 2025 End: March 18, 2025 Team Status: Inactive Member Role/Relationship Status Dates Randa Poncho , DIRECTOR DATA-C Primary Care Provider Active Start: March 18, 2025 End: March 18, 2025 ALYSA Hussein Attending Provider Active St art: March 18, 2025 End: March 18, 2025 ALYSA Hussein Referring Provider Active St art: March 18, 2025 End: March 18, 2025 Team Status: Inactive Member Role/Relationship Status Dates Randa Isaac , DIRECTOR DATA-C Primary Care Provider Active Start: April 14, 2025 End: April 14, 2025 ALYSA Hussein Attending Provider Active St art: April 14, 2025 End: April 14, 2025 ALYSA Hussein Referring Provider Active St art: April 14, 2025 End: April 14, 2025 Team Status: Inactive Member Role/Relationship Status Dates Randaelenita Isaac , DIRECTOR DATA-C Primary Care Provider Active Start: April 24, 2025 End: April 24, 2025 EDDIE Mckeon Referring Provider Active St art: April 24, 2025 End: April 24, 2025 ALYSA Hussein Attending Provider Active St art: April 24, 2025 End: April 24, 2025 Team Status: Inactive Member Role/Relationship Status Dates EDDIE Mckeon Primary Care Provider Active Start: May 11, 2025 End: May 11, 2025 ALYSA Hussein Attending Provider Active St art: May 11, 2025 End: May 11, 2025 ALYSA Hussein Referring Provider Active St art: May 11, 2025 End: May 11, 2025 Goals (unrecognized section and content) Goals may be documented in a n alternate sectionGoals may be documented in an alternate sectionGoals may be documented in an alternate sectionGoals may be documented in an alternate sectionGoals may be documented in an alternate section (unrecognized sect ion and content) No Status Records Found INFORMATION SOURCE (unrecogn ized section and content) DATE CREATED AUTHOR 05/30/2025 [facility] FOR RECORDS PERTAINING TO PATIENTS WHO ARE OR HAVE BEEN ENROLLED IN A CHEMICAL DEPENDENCY/SUBSTANCEABUSE PROGRAM, SOME INFORMATION MAY BE OMITTED. This clinical summary was aggregated from multiple sources. Caution should be exercised in using it in the provision of clinical care. This summary normalizes information from multiple sources, and as a consequence, information in this document may materially change the coding, format and clinical context of patient data. In addition, data may be omitted in some cases. CLINICAL DECISIONS SHOULD BE BASED ON THE PRIMARY CLINICAL RECORDS. [employer] provides no warranty or guarantee of the accuracy or completeness of information in this document.
--- OUTSIDE RECORDS SUMMARY | 2025-06-03 17:58 | XMS RPT_ITS | CCD ---
Author Organization [facility] Inform ion Partnership [facility] Care Team Providers Care Field Service Rep Name Role Phone Care Physician, No Primary Primary Care Provider Unavailable Musat INFORMATION TECHNOLOGY AUDITOR-C, Esha Attending Provider Musat INFORMATION TECHNOLOGY AUDITOR-C, Esha Referring Provider [phone] Adam Rucker DO Emergency Provider [phone] Brito DO, Dr. Shirley Admit Provider Unavail able Brito DO, Dr. Shirley Other Provider Unavail able Jac NELSON, Dr. Licona Other Provider Tonia NELSON, Dr. Uriarte Other Provider Dr. Som Hdez MD Other Provider Dr. Nicola Arthur DO Other Provider Dr. Casper Delgado MD Other Provider Otilio NELSON, Dr. Bustillos Other Provider Dr. John Prince MD Other Provider [phone] Dr. Keri Wise MD Other Provider Dr. Vikas Hernandez MD Other Provider [phone] Darrell Gacría MD Other Provider Dr. Brendan Metzger MD Other Provider [phone] Claudia Lauren MD Other Provider [phone] Rigo Arteaga MD Other Provider Unavailabl pablo Thomas MD, Dr. Rees Other Provider Dr. Arsenio Gil MD Other Provider Suraj NELSON, Dr. Rios Other Provider Cesar NELSON, Dr. Isaacs Other Provider Jeremias BRADY, Dr. Benson Other Provider Yaneli NELSON, Dr. Best Other Provider Mark NELSON, Dr. Berumen Other Provider Lencho BRADY, Dr. Drake Other Provider Ammon [...] Un available Xiao MCNULTY-CBecky Attending Provider Xiao INFORMATION TECHNOLOGY AUDITOR-CBecky Referring Provider Poncho INFORMATION TECHNOLOGY AUDITOR-C, Randa Primary Care Provider Dr. Taj Allen MD Attending Provider Autumn MCNULTY-CCeci Attending Provider Autumn MCNULTY-CCeci Referring Provider Xiao MCNULTY-CBecky Other Provider [phone] Dr. Taj Allen MD Referring Provider Marlys NELSON, Dr. Irizarry Attending Provider Kyle MCNULTY-CLaurence Attending Provider Poncho INFORMATION TECHNOLOGY AUDITOR-C, Randa Referring Provider [phone] Rickey Amaya Attending Provider Care Physician, No [...] Care Unava ilable Ayaka, Esha Attending [facility]available [facility] Unavailable Autumn INFORMATION TECHNOLOGY AUDITOR, Ceci Referring Unavailable Autumn INFORMATION TECHNOLOGY AUDITOR, Ceci Attending Unavailable Sp Andino Referring Unavailable [...] Consulting Unavailable Brendan Metzger Consulting Unavailable Claudia Luaren Consulting Unavailable Rigo Arteaga Consulting Unavailable Negrita [...] Attending Unavailable Casper Brito Attending Unavailable Poncho, Dahlen Primary Care Unavailable Taj Allen Attending Unavailable Care Physician, No Primary Referring Unava ilable Poncho, Dahlen Primary Care Unavailable Rickey Rainey Attending Unavailable DemiterYolandaRickey Referring Unavailable Poncho, Dahlen Primary Care Unavailable Demiter Rickey Referring Unavailable DemiterSocorror Attending Unavailable Poncho, Dahlen Primary Care Unavailable Socorro Raineyr Attending Unavailable [...] Episodic Unclassified (4 sources) Appointment is with INFORMATION TECHNOLOGY AUDITOR Becky Hagen Past or Other Problems Problem [...] 05-11-2025 Anion gap [Moles/Vol] 12 mmol/L 03-12 [facility] BUN/creatinine ratioOrdered By: Rickey Rainey on 05-11-2025 Urea nitrogen/Creatinine [Mass ratio] 18.6 mg/mg 08-17 [facility] Basic Metabolic Profile (BMP )on 05-11-2025 BUN/CRE 18.6 RATIO Normal 08-17 [facility] Comment on above: Performed By: #### L 100.0100 #### [facility] [address] [place], [address] Calcium [Mass/Vol] 10.0 mg/dL Normal 7.6-11.0 [facility] Comment on above: Performed By: #### L 100.0100 #### [facility] [address] [place], [address] Chloride [Moles/Vol] 100 mmol/L Normal 98-108 [facility] Comment on above: Performed By: #### L 100.0100 #### [facility] [address] [place], [address] CO2 [Moles/Vol] 25.0 mmol/L Normal 21.0-32.0 [facility] Comment on above: Performed By: #### L 100.0100 #### [facility] [address] [place], [address] Creatinine [Mass/Vol] 1.01 mg/dL Normal 0.70-1.20 [facility] Comment on above: Performed By: #### L 100.0100 #### [facility] [address] [place], [address] GAP 12 Normal 5-15 [facility] Comment on above: Performed By: #### L 100.0100 #### [facility] [address] [place], [address] GFR/1.73 sq M.predicted among non-blacks MDRD (S/P/Bld) [Vol rate/Area] 82 mL/min/{1.73_m2} Normal >60 [facility] Comment on above: Result Comment: mL/m in/1.73m2 CKD-EPI Creatinine Equation (2020) Performed By: #### L 100.0100 #### [facility] [address] [place], [address] Glucose [Mass/Vol] 108 mg/dL High 70-99 [facility] Comment on above: Performed By: #### L 100.0100 #### [facility] [address] [place], [address] Potassium [Moles/Vol] 4.6 mmol/L Normal 3.3-5.1 [facility] Comment on above: Performed By: #### L 100.0100 #### [facility] [address] [place], [address] Sodium [Moles/Vol] 137 mmol/L Normal 133-145 [facility] Comment on above: Performed By: #### L 100.0100 #### [facility] [address] [place], [address] Urea nitrogen [Mass/Vol] 19 mg/dL Normal 4-19 [facility] Comment on above: Performed By: #### L 100.0100 #### [facility] [address] [place], [address] Carbon dioxide, total [Moles /volume] in Central venous bloodOrdered By: Rickey Rainey on 05-11-2025 CO2 [Moles/Vol] 25.0 mmol/L 21.0-32.0 [facility] Chloride assayOrdered By: Yolanda Rainey on 05-11-2025 Chloride [Moles/Vol] 100 mmol/L 98-108 [facility] Glomerular filtration rate ( GFR) estimation/1.73 sq m using serum, plasma, or whole bOrdered By: Rickey Rainey on 05-11-2025 GFR/1.73 sq M.predicted among non-blacks MDRD (S/P/Bld) [Vol rate/Area] 82 mL/min/{1.73_m2} >60 [facility] Comment on above: mL/min/1.73m2 CKD-EP I Creatinine Equation (2020) Potassium measurement (mass/ volume)Ordered By: Rickey Rainey on 05-11-2025 Potassium (Unsp spec) [Mass/Vol] 4.6 mmol/L 3.3-5.1 [facility] Serum creatinine measurement (mass/volume)Ordered By: Rickey Rainey on 05-11-2025 Creatinine [Mass/Vol] 1.01 mg/dL 0.70-1.20 [facility] Serum glucose measurement (m ass/volume)Ordered By: Rickey Rainey on 05-11-2025 Glucose [Mass/Vol] 108 mg/dL High 70-99 [facility] Serum or plasma calcium greta urement (mass/volume)Ordered By: Rickey Rainey on 05-11-2025 Calcium [Mass/Vol] 10.0 mg/dL 7.6-11.0 [facility] Serum or plasma urea nitroge n measurement (mass/volume)Ordered By: Rickey Rainey on 05-11-2025 Urea nitrogen [Mass/Vol] 19 mg/dL 4-19 [facility] Sodium levelOrdered By: Dudley Rainey on 05-11-2025 Sodium [Moles/Vol] 137 mmol/L 133-145 [facility] OT D/C of Non Returning Pton 04-28-2025 OT D/C of Non Returning Pt [facility] Occupational [facility] [address] [place] [address] / REHABILITATION SERVICES DISCHARGE SUMMARY MR#: [id number] Acct: [id number] Name: KRISTIAN DEWITT Rep #: [id number] : 1960 65 From: Lina LONG/Ted, CHT [...] No Primary Care Physician MK Signed Normal [facility] Cardiology Visit Reporton Cardiology Visit Report [facility] [address] [place] [address] OFFICE VISIT Date of Service: 04/24/25 MR#: [id number] Acct: [id number] Name: KRISTIAN DEWITT Rep #: [id number] : 1960 Provider: ALYSA Hussein Age/Sex: 65/M Location: [facility] Status: Signed Agree with assessment and plan. [...] weeks ago. He was recently hospitalized at [facility] with paroxysmal atrial fibrillation in the [...] room air Intake Visit Reasons: SEE NOTES Transition Rn Required: No Accompanied by: Self Is patient [...] Face a (more content not included)... Normal [facility] Anion gap in Serum or Plasma Ordered By: Rickey Rainey on 04-14-2025 Anion gap [Moles/Vol] 11 mmol/L 03-12 [facility] BUN/creatinine ratioOrdered By: Rickey Rainey on 04-14-2025 Urea nitrogen/Creatinine [Mass ratio] 19.2 mg/mg 10- [facility] Basic Metabolic Profile (BMP )on 04-14-2025 BUN/CRE 19.2 RATIO Normal -20 [facility] Comment on above: Performed By: #### L 100.0100 #### [facility] [address] [place], [address] Calcium [Mass/Vol] 9.8 mg/dL Normal 7.6-11.0 [facility] Comment on above: Performed By: #### L 100.0100 #### [facility] [address] [place], [address] Chloride [Moles/Vol] 104 mmol/L Normal 98-108 [facility] Comment on above: Performed By: #### L 100.0100 #### [facility] [address] [place], [address] CO2 [Moles/Vol] 23.5 mmol/L Normal 21.0-32.0 [facility] Comment on above: Performed By: #### L 100.0100 #### [facility] [address] [place], [address] Creatinine [Mass/Vol] 1.02 mg/dL Normal 0.70-1.20 [facility] Comment on above: Performed By: #### L 100.0100 #### [facility] [address] [place], [address] GAP 11 Normal 5-15 [facility] Comment on above: Performed By: #### L 100.0100 #### [facility] [address] [place], [address] GFR/1.73 sq M.predicted among non-blacks MDRD (S/P/Bld) [Vol rate/Area] 81 mL/min/{1.73_m2} Normal >60 [facility] Comment on above: Result Comment: mL/m in/1.73m2 CKD-EPI Creatinine Equation (2020) Performed By: #### L 100.0100 #### [facility] [address] [place], [address] Glucose [Mass/Vol] 141 mg/dL High 70-99 [facility] Comment on above: Performed By: #### L 100.0100 #### [facility] [address] [place], [address] Potassium [Moles/Vol] 4.5 mmol/L Normal 3.3-5.1 [facility] Comment on above: Performed By: #### L 100.0100 #### [facility] [address] [place], [address] Sodium [Moles/Vol] 138 mmol/L Normal 133-145 [facility] Comment on above: Performed By: #### L 100.0100 #### [facility] [address] [place], [address] Urea nitrogen [Mass/Vol] 20 mg/dL High 4-19 [facility] Comment on above: Performed By: #### L 100.0100 #### [facility] [address] [place], [address] Carbon dioxide, total [Moles /volume] in Central venous bloodOrdered By: Rickey Rainey on 04-14-2025 CO2 [Moles/Vol] 23.5 mmol/L 21.0-32.0 [facility] Chloride assayOrdered By: Yolanda Rainey on 04-14-2025 Chloride [Moles/Vol] 104 mmol/L 98-108 [facility] Glomerular filtration rate ( GFR) estimation/1.73 sq m using serum, plasma, or whole bOrdered By: Rickey Rainey on 04-14-2025 GFR/1.73 sq M.predicted among non-blacks MDRD (S/P/Bld) [Vol rate/Area] 81 mL/min/{1.73_m2} >60 [facility] Comment on above: mL/min/1.73m2 CKD-EP I Creatinine Equation (2020) Potassium measurement (mass/ volume)Ordered By: Rickey Rainey on 04-14-2025 Potassium (Unsp spec) [Mass/Vol] 4.5 mmol/L 3.3-5.1 [facility] Serum creatinine measurement (mass/volume)Ordered By: Rickey Rainey on 04-14-2025 Creatinine [Mass/Vol] 1.02 mg/dL 0.70-1.20 [facility] Serum glucose measurement (m ass/volume)Ordered By: Rickey Rainey on 04-14-2025 Glucose [Mass/Vol] 141 mg/dL High 70-99 [facility] Serum or plasma calcium greta urement (mass/volume)Ordered By: Rickey Rainey on 04-14-2025 Calcium [Mass/Vol] 9.8 mg/dL 7.6-11.0 [facility] Serum or plasma urea nitroge n measurement (mass/volume)Ordered By: Rickey Rainey on 04-14-2025 Urea nitrogen [Mass/Vol] 20 mg/dL High 4-19 [facility] Sodium levelOrdered By: Dudley Rainey on 04-14-2025 Sodium [Moles/Vol] 138 mmol/L 133-145 [facility] Basic Metabolic Profile (BMP )on 03-19-2025 BUN/CRE 15.1 RATIO Normal 10-20 [facility] Comment on above: Performed By: #### L 500.2500, L100.0100 ####[facility] [address] [place], [address] Calcium [Mass/Vol] 9.8 mg/dL Normal 7.6-11.0 [facility] Comment on above: Performed By: #### L 500.2500, L100.0100 ####[facility] [address] [place], [address] Chloride [Moles/Vol] 103 mmol/L Normal 98-108 [facility] Comment on above: Performed By: #### L 500.2500, L100.0100 ####[facility] [address] [place], [address] CO2 [Moles/Vol] 25.4 mmol/L Normal 21.0-32.0 [facility] Comment on above: Performed By: #### L 500.2500, L100.0100 ####[facility] [address] [place], [address] Creatinine [Mass/Vol] 0.98 mg/dL Normal 0.70-1.20 [facility] Comment on above: Performed By: #### L 500.2500, L100.0100 ####[facility] [address] [place], [address] GAP 10 Normal 5-15 [facility] Comment on above: Performed By: #### L 500.2500, L100.0100 ####[facility] [address] [place], [address] GFR/1.73 sq M.predicted among non-blacks MDRD (S/P/Bld) [Vol rate/Area] 86 mL/min/{1.73_m2} Normal >60 [facility] Comment on above: Result Comment: mL/m in/1.73m2 CKD-EPI Creatinine Equation (2020) Performed By: #### L 500.2500, L100.0100 ####[facility] [address] [place], [address] Glucose [Mass/Vol] 107 mg/dL High 70-99 [facility] Comment on above: Performed By: #### L 500.2500, L100.0100 ####[facility] [address] [place], [address] Potassium [Moles/Vol] 4.3 mmol/L Normal 3.3-5.1 [facility] Comment on above: Performed By: #### L 500.2500, L100.0100 ####[facility] [address] [place], [address] Sodium [Moles/Vol] 138 mmol/L Normal 133-145 [facility] Comment on above: Performed By: #### L 500.2500, L100.0100 ####[facility] [address] [place], [address] Urea nitrogen [Mass/Vol] 15 mg/dL Normal 4-19 [facility] Comment on above: Performed By: #### L 500.2500, L100.0100 ####[facility] [address] [place], [address] Absolute lymphocyte countOrd ered By: Rickey Rainey on 03-18-2025 Lymphocytes Auto (Unsp spec) [#/Vol] 1.89 10*3/uL 0.83-4.51 [facility] Absolute neutrophil countOrd ered By: Rickey Rainey on 03-18-2025 Neutrophils (Bld) [#/Vol] 5.2 10*3/uL 2.0-7.7 [facility] Anion gap in Serum or Plasma Ordered By: Rickey Rainey on 03-18-2025 Anion gap [Moles/Vol] 10 mmol/L 5- [facility] Automated lymphocyte count a s percentage of total leukocytesOrdered By: Rickey Rainey on 03-18-2025 Lymphocytes/100 WBC Auto (Unsp spec) 23.2 % - [facility] BUN/creatinine ratioOrdered By: Rickey Rainey on 03-18-2025 Urea nitrogen/Creatinine [Mass ratio] 15.1 mg/mg 10-20 [facility] Basophil percentageOrdered B y: Rickey Rainey on 03-18-2025 Basophils/100 WBC (Bld) 0.9 % 0-1 [facility] CBC W/Diff, Automatedon 02-27 Absolute Lymph 1.89 X10 3/uL Normal 0.83-4.51 [facility] Comment on above: Performed By: #### L 500.2500, L100.0100 ####[facility] [address] [place], [address] Absolute Neut 5.2 X10 3/uL Normal 2.0-7.7 [facility] Comment on above: Performed By: #### L 500.2500, L100.0100 ####[facility] [address], [address] Basophils/100 WBC (Bld) 0.9 % Normal 0-1 [facility] Comment on above: Performed By: #### L 500.2500, L100.0100 ####[facility] [address] [place], [address] Eosinophils/100 WBC (Bld) 2.7 % Normal 0-5 [facility] Comment on above: Performed By: #### L 500.2500, L100.0100 ####[facility] [address] [place], [address] Erythrocyte distribution width (RBC) [Ratio] 14.5 % Normal 11.6-14.6 [facility] Comment on above: Performed By: #### L 500.2500, L100.0100 ####[facility] [address] [place], [address] Hematocrit (Bld) [Volume fraction] 43.0 % Normal 40-54 [facility] Comment on above: Performed By: #### L 500.2500, L100.0100 ####[facility] [address] [place], [address] Hemoglobin (Bld) [Mass/Vol] 13.9 g/dL Normal 13.0-16. 5 [facility] Comment on above: Performed By: #### L 500.2500, L100.0100 ####[facility] [address] [place], [address] IG% 0.200 Normal 0.0-0.9 [facility] Comment on above: Result Comment: IG% - Immature Granulocytes (promyelocytes, myelocytes and metamyelocytes) > 1% indicates that a LEFT SHIFT is Present. Performed By: #### L 500.2500, L100.0100 ####[facility] [address] [place], [address] Lymphocytes/100 WBC (Bld) 23.2 % Normal 19-41 [facility] Comment on above: Performed By: #### L 500.2500, L100.0100 ####[facility] [address] [place], [address] MCH (RBC) [Entitic mass] 31.2 pg Normal 27.0-32.0 [facility] Comment on above: Performed By: #### L 500.2500, L100.0100 ####[facility] [address] [place], [address] MCHC (RBC) [Mass/Vol] 32.3 g/dL Normal 32-36 [facility] Comment on above: Performed By: #### L 500.2500, L100.0100 ####[facility] [address] [place], [address] MCV (RBC) [Entitic vol] 96.4 fL High 80-94 [facility] Comment on above: Performed By: #### L 500.2500, L100.0100 ####[facility] [address] [place], [address] Monocytes/100 WBC (Bld) 9.1 % Normal 0-10 [facility] Comment on above: Performed By: #### L 500.2500, L100.0100 ####[facility] [address] [place], [address] Neutrophils/100 WBC (Bld) 63.9 % Normal 47-70 [facility] Comment on above: Performed By: #### L 500.2500, L100.0100 ####[facility] [address] [place], [address] Nucleated RBC (Bld) [#/Vol] 0 10*3/uL Normal 0-5 [facility] Comment on above: Performed By: #### L 500.2500, L100.0100 ####[facility] [address] [place], [address] Platelet mean volume (Bld) [Entitic vol] 10.4 fL Normal 6.2-12.0 [facility] Comment on above: Performed By: #### L 500.2500, L100.0100 ####[facility] [address] [place], [address] Platelets (Bld) [#/Vol] 289 10*3/uL Normal 150-450 [facility] Comment on above: Performed By: #### L 500.2500, L100.0100 ####[facility] [address] [place], [address] RBC (Bld) [#/Vol] 4.46 10*6/uL Low 4.6-6.2 [facility] Comment on above: Performed By: #### L 500.2500, L100.0100 ####[facility] [address] [place], [address] RDW SD 51.4 fl High 35.1-43.9 [facility] Comment on above: Performed By: #### L 500.2500, L100.0100 ####[facility] [address] [place], [address] WBC (Bld) [#/Vol] 8.2 10*3/uL Normal 4.4-11.0 [facility] Comment on above: Performed By: #### L 500.2500, L100.0100 ####[facility] [address] [place], [address] Carbon dioxide, total [Moles /volume] in Central venous bloodOrdered By: Rickey Rainey on 03-18-2025 CO2 [Moles/Vol] 25.4 mmol/L 21.0-32.0 [facility] Cardiology Visit Reporton Cardiology Visit Report [facility] [place] [facility] [address] [place] [address] OFFICE VISIT Date of Service: 03/18/25 MR#: [id number] Acct: [id number] Name: KRISTIAN DEWITT Rep #: [id number] : 1960 Provider: ALYSA Hussein Age/Sex: 64/M Location: [facility] Status: Signed Agree with the assessment and plan as outlined. We need to focus on addressing his guideline directed medical therapy to maximize his treatment and then repeat his echocardiogram as outlined 3 months after guideline directed medical therapy has been maximized. HPI HPI History of Present Illness Details: Kristina Dewitt is a 64-year-old male office today for follow-up. Patient established with our office as a new patient approximately 6 weeks ago. He was recently hospitalized at [facility] with paroxysmal atrial fibrillation in the [...] 95 Intake Visit Reasons: 2 WK FU Transition Rn Required: No Is patient in pain?: No [...] if it is different, will contact us. [facility] Medical History Smoking greater than 40 [...] well developed; (more content not included)... Normal [facility] Chloride assayOrdered By: Yolanda Rainey on 03-18-2025 Chloride [Moles/Vol] 103 mmol/L 98-108 [facility] Eosinophil percentageOrdered By: Rickey Rainey on 03-18-2025 Eosinophils/100 WBC (Bld) 2.7 % 0-5 [facility] Erythrocyte distribution wid th ratioOrdered By: Rickey Rainey on 03-18-2025 Erythrocyte distribution width (RBC) [Ratio] 14.5 % 11.6-14.6 [facility] Erythrocyte distribution wid th standard deviationOrdered By: Rickey Rainey on 03-18-2025 Erythrocyte distribution width (RBC) [Ratio] 51.4 fl High 35.1-43.9 [facility] Glomerular filtration rate ( GFR) estimation/1.73 sq m using serum, plasma, or whole bOrdered By: Rickey Rainey on 03-18-2025 GFR/1.73 sq M.predicted among non-blacks MDRD (S/P/Bld) [Vol rate/Area] 86 mL/min/{1.73_m2} >60 [facility] Comment on above: mL/min/1.73m2 CKD-EP I Creatinine Equation (2020) Hematocrit Auto (Bld) [Volum e fraction]Ordered By: Rickey Rainey on 03-18-2025 Hematocrit (Bld) [Volume fraction] 43.0 % 40-54 [facility] Hemoglobin measurementOrdere d By: Rickey Rainey on 03-18-2025 Hemoglobin (Bld) [Mass/Vol] 13.9 g/dL 13.0-16. 5 [facility] Immature granulocytes/100 WB C Auto (Bld)Ordered By: Rickey Rainey on 03-18-2025 Immature granulocytes/100 WBC (Bld) 0.200 % 0.0-0.9 [facility] Comment on above: IG% - Immature Granu locytes (promyelocytes, myelocytes and metamyelocytes) > 1% indicates that a LEFT SHIFT is Present. MCV (mean corpuscular volume ) determinationOrdered By: Rickey Rainey on 03-18-2025 MCV (RBC) [Entitic vol] 96.4 fL High 80-94 [facility] Mean corpuscular hemoglobin (MCH) determinationOrdered By: Rickey Rainey on 03-18-2025 MCH (RBC) [Entitic mass] 31.2 pg 27.0-32.0 [facility] Mean corpuscular hemoglobin concentration (MCHC) determinationOrdered By: Rickey Rainey on 03-18-2025 MCHC (RBC) [Mass/Vol] 32.3 g/dL 32-36 [facility] Mean platelet volume determi nationOrdered By: Rickey Rainey on 03-18-2025 Platelet mean volume (Bld) [Entitic vol] 10.4 fL 6.2-12.0 [facility] Monocyte percentageOrdered B y: Rickey Rainey on 03-18-2025 Monocytes/100 WBC (Bld) 9.1 % 0-10 [facility] Neutrophil percentageOrdered By: Rickey Rainey on 03-18-2025 Neutrophils/100 WBC (Bld) 63.9 % 47-70 [facility] Nucleated red blood cell per centageOrdered By: Rickey Rainey on 03-18-2025 Nucleated RBC/100 WBC (Bld) [Ratio] 0 % 0-5 [facility] Platelet countOrdered By: Yolanda Rainey on 03-18-2025 Platelets (Bld) [#/Vol] 289 10*3/uL 150-450 [facility] Potassium measurement (mass/ volume)Ordered By: Rickey Rainey on 03-18-2025 Potassium (Unsp spec) [Mass/Vol] 4.3 mmol/L 3.3-5.1 [facility] RBC Auto (Bld) [#/Vol]Ordere d By: Rickey Rainey on 03-18-2025 RBC (Bld) [#/Vol] 4.46 10*6/uL Low 4.6-6.2 [facility] Serum creatinine measurement (mass/volume)Ordered By: Rickey Rainey on 03-18-2025 Creatinine [Mass/Vol] 0.98 mg/dL 0.70-1.20 [facility] Serum glucose measurement (m ass/volume)Ordered By: Rickeymarii Rainey on 03-18-2025 Glucose [Mass/Vol] 107 mg/dL High 70-99 [facility] Serum or plasma calcium greta urement (mass/volume)Ordered By: [facility] Brigid on 03-18-2025 Calcium [Mass/Vol] 9.8 mg/dL 7.6-11.0 [facility] Serum or plasma urea nitroge n measurement (mass/volume)Ordered By: [facility] Brigid on 03-18-2025 Urea nitrogen [Mass/Vol] 15 mg/dL 4-19 [facility] Sodium levelOrdered By: [facility] Brigid on 03-18-2025 Sodium [Moles/Vol] 138 mmol/L 133-145 [facility] White blood cell (WBC) count Ordered By: Rickey Rainey on 03-18-2025 WBC (Bld) [#/Vol] 8.2 10*3/uL 4.4-11.0 [facility] Echo, Limited Studyon 2024 Echo, Limited Study [facility] [address] [place] [address] Echo, Limited Study 02/25/25 1459 MR#: [id number] Acct: [id number] Name: KRISTIAN DEWITT Rep #: [id number] : 1960 64 From: Juan C Frankel [...] Performed By: Grazyna Lucero RDCS, RVT 02/25/25 8190 Date Juan C Frankel MD CC: EDDIE Isaac; Dr. Taj Allen MD Date Dictated: 02/25/25 1459 Date Transcribed: 02/25/25 154 Compounding Technician: Signed Normal [facility] Pulmonary Visit Reporton Pulmonary Visit Report [facility] [place] [address] [place] [address] OFFICE VISIT Date of Service: 02/13/25 MR#: [id number] Acct: [id number] Name: KRISTIAN DEWITT Rep #: [id number] : 1960 Provider: Becky Hagen NP Age/Sex: 64/M Location: [facility].PMW Status: Signed Assessment and Plan Assessment and [...] plan to establish with Randa Isaac at [facility] January 09 at 2:30. He reports that [...] to utilize Claritin. He is asking for [facility] paperwork to be completed. Doc (more content not included)... Normal [facility] 6 Minute Walk Teston 025 6 Minute Walk Test y [facility] Pulmonary Services/Neurology [address] [place] [address] MR#: [id number] Acct: [id number] Name: RENATEKRISTIAN D Rep #: [id number] : 1960 64 From: Nicola Arthur DO Referring Dr: Becky Hagen INFORMATION TECHNOLOGY AUDITOR-C Status: REG CLI Location: PSN Date: Sex: M C PSN 6 Minute Walk Test 6 Minute Walk Test 6 Minute Walk Test: 6 Minute Walk Test PSN:6-Minute Walk Test Start: 02/10/25 14:05 Freq: Status: Discharge Protocol: RESP.6MINW Document 02/10/25 14:05 ROSARIO (Rec: 02/10/25 14:07 SFENTON [id number]) 6 Minute Walk Test Date Performed 02/10/25 [...] Dictated: 02/12/25 1233 Date Transcribed: 02/12/25 1233 Compounding Technician: Dr. Nicola Arthur, Signed Normal [facility] Chest without Contraston Chest without Contrast [facility] Imaging Services [address] [place], [place] [address] Chest without Contrast MR#: [id number] Acct: [id number] Name: RENATEKRISTIAN D Rep #: [id number] : 1960 M 64 From: Thi Vasquez MD PCP: Randa Isaac NP-Usha Status: REG CLI Study: Chest without Contrast Date of Exam: 02/04/25 Exam# [id number] Ordering Dr: Ceci Leyva NP INFORMATION TECHNOLOGY AUDITOR-C PROCEDURE: CHEST WITHOUT CONTRAST 02/04/2025 REASON FOR [...] within bilateral lungs. Reading Location: [facility] CC: EDDIE Leyva; EDDIE Isaac Compounding Technician: Signed Normal [facility] 12 Lead EKG performed by [facility] on 01-27-2025 12 Lead EKG performed by [facility] [address] [place] [address] 12 Lead EKG performed by [facility] 01/27/25 1530 MR#: [id number] Acct: [id number] Name: KRISTIAN DEWITT Rep #: [id number] : 1960 64 From: Taj Allen MD Attending Dr: Dr. Taj Allen MD Status: DE P AMB Ordering Dr: Taj Allen MD Date: 01/27/25 Location: [facility] Sex: M C Admitted: BMS/12 Lead EKG performed by [facility] ECG Report Interpretation ----Sinus Rhythm NSST depression ABNORMAL Electronically signed on 01/27/2025 at 14:[address] Taj Allen [employer] Time Software Version 8610 01/27/25 1436 Date Taj Allen MD CC: EDDIE Isaac Date Dictated: 01/27/251529 Date Transcribed: 01/27/251529 Compounding Technician: Signed Normal [facility] Cardiology Visit Reporton Cardiology Visit Report [facility] Heart [address] [place] [address] OFFICE VISIT Date of Service: 01/27/25 MR#: [id number] Acct: [id number] Name: KRISTIAN DEWITT Rep #: [id number] : 1960 Provider: Dr. Taj fernandes MD Age/Sex: 64/M Location: [facility] Status: Signed HPI HPI History of Present Illness Details: Patient is a 64-year-old white male that comes in as a new patient visit. Patient was recently hospitalized and [facility] with paroxysmal atrial fibrillation in the [...] room air Intake Visit Reasons: AFIB AVR ([facility]) Transition Rn Required: No Is patient in pain?: No [...] you fallen in the past year?: No [facility] Medical History Smoking greater than 40 [...] Supplemental Inf (more content not included)... Normal [facility] Pulmonary Visit Reporton Pulmonary Visit Report [facility] Pulmonary Medicine of [address] [place] [address] OFFICE VISIT Date of Service: 12/31/24 MR#: [id number] Acct: [id number] Name: KRISTIAN DEWITT Rep #: [id number] : 1960 Provider: Becky Hagen NP Age/Sex: 64/M Location: [facility].PMW Status: Signed Assessment and Plan Assessment and [...] plan to establish with Randa Isaac at [facility] January 09 at 2:30. He reports that [...] long distances (more content not included)... Normal [facility] Inital Evaluation (1) - PTon 12-25-2024 Inital Evaluation (1) - PT [facility] [address] [place] [address]. [address] [place] [address] / REHABILITATION SERVICES INITIAL EVALUATION MR#: [id number] Acct: [id number] Name: KRISTIAN DEWITT Rep #: [id number] : 1960 64 From: Karl Ramirez PT, Cert. T, OCS Referring Dr.: Dr. Sp Andino MD Status: REG RCR Insurance: [facility] [employer] Patient's Visit Information Visit Information [...] and metabolic encephalopathy. Patient reports admitted to [facility] bronchitis and pneumonia on Dec 13 discharged [...] to be FAXED BACK to us at [phone] for Medicare purposes. For Medicare only, by signing this I certify the plan of care. Please let me know if there are questions or concerns regarding this plan of care. Physician Signature: Date:__ 12/25/24 1300 CC: Dr. Sp Andino MD; No Primary Care Physician SAIRA Signed Normal [facility] OT General Evaluationon 11-30 OT General Evaluation [facility] Occupational Therapy [address] [place] [address] / REHABILITATION SERVICES INITIAL EVALUATION MR#: [id number] Acct: [id number] Name: KRISTIAN DEWITT Rep #: [id number] : 1960 64 From: Briana Burnham Referring Dr.: Dr. Sp Andino MD Status: REG RCR Insurance: [employer] Date: [facility] PACKAGE PLAN Patient's Visit Information Visit [...] to his own home. 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 Pt reports [...] 31.4# L tricep 27.5# R tricep 24.6# Inspector Shells: L 65# R 50# Lateral Pinch: L [...] in IADL tasks pt will improve B favor maker strength by 5# or more in order [...] to be FAXED BACK to us at [phone] for Medicare purposes. Please let me know if there are questions or concerns regarding this plan of care. Physician Signature: Date:__ 12/25/24 1158 CC: Dr. Sp Andino MD; No Primary Care Physician CK Signed For Medicare only, by signing this I certify the plan of care. Physicians Signature Date Normal [facility] CBC W/Diff, Automatedon 11-29 PATH REV Reviewed Normal [facility] Comment on above: Result Comment: Neut rophilic leukocytosis with left shift. Clinical correlation necessary. Agusto Saldana M.D. 12/17/24 AMENDED REPORT 12/17/24905 PATH REV previously reported as: February Performed By: #### L 100.0100 #### [facility] Laboratory [address] [place], [id number] Respiratory Cultureon 2024 RESPC No Haemophilus, Streptococcus pneumoniae, beta-hemolytic Streptococcus or Staphylococcus aureus isolated. Presumptive C albicans Amount Growth 3+ Normal [facility] Comment on above: Performed By: #### L 500.2500, L501.2300 #### [facility] [address] [place], [place], [id number] Vitamin D 1,25-Dihydroxyon 0 12-17-2024 VIT D 1,25 DIHY 94.3 pg/mL Abnormal 24.8-81.5 [facility] Comment on above: Result Comment: Perf ormed at: [facility] [id number] Printing Machine Operator Tape Rules: Marion Olivera MD, Phone: [phone] Performed By: #### L 3306.0960, BTS ####[facility] [address] [place], [place], [id number] Absolute lymphocyte countOrd ered By: Sp Andino on 12-16-2024 Lymphocytes Auto (Unsp spec) [#/Vol] 1.72 10*3/uL 0.83-4.51 [facility] Absolute neutrophil countOrd ered By: Sp Andino on 12-16-2024 Neutrophils (Bld) [#/Vol] 11.8 10*3/uL High 2.0-7.7 [facility] Atypical lymphocyte percenta geOrdered By: Sp Andino on 12-16-2024 Atypical Lymphocytes 1+ % [facility] Automated lymphocyte count a s percentage of total leukocytesOrdered By: Sp Andino on 12-16-2024 Lymphocytes/100 WBC Auto (Unsp spec) 11.8 % Low 19-41 [facility] Basic Metabolic Profile (BMP )on 12-16-2024 BUN/CRE 33.1 RATIO High 10-20 [facility] Comment on above: Performed By: #### L 100.0100, L500.2500 ####[facility] [address] [place], [address] CA,Total 9.6 mg/dL Normal 8.5-10.1 [facility] Comment on above: Performed By: #### L 100.0100, L500.2500 ####[facility] [address] [place], [address] Chloride [Moles/Vol] 115 mmol/L High 98-107 [facility] Comment on above: Performed By: #### L 100.0100, L500.2500 ####[facility] [address] [place], [address] CO2 [Moles/Vol] 24.0 mmol/L Normal 21.0-32.0 [facility] Comment on above: Performed By: #### L 100.0100, L500.2500 ####[facility] [address] [place], [address] Creatinine [Mass/Vol] 0.69 mg/dL Low 0.70-1.30 [facility] Comment on above: Result Comment: The validity of the calculated GFR GFRAA in patients over 70 years has not been determined. Clinical correlation is essential. Performed By: #### L 100.0100, L500.2500 ####[facility] [address] [place], [address] ECRCL 91.28 ml/min Normal [facility] Comment on above: Performed By: #### L 100.0100, L500.2500 ####[facility] [address] [place], [address] EST GFR - AA 147 mL/min Normal >60 [facility] Comment on above: Result Comment: Afri can [place] GFR Calc Performed By: #### L 100.0100, L500.2500 ####[facility] [address] [place], [address] GAP 5 Normal 5-15 [facility] Comment on above: Performed By: #### L 100.0100, L500.2500 ####[facility] [address] [place], [address] GFR/1.73 sq M.predicted among non-blacks MDRD (S/P/Bld) [Vol rate/Area] 121 mL/min/{1.73_m2} Normal >60 [facility] Comment on above: Result Comment: Non- GFR Calc Performed By: #### L 100.0100, L500.2500 ####[facility] [address] [place], [address] Glucose [Mass/Vol] 101 mg/dL Normal 74-106 [facility] Comment on above: Result Comment: Fast ing Glucose result from 100 to 125 mg/dL suggests IMPAIRED HOMEOSTASIS per A.D.A. criteria. Performed By: #### L 100.0100, L500.2500 ####[facility] [address] [place], [address] Potassium [Moles/Vol] 3.9 mmol/L Normal 3.5-5.1 [facility] Comment on above: Performed By: #### L 100.0100, L500.2500 ####[facility] [address] [place], [address] Sodium [Moles/Vol] 144 mmol/L Normal 136-145 [facility] Comment on above: Performed By: #### L 100.0100, L500.2500 ####[facility] [address] [place], [address] Urea nitrogen [Mass/Vol] 23 mg/dL High 7-18 [facility] Comment on above: Performed By: #### L 100.0100, L500.2500 ####[facility] [address] [place], [address] Basophil percentageOrdered B y: Sp Andino on 12-16-2024 Basophils/100 WBC (Bld) 0.4 % 0-1 [facility] Blood manual differential co mment interpretation (narrative result)Ordered By: Sp Andino on 12-16-2024 Manual differential comment Luis Felipe (Bld) [Interp] SCANNED [facility] Blood urea nitrogen (BUN)/cr eatinine ratioOrdered By: Sp Andino on 12-16-2024 Urea nitrogen/Creatinine [Mass ratio] 33.1 mg/mg High 10-20 [facility] CBC W/Diff, Automatedon 11-29 ATYPICAL LYMPH 1+ Normal [facility] Comment on above: Performed By: #### L 100.0100, L500.2500 ####[facility] [address] [place], [address] SMEAR COMMENT SCANNED Normal [facility] Comment on above: Performed By: #### L 100.0100, L500.2500 ####[facility] [address] [place], [address] Carbon dioxide measurementOr dered By: Sp Andino on 12-16-2024 CO2 [Moles/Vol] 24.0 mmol/L 21.0-32.0 [facility] Chloride measurementOrdered By: Sp Andino on 12-16-2024 Chloride [Moles/Vol] 115 mmol/L High 98-[address] [facility] Discharge Instructionon 11-29 Discharge Instruction [facility] Medical Records Department [address] [place] [address] Instructions for Home/Discharge Instructions 12/16/24 1436 MR#: [id number] Acct: [id number] Name: KRISTIAN DEWITT Rep #: [id number] : 1960 64 From: Sp Andino MD [...] Referrals / Follow Up: [facility] [place] [Provider Group] Taj Allen MD [Med Staff - Active Staff] - Within 1 Month Care Physician,Paty Primary [Primary Care Provider] - 12/31/24 3:15 pm (Appointment is with Becky Briceno N.P.) Disposition Disposition (needs filled in before D/C Order can be placed): Home, Self Care 12/16/24 1440 Sp nAdino MD CC: Dr. Chapito Randall MD; Dr. [...] MD; No Primary Care Physician Signed Normal [facility] Eosinophil percentageOrdered By: Sp Andino on 12-16-2024 Eosinophils/100 WBC (Bld) 0.5 % 0-5 [facility] Erythrocyte distribution wid th ratioOrdered By: Sp Andino on 12-16-2024 Erythrocyte distribution width (RBC) [Ratio] 14.3 % 11.6-14.6 [facility] Erythrocyte distribution wid th standard deviationOrdered By: Sp Andino on 12-16-2024 Erythrocyte distribution width (RBC) [Entitic vol] 51.8 fL High 35.1-43.9 [facility] Erythrocyte distribution width (RBC) [Ratio] 51.8 fl High 35.1-43.9 [facility] Estimated glomerular filtrat ion rate (GFR) AmericanOrdered By: Sp Andino on 12-16-2024 Estimated GFR (MDRD) Amer 147 mL/min >60 [facility] Comment on above: GFR Calc Estimation of creatinine missy aranceOrdered By: Sp Andino on 12-16-2024 Estimated Creatinine Clearance Calc 91.28 ml/min [facility] Glomerular filtration rate ( GFR) estimationOrdered By: Sp Andino on 12-16-2024 Estimated GFR (MDRD) Non-Af Amer 121 mL/min >60 [facility] Comment on above: Non- GFR Calc GFR/1.73 sq M.predicted among non-blacks MDRD (S/P/Bld) [Vol rate/Area] 121 mL/min/{1.73_m2} >60 [facility] Comment on above: Non- GFR Calc Glucose measurementOrdered B y: Sp Andino on 12-16-2024 Glucose [Mass/Vol] 101 mg/dL 74-106 [facility] Comment on above: Fasting Glucose resu lt from 100 to 125 mg/dL suggests IMPAIRED HOMEOSTASIS per A.D.A. criteria. Hematocrit Auto (Bld) [Volum e fraction]Ordered By: Sp Andino on 12-16-2024 Hematocrit (Bld) [Volume fraction] 34.0 % Low 40-54 [facility] Hemoglobin measurementOrdere d By: Sp Andino on 12-16-2024 Hemoglobin (Bld) [Mass/Vol] 10.7 g/dL Low 13.0-16. 5 [facility] Immature granulocytes/100 WB C Auto (Bld)Ordered By: Sp Andino on 12-16-2024 Immature granulocytes/100 WBC (Bld) 4.000 % High 0.0-0.9 [facility] Comment on above: IG% - Immature Granu locytes (promyelocytes, myelocytes and metamyelocytes) > 1% indicates that a LEFT SHIFT is Present. Lymphocytes Auto (Unsp spec) [#/Vol]Ordered By: Sp Andino on 12-16-2024 Lymphocytes (Bld) [#/Vol] 1.72 10*3/uL 0.83-4.5 1 [facility] Lymphocytes/100 WBC Auto (Un sp spec)Ordered By: Sp Andino on 12-16-2024 Lymphocytes/100 WBC (Bld) 11.8 % Low 19-41 [facility] MCV (mean corpuscular volume ) determinationOrdered By: Sp Andino on 12-16-2024 MCV (RBC) [Entitic vol] 98.3 fL High 80-94 [facility] Manual differential comment Luis Felipe (Bld) [Interp]Ordered By: Sp Andino on 12-16-2024 Differential Comment SCANNED [facility] Mean corpuscular hemoglobin (MCH) determinationOrdered By: Sp Andino on 12-16-2024 MCH (RBC) [Entitic mass] 30.9 pg 27.0-32.0 [facility] Mean corpuscular hemoglobin concentration (MCHC) determinationOrdered By: Sp Andino on 12-16-2024 MCHC (RBC) [Mass/Vol] 31.5 g/dL Low 32-36 [facility] Mean platelet volume determi nationOrdered By: Sp Andino on 12-16-2024 Platelet mean volume (Bld) [Entitic vol] 11.4 fL 6.2-12.0 [facility] Monocyte percentageOrdered B y: Sp Andino on 12-16-2024 Monocytes/100 WBC (Bld) 2.3 % 0-10 [facility] Neutrophil percentageOrdered By: Sp Andino on 12-16-2024 Neutrophils/100 WBC (Bld) 81.0 % High 47-70 [facility] Nucleated red blood cell per centageOrdered By: Sp Andino on 12-16-2024 Nucleated RBC/100 WBC (Bld) [Ratio] 0.1 % 0-5 [facility] Platelet countOrdered By: Miguelina Andino on 12-16-2024 Platelets (Bld) [#/Vol] 440 10*3/uL 150-450 [facility] Potassium measurementOrdered By: pS Andino on 12-16-2024 Potassium [Moles/Vol] 3.9 mmol/L 3.5-5.1 [facility] RBC Auto (Bld) [#/Vol]Ordere d By: Sp Andino on 12-16-2024 RBC (Bld) [#/Vol] 3.46 10*6/uL Low 4.6-6.2 [facility] Serum anion gap measurementO rdered By: Sp Andino on 12-16-2024 Anion gap [Moles/Vol] 5 mmol/L 5-15 [facility] Serum or plasma calcium greta urement (mass/volume)Ordered By: Sp Andino on 12-16-2024 Calcium [Mass/Vol] 9.6 mg/dL 8.5-10.1 [facility] Serum or plasma creatinine m easurement (mass/volume)Ordered By: Sp Andino on 12-16-2024 Creatinine [Mass/Vol] 0.69 mg/dL Low 0.70-1.30 [facility] Comment on above: The validity of the calculated GFR & GFRAA in patients over 70 years has not been determined. Clinical correlation is essential. Serum or plasma urea nitroge n measurement (mass/volume)Ordered By: Sp Andino on 12-16-2024 Urea nitrogen [Mass/Vol] 23 mg/dL High 7-18 [facility] Sodium levelOrdered By: Reagan Andino on 12-16-2024 Sodium [Moles/Vol] 144 mmol/L 136-145 [facility] White blood cell (WBC) count Ordered By: Sp Andino on 12-16-2024 WBC (Bld) [#/Vol] 14.6 10*3/uL High 4.4-11.0 [facility] BNP (brain natriuretic pepti de measurement)Ordered By: Helder Belle on 12-15-2024 Natriuretic peptide B (Bld) [Mass/Vol] 527.7 pg/mL High 0-100 [facility] BNP,B-Type NATRIURETIC PEPTI Martín 12-15-2024 Natriuretic peptide B (Bld) [Mass/Vol] 527.7 pg/mL High 0-100 [facility] Comment on above: Performed By: #### L 500.2500, L501.2300 #### [facility] [address] [place], [address] Basic Metabolic Profile (BMP )on 12-15-2024 BUN/CRE 38.4 RATIO High 10-20 [facility] Comment on above: Performed By: #### L 500.2500, L501.2300 #### [facility] [address] [place], [address] CA,Total 9.5 mg/dL Normal 8.5-10.1 [facility] Comment on above: Performed By: #### L 500.2500, L501.2300 #### [facility] [address] [place], [address] Chloride [Moles/Vol] 123 mmol/L High 98-107 [facility] Comment on above: Performed By: #### L 500.2500, L501.2300 #### [facility] [address] [place], [address] CO2 [Moles/Vol] 23.0 mmol/L Normal 21.0-32.0 [facility] Comment on above: Performed By: #### L 500.2500, L501.2300 #### [facility] [address] [place], [address] Creatinine [Mass/Vol] 0.70 mg/dL Normal 0.70-1.30 [facility] Comment on above: Result Comment: The validity of the calculated GFR GFRAA in patients over 70 years has not been determined. Clinical correlation is essential. Performed By: #### L 500.2500, L501.2300 #### [facility] [address] [place], [address] ECRCL 89.71 ml/min Normal [facility] Comment on above: Performed By: #### L 500.2500, L501.2300 #### [facility] Laboratory [address] [place], [address] EST GFR - AA 145 mL/min Normal >60 [facility] Comment on above: Result Comment: Afri can [place] GFR Calc Performed By: #### L 500.2500, L501.2300 #### [facility] Laboratory [address] [place], [address] GAP 4 Low 5-15 [facility] Comment on above: Performed By: #### L 500.2500, L501.2300 #### [facility] Laboratory [address] [place], [address] GFR/1.73 sq M.predicted among non-blacks MDRD (S/P/Bld) [Vol rate/Area] 119 mL/min/{1.73_m2} Normal >60 [facility] Comment on above: Result Comment: Non- GFR Calc Performed By: #### L 500.2500, L501.2300 #### [facility] Laboratory [address] [place], [address] Glucose [Mass/Vol] 95 mg/dL Normal 74-106 [facility] Comment on above: Performed By: #### L 500.2500, L501.2300 #### [facility] Laboratory [address] [place], [address] Potassium [Moles/Vol] 4.0 mmol/L Normal 3.5-5.1 [facility] Comment on above: Performed By: #### L 500.2500, L501.2300 #### [facility] Laboratory [address] [place], [address] Sodium [Moles/Vol] 150 mmol/L High 136-145 [facility] Comment on above: Performed By: #### L 500.2500, L501.2300 #### [facility] Laboratory [address] [place], [address] Urea nitrogen [Mass/Vol] 27 mg/dL High 7-18 [facility] Comment on above: Performed By: #### L 500.2500, L501.2300 #### [facility] Laboratory [address] [place], [address] Blood band neutrophil count as percentage of total leukocytesOrdered By: Sp Andino on 12-15-2024 Band form neutrophils/100 WBC (Bld) 4 % 0-5 [facility] Blood eosinophils/100 leukoc ytesOrdered By: Sp Andino on 12-15-2024 Eosinophils/100 WBC (Bld) 1 % 0-5 [facility] Blood lymphocytes/100 leukoc ytesOrdered By: Sp Andino on 12-15-2024 Lymphocytes/100 WBC (Bld) 12 % Low 19-41 [facility] Blood monocytes/100 leukocyt esOrdered By: Sp Andino on 12-15-2024 Monocytes/100 WBC (Bld) 3 % 0-10 [facility] Blood segmented neutrophils/ 100 leukocytesOrdered By: Sp Andino on 12-15-2024 Segmented neutrophils/100 WBC (Bld) 80 % High 47-70 [facility] CBC W/Diff, Automatedon 02- PATH REV Reviewed Normal [facility] Comment on above: Order Comment: AMENDED [...] #### L 506.0250, L501.2300, L100.0100, L500.4050 #### [facility] Laboratory [address] [place], [place], [address] PATH REV Reviewed Normal [facility] Comment on above: Result Comment: Neut rophilic leukocytosis with left shift. Clinical correlation necessary. Agusto Saldana M.D. 12/15/24 AMENDED REPORT 12/15/24 1607 PATH REV previously reported as: February foll Performed By: #### L 500.2500, L503.6005, L100.0100 ####[facility] [address] [place], [place], [address] Cells counted Molgen (Bld/Ti ss) [#]Ordered By: Sp Andino on 12-15-2024 Differential Total Cells Counted 100 MANUAL DIFF [facility] Echo Completeon 12-15-2024 Echo Complete [facility] [place] [address] Echo Complete 12/15/24 0837 MR#: [id number] Acct: [id number] Name: KRISTIAN DEWITT Rep #: [id number] : 1960 64 From: Bhavesh Anderson MD Attending Dr: Dr. Sp Andino MD Status : ADM IN Ordering Dr: Sp Andino MD Date: 12/15/24 Location: [facility] Sex: M C Admitted: 12/13/24 Reason For [...] Physician Date Dictated: 12/15/2437 Date Transcribed: 12/15/241128 Compounding Technician: Signed Normal [facility] Gram Stainon 12-15-2024 GS Acceptable Specimen? Yes (<25 Epithelial cells per/lpf) Gram Stain 3+ Yeast Like Organisms 2+ White Blood Cells 1+ Epithelial cells No organisms seen Normal [facility] Comment on above: Performed By: #### L 500.2500, L501.2300 #### [facility] Laboratory [address] [place], [address] Gram stainOrdered By: Casper Partida on 12-15-2024 Microscopic observation Gram stain Nom (Unsp spec) [facility] Microbial respiratory cultur eOrdered By: Casper Partida on 12-15-2024 Microorganism identified Cx Nom (Unsp spec) Presumptive C albicans Abnormal [facility] Microorganism identified Cx Nom (Unsp spec)Ordered By: Casper Partida on 12-15-2024 Respiratory Culture Presumptive C albicans Abnormal [facility] PTHINon 12-15-2024 PTH 14.3 pg/mL Low 18.4-80.1 [facility] Comment on above: Performed By: #### L 500.2500, L501.2300 #### [facility] Laboratory [address] [place], [place], [address] Pathologist review Luis Felipe (Unsp spec) [Interp]Ordered By: Sp Andino on 12-15-2024 Differential Pathologist's Review Reviewed [facility] Comment on above: Previous reported re sult: February foll Edited by: VERONICA on 12/17/24:0906Neutrophilic leukocytosis with left shift.Clinical correlation necessary.Agusto Saldana M.D. 12/17/24 AMENDED REPORT 12/17/24 09 PATH REV previously reported as: February galen Phosphoruson 12-15-2024 Phosphate [Mass/Vol] 3.0 mg/dL Normal 2.5-4.9 [facility] Comment on above: Performed By: #### L 500.2500, L501.2300 #### [facility] Laboratory [address] [place], [place], [address] Phosphorus measurementOrdere d By: Casper Partida on 12-15-2024 Phosphorus Level 3.0 mg/dL 2.5-4.9 [facility] Review by pathologistOrdered By: Sp Andino on 12-15-2024 Pathologist review Luis Felipe (Unsp spec) [Interp] Reviewed [facility] Comment on above: Previous reported re sult: May foll Edited by: VERONICA on 12/17/24:0906Neutrophilic leukocytosis with left shift.Clinical correlation necessary.Agusto Saldana M.D. 12/17/24 AMENDED REPORT 12/17/24 0906 PATH REV previously reported as: February Segmented neutrophils/100 WB C (Bld)Ordered By: Sp Andino on 12-15-2024 Neutrophils/100 WBC (Bld) 80 % High 47-70 [facility] Total cell countOrdered By: Sp Andino on 12-15-2024 Cells counted Molgen (Bld/Tiss) [#] 100 MANUAL DIFF [facility] Vitamin B12on 12-15-2024 Cobalamin (Vitamin B12) [Mass/Vol] pg/mL High 211-911 [facility] Comment on above: Performed By: #### L 503.0105 ####[facility] [address] [place], [address] 1,25-dihydroxyvitamin D3 [Ma ss/Vol]Ordered By: Casper Partida on 12-14-2024 Vitamin D 1,25-Dihydroxy 94.3 pg/mL High 24.8-81.5 [facility] Comment on above: Performed at: - [address] [id number] Director: Marion Olivera MD, Phone: [phone] Albumin to globulin ratioOrd ered By: Casper Partida on 12-14-2024 Albumin/Globulin [Mass ratio] 0.4 {ratio} Low 0.9-2.4 [facility] Alcohol, Blood (Medical)-Ser umon 12-14-2024 SERUM ETOH < 3.0 Normal [facility] Comment on above: Result Comment: The serum:whole blood ethanol ratio is approximately 1.14 and varies slightly with hematocrit. Medical Alcohol reference interval and critical value in non-tolerant individuals; 50 - 100 Impairment 100 Intoxication 100 - 250 Severe Poisoning 250 - 400 Deep/possible fatal coma Performed By: #### L 100.0100 #### [facility] Laboratory [address] [place], [address] Bilirubin, totalOrdered By: Casper Partida on 12-14-2024 Bilirubin [Mass/Vol] 0.50 mg/dL 0.20-1.00 [facility] Comment on above: For patients on eltr ombopag therapy, use of Dimension [place] TBIL is not recommended. Blood metamyelocytes/100 paul kocytesOrdered By: Casper Partida on 12-14-2024 Metamyelocytes/100 WBC (Bld) 2 % High 0-1 [facility] Brain/Head W/WO Contraston 0 - Brain/Head W/WO Contrast [facility] Imaging Services [address] [place] [address] Brain/Head W/WO Contrast MR#: [id number] Acct: [id number] Name: KRISTIAN DEWITT Rep #: [id number] : 1960 M 64 From: Fred Hunt MD PCP: Care Physician,No Primary Status: ADM IN Study: Brain/Head W/WO Contrast Date of Exam: 5 Exam# [id number] Ordering Dr: Casper Brito DO EXAM: BRAIN/HEAD [...] Casper Brito DO; No Primary Care Physician Compounding Technician: Signed Normal [facility] CPK Total, Creatine Kinaseon 12-14-2024 CPK TOTAL 35 U/L Low 39-308 [facility] Comment on above: Performed By: #### L 100.0100 #### [facility] Laboratory [address] [facility], [address] Comprehensive Metabolic Prof kevin 12-14-2024 Albumin [Mass/Vol] 1.6 g/dL Low 3.2-5.0 [facility] Comment on above: Performed By: #### L 506.0250, L501.2300, L100.0100, L500.4050 #### [facility] Laboratory [address] [place], [address] Albumin/Globulin [Mass ratio] 0.4 {ratio} Low 0.9-2.4 [facility] Comment on above: Performed By: #### L 506.0250, L501.2300, L100.0100, L500.4050 #### [facility] Laboratory [address] [place], [address] ALK P 159 U/L High 45-117 [facility] Comment on above: Performed By: #### L 506.0250, L501.2300, L100.0100, L500.4050 #### [facility] Laboratory [address] [place], [address] ALT [Catalytic activity/Vol] 145 U/L High 16-61 [facility] Comment on above: Performed By: #### L 506.0250, L501.2300, L100.0100, L500.4050 #### [facility] Laboratory [address] [place], [address] AST [Catalytic activity/Vol] 180 U/L High 15-37 [facility] Comment on above: Performed By: #### L 506.0250, L501.2300, L100.0100, L500.4050 #### [facility] Laboratory [address] [place], [address] Bilirubin [Mass/Vol] 0.50 mg/dL Normal 0.20-1.00 [facility] Comment on above: Result Comment: For patients on eltrombopag therapy, use of Dimension [place] TBIL is not recommended. Performed By: #### L 506.0250, L501.2300, L100.0100, L500.4050 #### [facility] Laboratory [address] [place], [address] BUN/CRE 50.7 RATIO High 10-20 [facility] Comment on above: Performed By: #### L 506.0250, L501.2300, L100.0100, L500.4050 #### [facility] Laboratory [address] [place], [address] CA,Total 9.9 mg/dL Normal 8.5-10.1 [facility] Comment on above: Performed By: #### L 506.0250, L501.2300, L100.0100, L500.4050 #### [facility] Laboratory [address] [place], [address] Chloride [Moles/Vol] 117 mmol/L High 98-107 [facility] Comment on above: Performed By: #### L 506.0250, L501.2300, L100.0100, L500.4050 #### [facility] Laboratory [address] [place], [address] CO2 [Moles/Vol] 23.0 mmol/L Normal 21.0-32.0 [facility] Comment on above: Performed By: #### L 506.0250, L501.2300, L100.0100, L500.4050 #### [facility] Laboratory [address] [place], [address] Creatinine [Mass/Vol] 0.89 mg/dL Normal 0.70-1.30 [facility] Comment on above: Result Comment: The validity of the calculated GFR GFRAA in patients over 70 years has not been determined. Clinical correlation is essential. Performed By: #### L 506.0250, L501.2300, L100.0100, L500.4050 #### [facility] Laboratory [address] [place], [address] ECRCL 80.52 ml/min Normal [facility] Comment on above: Performed By: #### L 506.0250, L501.2300, L100.0100, L500.4050 #### [facility] Laboratory [address] [place], [address] EST GFR - AA 111 mL/min Normal >60 [facility] Comment on above: Result Comment: Afri can [place] GFR Calc Performed By: #### L 506.0250, L501.2300, L100.0100, L500.4050 #### [facility] Laboratory [address] [place], [address] GAP 8 Normal 5-15 [facility] Comment on above: Performed By: #### L 506.0250, L501.2300, L100.0100, L500.4050 #### [facility] Laboratory [address] [place], [address] GFR/1.73 sq M.predicted among non-blacks MDRD (S/P/Bld) [Vol rate/Area] 91 mL/min/{1.73_m2} Normal >60 [facility] Comment on above: Result Comment: Non- GFR Calc Performed By: #### L 506.0250, L501.2300, L100.0100, L500.4050 #### [facility] Laboratory [address] [place], [address] Globulin (S) [Mass/Vol] 4.5 g/dL High 2.2-4.2 [facility] Comment on above: Performed By: #### L 506.0250, L501.2300, L100.0100, L500.4050 #### [facility] Laboratory [address] [place], [address] Glucose [Mass/Vol] 111 mg/dL High 74-106 [facility] Comment on above: Result Comment: Fast ing Glucose result from 100 to 125 mg/dL suggests IMPAIRED HOMEOSTASIS per A.D.A. criteria. Performed By: #### L 506.0250, L501.2300, L100.0100, L500.4050 #### [facility] Laboratory [address] [place], [address] Potassium [Moles/Vol] 3.4 mmol/L Low 3.5-5.1 [facility] Comment on above: Performed By: #### L 506.0250, L501.2300, L100.0100, L500.4050 #### [facility] Laboratory [address] [place], [address] Sodium [Moles/Vol] 148 mmol/L High 136-145 [facility] Comment on above: Performed By: #### L 506.0250, L501.2300, L100.0100, L500.4050 #### [facility] Laboratory [address] [place], [address] T PROT 6.1 g/dL Low 6.4-8.2 [facility] Comment on above: Performed By: #### L 506.0250, L501.2300, L100.0100, L500.4050 #### [facility] Laboratory [address] [place], [address] Urea nitrogen [Mass/Vol] 45 mg/dL High 7-18 [facility] Comment on above: Performed By: #### L 506.0250, L501.2300, L100.0100, L500.4050 #### [facility] Laboratory [address] [place], [address] Consultation - Intensiviston 12-14-2024 Consultation - Software Sales [facility] Medical Records Department [address] [place] [address] Consultation - Software Sales 12/14/24 1658 MR#: [id number] Acct: [id number] Name: KRISTIAN DEWITT Rep #: [id number] : 1960 64 From: Helder Belle MD PCP: Care Physician,No Primary Status:ADM IN Location: [place] [address] HPI Consult Data Date of Consult: 12/14/24 HPI Narrative HPI Narrative: KRISTIAN DEWITT, is a 64 M who presents [facility] Medical History no medical history Home [...] GFR ( (more content not included)... Normal [facility] Erythrocyte morphology asses smentOrdered By: Casper Partida on 12-14-2024 RBC morphology finding Nom (Bld) NORM C+C NORMAL NORM C&C [facility] Folates, (Folic Acid)on 11-29 FOLATES 25.40 ng/mL Normal 3.1-55.4 [facility] Comment on above: Order Comment: N Performed By: #### L 506.0250, L501.2300, L100.0100, L500.4050 #### [facility] Laboratory [address] [place], [place], [address] Folic acid measurementOrdere d By: Casper Partida on 12-14-2024 Folate 25.40 ng/mL 3.1-55.4 [facility] Hemoglobin A1con 12-14-2024 HbA1c (Bld) [Mass fraction] 5.5 % Normal 3.8-5.6 [facility] Comment on above: Result Comment: Norm al < 5.7 % Prediabetic 5.7 - 6.4 % Diabetic >or= 6.5 % Please note range changes. Performed By: #### L 500.2500, L501.2300 #### [facility] Laboratory [address] [place], [place], [address] Intact parathyroid hormone ( iPTH) measurementOrdered By: Casper Partida on 12-14-2024 Parathyroid Hormone (Intact) 14.3 pg/mL Low 18.4-80 .1 [facility] L. pneumophila Ag Ql (U)Orde red By: Casper Partida on 12-14-2024 Legionella Antigen [facility] Laboratory - Chemistry and C hemistry - challengeOrdered By: Casper Partida on 12-14-2024 AST [Catalytic activity/Vol] 180 U/L High 15-37 [facility] Legionella Antigen Urineon 0 12-14-2024 LEGU URINE, CLEAN CATCH Legionella Antigen result interpretation: L pneumo Ag Ur Ql Negative Presumptive negative for Legionella pneumophila serogroup 1 antigen in urine, suggesting no recent or current infection. Legionella Ag, Urine Negative (See interpretation below) Normal [facility] Comment on above: Performed By: #### L 500.2500, L501.2300 #### [facility] Laboratory [address] [place], [place], [address] Methadone, urineOrdered By: Casper Partida on 12-14-2024 Urine Methadone Screen Negative < 300 ng/mL [facility] No Panel InformationOrdered By: Capser Partida on 12-14-2024 Urine Drug Screen Comment [facility] Comment on above: CONFIRMATORY TESTING FOR [...] 12-14-2024 Phosphate [Mass/Vol] 3.2 mg/dL Normal 2.5-4.9 [facility] Comment on above: Performed By: #### L 506.0250, L501.2300, L100.0100, L500.4050 #### [facility] Laboratory [address] [place], [address] Platelet estimateOrdered By: Casper Partida on 12-14-2024 Platelets LM Ql (Bld) ADEQUATE ADEQ [facility] Platelets LM Ql (Bld)Ordered By: Casper Partida on 12-14-2024 Platelet Estimate ADEQUATE ADEQ [facility] Quantitative urine opiates m easurementOrdered By: Casper Partida on 12-14-2024 Opiates Ql (U) Negative < 300 ng/mL [facility] RBC morphology finding Nom ( Bld)Ordered By: Casper Partida on 12-14-2024 Red Blood Cell Morphology NORM C+C NORMAL NORM C&C [facility] RESPIRATORY PANEL MOLECULARo n 12-14-2024 RP PANEL ADENOVIRUS Not Detected INFLUENZA A Not Detected INFLUENZA A (SUBTYPE H1) Not Detected INFLUENZA A (SUBTYPE H3) Not Detected INFLUENZA B Not Detected HUMAN METAPHNEUMO Not Detected PARAINFLUENZA 1 Not Detected PARAINFLUENZA 2 Not Detected PARAINFLUENZA 3 Not Detected PARAINFLUENZA 4 Not Detected RHINOVIRUS Not Detected RSV A Not Detected RSV B Not Detected Normal [facility] Comment on above: Performed By: #### L 500.2500, L501.2300 #### [facility] Laboratory [address] [place], [address] Serum ethanol measurementOrd ered By: Casper Partida on 12-14-2024 Ethyl Alcohol Level < 3.0 mg/dL [facility] Comment on above: The serum:whole bloo d ethanol ratio is approximately 1.14and varies slightly with hematocrit. Medical Alcohol reference interval and critical value innon-tolerant individuals; 50 - 100 Impairment 100 Intoxication 100 - 250 Severe Poisoning 250 - 400 Deep/possible fatal coma Serum globulin measurementOr dered By: Casper Partida on 12-14-2024 Globulin (S) [Mass/Vol] 4.5 g/dL High 2.2-4.2 [facility] Serum or plasma alanine mederos otransferase (ALT) measurementOrdered By: Casper Partida on 12-14-2024 ALT [Catalytic activity/Vol] 145 U/L High 16-61 [facility] Serum or plasma albumin greta urement (mass/volume)Ordered By: Casper Partida on 12-14-2024 Albumin [Mass/Vol] 1.6 g/dL Low 3.2-5.0 [facility] Serum or plasma alkaline nikolas sphatase measurementOrdered By: Casper Partida on 12-14-2024 ALP [Catalytic activity/Vol] 159 U/L High 45-117 [facility] Serum or plasma calcitriol m easurement (mass/volume)Ordered By: Casper Partida on 12-14-2024 1,25-dihydroxyvitamin D3 [Mass/Vol] 94.3 pg/mL High 24.8-81.5 [facility] Comment on above: Performed at: [address] [id number] Director: Marion Olivera MD, Phone: [phone] Stool Occult Blood iFOBon STOB Negative Normal [facility] Comment on above: Performed By: #### M 100.7900 ####[facility] [address] [place], [place], [address] Strep pneumoniae Antig(UR,CS F)on 12-14-2024 STPAG URINE INTERPRETATION Positive Urine Positive for pneumococcal pneumonia. Strep pneumo Test Urine POSITIVE for pneumococcal pneumonia.A Streptococcus pneumonia Ag Normal [facility] Comment on above: Performed By: #### L 500.2500, L501.2300 #### [facility] Laboratory [address] [place], [address] Streptococcus pneumoniae ant igen assayOrdered By: Casper Partida on 12-14-2024 Streptococcus pneumoniae Antigen (M Streptococcus pneumonia Ag Abnormal [facility] Streptococcus pneumoniae antigen assay Streptococcus pneumonia Ag Abnormal [facility] Total creatine kinase measur ementOrdered By: Casper Partida on 12-14-2024 CK [Catalytic activity/Vol] 35 U/L Low 39-308 [facility] Total proteinOrdered By: Osei Partida on 12-14-2024 Protein [Mass/Vol] 6.1 g/dL Low 6.4-8.2 [facility] Type AND Screenon 12-14-2024 ABO and Rh group Nom (Bld) Blood group A Rh(D) positive Normal [facility] Comment on above: Order Comment: HGI Performed By: #### L 3300.0960, BTS ####[facility] [address] [facility] [address] Urine Drug Screen (VISTA)on 12-14-2024 AMPHETAMINES Negative Normal <1000 ng/mL [facility] Comment on above: Order Comment: unkno wn Performed By: #### L 500.2500, L501.2300 #### [facility] Laboratory [address] [facility] [address] BARBITIURATES Negative Normal < 200 ng/mL [facility] Comment on above: Order Comment: unkno wn Performed By: #### L 500.2500, L501.2300 #### [facility] Laboratory [address] [place], [address] BENZODIAZIPINE Negative Normal < 200 ng/mL [facility] Comment on above: Order Comment: unkno wn Performed By: #### L 500.2500, L501.2300 #### [facility] Laboratory [address] [facility] [address] COCAINE Negative Normal < 300 ng/mL [facility] Comment on above: Order Comment: unkno wn Performed By: #### L 500.2500, L501.2300 #### [facility] Laboratory [address] [place], [address] ECSTACY Negative Normal < 500 ng/mL [facility] Comment on above: Order Comment: unkno wn Performed By: #### L 500.2500, L501.2300 #### [facility] Laboratory [address] [place], [address] METHADONE Negative Normal < 300 ng/mL [facility] Comment on above: Order Comment: unkno wn Performed By: #### L 500.2500, L501.2300 #### [facility] Laboratory [address] [place], [address] OPIATES Negative Normal < 300 ng/mL [facility] Comment on above: Order Comment: unkno wn Performed By: #### L 500.2500, L501.2300 #### [facility] Laboratory [address] [place], [address] PCP Negative Normal < 25 ng/mL [facility] Comment on above: Order Comment: unkno wn Performed By: #### L 500.2500, L501.2300 #### [facility] Laboratory [address] [place], [address] THC Negative Normal < 50 ng/mL [facility] Comment on above: Order Comment: unkno wn Performed By: #### L 500.2500, L501.2300 #### [facility] Laboratory [address] [place], [address] VISTA UDS PH 5 Normal [facility] Comment on above: Order Comment: unkno wn Performed By: #### L 500.2500, L501.2300 #### [facility] [address] [place], [address] Urine Legionella pneumophila antigen detectionOrdered By: Casper Partida on 12-14-2024 L. pneumophila Ag Ql (U) [facility] Urine amphetamine measuremen tOrdered By: Casper Partida on 12-14-2024 Amphetamines Ql (U) Negative <1000 ng/mL [facility] Urine barbiturates measureme ntOrdered By: Casper Partida on 12-14-2024 Urine Barbiturates Screen Negative < 200 ng/mL [facility] Urine benzodiazepine levelOr dered By: Casper Partida on 12-14-2024 Benzodiazepines Ql (U) Negative < 200 ng/mL [facility] Urine cocaine levelOrdered B y: Casper Partida on 12-14-2024 Cocaine Ql (U) Negative < 300 ng/mL [facility] Urine sbusk-4-zohjhbjbdxhuuv abinol (THC) measurementOrdered By: Casper Partida on 12-14-2024 Cannabinoids Screen Ql (U) Negative < 50 ng/m L [facility] Urine methylenedioxymethamph etamine (MDMA) measurementOrdered By: Casper Partida on 12-14-2024 MDMA (Ecstasy) Screen Negative < 500 ng/mL [facility] Urine phencyclidine (PCP) de tectionOrdered By: Casper Partida on 12-14-2024 Phencyclidine Ql (U) Negative < 25 ng/mL [facility] Vitamin B12 measurementOrder ed By: Casper Partida on 12-14-2024 Vitamin B12 Level > 2000 pg/mL High 211-911 [facility] 12 Lead EKGon 12-13-2024 12 Lead EKG [facility] Cardiovascular Services [address] [place] [address] 12 Lead EKG 12/13/24 1930 MR#: [id number] Acct: [id number] Name: SHRUTHI DEWITTOlinda Ritter Rep #: [id number] : 1960 64 From: Pamella Sharma MD [...] may be normal variant ( Sokolow-Redman , Horatio product ) Marked ST abnormality, possible lateral subendocardial injury Abnormal ECG Confirmed by ENRICO NELSON, ABBE ([id number]), editor sound NINA MOON ([id number]) on 12/15/2024 8:23:30 AM Referred By: Confirmed By: ABBE SHARMA MD 12/15/24 0823 Date Pamella Sharma MD CC: Dr. Adam Rucker DO; Dr. Sp Andino MD; No Primary Care Physician Signed Normal [facility] Abdomen/Pelvis WITH Contrast on 12-13-2024 Abdomen/Pelvis WITH Contrast [facility] Imaging Services [address] [place], [place] [address] Abdomen/Pelvis WITH Contrast MR#: [id number] Acct: [id number] Name: KRISTIAN DEWITT Rep #: [id number] : 1960 M 64 From: Sabina Yap MD PCP: Care Physician,No Primary Status: ADM IN Study: Abdomen/Pelvis WITH Contrast Date of Exam: Exam# [id number] Ordering Dr: Casper Brito DO PROCEDURE: ABDOMEN/PELVIS [...] Casper Brito DO; No Primary Care Physician Compounding Technician: Signed Normal [facility] Basic Metabolic Profile (BMP )on 12-13-2024 BUN/CRE 51.7 RATIO High 10-20 [facility] Comment on above: Performed By: #### L 500.2500, L503.6005, L100.0100 ####[facility] [address] [place], [address] CA,Total 11.3 mg/dL High 8.5-10.1 [facility] Comment on above: Performed By: #### L 500.2500, L503.6005, L100.0100 ####[facility] [address] [place], [address] Chloride [Moles/Vol] 113 mmol/L High 98-107 [facility] Comment on above: Performed By: #### L 500.2500, L503.6005, L100.0100 ####[facility] [address] [place], [address] CO2 [Moles/Vol] 24.0 mmol/L Normal 21.0-32.0 [facility] Comment on above: Performed By: #### L 500.2500, L503.6005, L100.0100 ####[facility] [address] [place], [address] Creatinine [Mass/Vol] 1.16 mg/dL Normal 0.70-1.30 [facility] Comment on above: Result Comment: The validity of the calculated GFR GFRAA in patients over 70 years has not been determined. Clinical correlation is essential. Performed By: #### L 500.2500, L503.6005, L100.0100 ####[facility] [address] [place], [address] EST GFR - AA 81 mL/min Normal >60 [facility] Comment on above: Result Comment: Afri can [place] GFR Calc Performed By: #### L 500.2500, L503.6005, L100.0100 ####[facility] [address] [place], [address] GAP 7 Normal 5-15 [facility] Comment on above: Performed By: #### L 500.2500, L503.6005, L100.0100 ####[facility] [address] [place], [address] GFR/1.73 sq M.predicted among non-blacks MDRD (S/P/Bld) [Vol rate/Area] 67 mL/min/{1.73_m2} Normal >60 [facility] Comment on above: Result Comment: Non- GFR Calc Performed By: #### L 500.2500, L503.6005, L100.0100 ####[facility] [address] [place], [address] Glucose [Mass/Vol] 184 mg/dL High 74-106 [facility] Comment on above: Result Comment: Fast ing Glucose result greater than or equal to 126 mg/dL suggests DIABETES MELLITUS per A.D.A. criteria. Performed By: #### L 500.2500, L503.6005, L100.0100 ####[facility] [address] [place], [address] Potassium [Moles/Vol] 3.2 mmol/L Low 3.5-5.1 [facility] Comment on above: Performed By: #### L 500.2500, L503.6005, L100.0100 ####[facility] [address] [place], [address] Sodium [Moles/Vol] 144 mmol/L Normal 136-145 [facility] Comment on above: Performed By: #### L 500.2500, L503.6005, L100.0100 ####[facility] [address] [place], [address] Urea nitrogen [Mass/Vol] 60 mg/dL High 7-18 [facility] Comment on above: Performed By: #### L 500.2500, L503.6005, L100.0100 ####[facility] [address] [place], [address] Chest PA and Lateralon 12-13 Chest PA and Lateral [facility] Imaging Services [address] [place] [address] Chest PA and Lateral MR#: [id number] Acct: [id number] Name: DEWITTKRISTIAN BLANKENSHIP Stone Rep #: [id number] : 1960 M 64 From: Sabina Yap MD PCP: Care Physician,No Primary Status: PRE ER Study: Chest PA and Lateral Date of Exam: 12/13/24 Exam# [id number] Ordering Dr: Provider,Ed P. PROCEDURE: CHEST PA [...] ED PHYSICIAN PROVIDER; No Primary Care Physician Compounding Technician: Signed Normal [facility] Chest WITH Contraston 2024 Chest WITH Contrast [facility] Imaging Services [address] [place], [place] [address] Chest WITH Contrast MR#: [id number] Acct: [id number] Name: KRISTIAN DEWITT Rep #: [id number] : 1960 M 64 From: Sabina Yap MD PCP: Care Physician,No Primary Status: ADM IN Study: Chest WITH Contrast Date of Exam: 12/13/24 Exam# [id number] Ordering Dr: Casper Brito DO PROCEDURE: CHEST [...] hilar lymph node, possibly reactive. [facility] CC: Dr. Casper Brito, ; No Primary Care Physician Compounding Technician: Signed Normal [facility] Emergency Department Summary on 12-13-2024 Emergency Department Summary [facility] Medical Records Department [address] [place] [address] Emergency Department Summary 12/13/24 MR#: [id number] Acct: [id number] Name: KRISTIAN DEWITT Rep #: [id number] : 1960 64 From: Adam Rucker DO PCP: Care Physician,No Primary Status:ADM IN Location: [place] [address] HPI History of Present Illness Chief Complaint: [...] influenza, and (more content not included)... Normal [facility] H AND P Exam - Hospitaliston 12-13-2024 H&P Exam - Hospitalist [facility] Medical Records Department [address] [place] [address] H P Exam - Hospitalist 12/13/242105 MR#: [id number] Acct: [id number] Name: KRISTIAN DEWITT Rep #: [id number] : 1960 64 From: Casper Brito DO PCP: Care Physician,No Primary Status:ADM IN Location: [place] [id number] HPI - General General Date of Admission: 12/13/24 Date of Service: 12/13/24 Chief Complaint: SOB, Palpitations and Confusion. HPI Narrative KRISTIAN DEWITT, is a 64 M with past medical history of chronic tobacco abuse and closed tibial plateau fracture after fall; treated nonoperatively (11/2023) who presents to [facility] ER complaining of shortness of breath, [...] Air Room (more content not included)... Normal [facility] Hemoglobin A1c percentageOrd ered By: Casper Partida on 12-13-2024 HbA1c (Bld) [Mass fraction] 5.5 % 3.8-5.6 [facility] Comment on above: Normal < 5.7 % Predi abetic 5.7 - 6.4 % Diabetic >or= 6.5 % Please note range changes. High density lipoprotein (HD L) measurementOrdered By: Casper Partida on 12-13-2024 Cholesterol in HDL [Mass/Vol] 12 mg/dL Low >40 [facility] Comment on above: The drugs N-Acetylcy steine and Metamizole may falsely depress this assay. Reference Range HDL <40 mg/dL Low HDL Cholesterol HDL >or= 60 mg/dL High HDL Cholesterol Influenza virus A and B and SARS-CoV-2 (COVID-19) and Respiratory syncytial virus RNAOrdered By: Adam Rucker on 12-13-2024 SARS-CoV-2 (COVID-19) RNA DAGOBERTO+probe Ql (Unsp spec) [facility] L501.4020on 12-13-2024 TROPONIN-I HS 9 pg/mL Normal 3.0-78.0 [facility] Comment on above: Order Comment: 'TROP ' Serial specimen #1, #2 or #3: 2 Result Comment: Plea se Note: New Test Units and Gender Specific Reference Ranges. For more information see Policy Stat Procedure [place] High Sensitivity Troponin (TNIH) and attachments. Performed By: #### L 500.2500, L501.2300 #### [facility] [address] [place], [place], [id number] [phone] L501.5425on 12-13-2024 TROPONIN-I HS 8 pg/mL Normal 3.0-78.0 [facility] Comment on above: Order Comment: 1Y Result Comment: Josefa trinidad Note: New Test Units and Gender Specific Reference Ranges. For more information see Policy Stat Procedure [place] High Sensitivity Troponin (TNIH) and attachments. Performed By: #### L 100.0100 #### [facility] [address] [place], [address] Lactic Acidon 12-13-2024 Lactate [Moles/Vol] 1.9 mmol/L Normal 0.4-1.9 [facility] Comment on above: Order Comment: Y Performed By: #### L 500.2500, L503.6005, L100.0100 ####[facility] [address] [place], [address] Lactic acid measurementOrder ed By: Adam Rucker on 12-13-2024 Lactate [Moles/Vol] 1.9 mmol/L 0.4-2.0 [facility] Lipid Profileon 12-13-2024 Cholesterol [Mass/Vol] 122 mg/dL Normal 200 [facility] Comment on above: Order Comment: 'TROP ' Serial specimen #1, #2 or #3: 2 Result Comment: <200 mg/dL Desirable 200-240 mg/dL Borderline >240 mg/dL High Risk Performed By: #### L 500.2500, L501.2300 #### [facility] [address] [place], [address] Cholesterol in HDL [Mass/Vol] 12 mg/dL Low [facility] Comment on above: Order Comment: 'TROP ' Serial specimen #1, #2 or #3: 2 Result Comment: The drugs N-Acetylcysteine and Metamizole may falsely depress this assay. Reference Range HDL <40 mg/dL Low HDL Cholesterol HDL >or= 60 mg/dL High HDL Cholesterol Performed By: #### L 500.2500, L501.2300 #### [facility] [address] [place], [address] Cholesterol in LDL [Mass/Vol] 74 mg/dL Normal 0-130 [facility] Comment on above: Order Comment: 'TROP ' Serial specimen #1, #2 or #3: 2 Performed By: #### L 500.2500, L501.2300 #### [facility] [address] [place], [address] Cholesterol in VLDL [Mass/Vol] 36 mg/dL Normal 5-40 [facility] Comment on above: Order Comment: 'TROP ' Serial specimen #1, #2 or #3: 2 Performed By: #### L 500.2500, L501.2300 #### [facility] [address] [place], [address] Triglyceride [Mass/Vol] 181 mg/dL Normal [facility] Comment on above: Order Comment: 'TROP ' Serial specimen #1, #2 or #3: 2 Result Comment: The drugs N-Acetylcysteine and Metamizole may falsely depress this assay. Serum Triglycerides Reference Interval Normal <150 mg/dL Borderline high 150 - 199 mg/dL High 200 - 499 mg/dL Very High > or = 500 mg/dL Performed By: #### L 500.2500, L501.2300 #### [facility] [address] [place], [address] Low density lipoprotein (LDL ) cholesterol measurementOrdered By: Casper Partida on 12-13-2024 Cholesterol in LDL [Mass/Vol] 74 mg/dL 0-130 [facility] Lower GI hemoglobin IA Ql (S tl)Ordered By: Casper Partida on 12-13-2024 Stool Occult Blood (NATALIO) [facility] M100.678on 12-13-2024 M100.678 Pending SARS-CoV-2 (COVID 19) Negative INFLUENZA A Negative INFLUENZA B Negative RSV PCR Negative Normal [facility] Comment on above: Performed By: #### L 500.2500, L501.2300 #### [facility] [address] [place], [address] Magnesium measurementOrdered By: Casper Partida on 12-13-2024 Magnesium [Mass/Vol] 2.3 mg/dL Normal 1.6-2.6 [facility] Comment on above: Performed By: #### L 500.2500, L501.2300 #### [facility] [address] [place], [address] PSA,Total - Annual Screenon 12-13-2024 PSA,TOT SCREEN 0.43 ng/mL Normal 0.00-4.00 [facility] Comment on above: Order Comment: 'TROP ' Serial specimen #1, #2 or #3: 2 Result Comment: This test was performed using the TPSA assay method for the Wireless Safety chemistry system. Values obtained with different assay methods cannot be used interchangably. When changing PSA assays in the course of monitoring a patient, additional sequential testing should be carried out to confirm baseline values. Performed By: #### L 500.2500, L501.2300 #### [facility] [address] [facility], [address] Respiratory pathogens DNA an d RNA panel DAGOBERTO+probe (Resp)Ordered By: Casper Partida on 12-13-2024 Respiratory Panel (PCR) [facility] Respiratory pathogens detect ion panel by molecular detection methodOrdered By: Casper Partida on 12-13-2024 Respiratory pathogens DNA and RNA panel DAGOBERTO+probe (Resp) [facility] Screening prostate specific antigen (PSA) measurementOrdered By: Casper Partida on 12-13-2024 Prostate Specific Antigen Screen 0.43 ng/mL 0.00-4.00 [facility] Comment on above: This test was perfor med using the TPSA assay method for theWireless Safety chemistry system. Values obtained with differentassay methods cannot be used interchangably.When changing PSA assays in the course of monitoring apatient, additional sequential testing should be carriedout to confirm baseline values. Serum or plasma cholesterol measurement (mass/volume)Ordered By: Casper Partida on 12-13-2024 Cholesterol [Mass/Vol] 122 mg/dL <200 [facility] Comment on above: <200 mg/dL Desirable 200-240 mg/dL Borderline >240 mg/dL High Risk Serum or plasma thyroid stim ulating hormone (TSH) measurement (units/volume)Ordered By: Casper Partida on 12-13-2024 TSH Qn 1.870 uIU/mL 0.358-3.74 0 [facility] Stool gastrointestinal hemog lobin detection by immunologic methodOrdered By: Casper Partida on 12-13-2024 Lower GI hemoglobin IA Ql (Stl) [facility] TSH QnOrdered By: Casper hooker on 12-13-2024 Thyroid Stimulating Hormone (TSH) 1.870 uIU/mL 0.358-3.74 0 [facility] Thyroid Stim Hormone (TSH)on 12-13-2024 TSH 1.870 uIU/mL Normal 0.358-3.74 0 [facility] Comment on above: Order Comment: 'TROP ' Serial specimen #1, #2 or #3: 2 Performed By: #### L 500.2500, L501.2300 #### [facility] [place], [address] Triglycerides measurementOrd ered By: Casper Partida on 12-13-2024 Triglyceride [Mass/Vol] 181 mg/dL <199 [facility] Comment on above: The drugs N-Acetylcy steine and Metamizole may falsely depress this assay.Serum Triglycerides Reference Interval Normal <150 mg/dL Borderline high 150 - 199 mg/dL High 200 - 499 mg/dL Very High > or = 500 mg/dL Troponin IOrdered By: Casper Partida on 12-13-2024 Troponin I 9 pg/mL 3.0-78.0 [facility] Comment on above: Please Note: New Kelsie t Units and Gender Specific Reference Ranges. For more information see Policy Stat Procedure [place] High Sensitivity Troponin (TNIH) and attachments. Troponin I High Sensitivity 9 pg/mL 3.0-78.0 [facility] Comment on above: Please Note: New [place]ie t Units and Gender Specific Reference Ranges. For more information see Policy Stat Procedure [place] High Sensitivity Troponin (TNIH) and attachments. Very low density lipoprotein (VLDL) cholesterol measurementOrdered By: Casper Partida on 12-13-2024 Very low density lipoprotein (VLDL) cholesterol measurement 36 mg/dL 5-40 [facility] VLDL Cholesterol 36 mg/dL 5-40 [facility] Chest PA and Lateralon 12-09 Chest PA and Lateral [facility] Imaging Services [address] [place] [address] Chest PA and Lateral MR#: [id number] Acct: [id number] Name: DEWITTKRISTIAN BLANKENSHIP Stone Rep #: [id number] : 1960 M 64 From: Casper Ritter PCP: Care Physician,No Primary Status: REG CLI Study: Chest PA and Lateral Date of Exam: 12/09/24 Exam# [id number] Ordering Dr: Esha Marley PROCEDURE: CHEST PA [...] is within the normal range. Reading Location: [address] CC: EDDIE Marley; No Primary Care Physician Compounding Technician: Signed Normal [facility] Vital Signs Date Time Vital Sign Value Performing Clinician Faci lity 04-24-2025 11:59-0400 Diastolic blood pressure 80 mm[Hg] No Primary Care Physician [facility] 04-24-2025 11:59-0400 Systolic blood pressure 160 mm[Hg] No Primary Care Physician [facility] 04-24-2025 10:45-0400 Body height 185.42 cm No Primary Care Physician [facility] 04-24-2025 10:45-0400 Body mass index (BMI) [Ratio] 23.2 kg/m2 No Primary Care Physician [facility] 04-24-2025 10:45-0400 Body weight 79.83 kg No Primary Care Physician [facility] 04-24-2025 10:45-0400 Diastolic blood pressure 83 mm[Hg] No Primary Care Physician [facility] 04-24-2025 10:45-0400 Heart rate 65 /min No Primary Care Physician [facility] 04-24-2025 10:45-0400 Respiratory rate 18 /min No Primary Care Physician [facility] 04-24-2025 10:45-0400 SaO2% (BldA) [Mass fraction] 96 % No Primary Care Physician [facility] 04-24-2025 10:45-0400 Systolic blood pressure 151 mm[Hg] No Primary Care Physician [facility] 03-18-2025 14:14-0400 Body height 185.42 cm No Primary Care Physician [facility] 03-18-2025 14:13-0400 Body mass index (BMI) [Ratio] 22.6 kg/m2 No Primary Care Physician [facility] 03-18-2025 14:13-0400 Body weight 78.01 kg No Primary Care Physician [facility] 03-18-2025 14:13-0400 Diastolic blood pressure 94 mm[Hg] No Primary Care Physician [facility] 03-18-2025 14:13-0400 Heart rate 85 /min No Primary Care Physician [facility] 03-18-2025 14:13-0400 Respiratory rate 18 /min No Primary Care Physician [facility] 03-18-2025 14:13-0400 SaO2% (BldA) [Mass fraction] 95 % No Primary Care Physician [facility] 03-18-2025 14:13-0400 Systolic blood pressure 155 mm[Hg] No Primary Care Physician [facility] 02-13-2025 08:45-0400 Body mass index (BMI) [Ratio] 21.4 kg/m2 No Primary Care Physician [facility] 02-13-2025 08:45-0400 Body temperature 97.3 [degF] No Primary Care Physician [facility] 02-13-2025 08:45-0400 Body weight 73.93 kg No Primary Care Physician [facility] 02-13-2025 08:45-0400 Diastolic blood pressure 88 mm[Hg] No Primary Care Physician [facility] 02-13-2025 08:45-0400 Heart rate 101 /min No Primary Care Physician [facility] 02-13-2025 08:45-0400 Respiratory rate 20 /min No Primary Care Physician [facility] 02-13-2025 08:45-0400 SaO2% (BldA) [Mass fraction] 96 % No Primary Care Physician [facility] 02-13-2025 08:45-0400 Systolic blood pressure 145 mm[Hg] No Primary Care Physician [facility] 02-10-2025 14:05-0400 Body height 185.42 cm No Primary Care Physician [facility] 02-10-2025 14:05-0400 Body weight 72.57 kg No Primary Care Physician [facility] 02-10-2025 14:05-0400 Heart rate 81 /min No Primary Care Physician [facility] 02-10-2025 14:05-0400 SaO2% (BldA) [Mass fraction] 97 % No Primary Care Physician [facility] 01-27-2025 14:00-0400 Body height 185.42 cm No Primary Care Physician [facility] 01-27-2025 14:00-0400 Body mass index (BMI) [Ratio] 20.5 kg/m2 No Primary Care Physician [facility] 01-27-2025 14:00-0400 Body weight 70.76 kg No Primary Care Physician [facility] 01-27-2025 14:00-0400 Diastolic blood pressure 91 mm[Hg] No Primary Care Physician [facility] 01-27-2025 14:00-0400 Heart rate 77 /min No Primary Care Physician [facility] 01-27-2025 14:00-0400 Respiratory rate 18 /min No Primary Care Physician [facility] 01-27-2025 14:00-0400 SaO2% (BldA) [Mass fraction] 96 % No Primary Care Physician [facility] 01-27-2025 14:00-0400 Systolic blood pressure 165 mm[Hg] No Primary Care Physician [facility] 12-31-2024 12:52-0500 Body mass index (BMI) [Ratio] 18.4 kg/m2 No Primary Care Physician [facility] 12-31-2024 12:52-0500 Body temperature 97.2 [degF] No Primary Care Physician [facility] 12-31-2024 12:52-0500 Body weight 63.5 kg No Primary Care Physician [facility] 12-31-2024 12:52-0500 Diastolic blood pressure 63 mm[Hg] No Primary Care Physician [facility] 12-31-2024 12:52-0500 Heart rate 62 /min No Primary Care Physician [facility] 12-31-2024 12:52-0500 Respiratory rate 20 /min No Primary Care Physician [facility] 12-31-2024 12:52-0500 SaO2% (BldA) [Mass fraction] 96 % No Primary Care Physician [facility] 12-31-2024 12:52-0500 Systolic blood pressure 121 mm[Hg] No Primary Care Physician [facility] 12-16-2024 15:37-0500 Inhaled oxygen flow rate 2 L/min No Primary Care Physician [facility] 12-16-2024 14:57-0500 Body temperature 98.2 [degF] No Primary Care Physician [facility] 12-16-2024 14:57-0500 Diastolic blood pressure 75 mm[Hg] No Primary Care Physician [facility] 12-16-2024 14:57-0500 Heart rate 72 /min No Primary Care Physician [facility] 12-16-2024 14:57-0500 Respiratory rate 17 /min No Primary Care Physician [facility] 12-16-2024 14:57-0500 SaO2% (BldA) [Mass fraction] 97 % No Primary Care Physician [facility] 12-16-2024 14:57-0500 Systolic blood pressure 138 mm[Hg] No Primary Care Physician [facility] 12-16-2024 03:16-0500 Body mass index (BMI) [Ratio] 20.4 kg/m2 No Primary Care Physician [facility] 12-16-2024 03:16-0500 Body weight 70.1 kg No Primary Care Physician [facility] 12-14-2024 10:40-0500 Body height 185.42 cm No Primary Care Physician [facility] 12-23-2023 14:59-0500 Body temperature 98.3 [degF] [place] 12-23-2023 14:59-0500 Diastolic blood pressure 81 mm[Hg] [facility] 12-23-2023 14:59-0500 Heart rate 93 /min [facility] 12-23-2023 14:59-0500 Respiratory rate 22 /min [place] 12-23-2023 14:59-0500 SaO2% (BldA) [Mass fraction] 95 % [facility] 12-23-2023 14:59-0500 Systolic blood pressure 162 mm[Hg] [facility] 12-23-2023 11:26-0500 Body height 182.88 cm [facility] 12-23-2023 11:26-0500 Body mass index (BMI) [Ratio] 21.7 kg/m2 [facility] 12-23-2023 11:050 Body weight 72.8 kg [facility] Encounters Encounter Date Encounter Type Care Provider Facility Start: 06-01-2025 ambulatory [facility] Facility:[facility] Start: 05-11-2025 End: 05-11-2025 ambulatory Becky Hagen INFORMATION TECHNOLOGY AUDITOR-C Work Phone: -Laboratory Start: 05-11-2025 End: 05-11-2025 Patient encounter procedure Rickey Rainey PA -Laboratory Work Phone: Start: 05-11-2025 End: 05-11-2025 ambulatory [facility] Facility:[facility] Start: 04-24-2025 End: 04-24-2025 Patient encounter procedure Rickey Rainey PA -[facility] Work Phone: Start: 04-24-2025 End: 04-24-2025 ambulatory No Primary Care Physician -[facility] Start: 04-14-2025 End: 04-14-2025 ambulatory No Primary Care Physician [facility] Work Phone: Start: 04-14-2025 End: 04-14-2025 Patient encounter procedure Rickey Brigid PA -Laboratory Work Phone: Start: 04-14-2025 End: 04-14-2025 [facility] Facility:[facility] Start: 03-18-2025 End: 03-18-2025 Patient encounter procedure Rickey Brigid PA -[facility] Work Phone: Start: 03-18-2025 End: 03-18-2025 ambulatory No Primary Care Physician [facility] Work Phone: Start: 03-18-2025 End: 03-18-2025 ambulatory [facility] Facility:[facility] Start: 02-27-2025 Non-patient / Non-visit Laurence ramírez NP-C -[facility] Work Phone: Start: 02-27-2025 ambulatory [facility] Facility:[facility] Start: 02-25-2025 ambulatory [facility] Start: 02-25-2025 Non-patient / Non-visit Dr. Mary NELSON -[facility] Start: 02-25-2025 End: 02-25-[address] Taj Allen MD -Cardiovascular Services Work Phone: Start: 02-25-2025 End: 02-25-2025 [facility] Facility:[facility] Start: 02-13-2025 End: 02-13-2025 Patient encounter procedure HAMLET Hagen -[facility] Work Phone: Start: 02-13-2025 End: 02-13-2025 ambulatory [facility] Facility:[facility] Start: 02-12-2025 ambulatory [facility] Facility:[facility] Start: 02-12-2025 Non-patient / Non-visit Dr. Nicola thompson DO -[facility] Start: 02-10-2025 End: 02-10-2025 ambulatory No Primary Care Physician [facility] Work Phone: Start: 02-10-2025 End: 02-10-2025 Patient encounter procedure HAMLET Hagen -Pulmonary Services/Neurology Work Phone: Start: 02-10-2025 End: 02-10-2025 ambulatory [facility] Facility:[facility] Start: 02-04-2025 End: 02-04-2025 ambulatory No Primary Care Physician [facility] Work Phone: Start: 02-04-2025 End: 02-04-2025 Patient encounter procedure Ceci Leyva NP-C -Cat Scan, [facility] Work Phone: Start: 02-04-2025 End: 02-04-2025 ambulatory [facility] Facility:[facility] Start: 01-27-2025 End: 01-27-[address] Taj Allen MD -[facility] Work Phone: Start: 01-27-2025 End: 01-27-2025 ambulatory [facility] Facility:[facility] Start: 01-21-2025 Non-patient / Non-visit Dr. Nicola Lazaro own DO -[facility] Start: 01-21-2025 End: 01-21-2025 ambulatory No Primary Care Physician [facility] Work Phone: Start: 01-21-2025 End: 01-21-2025 Patient encounter procedure HAMLET Hagen -Pulmonary Services/Neurology Work Phone: Start: 01-21-2025 End: 01-21-2025 ambulatory [facility] Facility:[facility] Start: 12-31-2024 End: 12-31-2024 Patient encounter procedure HAMLET Hagen -[facility] Work Phone: Start: 12-31-2024 End: 12-31-2024 ambulatory Becky Hagen Facility:[facility] Start: 12-25-[address] Addi Andino MD -Occupational Therapy Work Phone: Start: 12-25-2024 End: 12-25-2024 ambulatory Sp Andino Facility:[facility] Start: 12-16-2024 Non-patient / Non-visit Dr. Miguelina Andino MD -[facility] Work Phone: Start: 12-15-2024 Non-patient / Non-visit Dr. Miguelina Andino MD -[facility] Work Phone: Start: 12-15-2024 Non-patient / Non-visit Dr. Nicola Lazaro own DO -[facility] Start: 12-15-2024 ambulatory Bhavesh Justin Facility:[facility] Start: 12-15-2024 Non-patient / Non-visit Dr. Bhavesh irvin MD -[facility] Start: 12-14-2024 End: 12-14-2024 ambulatory Bhavesh Anderson Facility:[facility] Start: 12-14-2024 End: 12-14-2024 Non-patient / Non-visit Dr. Sp Andino MD -[facility] Work Phone: Start: 12-13-2024 ambulatory Sp Andino Fac ility:[facility] Start: 12-13-2024 End: 12-16-2024 Evaluation and management of inpatient Dr. Sp Andino MD -Progressive Care Unit Work Phone: Start: 12-09-2024 End: 12-09-2024 Patient encounter procedure Esha Marley INFORMATION TECHNOLOGY AUDITOR-C -Radiology, [facility] Work Phone: Start: 12-09-2024 End: 12-09-2024 ambulatory Esha Musat Facility:[facility] Start: 12-23-2023 End: 12-23-2023 Emergency department patient visit [facility]-Emergency Department Work Phone: Procedures Date Procedure [...] med using the TPSA assay method for [employer] chemistry system. Values obtained with differentassay methods cannot be used interchangably.When changing PSA assays in the course of monitoring apatient, additional sequential testing should be carriedout to confirm baseline values. Start: 12-13-2024 X-ray of chest, PA a nd lateral views No Primary Care Physician Start: 12-13-2024 Nucleic acid assay No P [facility] Care Physician Start: 12-13-2024 SARS-CoV-2, Influenz a & RSV (PCR) No Primary Care Physician Start: 12-09-2024 X-ray of chest, PA a nd lateral views No Primary Care Physician Start: 12-23-2023 MRI of lower extremity Start: 12-23-2023 Radiologic examinati on of knee Start: 12-23-2023 X-ray of both feet Plan of Treatment Date Care Activity Detail Author Start: 04-24-2025 Evaluation of diagno stic study results [facility] Start: 02-10-2025 Walking distance 6 minutes [facility] Start: 12-16-2024 Patient discharge [facility] Start: 12-14-2024 Speech therapy assessment [facility] Start: 12-14-2024 Referral to occupati onal therapist [facility] Start: 12-14-2024 Referral to service [facility] Start: 12-14-2024 Patient referral to dietitian [facility] Start: 12-14-2024 Application of inter mittent pneumatic compression device [facility] Start: 12-14-2024 Consultation [facility] Start: 12-14-2024 Inhalation therapy procedure [facility] Start: 12-13-2024 End: 12-14-2024 [facility] Start: 12-13-2024 Following clinical p athway protocol [facility] Start: 12-13-2024 Assessment of risk o f venous thromboembolism [facility] Start: 12-13-2024 Insertion of cathete r into peripheral vein [facility] Start: 12-13-2024 Measuring intake and output [facility] Start: 12-13-2024 Oxygen therapy [facility] Start: 12-13-2024 Providing care accor ding to standard [facility] Start: 12-13-2024 Provision of activity privileges [facility] Start: 12-13-2024 Referral to service [facility] Start: 12-13-2024 Tobacco use cessation education [facility] Start: 12-13-2024 Admission procedure [facility] Start: 12-13-2024 Patient referral to dietitian [facility] Start: 12-23-2023 [facility] Basic metabolic 2008 panel with ionized calcium - Serum or Plasma [facility] Basic metabolic 2008 panel with ionized calcium - Serum or Plasma [facility] CBC W Auto Different ial panel - Blood [facility] CT Chest WO contrast [facility] CT Chest WO contrast [facility] Patient Education [facility] Work Phone: Patient referral [facility] Work Phone: Heart limited [facility] Payers Date Payer Category Payer Unknown [id number] 2024 Unknown [id number] 2024 Self-pay 2024 Unknown [id number] Unknown [id number] 2.16.8 [id number] Unknown [id number] 2.16.8 40.1.301048.3.579.2.462 Unknown [id number] 2.16.8 40.1.509529.3.579.2.462 Unknown [id number] 2.16.8 40.1.234113.3.579.2.462 Unknown [id number] 2.16.8 40.1.728758.3.579.2.462 Unknown [id number] 2.16.8 40.1.297540.3.579.2.462 Unknown [id number] 2.16.8 40.1.328825.3.579.2.462 Unknown [id number] 2.16.8 40.1.776348.3.579.2.462 Unknown [id number] 2.16.8 40.1.939301.3.579.2.462 Unknown [id number] 2.16.8 40.1.682046.3.579.2.462 Unknown [id number] 2.16.8 40.1.327900.3.579.2.462 Unknown [id number] 2.16.8 40.1.076237.3.579.2.462 Unknown [id number] 2.16.8 40.1.516795.3.579.2.462 Unknown [id number] 2.16.8 40.1.938628.3.579.2.462 Unknown [id number] 2.16.8 40.1.530308.3.579.2.462 Unknown [id number] 2.16.8 40.1.121428.3.579.2.462 Unknown [id number] 2.16.8 40.1.176273.3.579.2.462 Unknown [id number] 2.16.8 40.1.309989.3.579.2.462 Unknown [id number] 2.16.8 40.1.687348.3.579.2.462 Unknown [id number] 2.16.8 40.1.834561.3.579.2.462 Unknown [id number] 2.16.8 40.1.993161.3.579.2.462 Unknown [id number] 2.16.8 40.1.182167.3.579.2.462 Unknown [id number] 2.16.8 40.1.021023.3.579.2.462 Unknown [id number] 2.16.8 40.1.749905.3.579.2.462 Unknown [id number] 2.16.8 40.1.215846.3.579.2.462 Unknown [id number] 2.16.8 40.1.442608.3.579.2.462 Unknown [id number] 2.16.8 40.1.838110.3.579.2.462 Social History Date Type Detail Facility Start: 12-23-2023 Tobacco smoking stat us [facility] Unknown if ever smoked [facility] Start: 1960 Sex Assigned At Male [facility] Start: 12-31-2024 End: 01-27-2025 Tobacco smoking status NHIS Ex-smoker (finding) [facility] Start: 01-26-2025 End: 02-12-2025 Sex Male (finding) [facility] Goals Date Patient Goal Desired Activity /State Functional Status Date Assessment Result Facility 12-16-2024 Functional status Ambulates [facility] Work Phone: Mental Status Date Assessment Result Facility 12-16-2024 Cognitive function Cooperative [facility] Work Phone: 12-15-2024 Cognitive function Arousable To Voice/Nam e [facility] Work Phone: Clinical Notes 12-23-2023 to 02-05-2025 Note Date & Type Note Facility 02-05-2025 Radiology Diagnostic study note [facility] Imaging Services [address] [place], [place] [id number] Chest without Contrast MR#: [id number] Acct: [id number] Name: KRISTIAN DEWITT Rep #: [id number] : 1960 M 64 From: Manuel Vinson MD PCP: EDDIE Mckeon Status: REG CLI Study:Chest without Contrast Date of Exam: 02/04/25 Exam# [id number] Ordering Dr: Usha Leyva NP INFORMATION TECHNOLOGY AUDITOR-C PROCEDURE: CHEST WITHOUT CONTRAST 02/04/2025 REASON FOR [...] within bilateral lungs. Reading Location: [facility] CC: EDDIE Leyva; EDDIE Isaac ~ Compounding Technician: Signed [facility] 01-27-2025 Evaluation note Diagnosis Onset Date [...] 10:34am Hypertension chronic April 24, 025 10:34am [facility] Work Phone: 1(822) 804-718503-05-2025 Evaluation note* Diagnosis Onset Date Resolution Status [...] ejection fraction acute March 18, 2025 2:09pm [facility] Work Phone: 1(870) 823-436603-05-2025 Evaluation note* Diagnosis Onset Date Resolution Status [...] 24 10:34am Hypertension chronic April 24 10:34am [facility] Work Phone: 1(685) 735-296202-18-2025 [facility] Medical Records Department [address] [place] [address] Discharge Summary 12/16/24 1444 MR#: [id number] Acct: [id number] Name: KRISTIAN DEWITT Rep #: [id number] : 1960 64 From: Sp Andino MD PCP: Care Physician,No Primary Status:ADM IN Location: [facility] [id number] Providers Date of Admission: 12/13/24 Primary Care Physician: No Primary Care Phys Consultations 12/14/24 00:53 Consult: Software Sales / Pulmonary Medicine Routine Consulting Provider: Intensivists/Pulmonary [...] fall; treated nonoperatively (11/2023) who presents to [facility] ER complaining of shortness of breath, [...] moderate pulmonary hypertension with (more content not included)...[facility] 12-14-2024 Evaluation note* Diagnosis Onset Date [...] pack years acute December 31, 2024 3:09pm [facility] Work Phone: 1(203) 193-281302-16-2025 Evaluation note* Diagnosis Onset Date Resolution Status [...] Tobacco abuse acute January 27, 2025 1:56pm [facility] Work Phone: 1(795) 337-904602-16-2025 Evaluation note* Diagnosis Onset Date Resolution Status [...] pack years acute February 13, 2025 2:41pm [facility] Work Phone: 1(815) 544-786902-25-2024 Discharge summary Author Mikey Beckwith [facility] December 23, 2023 2:27pm Note Date/Time December 23, 2023 11:44am [facility] Medical Records Department [address] [place] [address] Emergency Department Summary 12/23/23 MR#: [id number] Acct: [id number] Name: KRISTIAN DEWITT Rep #:[id number] : 1960 63 From: Mikey Beckwith MD [...] contusion versus fracture. He was given 1 Ashton tablet here for analgesia and x-rays were [...] He was given a prescription for 12 Ashton tablets, told to continue ice and elevation [...] 12:50 EST Reading Location ID and State: [facility] / ID Tel , Service support , Knee X-Ray [...] EST , Management Discussion w/another healthcare provider: Director Television (Dr. Doyle, Orthopaedics) Discharge Plan Triage Chief [...] your Primary Care Provider. Call [facility] ([phone]) or report to the closest Emergency Room. Call 911 if necessary. 12/23/23 1427 <Electronically signed by Mikey Beckwith MD> Cosigner Signature (if applicable): CC: No Primary Care Physician ~ Signed [facility] Work Phone: Evaluation noteNo assessment information available [facility] Work Phone: Hospital Discharge instructions Additional Instructions Do not bear weight on your left leg. Follow-up with Dr. Doyle within the next week. Call tomorrow for an appointment. Continue ice and elevation of your left lower leg/knee. Wear your knee immobilizer.[facility] Work Phone: Reason for referral (narrative)No reason for [facility] Work Phone: Chief Complaint and Reason [...] January 21, 2025 12: 55pm AFIB AVR ([facility]) January 27, 2025 1:56 pm 94 PACK [...] January 21, 2025 12: 55pm AFIB AVR ([facility]) January 27, 2025 1:56 pm 94 PACK [...] January 21, 2025 12: 55pm AFIB AVR ([facility]) January 27, 2025 1:56 pm 94 PACK [...] January 21, 2025 12: 59pm AFIB AVR ([facility]) January 27, 2025 1:56 pm 94 PACK [...] January 21, 2025 12: 59pm AFIB AVR ([facility]) January 27, 2025 1:56 pm 94 PACK [...] January 21, 2025 12: 59pm AFIB AVR ([facility]) January 27, 2025 1:56 pm 94 PACK [...] January 21, 2025 12: 59pm AFIB AVR ([facility]) January 27, 2025 1:56 pm 94 PACK [...] No December 23, 024 11:30am Power of Mental Health Technician No December 23, 2023 11:30am Advance Directive Response Recorded Date/ Time Living Will No December 13 11:31pm Do you have a Healthcare Power of Mental Health Technician? No December 13, 2024 11:31pm Summary Purpose [...] 2025 End: January 27, 2025 Randa Isaac INFORMATION TECHNOLOGY AUDITOR-C Primary Care Provider Active Start: January 27, 2025 End: January 27, 2025 Team Status: Inactive Member Role Status Dates Randa Isaac INFORMATION TECHNOLOGY AUDITOR-C Primary Care Provider Active Start: February 04, 2025 End: February 04, 2025 Ceci Leyva INFORMATION TECHNOLOGY AUDITOR, INFORMATION TECHNOLOGY AUDITOR-C Attending Provider Active Start: February 04, 2025 End: February 04, 2025 Ceci Leyva INFORMATION TECHNOLOGY AUDITOR, INFORMATION TECHNOLOGY AUDITOR-C Referring Provider Active Start: February 04, 2025 End: February 04, 2025 Team Status: Inactive Member Role Status Dates Becky Hagen INFORMATION TECHNOLOGY AUDITOR-C Attending Provider Active Start: February 10, 2025 End: February 10, 2025 Becky Hgaen INFORMATION TECHNOLOGY AUDITOR-C Referring Provider Active Start: February 10, 2025 End: February 10, 2025 Randa Isaac , INFORMATION TECHNOLOGY AUDITOR-C Primary Care Provider Active Start: February 10, 2025 End: February 10, 2025 Team Status: Active Member Role Status Dates Becky Hagen INFORMATION TECHNOLOGY AUDITOR-C Referring Provider Active Start: February 12, 2025 Becky Hagen NP-C Other Provider Active St art: February 12, 2025 Randa Isaac , INFORMATION TECHNOLOGY AUDITOR-C Primary Care Provider Active Start: February 12, 2025 Dr. Nicola Arthur DO Attending Provider Active S tart: February 12, 2025 Team Status: Inactive Member Role Status Dates No Primary Care Physician Referring Provider Active Start: February 13, 2025 End: February 13, 2025 Becky Hagen INFORMATION TECHNOLOGY AUDITOR-C Attending Provider Active Start: February 13, 2025 End: February 13, 2025 Randa Isaac INFORMATION TECHNOLOGY AUDITOR-C Primary Care Provider Active Start: February 13, 2025 End: February 13, 2025 Team Status: Inactive Member Role Status Dates Randa Isaac INFORMATION TECHNOLOGY AUDITOR-C Primary Care Provider Active Start: February 25, 2025 End: February 25, 2025 Dr. Taj Allen MD Attending Provider Active Start: February 25, 2025 End: February 25, 2025 Dr. Taj Allen MD Referring Provider Active Start: February 25, 2025 End: February 25, 2025 Team Status: Active Member Role Status Dates Randa Isaac INFORMATION TECHNOLOGY AUDITOR-C Primary Care Provider Active Start: February 25, 2025 Dr. Juan C Frankel MD Attending Provider Active S tart: February 25, 2025 Team Status: Active Member Role Status Dates Randa Isaac INFORMATION TECHNOLOGY AUDITOR-C Primary Care Provider Active Start: February 27, 2025 Laurence Wright NP, INFORMATION TECHNOLOGY AUDITOR-C Attending Provider Active Start: February 27, 2025 Team Status: Inactive Member Role Status Dates Randa Isaac INFORMATION TECHNOLOGY AUDITOR-C Primary Care Provider Active Start: March 18, 2025 End: March 18, 2025 Randa Isaac INFORMATION TECHNOLOGY AUDITOR-C Referring Provider Active St art: March 18, 2025 End: March 18, 2025 ALYSA Hussein Attending Provider Active St art: March 18, 2025 End: March 18, 2025 Team Status: Inactive Member Role Status Dates Randa Isaac INFORMATION TECHNOLOGY AUDITOR-C Primary Care Provider Active Start: March 18, 2025 End: March 18, 2025 ALYSA Hussein Attending Provider Active St art: March 18, 2025 End: March 18, 2025 ALYSA Hussein Referring Provider Active St art: March 18, 2025 End: March 18, 2025 Team Status: Inactive Member Role Status Dates Randa Isaac INFORMATION TECHNOLOGY AUDITOR-C Primary Care Provider Active Start: April 14, [...] 2024 End: December 09, 2024 Esha Marley INFORMATION TECHNOLOGY AUDITOR-C Attending Provider Active Star t: December 09, 2024 End: December 09, 2024 Esha Marley INFORMATION TECHNOLOGY AUDITOR-C Referring Provider Active Star t: December 09, [...] 2024 End: December 16, 2024 Dr. Rigo Arteaga MD [...] Provider Active Start: December 15, 2024 Dr. Smo Hdez MD Other Provider Active Star t: [...] Inactive Member Role/Relationship Status Dates Becky Hagen INFORMATION TECHNOLOGY AUDITOR-C Attending Provider Active Start: January 21, 2025 End: January 21, 2025 Becky Hagen INFORMATION TECHNOLOGY AUDITOR-C Referring Provider Active Start: January 21, 2025 End: January 21, 2025 Randa Isaac , INFORMATION TECHNOLOGY AUDITOR-C Primary Care Provider Active Start: January 21, 2025 End: January 21, 2025 Team Status: Active Member Role/Relationship Status Dates Randa Isaac INFORMATION TECHNOLOGY AUDITOR-C Primary Care Provider Active Start: January 21, 2025 Dr. Nicola Arthur DO Attending Provider Active S tart: January 21, 2025 Becky Hagen INFORMATION TECHNOLOGY AUDITOR-C Referring Provider Active Start: January 21, 2025 Team Status: Inactive Member Role/Relationship Status Dates No Primary Care Physician Referring Provider Active Start: January 27, 2025 End: January 27, 2025 Dr. Taj Allen MD Attending Provider Active Start: January 27, 2025 End: January 27, 2025 Randa Isaac INFORMATION TECHNOLOGY AUDITOR-C Primary Care Provider Active Start: January 27, 2025 End: January 27, 2025 Team Status: Inactive Member Role/Relationship Status Dates Randa Isaac , INFORMATION TECHNOLOGY AUDITOR-C Primary Care Provider Active Start: February 04, 2025 End: February 04, 2025 Ceci Leyva INFORMATION TECHNOLOGY AUDITOR, INFORMATION TECHNOLOGY AUDITOR-C Attending Provider Active Start: February 04, 2025 End: February 04, 2025 Ceci Leyva INFORMATION TECHNOLOGY AUDITOR, INFORMATION TECHNOLOGY AUDITOR-C Referring Provider Active Start: February 04, 2025 End: February 04, 2025 Team Status: Inactive Member Role/Relationship Status Dates Becky Hagen INFORMATION TECHNOLOGY AUDITOR-C Attending Provider Active Start: February 10, 2025 End: February 10, 2025 Becky Hagen INFORMATION TECHNOLOGY AUDITOR-C Referring Provider Active Start: February 10, 2025 End: February 10, 2025 Randa Isaac INFORMATION TECHNOLOGY AUDITOR-C Primary Care Provider Active Start: February 10, 2025 End: February 10, 2025 Team Status: Active Member Role/Relationship Status Dates Becky Hagen INFORMATION TECHNOLOGY AUDITOR-C Referring Provider Active Start: February 12, 2025 Becky Hagen INFORMATION TECHNOLOGY AUDITOR-C Other Provider Active St art: February 12, 2025 Randa Isaac INFORMATION TECHNOLOGY AUDITOR-C Primary Care Provider Active Start: February 12, 2025 Dr. Nicola Arthur DO Attending Provider Active S tart: February 12, 2025 Team Status: Inactive Member Role/Relationship Status Dates No Primary Care Physician Referring Provider Active Start: February 13, 2025 End: February 13, 2025 Becky Hagen INFORMATION TECHNOLOGY AUDITOR-C Attending Provider Active Start: February 13, 2025 End: February 13, 2025 Randa Poncho , INFORMATION TECHNOLOGY AUDITOR-C Primary Care Provider Active Start: February 13, 2025 End: February 13, 2025 Team Status: Inactive Member Role/Relationship Status Dates Randa Poncho , INFORMATION TECHNOLOGY AUDITOR-C Primary Care Provider Active Start: February 25, 2025 End: February 25, 2025 Dr. Taj Allen MD Attending Provider Active Start: February 25, 2025 End: February 25, 2025 Dr. Taj Allen MD Referring Provider Active Start: February 25, 2025 End: February 25, 2025 Team Status: Active Member Role/Relationship Status Dates Randa Poncho , INFORMATION TECHNOLOGY AUDITOR-C Primary Care Provider Active Start: February 25, 2025 Dr. Juan C Frankel MD Attending Provider Active S tart: February 25, 2025 Team Status: Active Member Role/Relationship Status Dates Randa Poncho , INFORMATION TECHNOLOGY AUDITOR-C Primary Care Provider Active Start: February 27, 2025 Laurence Wright NP, INFORMATION TECHNOLOGY AUDITOR-C Attending Provider Active Start: February 27, 2025 Team Status: Inactive Member Role/Relationship Status Dates Randa Poncho , INFORMATION TECHNOLOGY AUDITOR-C Primary Care Provider Active Start: March 18, 2025 End: March 18, 2025 Randa Isaac , INFORMATION TECHNOLOGY AUDITOR-C Referring Provider Active St art: March 18, 2025 End: March 18, 2025 ALYSA Hussein Attending Provider Active St art: March 18, 2025 End: March 18, 2025 Team Status: Inactive Member Role/Relationship Status Dates Randa Poncho , INFORMATION TECHNOLOGY AUDITOR-C Primary Care Provider Active Start: March 18, 2025 End: March 18, 2025 ALYSA Hussein Attending Provider Active St art: March 18, 2025 End: March 18, 2025 ALYSA Hussein Referring Provider Active St art: March 18, 2025 End: March 18, 2025 Team Status: Inactive Member Role/Relationship Status Dates Ranad Poncho , INFORMATION TECHNOLOGY AUDITOR-C Primary Care Provider Active Start: April 14, [...] January 21, 2025 End: January 21, 2025 Bceky Hagen NP-C Referring Provider Active Start: January [...] Member Role/Relationship Status Dates Randa Poncho , INFORMATION TECHNOLOGY AUDITOR-C Primary Care Provider Active Start: February 04, 2025 End: February 04, 2025 Ceci Leyva INFORMATION TECHNOLOGY AUDITOR, INFORMATION TECHNOLOGY AUDITOR-C Attending Provider Active Start: February 04, 2025 End: February 04, 2025 Ceci Leyva INFORMATION TECHNOLOGY AUDITOR, INFORMATION TECHNOLOGY AUDITOR-C Referring Provider Active Start: February 04, 2025 End: February 04, 2025 Team Status: Inactive Member Role/Relationship Status Dates Becky Hagen INFORMATION TECHNOLOGY AUDITOR-C Attending Provider Active Start: February 10, 2025 End: February 10, 2025 Becky Hagen INFORMATION TECHNOLOGY AUDITOR-C Referring Provider Active Start: February 10, 2025 End: February 10, 2025 Randa Isaac INFORMATION TECHNOLOGY AUDITOR-C Primary Care Provider Active Start: February 10, 2025 End: February 10, 2025 Team Status: Active Member Role/Relationship Status Dates Becky Hagen INFORMATION TECHNOLOGY AUDITOR-C Referring Provider Active Start: February 12, 2025 Becky Hagen INFORMATION TECHNOLOGY AUDITOR-C Other Provider Active St art: February 12, 2025 Randa Isaac INFORMATION TECHNOLOGY AUDITOR-C Primary Care Provider Active Start: February 12, 2025 Dr. Nicola Arthur DO Attending Provider Active S tart: February 12, 2025 Team Status: Inactive Member Role/Relationship Status Dates No Primary Care Physician Referring Provider Active Start: February 13, 2025 End: February 13, 2025 Bceky Hagen INFORMATION TECHNOLOGY AUDITOR-C Attending Provider Active Start: February 13, 2025 End: February 13, 2025 Randa Isaac INFORMATION TECHNOLOGY AUDITOR-C Primary Care Provider Active Start: February 13, 2025 End: February 13, 2025 Team Status: Inactive Member Role/Relationship Status Dates Randa Isaac INFORMATION TECHNOLOGY AUDITOR-C Primary Care Provider Active Start: February 25, 2025 End: February 25, 2025 Dr. Taj Allen MD Attending Provider Active Start: February 25, 2025 End: February 25, 2025 Dr. Taj Allen MD Referring Provider Active Start: February 25, 2025 End: February 25, 2025 Team Status: Active Member Role/Relationship Status Dates Randa Isaac INFORMATION TECHNOLOGY AUDITOR-C Primary Care Provider Active Start: February 25, 2025 Dr. Juan C Frankel MD Attending Provider Active S tart: February 25, 2025 Team Status: Active Member Role/Relationship Status Dates Randa Isaac INFORMATION TECHNOLOGY AUDITOR-C Primary Care Provider Active Start: February 27, 2025 Laurence Wright NP, INFORMATION TECHNOLOGY AUDITOR-C Attending Provider Active Start: February 27, 2025 Team Status: Inactive Member Role/Relationship Status Dates Randa Isaac INFORMATION TECHNOLOGY AUDITOR-C Primary Care Provider Active Start: March 18, 2025 End: March 18, 2025 Randa Isaac INFORMATION TECHNOLOGY AUDITOR-C Referring Provider Active St art: March 18, 2025 End: March 18, 2025 ALYSA Hussein Attending Provider Active St art: March 18, 2025 End: March 18, 2025 Team Status: Inactive Member Role/Relationship Status Dates Randa Isaac INFORMATION TECHNOLOGY AUDITOR-C Primary Care Provider Active Start: March 18, 2025 End: March 18, 2025 ALYSA Hussein Attending Provider Active St art: March 18, 2025 End: March 18, 2025 ALYSA Hussein Referring Provider Active St art: March 18, 2025 End: March 18, 2025 Team Status: Inactive Member Role/Relationship Status Dates Randa Isaac INFORMATION TECHNOLOGY AUDITOR-C Primary Care Provider Active Start: April 14, 2025 End: April 14, 2025 ALYSA Hussein Attending Provider Active St art: April 14, 2025 End: April 14, 2025 ALYSA Hussein Referring Provider Active St art: April 14, 2025 End: April 14, 2025 Team Status: Inactive Member Role/Relationship Status Dates Randa Isaac INFORMATION TECHNOLOGY AUDITOR-C Primary Care Provider Active Start: April 24, [...] 2025 End: January 21, 2025 Randa Isaac INFORMATION TECHNOLOGY AUDITOR-C Primary Care Provider Active Start: January 21, 2025 End: January 21, 2025 Team Status: Active Member Role/Relationship Status Dates Randa Isaac , INFORMATION TECHNOLOGY AUDITOR-C Primary Care Provider Active Start: January 21, 2025 Dr. Nicola Arthur , Attending Provider Active S tart: January 21, 2025 Becky Hagen INFORMATION TECHNOLOGY AUDITOR-C Referring Provider Active Start: January 21, 2025 Team Status: Inactive Member Role/Relationship Status Dates No Primary Care Physician Referring Provider Active Start: January 27, 2025 End: January 27, 2025 Dr. Taj Allen MD Attending Provider Active Start: January 27, 2025 End: January 27, 2025 Randa Isaac , INFORMATION TECHNOLOGY AUDITOR-C Primary Care Provider Active Start: January 27, 2025 End: January 27, 2025 Team Status: Inactive Member Role/Relationship Status Dates Randa Isaac , INFORMATION TECHNOLOGY AUDITOR-C Primary Care Provider Active Start: February 04, 2025 End: February 04, 2025 Ceci Leyva INFORMATION TECHNOLOGY AUDITOR, INFORMATION TECHNOLOGY AUDITOR-C Attending Provider Active Start: February 04, 2025 End: February 04, 2025 Ceci Leyva NP, INFORMATION TECHNOLOGY AUDITOR-C Referring Provider Active Start: February 04, 2025 End: February 04, 2025 Team Status: Inactive Member Role/Relationship Status Dates Becky Hagen INFORMATION TECHNOLOGY AUDITOR-C Attending Provider Active Start: February 10, 2025 End: February 10, 2025 Becky Hagen INFORMATION TECHNOLOGY AUDITOR-C Referring Provider Active Start: February 10, 2025 End: February 10, 2025 Randa Isaac , INFORMATION TECHNOLOGY AUDITOR-C Primary Care Provider Active Start: February 10, 2025 End: February 10, 2025 Team Status: Active Member Role/Relationship Status Dates Becky Hagen INFORMATION TECHNOLOGY AUDITOR-C Referring Provider Active Start: February 12, 2025 Becky Hagen INFORMATION TECHNOLOGY AUDITOR-C Other Provider Active St art: February 12, 2025 Randa Isaac , INFORMATION TECHNOLOGY AUDITOR-C Primary Care Provider Active Start: February 12, 2025 Dr. Nicola Arthur , Attending Provider Active S tart: February 12, 2025 Team Status: Inactive Member Role/Relationship Status Dates No Primary Care Physician Referring Provider Active Start: February 13, 2025 End: February 13, 2025 Becky Hagen INFORMATION TECHNOLOGY AUDITOR-C Attending Provider Active Start: February 13, 2025 End: February 13, 2025 Randa Isaac , INFORMATION TECHNOLOGY AUDITOR-C Primary Care Provider Active Start: February 13, 2025 End: February 13, 2025 Team Status: Inactive Member Role/Relationship Status Dates Randa Isaac , INFORMATION TECHNOLOGY AUDITOR-C Primary Care Provider Active Start: February 25, 2025 End: February 25, 2025 Dr. Taj Allen MD Attending Provider Active Start: February 25, 2025 End: February 25, 2025 Dr. Taj Allen MD Referring Provider Active Start: February 25, 2025 End: February 25, 2025 Team Status: Active Member Role/Relationship Status Dates Randa Isaac , INFORMATION TECHNOLOGY AUDITOR-C Primary Care Provider Active Start: February 25, 2025 Dr. Juan C Frankel MD Attending Provider Active S tart: February 25, 2025 Team Status: Active Member Role/Relationship Status Dates Randa Isaac , INFORMATION TECHNOLOGY AUDITOR-C Primary Care Provider Active Start: February 27, 2025 Laurence Wright NP, INFORMATION TECHNOLOGY AUDITOR-C Attending Provider Active Start: February 27, 2025 Team Status: Inactive Member Role/Relationship Status Dates Randa Isaac , INFORMATION TECHNOLOGY AUDITOR-C Primary Care Provider Active Start: March 18, 2025 End: March 18, 2025 Randa Isaac , INFORMATION TECHNOLOGY AUDITOR-C Referring Provider Active St art: March 18, 2025 End: March 18, 2025 ALYSA Hussein Attending Provider Active St art: March 18, 2025 End: March 18, 2025 Team Status: Inactive Member Role/Relationship Status Dates Randa Poncho , INFORMATION TECHNOLOGY AUDITOR-C Primary Care Provider Active Start: March 18, 2025 End: March 18, 2025 ALYSA Hussein Attending Provider Active St art: March 18, 2025 End: March 18, 2025 ALYSA Hussein Referring Provider Active St art: March 18, 2025 End: March 18, 2025 Team Status: Inactive Member Role/Relationship Status Dates Randa Isaac , INFORMATION TECHNOLOGY AUDITOR-C Primary Care Provider Active Start: April 14, 2025 End: April 14, 2025 ALYSA Hussein Attending Provider Active St art: April 14, 2025 End: April 14, 2025 ALYSA Hussein Referring Provider Active St art: April 14, 2025 End: April 14, 2025 Team Status: Inactive Member Role/Relationship Status Dates Randaelenita Isaac , INFORMATION TECHNOLOGY AUDITOR-C Primary Care Provider Active Start: April 24, [...] section and content) DATE CREATED AUTHOR 05/30/2025 [facility] FOR RECORDS PERTAINING TO PATIENTS WHO ARE [...] BE BASED ON THE PRIMARY CLINICAL RECORDS. [employer] provides no warranty or guarantee of the accuracy or completeness of information in this document.
== END | disposition home or self-care (01) ==
LOC: LAB 13:01
PROVIDERS: PCP Nurse Practitioner Family; Referring Provider Student in an Organized Health Care Education/Training Program; Visit Provider Student in an Organized Health Care Education/Training Program
DX: I11.0 Hypertensive heart disease with heart failure (principal); I50.9 Heart failure, unspecified
CPT/HCPCS: 36415; 80048

== ENCOUNTER → 2025-09-21 | Outpatient (CLI) | payer MEDICARE, SELFPAY ==
--- NOTE | 2025-09-21 08:48 | ECHOLC_ITS ---
Reason For Study Reason For Study: HFrEF Procedure This was a limited 2D transthoracic echocardiogram. Myocardial strain analysis was performed in this exam to aid in the assessment of cardiac function. Contrast injection was performed. Exam performed in department. Left Ventricle Normal LV size. Apical false tendon noted. The left ventricular ejection fraction is 45 %. Stage 1 diastolic dysfunction. No regional wall motion abnormalities noted. Right Ventricle Normal RV size. Normal systolic function. Atria Normal left atrium. Normal right atrium. Mitral Valve Normal mitral valve. Tricuspid Valve Normal tricuspid valve. Mild (1+) tricuspid valve insufficiency. Pulmonary artery systolic pressure is 33 mmHg. Aortic Valve Trisinus/trileaflet aortic valve. Pulmonic Valve Normal pulmonic valve. Great Vessels Normal aortic root. The pulmonary artery is normal size. Inferior vena cava collapse with respiration. Pericardium/Pleural No pericardial effusion. Medication 22 gauge I.V. with prn adaptor inserted into right arm. Diluted definity 2ml given slow IV push to enhance endocardial definition. MMode/2D Measurements & Calculations LVIDd: 6.1 cm IVSd: 0.78 cm LAV(MOD-sp4): 38.1 ml LVIDs: 4.6 cm LVPWd: 0.77 cm FS: 24.3 % LVAd ap4: 45.5 cm2 LVAd ap2: 48.3 cm2 SV(MOD-sp4): 81.9 ml LVLd ap4: 9.2 cm LVLd ap2: 9.5 cm SI(MOD-sp4): 40.0 ml/m2 EDV(MOD-sp4): 182.5 ml EDV(MOD-sp2): 200.4 ml EDV(sp4-el): 191.6 ml EDV(sp2-el): 207.9 ml LVAs ap4: 32.7 cm2 LVAs ap2: 34.5 cm2 LVLs ap4: 8.8 cm LVLs ap2: 8.6 cm ESV(MOD-sp4): 100.6 ml ESV(MOD-sp2): 116.9 ml ESV(sp4-el): 103.2 ml ESV(sp2-el): 117.3 ml EF(MOD-sp4): 44.9 % EF(MOD-sp2): 41.7 % EF(sp4-el): 46.1 % SV(MOD-sp2): 83.5 ml SV(sp4-el): 88.4 ml LA A4 area: 14.8 cm2 SI(MOD-sp2): 40.8 ml/m2 RA A4 area: 15.3 cm2 TAPSE: 2.4 cm Time Measurements MV dec time: 0.17 sec Doppler Measurements & Calculations MV E max quintin: 61.4 cm/sec Lat Peak E' Quintin: 11.4 cm/sec Med Peak E' Quintin: 5.2 cm/sec MV A max quintin: 86.9 cm/sec E/E' lat: 5.4 E/E' med: 11.9 MV E/A: 0.71 MV dec slope: 371.8 cm/sec2 TR max quintin: 275.4 cm/sec TR max P.3 mmHg ECHO/Echo Limited w/Contrast Interpretation Summary Normal LV size. The left ventricular ejection fraction is 45 %. Apical false tendon noted. Stage 1 diastolic dysfunction. The global longitudinal strain is mildly abnormal. Ordering Physician: Rickey Rainey Referring Physician: Randa Isaac Performed By: Chandu Murphy RDCS
== END | disposition home or self-care (01) ==
LOC: CVS 08:47
PROVIDERS: PCP Nurse Practitioner Family; Referring Provider Student in an Organized Health Care Education/Training Program; Visit Provider Student in an Organized Health Care Education/Training Program
DX: R00.2 Palpitations (principal)
CPT/HCPCS: 93308; Q9957; A4216; C8924